=== PATIENT | female | born 1945 | race Caucasian/White ===

== ENCOUNTER 2022-03-27 12:44 | Outpatient (CLI) | payer MEDICARE, BC, SELFPAY ==
--- NOTE | ~2022-03-27 | DEXA_ITS ---
Bone Density Report Name: SHERRY RENO Age: 76 Sex: Female Ethnicity: White Date of : 1945 Indication: postmenopausal; screening for osteoporosis; height loss; history of glucocorticoids; prior fracture; cancer; end stage renal disease; Referring Provider: JANICE GROVES Study: Bone densitometry was performed. Exam Date: March 27, 2022 Accession number: [id number] Bone Density: Region BMD T-score Z-score Classification AP Spine(L2, L3) 0.775 -2.6 0.0 Osteoporosis Femoral Neck (Left) 0.546 -2.7 -0.5 Osteoporosis Total Hip (Left) 0.793 -1.2 0.7 Osteopenia Femoral Neck (Right) 0.534 -2.8 -0.6 Osteoporosis Total Hip (Right) 0.751 -1.6 0.4 Osteopenia Total Hip Mean 0.772 -1.4 0.6 Osteopenia World Health Organization criteria for BMD impression classify patients as: Normal (T-score at or above -1.0), Osteopenia (T-score between -1.0 and -2.5), or Osteoporosis (T-score at or below -2.5). 10-year Fracture Risk: FRAX not reported because: Some T-score for Spine Total or Hip Total or Femoral Neck at or below -2.5 Treated for osteoporosis Clinical Information Provided by Patient: Has had a low trauma fracture Has taken Glucocorticoids Is being treated for osteoporosis Has used the following medications: Actonel (i.e. risedronate) Has the following medical conditions: Cancer, End stage renal disease Patient maximum height was 61 Menopause Age: 49 No regular weight bearing exercise Does not regularly consume dairy products Drinks caffeinated beverages Onset of menses at age 10 Number of children 0 Impression: The patient has established osteoporosis, based on the Right Femoral Neck T-score and the existence of a prior fracture. The patient has risk factors, including: previous fracture, history of glucocorticoid therapy. Discussion: It is important to ask patients whether they are taking their medications and to encourage continued and appropriate compliance with their osteoporosis therapies to reduce fracture risk. It is also important to review their risk factors and encourage appropriate calcium and vitamin D intakes, exercise, fall prevention and other lifestyle measures. Follow-Up: Consider a repeat BMD and Vertebral Fracture Assessment (VFA) exam in 2 years or sooner if medically necessary, to reassess this patient's status. Reported by: JADA on 03/27/2022 1:07:00 PM. Reviewed, dictated and finalized at location AVonnie GUNN
== END 2022-03-27 12:45 | disposition home or self-care (01) ==
LOC: ANHIMG 12:46
PROVIDERS: PCP Family Medicine; Visit Provider Family Medicine
DX: M81.8 Other osteoporosis without current pathological fracture (principal); M85.89 Other specified disorders of bone density and structure, multiple sites
CPT/HCPCS: 77080

== ENCOUNTER 2023-05-21 08:14 | Inpatient (IN) | payer MEDICARE, BC, SELFPAY ==
[2023-05-21] VITALS (28 sets, daily range): BP systolic 101–125; BP diastolic 45–93; PULSE 80–105; RESP 18–28; TEMP 35.9–37.1; O2SAT 91–98; BMI 29.7
--- NOTE | ~2023-05-21 | CT_ITS ---
Non-contrast CT scan of the Abdomen and Pelvis Clinical indication: Abdominal pain Technique: 2.5 mm axial scans were obtained through the abdomen and pelvis without intravenous or or al contrast. Dose reduction technique was used on this scan by utilizing automated exposure control a nd iterative reconstruction technique. The dose-length product (DLP) was 731.65 mGy-cm. Findings: Images through the lung bases reveal moderate to large hiatal hernia. 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 There is a 3 cm gallstone within the gallbladder lumen. There is an additional 3 cm gallstone in the mid to distal small bowel resulting in small bowel obstruction. Findings are consistent with gallstone ileus. Small fat-containing umbili mir hernia present. Large bowel is decompressed. The spleen, pancreas, kidneys, and adrenals appear normal. There are atherosclerotic calcifications o f the aorta. . Images through the pelvis were performed. There is no evidence of ascites or lymphadenopathy. Urinary bladder unremarkable. No adnexal mass seen. Impression: Gallstone ileus, with obstructing 3 cm gallstone at the mid to distal small bowel. Associated underly ing cholecystoduodenal fistula present. Additional 3 cm gallstone within the gallbladder lumen with associated pneumobilia. Moderate to large hiatal hernia. Case discussed with Dr. Hardy in the emergency room at the time of this reading. Reviewed, dictated and finalized at [facility]. Impression: Gallstone ileus, with obstructing 3 cm gallstone at the mid to distal small bow el. Associated underlying cholecystoduodenal fistula present. Additional 3 cm gallstone within the gallbladder lumen with associated pneumobi gomez. Moderate to large hiatal hernia. Case discussed with Dr. Hardy in the emergency room at the time of this read ing.
--- NOTE | 2023-05-21 08:31 | ED.GENADULT ---
HPI - General Adult General Chief complaint: Nausea/Vomiting/Diarrhea Stated complaint: N/V Time Seen by Provider: 05/21/23 08:21 History of Present Illness HPI narrative: 77-year-old female presented the emergency for evaluation of abdominal pain that started on Friday. Patient reports he does have associated nausea and vomiting. Patient denies any diarrhea. Patient states that he has had decreased flatus. Patient does have a prior history of a kidney transplant in 1994 Related Data Home Medications Medication Instructions Recorded Confirmed ergocalciferol (vitamin D2) 1,250 1,250 mcg PO MONTHLY 10/03/20 05/21/23 mcg (50,000 unit) capsule fluticasone propionate 50 1 spray intranasal DAILY PRN 10/03/20 05/21/23 mcg/actuation nasal Congestion spray,suspension furosemide 20 mg tablet 20 mg PO QAM 10/03/20 05/21/23 lisinopril 5 mg tablet 10 mg PO DAILY 10/03/20 05/21/23 mecobalamin (vitamin B12) 1,000 1,000 mcg PO DAILY 10/03/20 05/21/23 mcg chewable tablet vwxlzacz-paa-nzgyy acid 0.4 1 tablet PO DAILY 10/03/20 05/21/23 mg-lycopene 300 mcg-lutein 250 mcg tablet (Centrum Silver) mycophenolate mofetil 500 mg tablet 500 mg PO Q12H 10/03/20 05/21/23 omega-3 fatty acids-fish oil 360 1 cap PO DAILY 10/03/20 05/21/23 mg-1,200 mg capsule (Fish Oil) potassium chloride 10 mEq 10 meq PO DAILY 10/03/20 05/21/23 tablet,extended release prednisone 5 mg tablet 5 mg PO DAILY 10/03/20 05/21/23 simvastatin 20 mg tablet 20 mg PO DAILY 10/03/20 05/21/23 valacyclovir 500 mg tablet 500 mg PO DAILY 10/03/20 05/21/23 esomeprazole magnesium 20 mg 20 mg PO DAILY 03/20/21 05/21/23 capsule,delayed release (Nexium) folic acid 1 mg tablet 1 mg PO DAILY 02/25/23 05/21/23 loratadine 10 mg disintegrating 10 mg PO DAILY PRN Allergy Symptoms 02/25/23 05/21/23 tablet (Alavert) cyclosporine modified 25 mg 25 mg PO TID 05/21/23 05/21/23 capsule (Neoral) Allergies Allergy/AdvReac Type Severity Reaction Status Date / Time No Known Allergies Allergy Verified 05/21/23 12:23 Review of Systems Review of Systems: All systems reviewed & are unremarkable except as noted in HPI and below PMFSH Past Medical History Medical History (Updated 05/21/23 @ 11:51 by Sami Hall MD) GERD (gastroesophageal reflux disease) Hyperlipidemia Hypertension Osteoporosis Surgical History Surgical History (Updated 05/21/23 @ 11:51 by Sami Hall MD) H/O kidney transplant H/O parathyroidectomy Social History Social History Social History: Caffeine-diet soda Smoking status: Never smoker Alcohol intake: never Substance use: never Lack of Transportation: No Lack of Food: Never True Current Housing: I Have Housing Concerned About Future Housing: No Difficulty Paying Gas/Electric Bills: No Difficulty Paying for Meds: No Currently Unemployed: No Education: Don't Know Difficulty w/ Childcare or Family Care: No Occupation/Education: retired Gender identity (if verbalized by the patient): Female Spiritual care concerns: No Exam Narrative: APPEARANCE: Well appearing, no pain, no distress, well-nourished. HEAD: normocephalic, atraumatic. EYES: PERRLA/EOMI, conjunctivae clear. NOSE: Normal no drainage NECK: Supple. No adenopathy, no masses. RESPIRATORY: Airway patent, respirations nonlabored. Clear to auscultation bilaterally, no rales, rhonchi, wheezing. CARDIOVASCULAR: Regular rate and rhythm without murmurs rubs or gallops. ABDOMINAL: Decreased bowel sounds with diffuse right-sided abdominal tenderness to palpation MUSCULOSKELETAL: Moves all extremities. Strength/ROM intact, No edema, No calf tenderness. NEURO: Alert. Cranial nerves II through XII intact. Grossly intact SKIN: Warm, dry. Normal Color Course Course Emergency Course: 77-year-old female presented ED for evaluation of right-sided abdominal pain. CT scan was concerning fo
[2023-05-21] MEDS: SODIUM CHLORIDE 0.9% IV 1,000 ML 999 ML IV CONT ×2 (08:36→10:18)
[2023-05-21] MEDS: ONDANSETRON INJ 4 MG/2 ML VIAL IV PUSH (08:36)
[2023-05-21 08:42] LABS: Basophils Percent Auto 0.2 % (0.2-1.2); Eosinophils Percent Auto 0.2 % (0-4.4); Hematocrit 44.7 % (37.0-47.0); Hemoglobin 15.5 g/dL (12.0-15.0); Immature Granulocyte Absolute 0.05 K/mm3 (0.00-0.031); Immature Granulocyte Percent A 0.4 % (0-0.5); Lymphocytes Percent Auto 9.9 % (18.3-44.2); Mean Corpuscular HGB Conc 34.7 g/dl (32-36); Mean Corpuscular Hemoglobin 34.4 pg (26-34); Mean Corpuscular Volume 99.1 fl (80-100); Mean Platelet Volume 9.7 fl (7.4-10.4); Monocytes Absolute Auto 0.8 K/mm3 (0.1-0.6); Monocytes Percent Auto 6.3 % (2.6-8.5); Neutrophils Absolute Auto 10.9 K/mm3 (1.3-6.7); Platelet Count Result 253 k/mm3 (150-375); Red Blood Count 4.51 M/mm3 (4.2-5.4); Red Cell Distribution Width 13.5 % (11.5-14.5); White Blood Count 13.1 K/mm3 (4.5-10.0)
[2023-05-21 08:51] LABS: Lactic Acid Reflex 1.6 mmol/L (0.7-2.0)
[2023-05-21 08:52] LABS: Alanine Aminotransferase 20 U/L (6-35); Albumin Level 4.6 g/dL (3.5-5.1); Alkaline Phosphatase 65 U/L (38-126); Anion Gap 15 mmol/L (8-16); Aspartate Amino Transferase 27 U/L (14-36); Bilirubin,Total 2.3 mg/dL (0.2-1.3); Blood Urea Nitrogen 39 mg/dL (7-17); Calcium 9.1 mg/dL (8.4-10.2); Carbon Dioxide 23 mmol/L (22-30); Chloride 98 mmol/L (98-107); Estimated CRCL calculation 21 ml/min; Estimated Glomerular Filt Rate 29; Glucose 149 mg/dL (65-110); Lipase 64 U/L (23-300); Potassium 3.9 mmol/L (3.4-5.0); Sodium 136 mmol/L (137-145)
[2023-05-21 10:08] LABS: Appearance Urine Turbid (Clear); Bacteria Urine None Seen /hpf; Bilirubin Urine 1+ (Negative); Blood Urine Negative (Negative); Color Urine Dark Yellow (Yellow); Glucose Urine UA Negative (Negative); Ketones Urine Trace mg/dL (Negative); Leukocyte Esterase Ur 2+ LEU/UL (Negative); Need Manual Microscopic Reviewed; Nitrate Urine Negative (Negative); Non Pathogenic Casts >20; Protein Urine 2+ mg/dL (Negative); Specific Grav Ur 1.019 (1.001-1.035); Squamous Epithelial Cell Urine Many /hpf (Few); WBC Urine 21-50 /hpf
[2023-05-21 10:10] LABS: Add Urine Microscopic? YES
--- NOTE | 2023-05-21 10:55 | PC.NURSE ---
3 unsuccessful NG tube attempts. notified.
[2023-05-21] MEDS: LACTATED RINGERS 1,000 ML 30 ML IV CONT ×2 (11:35→14:23)
--- NOTE | 2023-05-21 11:40 | PM.IMHP ---
H&P: HPI History of Present Illness Date/Time: 05/21/23 11:40 Chief Complaint: Abdominal pain and vomiting Narrative: Patient is a 77-year-old woman who night before last began having pain in the mid chest as well as vomiting. This pain went down to the epigastric area and she continued to have multiple episodes of vomiting with increasing pain. This continued all day yesterday and patient came to the emergency room this morning. She also noted abdominal distension. She was seen in the emergency room and found to have a distended abdomen with absent bowel sounds and tenderness in the right side of the abdomen. Her white blood cell count was elevated to 13,100. She had a CT scan of the abdomen pelvis which showed gallstone ileus. 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 She was seen in the emergency room and is admitted with plans to proceed to surgery from the emergency room for laparotomy and removal of the obstructing gallstone. Patient's history is also complicated by renal failure and history of a renal transplant in 1995. This was a donor transplant. She is maintained on immune suppression with cyclosporin, prednisone, mycophenolate. She sees a transplant office copy selector at [facility] yearly. She also reports that prior to her transplant she had a peritoneal dialysis catheter with the incision in the right lower quadrant. She reports her kidney is on the left lower quadrant. Her CT scan and exam showed a small umbilical hernia. Nasogastric tube was attempted to be placed in the emergency room but was not able to be placed. She is taken to surgery now as described above. Review of Systems Review of Systems: All systems reviewed & are unremarkable except as noted in HPI and below (HPI and those items noted below) Constitutional: Constitutional: Denies chills and Denies fever(s) Cardiovascular: Cardiovascular: Denies chest pain, Denies diaphoresis, Denies dyspnea and Denies paroxysmal nocturnal dyspnea Respiratory: Respiratory: Denies chest congestion, Denies cough and Denies dyspnea Integumentary/Breasts: Skin/Breast: Denies lesions and Denies rash [facility] Past Medical History Medical History (Updated 05/21/23 @ 11:51 by Sami Hall MD) GERD (gastroesophageal reflux disease) Hyperlipidemia Hypertension Osteoporosis Surgical History Surgical History (Updated 05/21/23 @ 11:51 by Sami Hall MD) H/O kidney transplant H/O parathyroidectomy Social History Social History Social History: Caffeine-diet soda Smoking status: Never smoker Alcohol intake: never Substance use: never Occupation/Education: retired Gender identity (if verbalized by the patient): Female Meds Home Medications and Allergies Home Medications Medication Instructions Recorded Confirmed Type cyclosporine modified 25 mg 25 mg PO TID 10/03/20 02/25/23 History capsule (Neoral) ergocalciferol (vitamin D2) 1,250 1,250 mcg PO MONTHLY 10/03/20 02/25/23 History mcg (50,000 unit) capsule fluticasone propionate 50 1 spray intranasal DAILY 10/03/20 02/25/23 History mcg/actuation nasal spray,suspension furosemide 20 mg tablet 20 mg PO QAM 10/03/20 02/25/23 History lisinopril 5 mg tablet 5 mg PO BID 10/03/20 02/25/23 History mecobalamin (vitamin B12) 1,000 1,000 mcg PO DAILY 10/03/20 02/25/23 History mcg chewable tablet zqedncje-pky-qhxxw acid 0.4 1 tablet PO DAILY 10/03/20 02/25/23 History mg-lycopene 300 mcg-lutein 250 mcg tablet (Centrum Silver) mycophenolate mofetil 500 mg tablet 1,000 mg PO Q12H 10/03/20 02/25/23 History omega-3 fatty acids-fish oil 360 1 cap PO DAILY 10/03/20 02/25/23 History mg-1,200 mg capsule (Fish Oil) potassium chloride 10 mEq 10 meq PO DAILY 10/03/20 02/25/23 History tablet,extended release prednisone 5 mg tablet 5
--- NOTE | 2023-05-21 12:26 | WPDANESEPPF ---
Anes - Initial Pre Proc Eval Procedure: Operation Date: 05/21/23 13:00 Proposed Procedures p Laparotomy For Removal Intestinal Foreign Body - Sami Hall MD Date/Time: 05/21/23 12:26 Surgeon: Sami Hall MD Pre Op Diagnosis: N/V Patient Data Age: 77 Gender: F Height: 1.52 m Weight: 63.8 kg Last Vital Signs Temp 36.7 C 05/21/23 11:47 Pulse 86 05/21/23 11:47 Resp 20 05/21/23 11:47 BP 109/49 L 05/21/23 11:47 Pulse Ox 94 05/21/23 11:47 O2 Del Method Room Air 05/21/23 11:47 Allergies Allergy/AdvReac Type Severity Reaction Status Date / Time No Known Allergies Allergy Verified 05/21/23 12:23 Home Medications Medication Instructions Recorded Confirmed Type cyclosporine modified 25 mg 25 mg PO TID 10/03/20 02/25/23 History capsule (Neoral) ergocalciferol (vitamin D2) 1,250 1,250 mcg PO MONTHLY 10/03/20 02/25/23 History mcg (50,000 unit) capsule fluticasone propionate 50 1 spray intranasal DAILY 10/03/20 02/25/23 History mcg/actuation nasal spray,suspension furosemide 20 mg tablet 20 mg PO QAM 10/03/20 02/25/23 History lisinopril 5 mg tablet 5 mg PO BID 10/03/20 02/25/23 History mecobalamin (vitamin B12) 1,000 1,000 mcg PO DAILY 10/03/20 02/25/23 History mcg chewable tablet aaujoinj-fys-ltxxe acid 0.4 1 tablet PO DAILY 10/03/20 02/25/23 History mg-lycopene 300 mcg-lutein 250 mcg tablet (Centrum Silver) mycophenolate mofetil 500 mg tablet 1,000 mg PO Q12H 10/03/20 02/25/23 History omega-3 fatty acids-fish oil 360 1 cap PO DAILY 10/03/20 02/25/23 History mg-1,200 mg capsule (Fish Oil) potassium chloride 10 mEq 10 meq PO DAILY 10/03/20 02/25/23 History tablet,extended release prednisone 5 mg tablet 5 mg PO DAILY 10/03/20 02/25/23 History simvastatin 20 mg tablet 20 mg PO DAILY 10/03/20 02/25/23 History valacyclovir 500 mg tablet 500 mg PO DAILY 10/03/20 02/25/23 History esomeprazole magnesium 20 mg 20 mg PO DAILY 03/20/21 02/25/23 History capsule,delayed release (Nexium) nystatin 100,000 unit/gram topical 1 applic topical BID #30 grams 07/29/22 02/25/23 Rx powder risedronate 150 mg tablet 150 mg PO MONTHLY #12 tabs 12/27/22 02/25/23 Rx ferrous sulfate 325 mg (65 mg 325 mg PO DAILY 02/25/23 02/25/23 History iron) tablet (Feosol) folic acid 1 mg tablet 1 mg PO DAILY 02/25/23 02/25/23 History loratadine 10 mg disintegrating 10 mg PO DAILY 02/25/23 02/25/23 History tablet (Alavert) metronidazole 1 % topical cream 1 applic topical DAILY 02/25/23 02/25/23 History psyllium husk 0.52 gram capsule 0.52 g PO DAILY 02/25/23 02/25/23 History (Fiber (psyllium husk)) Laboratory Tests 05/21/23 05/21/23 08:37 09:45 WBC 13.1 H K/mm3 (4.5-10.0) RBC 4.51 M/mm3 (4.2-5.4) Hgb 15.5 H g/dL (12.0-15.0) Hct 44.7 % (37.0-47.0) MCV 99.1 fl (80-100) MCH 34.4 H pg (26-34) MCHC 34.7 g/dl (32-36) RDW 13.5 % (11.5-14.5) Plt Count 253 k/mm3 (150-375) MPV 9.7 fl (7.4-10.4) Immature Gran % (Auto) 0.4 % (0-0.5) Neut % (Auto) 83.0 H % (45.5-73.1) Lymph % (Auto) 9.9 L % (18.3-44.2) Hyde % (Auto) 6.3 % (2.6-8.5) Eos % (Auto) 0.2 % (0-4.4) Baso % (Auto) 0.2 % (0.2-1.2) Lymph # (Auto) 1.30 K/mm3 (0.9-3.2) Hyde # (Auto) 0.8 H K/mm3 (0.1-0.6) Eos # (Auto) 0.0 K/mm3 (0-0.3) Baso # (Auto) 0.0 K/mm3 (0.0-0.1) Abs Immat Gran (auto) 0.05 H K/mm3 (0.00-0.031) Absolute Neuts (auto) 10.9 H K/mm3 (1.3-6.7) Absolute Nucleated RBC 0.0 K/mm3 (0.0-0.012) Nucleated RBC % 0.0 % (0.0-0.2) Sodium 136 L mmol/L (137-145) Potassium 3.9 mmol/L (3.4-5.0) Chloride 98 mmol/L (98-107) Carbon Dioxide 23 mmol/L (22-30) Anion Gap 15 mmol/L (8-16) BUN 39 H mg/dL (7-17) Creatinine 1.70 H mg/dL (0.7-1.0) Estim Cr
--- NOTE | 2023-05-21 13:01 | WPDHPUPDATE1 ---
History and Physical Update Update Date/Time: 05/21/23 13:01 History and Physical has been reviewed, including an updated exam of the patient. There are NO changes in the patient's condition. Risks, benefits, and alternatives have been discussed and questions answered. Patient agrees to proceed with procedure.
--- NOTE | 2023-05-21 14:19 | W.PM.PROC2 ---
Procedure Note - Detailed Date of Procedure 05/21/23 Pre-op Diagnosis Gallstone ileus Post-op Diagnosis Same Procedure Performed Laparotomy for removal obstructing small intestinal foreign body Surgeon Sami Hall MD Safety Tech Ashly Bonilla [facility] Anesthesia General Indications Patient is a 77-year-old woman who presented with abdominal pain vomiting and abdominal distension. On CT scan she had of the elephant evidence of gallstone ileus. She is taken to surgery now for removal of the obstructing gallstone Findings Large pigmented stone obstructing the distal ileum. Proximal to the ileocecal valve Description of Procedure Patient was taken to surgery and induced into general anesthesia. During induction, it was noted that the patient went into an irregular rhythm thought to be atrial fibrillation at about 80 per minute. It was unable to be captured on a tracing and only lasted a few seconds. She was in sinus rhythm with APCs the remainder of the case. The abdomen was prepped and draped. A midline abdominal incision was made. Dissection was carried down through the midline fascia. A ventral hernia was noted in the vicinity of the umbilicus and at the umbilicus. We dissected through this and into the peritoneal cavity. There was about 60-70 cc of cloudy ascites in the abdomen. This was suctioned away. I pulled up some small intestine and was easily able to find the obstructing stone in the distal ileum. We were still well proximal to the ileocecal valve, at least 12 in. I quarantined off this segment of bowel. A noncrushing bowel clamp was placed on the proximal small bowel. A transversely oriented incision over the stone was made. I then coaxed the stone out of the abdomen and into a specimen container. It was sent to pathology for gross only. A 2 layer transversely oriented closure of the enterotomy was performed. The inner layer was an inverting bidirectional Trevin suture. The outer layer was Lembert sutures of 4-0 silk. The clamp was removed. Small bowel contents passed through the anastomosis without difficulty. The nasogastric tube was positioned appropriately in the stomach. I then removed the fatty contents of the umbilical hernia and removed any weak and or herniated areas of the associated fascia. The abdominal contents was placed back in its general anatomic location with the omentum positioned anteriorly. We closed the wound with bidirectional running 1. PDS suture. Some subcuticular 3-0 Vicryl sutures were placed. The skin was finally closed with wide efren. The wound was dressed with Xeroform gauze fluffs and Medipore tape. Patient was awakened and extubated. She was taken to recovery in good condition. Estimated Blood Loss -5 Drains Yes (Nasogastric tube) Packing No Pathology Yes (Large pigmented gallstone, gross only) Complications No immediate complications Condition Stable Disposition PACU [facility] Billing Surgery - Charge Forward: Surgery Billing (Laparotomy for removal obstructing small intestinal foreign body)
--- NOTE | 2023-05-21 14:27 | ECG_ITS ---
Measurements Intervals [place] Rate: 84 P: 33 UT: 162 QRS: -13 QRSD: 92 T: 116 QT: 388 QTc: 460 Interpretive Statements SINUS RHYTHM ATRIAL COUPLET AND FREQUENT ATRIAL PREMATURE COMPLEXES BORDERLINE ST-T WAVE ABNORMALITY- ANT/HIGH LAT LEADS ABNORMAL ECG NO PREVIOUS ECG AVAILABLE FOR COMPARISON Electronically Signed On 05-21-2023 15:30:25 CDT by Bhupendra Castano D.O.
[2023-05-21] MEDS: fentaNYL CITRATE INJ (*CRX) 100 MCG/2 ML VIAL 25 MCG IV PUSH ×2 (14:45→14:53)
--- NOTE | 2023-05-21 16:16 | ADMGEN ---
This patient, Negrita Oconnell, was admitted to IMU Room 205-02. Patient/family oriented to hospital policies and general routines including ID bracelet, bed and alarms, visiting hours, pain management, procedures, bathroom and other care routines, personal items, smoking policy, room service/diet, and visiting hours. Information on how to activate the Rapid Response Team has been discussed. Patient/Family are encouraged to report perceived risks to care and to ask questions if they do not understand what they are told or what they should do.
[2023-05-21] MEDS: KCL 20 MEQ/D5/0.9% SOD CHL 1,000 ML 100 ML IV CONT (18:15)
[2023-05-21] MEDS: ENOXAPARIN 30 MG/0.3 ML SYRINGE SUB-Q (18:15)
[2023-05-21] MEDS: BENZOCAINE/MENTHOL (*BKC) 18 EA LOZENGE 1 LOZENGE PO (19:50)
[2023-05-21] MEDS: PHENOL/SOD PHENO SPRAY CHERRY (*BKC) 1 SPRAY MUCOUS MEM (19:50)
[2023-05-21] MEDS: MORPHINE SULFATE (*CRX) 2 MG/ML INJ IV PUSH ×2 (19:55→21:28)
[2023-05-21] MEDS: MORPHINE SULFATE (*CRX) 4 MG/ML INJ IV PUSH (23:33)
[2023-05-22] VITALS (18 sets, daily range): BP systolic 96–135; BP diastolic 49–65; PULSE 63–117; RESP 16–30; TEMP 36.5–37.1; O2SAT 94–98
--- NOTE | 2023-05-22 | ECHO_ITS ---
Patient Info Name: Negrita Oconnell Age: 77 years : 1945 Gender: Female Ht: 60 in Wt: 140 lbs BSA: 1.66 m2 HR: 73 bpm BP: 110 / 51 mmHg Heart Rhythm: Sinus Rhythm Technical Quality: Fair Exam Date: 05/22/2023 1:53 PM Exam Location: [facility] Pulmonary Patient Status: Inpatient Admit Date: 05/21/2023 Staff Ordering Physician: Lisa Groves [employer] Claim Examiner: Radha Vazquez RDCS Attending Provider: Sami Hall MD Referring Physician: Yaneli MARTIN; Exam Type: CA echo doppler color flow Study Info Indications - murmur Complete two-dimensional, color flow and Doppler transthoracic echocardiogram is performed. Summary 1. Complete two-dimensional, color flow and Doppler transthoracic echocardiogram is performed. 2. Left ventricular chamber dimension is normal. 3. Left ventricular systolic function is normal, estimated at 65-70%. 4. There is severely increased left ventricular wall thickness. 5. The left ventricular diastolic function is grade I diastolic dysfunction. 6. Right ventricular systolic function is normal. 7. Left atrial chamber dimension is moderately enlarged. 8. The aortic valve is not well visualized. 9. There is moderate aortic valve calcification. 10. There is mild to moderate aortic valve stenosis with a peak velocity of 189 cm/s, mean gradient of 9 mmHg, and aortic valve area of 1.4 cm2. 11. There is mild aortic valve regurgitation. 12. The mitral valve annulus is moderately calcified. 13. The mitral valve has thickened leaflets. 14. There is mild mitral valve regurgitation. 15. There is moderate tricuspid valve regurgitation. Left Ventricle Left ventricular chamber dimension is normal. Left ventricular systolic function is normal, estimated at 65-70%. There is severely increased left ventricular wall thickness. The left ventricular diastolic function is grade I diastolic dysfunction. Right Ventricle Right ventricular chamber dimension is normal. Right ventricular systolic function is normal. Left Atria Left atrial chamber dimension is moderately enlarged. Right Atria Right atrial chamber dimension is normal. Aortic Valve The aortic valve is not well visualized. There is moderate aortic valve sclerosis. There is mild to moderate aortic valve stenosis with a peak velocity of 189 cm/s, mean gradient of 9 mmHg, and aortic valve area of 1.4 cm2. There is mild aortic valve regurgitation. There is moderate aortic valve calcification. Pulmonic Valve The pulmonic valve is not well visualized. There is trace pulmonic regurgitation. Mitral Valve The mitral valve has thickened leaflets. There is mild mitral valve regurgitation. The mitral valve annulus is moderately calcified. Tricuspid Valve There is moderate tricuspid valve regurgitation. Pericardium/Pleural There is no pericardial effusion. Inferior Vena Cava Inferior vena cava is not well visualized. Aorta The aortic root size at the sinus of Valsalva is normal. Left Ventricular Outflow Tract Name Value Normal LVOT 2D LVOT Diameter 1.6 cm LVOT Doppler LVOT Peak Gradient 6 mmHg LVOT Mean Gradient 3 mmHg LVOT VTI 29 cm
--- NOTE | 2023-05-22 00:01 | WPDCN ---
Assessment and Plan Assessment and plan (1) Gallstone ileus of small intestine: Code(s): K56.3 - Gallstone ileus Status: Acute Assessment and Plan: Postoperative day 0 status post laparotomy for removal of obstructing gallstone of the distal ileum. Wound care, pain control, and DVT prophylaxis deferred to Dr. Hall. (2) Acute kidney injury: Code(s): N17.9 - Acute kidney failure, unspecified Status: Acute Assessment and Plan: Etiology not entirely clear but most likely related to dehydration from poor oral intake and vomiting. Creatinine today is 1.70, up from 0.61 on labs from 02/17/2023. Continue judicious IV fluid rehydration with strict I/O. Hold lisinopril and furosemide for now. If no improvement with IV fluids alone a further workup will need to be pursued and it may be prudent to speak with her transplant team. (3) History of renal transplant: Onset Date: 1995 Code(s): Z94.0 - Kidney transplant status Status: Acute Assessment and Plan: Status post renal transplant in 1995. Continue antirejection medications. (4) Immunosuppression due to drug therapy: Code(s): D84.821 - Immunodeficiency due to drugs; Z79.899 - Other care home (current) drug therapy Status: Chronic Assessment and Plan: She is on cyclosporine, mycophenolate, and prednisone post renal transplant as above. (5) Hypertension: Qualifiers: Hypertension type: essential hypertension Qualified Code(s): I10 - Essential (primary) hypertension Code(s): I10 - Essential (primary) hypertension Status: Chronic Assessment and Plan: Blood pressures were reviewed and they have been stable. Monitor closely as lisinopril and furosemide are currently on hold. (6) Hyperlipidemia: Qualifiers: Hyperlipidemia type: pure hypercholesterolemia Qualified Code(s): E78.00 - Pure hypercholesterolemia, unspecified Code(s): E78.5 - Hyperlipidemia, unspecified Status: Chronic Assessment and Plan: Resume statin upon return of bowel function. (7) Gastroesophageal reflux disease: Code(s): K21.9 - Gastro-esophageal reflux disease without esophagitis Status: Acute Assessment and Plan: Currently on pantoprazole 40 mg IV daily. (8) Abnormal urinalysis: Code(s): R82.90 - Unspecified abnormal findings in urine Status: Acute Assessment and Plan: Continue ceftriaxone, pending urine culture. Plan Thank you for allowing us to participate in this patient's care. Please do not hesitate to contact us with any questions. HPI Data of Consult Date/Time: 05/21/23 21:00 Requesting Physician: Sami Hall MD Consult Narrative Reason for consult: Medical management. Narrative: This is a 77-year-old female with chronic kidney disease status post renal transplant in 1995, hypertension, hyperlipidemia and gastroesophageal reflux disease who presented to the emergency department earlier today for evaluation of abdominal pain and vomiting since Friday. Abdomen was distended with absent bowel sounds on arrival to the ED. CT of the abdomen/pelvis showed gallstone ileus with an obstructing 3 cm gallstone at the mid to distal small bowel with associated underlying cholecystoduodenal fistula. She was taken to the OR per Rafael and is status post laparotomy for removal of a large pigmented stone obstructing the distal ileum. Her surgery was performed under general anesthesia is no immediate complications documented an estimated blood loss of 5 mL. The hospitalist service has been consulted in this setting for help managing her medical conditions. At the time my evaluation she complains of diffuse abdominal discomfort and throat pain which she believes is due to multiple attempts at NG tube placement. She denies fever, chills, sweats, chest pain, and shortness of breath. Review of Systems Review of System
[2023-05-22] MEDS: KCL 20 MEQ/D5/0.9% SOD CHL 1,000 ML 100 ML IV CONT ×3 (02:13→23:45)
[2023-05-22 04:01] LABS: Hemoglobin 11.7 g/dL (12.0-15.0); Mean Corpuscular HGB Conc 32.5 g/dl (32-36); Mean Corpuscular Hemoglobin 33.6 pg (26-34); Mean Corpuscular Volume 103.4 fl (80-100); Mean Platelet Volume 9.7 fl (7.4-10.4); Platelet Count Result 179 k/mm3 (150-375); Red Blood Count 3.48 M/mm3 (4.2-5.4); Red Cell Distribution Width 13.4 % (11.5-14.5); White Blood Count 7.5 K/mm3 (4.5-10.0)
[2023-05-22 04:20] LABS: Alanine Aminotransferase 16 U/L (6-35); Albumin Level 3.1 g/dL (3.5-5.1); Alkaline Phosphatase 42 U/L (38-126); Anion Gap 7 mmol/L (8-16); Aspartate Amino Transferase 24 U/L (14-36); Bilirubin,Total 0.9 mg/dL (0.2-1.3); Blood Urea Nitrogen 27 mg/dL (7-17); Calcium 7.2 mg/dL (8.4-10.2); Carbon Dioxide 23 mmol/L (22-30); Chloride 110 mmol/L (98-107); Estimated CRCL calculation 39 ml/min; Estimated Glomerular Filt Rate > 60; Glucose 160 mg/dL (65-110); Potassium 4.2 mmol/L (3.4-5.0); Sodium 140 mmol/L (137-145)
--- NOTE | 2023-05-22 07:40 | WPDANESPN ---
Anes - Prog Note Post-Op Date/Time: 05/22/23 07:40 Cardiovascular status: normal Respiratory status: normal Airway patency: baseline Mental status: baseline Post-Op hydration status: normal Vital Signs: Last Vital Signs Temp 36.8 C 05/22/23 04:38 Pulse 72 05/22/23 06:00 Resp 30 H 05/22/23 04:38 BP 96/49 L 05/22/23 04:38 Pulse Ox 97 05/22/23 04:38 O2 Del Method Nasal Cannula 05/22/23 03:36 O2 Flow Rate 2 05/22/23 03:36 Pain Score (VAS): 3 I/O: Intake & Output 05/21/23 05/21/23 05/22/23 15:59 23:59 07:59 Intake Total 2350 60 1300 Output Total 50 200 Balance 2350 10 1100 Laboratory Tests 05/22/23 03:45 05/22/23 03:45 05/21/23 05/21/23 05/22/23 08:37 09:45 03:45 WBC 13.1 H 7.5 RBC 4.51 3.48 L Hgb 15.5 H 11.7 L D Hct 44.7 36.0 L MCV 99.1 103.4 H MCH 34.4 H 33.6 MCHC 34.7 32.5 RDW 13.5 13.4 Plt Count 253 179 MPV 9.7 9.7 Immature Gran % (Auto) 0.4 Neut % (Auto) 83.0 H Lymph % (Auto) 9.9 L [place] % (Auto) 6.3 Eos % (Auto) 0.2 Baso % (Auto) 0.2 Lymph # (Auto) 1.30 [place] # (Auto) 0.8 H Eos # (Auto) 0.0 Baso # (Auto) 0.0 Abs Immat Gran (auto) 0.05 H Absolute Neuts (auto) 10.9 H Absolute Nucleated RBC 0.0 Nucleated RBC % 0.0 Sodium 136 L 140 Potassium 3.9 4.2 Chloride 98 110 H Carbon Dioxide 23 23 Anion Gap 15 7 L BUN 39 H 27 H D Creatinine 1.70 H 0.90 Estim Creat Clear Calc 21 39 Estimated GFR 29 L > 60 Glucose 149 H 160 H Lactic Acid 1.6 Calcium 9.1 7.2 L Total Bilirubin 2.3 H 0.9 AST 27 24 ALT 20 16 Alkaline Phosphatase 65 42 Total Protein 8.0 6.0 L Albumin 4.6 3.1 L Lipase 64 Urine Color Dark yellow Urine Appearance Turbid H Urine pH 5.0 Ur Specific [place] 1.019 Urine Protein 2+ H Urine Glucose (UA) Negative Urine Ketones Trace H Ur Blood (Man) Negative Urine Nitrate Negative Urine Bilirubin 1+ H Urine Urobilinogen 1.0 Add Ur Microanalysis Reviewed Leukocyte Esterase Rfl 2+ H Urine RBC 11-20 H Urine WBC 21-50 H Ur Squamous Epith Cells Many H Urine Bacteria None seen Urine Casts >20 Post-procedural complaints: none Patient Feedback: Patient satisfied with anesthetic care.
--- NOTE | 2023-05-22 08:15 | PM.PNGS ---
Progress Note: A&P Assessment and Plan (1) Gallstone ileus of small intestine: Code(s): K56.3 - Gallstone ileus Status: Acute Assessment and Plan: Much improved today. Creatinine down to normal. Feels better. Labs look good. Await return bowel function. Immunosuppressive meds have been restarted with a sip of water and clamping the NG tube. Up today. Continue NG and NPO. Ambulate. Start dressing changes. Doing well so far. Hospitalist consultation appreciated. Pending cardiology evaluation. (2) History of renal transplant: Onset Date: 1995 Code(s): Z94.0 - Kidney transplant status Status: Acute (3) Immunosuppression due to drug therapy: Code(s): D84.821 - Immunodeficiency due to drugs; Z79.899 - Other shelter (current) drug therapy Status: Chronic Subjective Subjective Date/Time Seen: 05/22/23 08:15 Post Op day: 1 Patient reports: feels better, pain is less (Most of pain associated with NG tube), no flatus, no bowel movement and afebrile Review of Systems Review of Systems: All systems reviewed & are unremarkable except as noted in HPI and below (HPI) Exam Const: General: comfortable, no acute distress, alert and awake Nutritional Appearance: average body habitus Orientation/consciousness: patient oriented x3 GI: Inspection: distended, incision (Dressing dry and intact) and no visible herniation GI Palp: Yes Soft to palpation, Yes Tenderness to palpation present (GI), No Guarding due to palpation present (GI) and No Rebound tenderness present Auscultation: absent bowel sounds Neuro: General: patient oriented x3 and no focal motor deficits Extrem: General: no calf tenderness and no edema Psych: Affect: normal affect Insight: Good insight present (Psych) Judgement: Good judgement present (Psych) Objective Data Vital Signs Vital Signs: Vital Signs - 24 hr 05/21/23 08:19 05/21/23 08:22 05/21/23 08:31 Temperature 36.4 C L Pulse Rate 96 103 H 95 Respiratory Rate 20 25 H 20 Blood Pressure 113/66 113/66 101/66 Pulse Oximetry 96 97 93 Oxygen Delivery Room Air Oxygen Flow Rate 05/21/23 08:46 05/21/23 09:16 05/21/23 09:31 Temperature Pulse Rate 93 91 90 Respiratory Rate 18 19 26 H Blood Pressure 102/59 L 108/45 L 106/49 L Pulse Oximetry 92 95 95 Oxygen Delivery Oxygen Flow Rate 05/21/23 09:46 05/21/23 10:01 05/21/23 10:16 Temperature Pulse Rate 92 90 89 Respiratory Rate 22 H 25 H 24 H Blood Pressure 116/78 106/74 102/59 L Pulse Oximetry 98 95 94 Oxygen Delivery Oxygen Flow Rate 05/21/23 10:31 05/21/23 10:47 05/21/23 11:47 Temperature 36.7 C Pulse Rate 98 105 H 86 Respiratory Rate 25 H 27 H 20 Blood Pressure 110/68 122/93 H 109/49 L Pulse Oximetry 94 97 94 Oxygen Delivery Room Air Oxygen Flow Rate 05/21/23 14:23 05/21/23 14:35 05/21/23 14:50 Temperature 37.1 C Pulse Rate 85 80 85 Respiratory Rate 20 28 H 21 H Blood Pressure 125/50 L 124/70 122/74 Pulse Oximetry 96 96 98 Oxygen Delivery Simple Face Mask Simple Face Mask Simple Face Mask Oxygen Flow Rate 6 6 6 05/21/23 15:05 05/21/23 15:20 05/21/23 15:35 Temperature Pulse Rate 85 83 88 Respiratory Rate 23 H 24 H 24 H Blood Pressure 114/59 L 109/56 L Pulse Oximetry 98 95 96 Oxygen Delivery Simple Face Mask Nasal Cannula Nasal Cannula Oxygen Flow Rate 6 2 2 05/21/23 15:50 05/21/23 16:29 05/21/23 16:11 Temperature 35.9 C L Pulse Rate 86 82 94 Respiratory Rate 24 H 20 Blood Pressure 110/64 107/62 Pulse Oximetry 96 91 Oxygen Delivery Nasal Cannula Oxygen Flow Rate 2 05/21/23 17:06 05/21/23 16:11 05/21/23 17:55 Temperature 35.9 C L Pulse Rate 82 Respiratory Rate 20 Blood Pressure 107/62 Pulse Oximetry 91 91 96 Oxygen Delivery Nasal Cannula Nasal Cannula Oxygen Flow Rate 2 2 05/21/23 18:00 05/21/23 19:49 05/21/23 20:00 Temperature 36.7 C Pulse Rate 93 98 Respiratory Rate 20 Bloo
[2023-05-22] MEDS: mycophenolate mofetiL 250 MG CAPSULE 500 MG PO ×2 (08:38→20:42)
[2023-05-22] MEDS: PANTOPRAZOLE SODIUM IV 40 MG VIAL IV PUSH (08:38)
[2023-05-22] MEDS: valACYclovir HCL 500 MG TABLET PO (08:38)
[2023-05-22] MEDS: predniSONE 5 MG TABLET PO (08:38)
[2023-05-22] MEDS: cycloSPORINE (NEORAL) 25 MG CAPSULE PO (08:39)
[2023-05-22] MEDS: ENOXAPARIN 30 MG/0.3 ML SYRINGE SUB-Q (08:39)
--- NOTE | 2023-05-22 09:59 | PM.CNCAR ---
Assessment and Plan Assessment and plan (1) Irregular cardiac rhythm: Code(s): I49.9 - Cardiac arrhythmia, unspecified Status: Acute Assessment and Plan: She is in sinus rhythm with frequent PAC's. She does also have some intermittent bursts of SVT/atrial tachycardia which are self limiting and asymptomatic. No evidence of atrial fibrillation thus far on telemetry. Continue to monitor telemetry. (2) Cardiac murmur: Code(s): R01.1 - Cardiac murmur, unspecified Status: Acute Assessment and Plan: She has a systolic murmur consistent with aortic stenosis. Will check an echo. Further recommendations to follow. History of Present Illness History of Present Illness Consult date/time: 05/22/23 09:59 Requesting physician: Sami Hall MD Consult reason: atrial fibrillation Reason For Visit: N/V Narrative: Ms. Oconnell is a 77 year old female who is admitted to the hospital with gallstone ileus now status post laparotomy with removal of large stone obstructing the distal ileum. During the case she was noted to be in an irregular rhythm with concern for atrial fibrillation, but this rhythm was not captured on a telemetry strip. According to documentation she was in sinus rhythm with frequent PAC's for the majority of the case. Her telemetry shows sinus rhythm with frequent PAC's with occasional bursts of atrial tachycardia. She denies any palpitations, chest pain, shortness of breath, syncope, or pre-syncope. She is resting comfortably in bed at the time of my visit with her. Review of Systems Review of Systems: All systems reviewed & are unremarkable except as noted in HPI and below Gastrointestinal: Gastrointestinal: Reports abdominal pain, Reports nausea and Reports vomiting PMFSH Past Medical History Medical History Chronic kidney disease Gastroesophageal reflux disease Hyperlipidemia Hypertension Immunosuppression due to drug therapy Osteoporosis Surgical History Surgical History History of bilateral cataract extraction (2018) History of parathyroidectomy History of renal transplant (1995) Family History Family History Other Family history non-contributory Social History Social History Social History: Code status: Full code. Smoking status: Never smoker Alcohol intake: never Substance use: never Lack of Transportation: No Lack of Food: Never True Current Housing: I Have Housing Concerned About Future Housing: No Difficulty Paying Gas/Electric Bills: No Difficulty Paying for Meds: No Currently Unemployed: No Education: Don't Know Difficulty w/ Childcare or Family Care: No Living arrangements: alone Occupation/Education: retired Spiritual care concerns: No Meds Home Medications and Allergies Home Medications Medication Instructions Recorded Confirmed Type ergocalciferol (vitamin D2) 1,250 1,250 mcg PO MONTHLY 10/03/20 05/21/23 History mcg (50,000 unit) capsule fluticasone propionate 50 1 spray intranasal DAILY PRN 10/03/20 05/21/23 History mcg/actuation nasal Congestion spray,suspension furosemide 20 mg tablet 20 mg PO QAM 10/03/20 05/21/23 History lisinopril 5 mg tablet 10 mg PO DAILY 10/03/20 05/21/23 History mecobalamin (vitamin B12) 1,000 1,000 mcg PO DAILY 10/03/20 05/21/23 History mcg chewable tablet [id number]-[id number]-xggyi acid 0.4 1 tablet PO DAILY 10/03/20 05/21/23 History mg-lycopene 300 mcg-lutein 250 mcg tablet (Centrum Silver) mycophenolate mofetil 500 mg tablet 500 mg PO Q12H 10/03/20 05/21/23 History omega-3 fatty acids-fish oil 360 1 cap PO DAILY 10/03/20 05/21/23 History mg-1,200 mg capsule (Fish Oil) potassium chloride 10 mEq 10 meq PO DAILY 10/03/20 05/21/23 History
--- NOTE | 2023-05-22 10:19 | PM.IMPN ---
Progress Note: A&P Assessment and Plan (1) Gallstone ileus of small intestine: Code(s): K56.3 - Gallstone ileus Status: Acute Assessment and Plan: Postoperative day 0 status post laparotomy for removal of obstructing gallstone of the distal ileum. Wound care, pain control, and DVT prophylaxis deferred to Dr. Hall. (2) Acute kidney injury: Code(s): N17.9 - Acute kidney failure, unspecified Status: Acute Assessment and Plan: Etiology not entirely clear but most likely related to dehydration from poor oral intake and vomiting. Creatinine today is 1.70, up from 0.61 on labs from 02/17/2023. Continue judicious IV fluid rehydration with strict I/O. Hold lisinopril and furosemide for now. Labs today, shows kidney function is improving Continue IV fluid Follow-up BMP Avoid nephrotoxic medication (3) History of renal transplant: Onset Date: 1995 Code(s): Z94.0 - Kidney transplant status Status: Acute Assessment and Plan: Status post renal transplant in 1995. Continue antirejection medications. 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 (5) Hypertension: Qualifiers: Hypertension type: essential hypertension Qualified Code(s): I10 - Essential (primary) hypertension Code(s): I10 - Essential (primary) hypertension Status: Chronic Assessment and Plan: Blood pressures were reviewed and they have been stable. Monitor closely as lisinopril and furosemide are currently on hold. (6) Hyperlipidemia: Qualifiers: Hyperlipidemia type: pure hypercholesterolemia Qualified Code(s): E78.00 - Pure hypercholesterolemia, unspecified Code(s): E78.5 - Hyperlipidemia, unspecified Status: Chronic Assessment and Plan: Resume statin upon return of bowel function. (7) Gastroesophageal reflux disease: Code(s): K21.9 - Gastro-esophageal reflux disease without esophagitis Status: Acute Assessment and Plan: Currently on pantoprazole 40 mg IV daily. (8) Abnormal urinalysis: Code(s): R82.90 - Unspecified abnormal findings in urine Status: Acute Assessment and Plan: Continue ceftriaxone, pending urine culture. Plan Thank you for allowing us to participate in this patient's care. Please do not hesitate to contact us with any questions. Subjective Date/time seen: 05/22/23 10:19 Interval history: I saw on exam patient today. Patient denies nausea vomiting, abdomen pain is improving, patient has not passed gas yet, I also reviewed the labs, kidney function is improving Exam Narrative: GENERAL: Pleasant, in no acute distress. Well-nourished. - EYES: EOMI. Anicteric. - HENT: Moist mucous membranes. - LUNGS: Clear to auscultation bilaterally, no wheezing, rhonchi, or rales. - CARDIOVASCULAR: Regular rate and rhythm. No murmur. No JVD. - ABDOMEN: Soft, non-tender and non-distended. Surgical is well-dressed, dressing is dry and clean, no palpable masses. - EXTREMITIES: No edema. Peripheral pulses 2+. Non-tender. - NEUROLOGIC: No focal neurological deficits. CN II-XII grossly intact. - PSYCHIATRIC: Awake, Alert and oriented x 3. Appropriate mood and affect. - SKIN: No rashes or lesions. Warm. - LYMPH: No cervical lymphadenopathy. Objective Data Vital Signs Vital Signs: Vital Signs - 24 hr 05/21/23 10:31 05/21/23 10:47 05/21/23 11:47 Temperature 98.0 F Pulse Rate 98 105 H 86 Respiratory Rate 25 H 27 H 20 Blood Pressure 110/68 122/93 H 109/49 L Pulse Oximetry 94 97 94 Oxygen Delivery Room Air Oxygen Flow Rate 05/21/23 14:23 05/21/23 14:35 05/21/23 14:50 Temperature 98.7 F Pulse Rate 85 80 85 Resp
[2023-05-23] VITALS (12 sets, daily range): BP systolic 141–155; BP diastolic 51–88; PULSE 71–84; RESP 18–20; TEMP 35.8–36.4; O2SAT 96–98
[2023-05-23 04:41] LABS: Hematocrit 35.6 % (37.0-47.0); Hemoglobin 11.7 g/dL (12.0-15.0); Mean Corpuscular HGB Conc 32.9 g/dl (32-36); Mean Corpuscular Hemoglobin 34.5 pg (26-34); Mean Platelet Volume 9.5 fl (7.4-10.4); Platelet Count Result 172 k/mm3 (150-375); Red Blood Count 3.39 M/mm3 (4.2-5.4); Red Cell Distribution Width 13.2 % (11.5-14.5); White Blood Count 6.1 K/mm3 (4.5-10.0)
[2023-05-23 04:51] LABS: Anion Gap 4 mmol/L (8-16); Blood Urea Nitrogen 19 mg/dL (7-17); Calcium 7.7 mg/dL (8.4-10.2); Carbon Dioxide 24 mmol/L (22-30); Chloride 114 mmol/L (98-107); Estimated CRCL calculation 49 ml/min; Estimated Glomerular Filt Rate > 60; Glucose 108 mg/dL (65-110); Potassium 3.8 mmol/L (3.4-5.0); Sodium 142 mmol/L (137-145)
[2023-05-23] MEDS: mycophenolate mofetiL 250 MG CAPSULE 500 MG PO ×2 (10:35→20:04)
[2023-05-23] MEDS: predniSONE 5 MG TABLET PO (10:35)
[2023-05-23] MEDS: cycloSPORINE (NEORAL) 25 MG CAPSULE 75 MG PO (10:35)
[2023-05-23] MEDS: valACYclovir HCL 500 MG TABLET PO (10:35)
[2023-05-23] MEDS: PANTOPRAZOLE SODIUM IV 40 MG VIAL IV PUSH (10:36)
[2023-05-23] MEDS: ENOXAPARIN 30 MG/0.3 ML SYRINGE SUB-Q (10:36)
[2023-05-23] MEDS: KCL 20 MEQ/D5/0.9% SOD CHL 1,000 ML 100 ML IV CONT (10:38)
--- NOTE | 2023-05-23 12:07 | PM.PNGS ---
Progress Note: A&P Assessment and Plan (1) Gallstone ileus of small intestine: Code(s): K56.3 - Gallstone ileus Status: Acute Assessment and Plan: Await return of bowel function. Continue NG tube and NPO except sips with meds, ice chips. Up walking in the room. Doing well. Follow serial exam and labs. (2) Irregular cardiac rhythm: Code(s): I49.9 - Cardiac arrhythmia, unspecified Status: Chronic Assessment and Plan: Discussed with cardiology. Okay to transfer to [facility] bed. 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 Status: Chronic Assessment and Plan: Receiving normal immunosuppressants by mouth (5) History of renal transplant: Onset Date: 1995 Code(s): Z94.0 - Kidney transplant status Status: Chronic Subjective Subjective Date/Time Seen: 05/23/23 12:07 Post Op day: 2 Patient reports: no new complaints, pain is less, no flatus, no bowel movement and afebrile Exam Const: General: comfortable and no acute distress Orientation/consciousness: patient oriented x3 GI: Inspection: distended and incision (Healing well) GI Palp: Yes Soft to palpation, Yes Tenderness to palpation present (GI), No Guarding due to palpation present (GI) and No Rebound tenderness present Auscultation: Hypoactive bowel sounds present Neuro: General: patient oriented x3 and no focal motor deficits Extrem: General: no calf tenderness and no edema Psych: Affect: normal affect Insight: Good insight present (Psych) Judgement: Good judgement present (Psych) Objective Data Vital Signs Vital Signs: Vital Signs - 24 hr 05/22/23 14:00 05/22/23 16:00 05/22/23 16:00 Temperature 36.8 C Pulse Rate 84 117 H 77 Respiratory Rate 16 Blood Pressure 134/58 L Pulse Oximetry 98 Oxygen Delivery Oxygen Flow Rate 05/22/23 18:00 05/22/23 16:00 05/22/23 20:41 Temperature 36.6 C Pulse Rate 71 78 Respiratory Rate 20 Blood Pressure 133/65 Pulse Oximetry 98 97 Oxygen Delivery Nasal Cannula Oxygen Flow Rate 2 07/06/23 20:00 05/22/23 22:00 05/22/23 23:11 Temperature Pulse Rate 78 71 70 Respiratory Rate Blood Pressure Pulse Oximetry 95 Oxygen Delivery Room Air Room Air Oxygen Flow Rate 05/22/23 23:30 05/23/23 00:00 05/23/23 01:59 Temperature 36.5 C Pulse Rate 65 74 71 Respiratory Rate 20 Blood Pressure 135/60 Pulse Oximetry 98 Oxygen Delivery Oxygen Flow Rate 05/23/23 03:46 05/23/23 04:00 05/23/23 04:00 Temperature 36.4 C L Pulse Rate 72 80 71 Respiratory Rate 18 Blood Pressure 154/69 H Pulse Oximetry 97 Oxygen Delivery Room Air Oxygen Flow Rate 05/23/23 06:00 05/23/23 08:00 Temperature 36.3 C L Pulse Rate 74 79 Respiratory Rate 20 Blood Pressure 153/79 H Pulse Oximetry 97 Oxygen Delivery Oxygen Flow Rate Intake/Output Intake/Output: Intake & Output 05/20/23 05/21/23 05/22/23 05/23/23 23:59 23:59 23:59 23:59 Intake Total 2410 3550 1000 Output Total 50 1200 1300 Balance 2360 2350 -300 Meds/Results Medications: Active Medications Generic Name Dose Route Start Last Admin Trade Name Freq PRN Reason Stop Dose Admin Acetaminophen 650 mg 05/21/23 15:59 Acetaminophen 650 Mg Suppository RECTAL Q6H PRN Mild Pain (1-3) or Fever Benzocaine 1 lozenge 05/21/23 19:06 05/21/23 19:50 Benzocaine/Menthol (*Bkc) 18 Ea Lozenge PO 1 lozenge PRN PRN Administration Sore Throat Cyclosporine 75 mg 05/23/23 09:00 05/23/23 10:35 Cyclosporine (Neoral) 25 Mg Capsule PO 75 mg QAM ALISON Administration Enoxaparin Sodium 30 mg 05/22/23 09:00 05/23/23 10:36 Enoxaparin 30 Mg/0.3 Ml Syringe SUB-Q 30 mg DAILY ALISON Administratio
--- NOTE | 2023-05-23 14:01 | PM.IMPN ---
Progress Note: A&P Assessment and Plan (1) Gallstone ileus of small intestine: Code(s): K56.3 - Gallstone ileus Status: Acute Assessment and Plan: Postoperative day 0 status post laparotomy for removal of obstructing gallstone of the distal ileum. Wound care, pain control, and DVT prophylaxis deferred to Dr. Hall. (2) Acute kidney injury: Code(s): N17.9 - Acute kidney failure, unspecified Status: Acute Assessment and Plan: Etiology not entirely clear but most likely related to dehydration from poor oral intake and vomiting. Creatinine today is 1.70, up from 0.61 on labs from [facility] furosemide for now. Labs today, shows kidney function is improving Continue IV fluid Follow-up BMP Avoid nephrotoxic medication Acute renal failure resolves (3) History of renal transplant: Onset Date: 1995 Code(s): Z94.0 - Kidney transplant status Status: Chronic Assessment and Plan: Status post renal transplant in 1995. Continue antirejection medications. 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 (5) Hypertension: Qualifiers: Hypertension type: essential hypertension Qualified Code(s): I10 - Essential (primary) hypertension Code(s): I10 - Essential (primary) hypertension Status: Chronic Assessment and Plan: Blood pressure pump up Resume lisinopril (6) Hyperlipidemia: Qualifiers: Hyperlipidemia type: pure hypercholesterolemia Qualified Code(s): E78.00 - Pure hypercholesterolemia, unspecified Code(s): E78.5 - Hyperlipidemia, unspecified Status: Chronic Assessment and Plan: Resume statin upon return of bowel function. (7) Gastroesophageal reflux disease: Code(s): K21.9 - Gastro-esophageal reflux disease without esophagitis Status: Acute Assessment and Plan: Currently on pantoprazole 40 mg IV daily. (8) Abnormal urinalysis: Code(s): R82.90 - Unspecified abnormal findings in urine Status: Acute Assessment and Plan: Continue ceftriaxone, pending urine culture. Plan Thank you for allowing us to participate in this patient's care. Please do not hesitate to contact us with any questions. Subjective Date/time seen: 05/23/23 14:01 Interval history: I saw on exam patient today. Patient denies nausea vomiting, abdomen pain is improving, patient has not passed gas yet, I also reviewed the labs, kidney function is improving Objective Data Vital Signs Vital Signs: Vital Signs - 24 hr 05/22/23 16:00 05/22/23 16:00 05/22/23 18:00 Temperature 98.2 F Pulse Rate 117 H 77 71 Respiratory Rate 16 Blood Pressure 134/58 L Pulse Oximetry 98 Oxygen Delivery Oxygen Flow Rate 05/22/23 16:00 05/22/23 20:41 05/22/23 20:00 Temperature 97.8 F Pulse Rate 78 78 Respiratory Rate 20 Blood Pressure 133/65 Pulse Oximetry 98 97 95 Oxygen Delivery Nasal Cannula Room Air Oxygen Flow Rate 2 05/22/23 22:00 05/22/23 23:11 05/22/23 23:30 Temperature 97.7 F Pulse Rate 71 70 65 Respiratory Rate 20 Blood Pressure 135/60 Pulse Oximetry 98 Oxygen Delivery Room Air Oxygen Flow Rate 05/23/23 00:00 05/23/23 01:59 05/23/23 03:46 Temperature Pulse Rate 74 71 72 Respiratory Rate Blood Pressure Pulse Oximetry Oxygen Delivery Room Air Oxygen Flow Rate 05/23/23 04:00 05/23/23 04:00 05/23/23 06:00 Temperature 97.5 F L Pulse Rate 80 71 74 Respiratory Rate 18 Blood Pressure 154/69 H Pulse Oximetry 97 Oxygen Delivery Oxygen Flow Rate 05/23/23 08:00 05/23/23 12:10 Temperature 97.4 F L 96.8 F L Pulse Rate 79 83 Respiratory Rate 20 20 Bl
--- NOTE | 2023-05-23 14:35 | PC.NURSE ---
This patient, Negrita Oconnell, was transferred to [3rd Med/Surg] on 05/23/23 at 1435. Personal belongings sent with patient. Report given to [Anna]. Appropriate documentation sent with patient.
--- NOTE | 2023-05-23 14:40 | ADMGEN ---
This patient, Negrita Oconnell, was admitted to 3 [facility] Surg Room 321-02 @ 1440. Patient/family oriented to hospital policies and general routines including ID bracelet, bed and alarms, visiting hours, pain management, procedures, bathroom and other care routines, personal items, smoking policy, room service/diet, and visiting hours. Information on how to activate the Rapid Response Team has been discussed. Patient/Family are encouraged to report perceived risks to care and to ask questions if they do not understand what they are told or what they should do.
[2023-05-23 16:45] LABS: Glucose Point of Care 110 mg/dl (65-105)
[2023-05-23] MEDS: KCL 20 MEQ/D5/0.9% SOD CHL 1,000 ML 80 ML IV CONT (20:39)
[2023-05-24] VITALS: BP 154/79; PULSE 77; RESP 18; TEMP 36.3; O2SAT 97
[2023-05-24 01:28] LABS: Glucose Point of Care 110 mg/dl (65-105)
[2023-05-24 04:00] VITALS: BP 139/65; PULSE 75; RESP 18; TEMP 36.2; O2SAT 97
[2023-05-24 07:24] LABS: Hematocrit 34.9 % (37.0-47.0); Hemoglobin 11.5 g/dL (12.0-15.0); Mean Corpuscular Hemoglobin 34.5 pg (26-34); Mean Corpuscular Volume 104.8 fl (80-100); Mean Platelet Volume 9.5 fl (7.4-10.4); Platelet Count Result 179 k/mm3 (150-375); Red Blood Count 3.33 M/mm3 (4.2-5.4); White Blood Count 4.9 K/mm3 (4.5-10.0)
[2023-05-24 07:46] LABS: Anion Gap 2 mmol/L (8-16); Blood Urea Nitrogen 11 mg/dL (7-17); Calcium 7.8 mg/dL (8.4-10.2); Carbon Dioxide 21 mmol/L (22-30); Chloride 114 mmol/L (98-107); Estimated CRCL calculation 68 ml/min; Estimated Glomerular Filt Rate > 60; Glucose 108 mg/dL (65-110); Potassium 3.9 mmol/L (3.4-5.0); Sodium 137 mmol/L (137-145)
[2023-05-24 08:00] VITALS: BP 158/66; PULSE 76; RESP 18; TEMP 36.2; O2SAT 99
[2023-05-24] MEDS: KCL 20 MEQ/D5/0.9% SOD CHL 1,000 ML 80 ML IV CONT ×2 (08:41→20:08)
[2023-05-24] MEDS: ENOXAPARIN 30 MG/0.3 ML SYRINGE SUB-Q (08:42)
[2023-05-24] MEDS: predniSONE 5 MG TABLET PO (08:42)
[2023-05-24] MEDS: mycophenolate mofetiL 250 MG CAPSULE 500 MG PO ×2 (08:42→20:08)
[2023-05-24] MEDS: cycloSPORINE (NEORAL) 25 MG CAPSULE 75 MG PO (08:42)
[2023-05-24] MEDS: lisinopriL 10 MG TABLET PO (08:42)
[2023-05-24] MEDS: valACYclovir HCL 500 MG TABLET PO (08:42)
[2023-05-24] MEDS: PANTOPRAZOLE SODIUM IV 40 MG VIAL IV PUSH (08:42)
--- NOTE | 2023-05-24 10:26 | PM.PNGS ---
Progress Note: A&P Assessment and Plan (1) Gallstone ileus of small intestine: Code(s): K56.3 - Gallstone ileus Status: Acute Assessment and Plan: +bowel fxn overnight, exam benign, will clamp NG, if NG out later will start clears, OOB/IS Subjective Subjective Date/Time Seen: 05/24/23 10:26 Interval history: feels better, +BM x 2 overnight, no N/V Review of Systems Review of Systems: All systems reviewed & are unremarkable except as noted in HPI and below Exam Const: General: cooperative, comfortable and no acute distress Resp: Auscultation: clear to auscultation bilaterally Cardio: Rate: regular rate Rhythm: regular rhythm GI: Inspection: normal to inspection, distended and incision GI Palp: Yes abdominal tenderness, Yes Soft to palpation, Yes Tenderness to palpation present (GI), No Guarding due to palpation present (GI) and No Rigid due to palpation Objective Data Vital Signs Vital Signs: Vital Signs - 24 hr 05/23/23 12:10 05/23/23 12:00 05/23/23 14:30 Temperature 36.0 C L Pulse Rate 83 79 Respiratory Rate 20 Blood Pressure 149/88 H Pulse Oximetry 96 Oxygen Delivery Room Air 05/23/23 15:45 05/23/23 19:58 05/23/23 20:00 Temperature 35.8 C L 36.3 C L Pulse Rate 74 82 Respiratory Rate 20 20 Blood Pressure 155/68 H 141/51 H Pulse Oximetry 98 96 98 Oxygen Delivery Room Air 05/24/23 00:00 05/24/23 04:00 05/24/23 08:00 Temperature 36.3 C L 36.2 C L 36.2 C L Pulse Rate 77 75 76 Respiratory Rate 18 18 18 Blood Pressure 154/79 H 139/65 158/66 H Pulse Oximetry 97 97 99 Oxygen Delivery 05/24/23 08:45 Temperature Pulse Rate Respiratory Rate Blood Pressure Pulse Oximetry Oxygen Delivery Room Air Intake/Output Intake/Output: Intake & Output 05/21/23 05/22/23 05/23/23 05/24/23 23:59 23:59 23:59 23:59 Intake Total 2410 3550 2050 1360 Output Total 50 1200 2350 135 Balance 2360 2350 -300 1225 Meds/Results Medications: Active Medications Generic Name Dose Route Start Last Admin Trade Name Freq PRN Reason Stop Dose Admin Acetaminophen 650 mg 05/21/23 15:59 Acetaminophen 650 Mg Suppository RECTAL Q6H PRN Mild Pain (1-3) or Fever Benzocaine 1 lozenge 05/21/23 19:06 05/21/23 19:50 Benzocaine/Menthol (*Bkc) 18 Ea Lozenge PO 1 lozenge PRN PRN Administration Sore Throat Cyclosporine 75 mg 05/23/23 09:00 05/24/23 08:42 Cyclosporine (Neoral) 25 Mg Capsule PO 75 mg QAM ALISON Administration Enoxaparin Sodium 30 mg 05/22/23 09:00 05/24/23 08:42 Enoxaparin 30 Mg/0.3 Ml Syringe SUB-Q 30 mg DAILY ALISON Administration Fluticasone Propionate 1 spray 05/22/23 00:18 Fluticasone Propionate 0.05% Na Spr 16 Gm Btl (*Bkc) NASAL DAILY PRN Congestion Potassium Chloride/Dextrose/Sod Cl 1,000 mls @ 80 mls/hr 05/21/23 15:59 05/24/23 08:41 Kcl 20 Meq/D5/0.9% Sod Chl IV CONT 80 mls/hr .[id number] ALISON Administration Ceftriaxone Sodium 1 gm in 50 mls @ 100 mls/hr 05/22/23 09:00 05/24/23 08:38 Rocephin 1 Gm/Ns 50 Ml IVPB 100 mls/hr Q24H ALISON Administration Lisinopril 10 mg 05/24/23 09:00 05/24/23 08:42 Lisinopril 10 Mg Tablet PO 10 mg DAILY ALISON Administration Morphine Sulfate 2 mg 05/21/23 15:59 05/21/23 21:28 Morphine Sulfate (*Crx) 2 Mg/Ml Inj IV PUSH 2 mg Q2H PRN Administration Pain Rated 4-6 Morphine Sulfate 4 mg 05/21/23 15:59 05/21/23 23:33 Morphine Sulfate (*Crx) 4 Mg/Ml Inj IV PUSH 4 mg Q2H PRN Administration Pain Rated 7-10 Mycophenolate Mofetil 500 mg 05/22/23 09:00 05/24/23 08:42 Mycophenolate Mofetil 250 Mg Capsule PO 500 mg Q12HR ALISON Administration Naloxone HCl 0.1 mg 05/21/23 15:59 Naloxone Hcl 0.4 Mg/Ml Vial IV PUSH Q2M PRN Opiate Reversal Pantoprazole Sodium 40 mg 05/22/23 09:00 05/24/23 08:42 Pantoprazole Sodium Iv 40 Mg Vial IV PUSH 40 mg QAM ALISON Administration Perflutr
--- NOTE | 2023-05-24 14:19 | PM.IMPN ---
Progress Note: A&P Assessment and Plan (1) Gallstone ileus of small intestine: Code(s): K56.3 - Gallstone ileus Status: Acute Assessment and Plan: status post laparotomy for removal of obstructing gallstone of the distal ileum. Wound care, pain control, and DVT prophylaxis deferred to Dr. Hall. Patient tolerated diet well, had bowel movement today Patient does not need NG tube, management per General surgery (2) Acute kidney injury: Code(s): N17.9 - Acute kidney failure, unspecified Status: Acute Assessment and Plan: Etiology not entirely clear but most likely related to dehydration from poor oral intake and vomiting. Creatinine today is 1.70, up from 0.61 on labs from [facility] furosemide for now. Continue IV fluid Avoid nephrotoxic medication Acute renal failure resolves (3) History of renal transplant: Onset Date: 1995 Code(s): Z94.0 - Kidney transplant status Status: Chronic Assessment and Plan: Status post renal transplant in 1995. Continue antirejection medications. 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 (5) Hypertension: Qualifiers: Hypertension type: essential hypertension Qualified Code(s): I10 - Essential (primary) hypertension Code(s): I10 - Essential (primary) hypertension Status: Chronic Assessment and Plan: Blood pressure pump up Resume lisinopril (6) Hyperlipidemia: Qualifiers: Hyperlipidemia type: pure hypercholesterolemia Qualified Code(s): E78.00 - Pure hypercholesterolemia, unspecified Code(s): E78.5 - Hyperlipidemia, unspecified Status: Chronic Assessment and Plan: Resume statin upon return of bowel function. (7) Gastroesophageal reflux disease: Code(s): K21.9 - Gastro-esophageal reflux disease without esophagitis Status: Acute Assessment and Plan: Currently on pantoprazole 40 mg IV daily. (8) Abnormal urinalysis: Code(s): R82.90 - Unspecified abnormal findings in urine Status: Acute Assessment and Plan: Continue ceftriaxone, pending urine culture. Plan Thank you for allowing us to participate in this patient's care. Please do not hesitate to contact us with any questions. Subjective Date/time seen: 05/24/23 14:19 Interval history: I saw on exam patient today. Patient denies nausea vomiting, abdomen pain. patient tolerated diet well, had a bowel movement today Exam Narrative: GENERAL: Pleasant, in no acute distress. Well-nourished. - EYES: EOMI. Anicteric. - HENT: Moist mucous membranes. - LUNGS: Clear to auscultation bilaterally, no wheezing, rhonchi, or rales. - CARDIOVASCULAR: Regular rate and rhythm. No murmur. No JVD. - ABDOMEN: Soft, non-tender and non-distended. Surgical is well-dressed, dressing is dry and clean, no palpable masses. - EXTREMITIES: No edema. Peripheral pulses 2+. Non-tender. - NEUROLOGIC: No focal neurological deficits. CN II-XII grossly intact. - PSYCHIATRIC: Awake, Alert and oriented x 3. Appropriate mood and affect. - SKIN: No rashes or lesions. Warm. - LYMPH: No cervical lymphadenopathy. Objective Data Vital Signs Vital Signs: Vital Signs - 24 hr 05/23/23 14:30 05/23/23 15:45 05/23/23 19:58 Temperature 96.4 F L Pulse Rate 74 Respiratory Rate 20 Blood Pressure 155/68 H Pulse Oximetry 98 96 Oxygen Delivery Room Air Room Air 05/23/23 20:00 05/24/23 00:00 05/24/23 04:00 Temperature 97.3 F L 97.3 F L 97.2 F L Pulse Rate 82 77 75 Respiratory Rate 20 18 18 Blood Pressure 141/51 H 154/79 H 139/65 Pulse Oximetry 98 97 97 Oxygen Delivery 05/24/23 08:00 05/24/23 08:45 Temperature 97.2 F L
[2023-05-24 15:49] VITALS: BP 149/81; PULSE 74; RESP 18; TEMP 37.3; O2SAT 99
[2023-05-24 21:52] VITALS: BP 134/72; PULSE 71; RESP 18; TEMP 36.6; O2SAT 97
[2023-05-25 06:00] VITALS: BP 141/71; PULSE 73; RESP 16; TEMP 36.6; O2SAT 98
[2023-05-25 06:24] LABS: Hematocrit 33.1 % (37.0-47.0); Hemoglobin 11.2 g/dL (12.0-15.0); Mean Corpuscular HGB Conc 33.8 g/dl (32-36); Mean Corpuscular Hemoglobin 34.7 pg (26-34); Mean Corpuscular Volume 102.5 fl (80-100); Mean Platelet Volume 9.5 fl (7.4-10.4); Platelet Count Result 176 k/mm3 (150-375); Red Blood Count 3.23 M/mm3 (4.2-5.4); Red Cell Distribution Width 12.7 % (11.5-14.5); White Blood Count 4.9 K/mm3 (4.5-10.0)
[2023-05-25 06:54] LABS: Anion Gap 2 mmol/L (8-16); Blood Urea Nitrogen 6 mg/dL (7-17); Calcium 8.1 mg/dL (8.4-10.2); Carbon Dioxide 23 mmol/L (22-30); Chloride 110 mmol/L (98-107); Estimated CRCL calculation 68 ml/min; Estimated Glomerular Filt Rate > 60; Glucose 133 mg/dL (65-110); Potassium 3.9 mmol/L (3.4-5.0); Sodium 135 mmol/L (137-145)
[2023-05-25] MEDS: PANTOPRAZOLE SODIUM IV 40 MG VIAL IV PUSH (08:26)
[2023-05-25] MEDS: cycloSPORINE (NEORAL) 25 MG CAPSULE 75 MG PO (08:26)
[2023-05-25] MEDS: mycophenolate mofetiL 250 MG CAPSULE 500 MG PO ×2 (08:26→20:21)
[2023-05-25] MEDS: ENOXAPARIN 30 MG/0.3 ML SYRINGE SUB-Q (08:26)
[2023-05-25] MEDS: lisinopriL 10 MG TABLET PO (08:26)
[2023-05-25] MEDS: predniSONE 5 MG TABLET PO (08:26)
[2023-05-25] MEDS: valACYclovir HCL 500 MG TABLET PO (08:26)
--- NOTE | 2023-05-25 10:15 | PM.PNGS ---
Progress Note: A&P Assessment and Plan (1) Gallstone ileus of small intestine: Code(s): K56.3 - Gallstone ileus Status: Acute Assessment and Plan: doing well, ADAT, encourage OOB/IS, home soon if cont to do well Subjective Subjective Date/Time Seen: 05/25/23 10:15 Interval history: no issues, NG out yest, scarlet clears, +bowel fxn Review of Systems Review of Systems: All systems reviewed & are unremarkable except as noted in HPI and below Exam Const: General: cooperative, comfortable and no acute distress Resp: Auscultation: clear to auscultation bilaterally Cardio: Rate: regular rate Rhythm: regular rhythm GI: Inspection: normal to inspection, non-distended and incision GI Palp: Yes abdominal tenderness, Yes Soft to palpation, No Guarding due to palpation present (GI) and No Rigid due to palpation Objective Data Vital Signs Vital Signs: Vital Signs - 24 hr 05/24/23 15:49 05/24/23 21:52 05/25/23 06:00 Temperature 37.3 C 36.6 C 36.6 C Pulse Rate 74 71 73 Respiratory Rate 18 18 16 Blood Pressure 149/81 H 134/72 141/71 H Pulse Oximetry 99 97 98 Oxygen Delivery 05/25/23 08:10 Temperature Pulse Rate Respiratory Rate Blood Pressure Pulse Oximetry Oxygen Delivery Room Air Intake/Output Intake/Output: Intake & Output 05/22/23 05/23/23 05/24/23 05/25/23 23:59 23:59 23:59 23:59 Intake Total 3550 2050 3290 712 Output Total 1200 2350 935 Balance 2350 -300 2355 712 Meds/Results Medications: Active Medications Generic Name Dose Route Start Last Admin Trade Name Freq PRN Reason Stop Dose Admin Acetaminophen 650 mg 05/21/23 15:59 Acetaminophen 650 Mg Suppository RECTAL Q6H PRN Mild Pain (1-3) or Fever Benzocaine 1 lozenge 05/21/23 19:06 05/21/23 19:50 Benzocaine/Menthol (*Bkc) 18 Ea Lozenge PO 1 lozenge PRN PRN Administration Sore Throat Cyclosporine 75 mg 05/23/23 09:00 05/25/23 08:26 Cyclosporine (Neoral) 25 Mg Capsule PO 75 mg QAM ALISON Administration Enoxaparin Sodium 30 mg 05/22/23 09:00 05/25/23 08:26 Enoxaparin 30 Mg/0.3 Ml Syringe SUB-Q 30 mg DAILY ALISON Administration Fluticasone Propionate 1 spray 05/22/23 00:18 Fluticasone Propionate 0.05% Na Spr 16 Gm Btl (*Bkc) NASAL DAILY PRN Congestion Potassium Chloride/Dextrose/Sod Cl 1,000 mls @ 80 mls/hr 05/21/23 15:59 05/24/23 20:08 Kcl 20 Meq/D5/0.9% Sod Chl IV CONT 80 mls/hr .[id number] ALISON Administration Ceftriaxone Sodium 1 gm in 50 mls @ 100 mls/hr 05/22/23 09:00 05/25/23 08:25 Rocephin 1 Gm/Ns 50 Ml IVPB 100 mls/hr Q24H ALISON Administration Lisinopril 10 mg 05/24/23 09:00 05/25/23 08:26 Lisinopril 10 Mg Tablet PO 10 mg DAILY ALISON Administration Morphine Sulfate 2 mg 05/21/23 15:59 05/21/23 21:28 Morphine Sulfate (*Crx) 2 Mg/Ml Inj IV PUSH 2 mg Q2H PRN Administration Pain Rated 4-6 Morphine Sulfate 4 mg 05/21/23 15:59 05/21/23 23:33 Morphine Sulfate (*Crx) 4 Mg/Ml Inj IV PUSH 4 mg Q2H PRN Administration Pain Rated 7-10 Mycophenolate Mofetil 500 mg 05/22/23 09:00 05/25/23 08:26 Mycophenolate Mofetil 250 Mg Capsule PO 500 mg Q12HR ALISON Administration Naloxone HCl 0.1 mg 05/21/23 15:59 Naloxone Hcl 0.4 Mg/Ml Vial IV PUSH Q2M PRN Opiate Reversal Pantoprazole Sodium 40 mg 05/22/23 09:00 05/25/23 08:26 Pantoprazole Sodium Iv 40 Mg Vial IV PUSH 40 mg QAM ALISON Administration Phenol 1 spray 05/21/23 19:06 05/21/23 19:50 Phenol/Sod Pheno [place] (*Bkc) MUCOUS MEM 1 spray PRN PRN Administration Sore Throat Prednisone 5 mg 05/22/23 09:00 05/25/23 08:26 Prednisone 5 Mg Tablet PO 5 mg DAILY ALISON Administration Valacyclovir HCl 500 mg 05/22/23 09:00 05/25/23 08:26 Valacyclovir Hcl 500 Mg Tablet PO 500 mg DAILY ALISON Administration Radiology Results: ITS Impressions Abdomen/Pelvis CT 05/21/23 09:13
[2023-05-25 14:00] VITALS: BP 111/63; PULSE 86; RESP 16; TEMP 36.9; O2SAT 98
--- NOTE | 2023-05-25 15:24 | PM.IMPN ---
Progress Note: A&P Assessment and Plan (1) Gallstone ileus of small intestine: Code(s): K56.3 - Gallstone ileus Status: Acute Assessment and Plan: status post laparotomy for removal of obstructing gallstone of the distal ileum. Wound care, pain control, and DVT prophylaxis deferred to Dr. Hall. Patient tolerated diet well, had bowel movement today Patient does not need NG tube, management per General surgery (2) Acute kidney injury: Code(s): N17.9 - Acute kidney failure, unspecified Status: Acute Assessment and Plan: Etiology not entirely clear but most likely related to dehydration from poor oral intake and vomiting. Creatinine today is 1.70, up from 0.61 on labs from [facility] furosemide for now. Discontinue iV fluid Avoid nephrotoxic medication Acute renal failure resolves (3) History of renal transplant: Onset Date: 1995 Code(s): Z94.0 - Kidney transplant status Status: Chronic Assessment and Plan: Status post renal transplant in 1995. Continue antirejection medications. 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 (5) Hypertension: Qualifiers: Hypertension type: essential hypertension Qualified Code(s): I10 - Essential (primary) hypertension Code(s): I10 - Essential (primary) hypertension Status: Chronic Assessment and Plan: Blood pressure pump up Resume lisinopril (6) Hyperlipidemia: Qualifiers: Hyperlipidemia type: pure hypercholesterolemia Qualified Code(s): E78.00 - Pure hypercholesterolemia, unspecified Code(s): E78.5 - Hyperlipidemia, unspecified Status: Chronic Assessment and Plan: Resume statin upon return of bowel function. (7) Gastroesophageal reflux disease: Code(s): K21.9 - Gastro-esophageal reflux disease without esophagitis Status: Acute Assessment and Plan: Currently on pantoprazole 40 mg daily. (8) Abnormal urinalysis: Code(s): R82.90 - Unspecified abnormal findings in urine Status: Acute Assessment and Plan: Continue ceftriaxone, pending urine culture. Plan Thank you for allowing us to participate in this patient's care. Please do not hesitate to contact us with any questions. Subjective Date/time seen: 05/25/23 15:24 Interval history: I saw on exam patient today. Patient denies nausea vomiting, abdomen pain. NG tube is removed, patient tolerated diet well, had a bowel movement today Exam Narrative: GENERAL: Pleasant, in no acute distress. Well-nourished. - EYES: EOMI. Anicteric. - HENT: Moist mucous membranes. - LUNGS: Clear to auscultation bilaterally, no wheezing, rhonchi, or rales. - CARDIOVASCULAR: Regular rate and rhythm. No murmur. No JVD. - ABDOMEN: Soft, non-tender and non-distended. Surgical is well-dressed, dressing is dry and clean, no palpable masses. - EXTREMITIES: No edema. Peripheral pulses 2+. Non-tender. - NEUROLOGIC: No focal neurological deficits. CN II-XII grossly intact. - PSYCHIATRIC: Awake, Alert and oriented x 3. Appropriate mood and affect. - SKIN: No rashes or lesions. Warm. - LYMPH: No cervical lymphadenopathy. Objective Data Vital Signs Vital Signs: Vital Signs - 24 hr 05/24/23 15:49 05/24/23 21:52 05/25/23 06:00 Temperature 99.1 F 97.8 F 97.9 F Pulse Rate 74 71 73 Respiratory Rate 18 18 16 Blood Pressure 149/81 H 134/72 141/71 H Pulse Oximetry 99 97 98 Oxygen Delivery 05/25/23 08:10 05/25/23 14:00 Temperature 98.4 F Pulse Rate 86 Respiratory Rate 16 Blood Pressure 111/63 Pulse Oximetry 98 Oxygen Delivery Room Air Intake/Output Intake/Output: Intake & Output 05/22/23 05/23/2305/24
[2023-05-25 21:58] VITALS: BP 139/85; PULSE 78; RESP 18; TEMP 36.4; O2SAT 98
[2023-05-26 05:53] VITALS: BP 158/92; PULSE 75; RESP 18; TEMP 36.3; O2SAT 96
--- NOTE | 2023-05-26 07:50 | PM.DS ---
DS: Admitting Diagnosis Discharge Date 05/26/2023 Admitting Diagnosis Gallstone ileus History of renal transplant Immunosuppressive chronic therapy Hypertension Hyperlipidemia DS: Discharge Diagnosis Discharge Diagnosis (1) Gallstone ileus of small intestine: Code(s): K56.3 - Gallstone ileus Status: Acute Assessment and Plan: Underwent resection of obstructing gallstone per Dr. 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 Cardiac echo ordered and no significant irregular rhythm determined. (5) Cardiac murmur: Code(s): R01.1 - Cardiac murmur, unspecified Status: Chronic Assessment and Plan: Systolic murmur noted by Cardiology. Not significant on cardiac echo. (6) Hypertension: Qualifiers: Hypertension type: essential hypertension Qualified Code(s): I10 - Essential (primary) hypertension Code(s): I10 - Essential (primary) hypertension Status: Chronic (7) Hyperlipidemia: Qualifiers: Hyperlipidemia type: pure hypercholesterolemia Qualified Code(s): E78.00 - Pure hypercholesterolemia, unspecified Code(s): E78.5 - Hyperlipidemia, unspecified Status: Chronic DS: Summary Hospital Course Hospital Course: Patient is a 77-year-old woman with remote history of renal transplantation and maintained on immunosuppressive therapy of cyclosporin, prednisone, mycophenolate. She presented to the emergency room with vomiting and abdominal pain. CT scan showed gallstone ileus. Patient was taken to surgery on 05/21/[address] Hall. Laparotomy was performed and the obstructing gallstone in the distal ileum was removed. The enterotomy was closed transversely. Postoperatively the patient was continued with a nasogastric tube, NPO, and IV fluids. Her immunosuppressive oral agents were continued throughout her hospitalization by clamping the NG tube and giving each with a sip of water. Gradually bowel function returned and her NG tube was removed. She was slowly advanced from liquids to solid food. She was tolerating this well and having bowel movements. She was not requiring any analgesics for incisional pain. She was ambulating independently. She is able to be discharged now, on postop day 5, 05/26/2023 in good condition. Status at Discharge Functional status at discharge: independent ambulation Overall status at discharge: patient is progressing back to baseline Time Spent with Patient Time attestation: Total time spent providing and/or coordinating discharge services: Time spent: Less than 30 minutes DS: Data Data Completed and Pending Completed studies during hospitalization: Pending at discharge 05/21/23 13:41 Surgical [PTH] Routine Labs on day of discharge: Preliminary micro results at discharge 05/21/23 17:50 Blood Culture - Preliminary Blood 05/21/23 17:56 Blood Culture - Preliminary Blood Discharge Plan Discharge Attending physician on discharge: Sami Hall Consulting providers: Sami Hall; Maria T Renae; Joanie Cheng Discharging Clinician: Sami Hall Anticipated Discharge Date/Time: 05/26/23 08:00 Patient Disposition: Home, Self-Care Activity: may shower, no straining and as tolerated Diet: regular Wound Care Instructions: incision open to air Discharge Instructions: Ambulate 3-4 x per day and as tolerated. No lifting over 15-20lbs. May bathe or shower. Okay to wash over incision with soa
[2023-05-26] MEDS: ENOXAPARIN 30 MG/0.3 ML SYRINGE SUB-Q (08:29)
[2023-05-26] MEDS: cycloSPORINE (NEORAL) 25 MG CAPSULE 75 MG PO (08:29)
[2023-05-26] MEDS: lisinopriL 10 MG TABLET PO (08:30)
[2023-05-26] MEDS: PANTOPRAZOLE SODIUM IV 40 MG VIAL IV PUSH (08:30)
[2023-05-26] MEDS: mycophenolate mofetiL 250 MG CAPSULE 500 MG PO (08:30)
[2023-05-26] MEDS: valACYclovir HCL 500 MG TABLET PO (08:30)
[2023-05-26] MEDS: predniSONE 5 MG TABLET PO (08:30)
--- NOTE | 2023-05-26 17:01 | PM.IMPN ---
Progress Note: A&P Assessment and Plan (1) Gallstone ileus of small intestine: Code(s): K56.3 - Gallstone ileus Status: Acute Assessment and Plan: status post laparotomy for removal of obstructing gallstone of the distal ileum. Wound care, pain control, and DVT prophylaxis deferred to Dr. Hall. Patient tolerated diet well, had bowel movement today Patient does not need NG tube, management per General surgery (2) Acute kidney injury: Code(s): N17.9 - Acute kidney failure, unspecified Status: Acute Assessment and Plan: Etiology not entirely clear but most likely related to dehydration from poor oral intake and vomiting. Creatinine today is 1.70, up from 0.61 on labs from Hold furosemide for now. Discontinue iV fluid Avoid nephrotoxic medication Acute renal failure resolves (3) History of renal transplant: Onset Date: 1995 Code(s): Z94.0 - Kidney transplant status Status: Chronic Assessment and Plan: Status post renal transplant in 1995. Continue antirejection medications. (4) Immunosuppression due to drug therapy: Code(s): D84.821 - Immunodeficiency due to drugs; Z79.899 - Other retirement (current) drug therapy Status: Chronic Assessment and Plan: She is on cyclosporine, mycophenolate, and prednisone post renal transplant as above. (5) Hypertension: Qualifiers: Hypertension type: essential hypertension Qualified Code(s): I10 - Essential (primary) hypertension Code(s): I10 - Essential (primary) hypertension Status: Chronic Assessment and Plan: Blood pressure pump up Resume lisinopril (6) Hyperlipidemia: Qualifiers: Hyperlipidemia type: pure hypercholesterolemia Qualified Code(s): E78.00 - Pure hypercholesterolemia, unspecified Code(s): E78.5 - Hyperlipidemia, unspecified Status: Chronic Assessment and Plan: Resume statin upon return of bowel function. (7) Gastroesophageal reflux disease: Code(s): K21.9 - Gastro-esophageal reflux disease without esophagitis Status: Acute Assessment and Plan: Currently on pantoprazole 40 mg daily. 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 Plan Thank you for allowing us to participate in this patient's care. Please do not hesitate to contact us with any questions. pt is ready for discharge Subjective Date/time seen: 05/26/23 17:01 Interval history: I saw on exam patient today. Patient denies nausea vomiting, abdomen pain. NG tube was removed yesterday, patient tolerated diet well, had a bowel movement today Exam Narrative: GENERAL: Pleasant, in no acute distress. Well-nourished. - EYES: EOMI. Anicteric. - HENT: Moist mucous membranes. - LUNGS: Clear to auscultation bilaterally, no wheezing, rhonchi, or rales. - CARDIOVASCULAR: Regular rate and rhythm. No murmur. No JVD. - ABDOMEN: Soft, non-tender and non-distended. Surgical is well-dressed, dressing is dry and clean, no palpable masses. - EXTREMITIES: No edema. Peripheral pulses 2+. Non-tender. - NEUROLOGIC: No focal neurological deficits. CN II-XII grossly intact. - PSYCHIATRIC: Awake, Alert and oriented x 3. Appropriate mood and affect. - SKIN: No rashes or lesions. Warm. - LYMPH: No cervical lymphadenopathy. Objective Data Vital Signs Vital Signs: Vital Signs - 24 hr 05/25/23 21:58 05/26/23 05:53 Temperature 97.5 F L 97.4 F L Pulse Rate 78 75 Respiratory Rate 18 18 Blood Pressure 139/85 158/92 H Pulse Oximetry 98 96 Intake/Output Intake/Output: Intake & Output 05/23/23 05/24/23 05/25/23 05/26/23 23:59 23:59 23:59 23:59 Intake Total 2049 8340 1642 368 Output Total 2350 935 Balance -300 2355 1642 368 Meds/Results Radiology Res
== END 2023-05-26 11:00 | disposition home or self-care (01) | DRG 345 ==
LOC: ANHED 11:25 → ANH3MEDSUR 11:42 → ANHIMU 17:16 → ANH3MEDSUR 05-22 12:45 → ANHIMU 05-22 12:45 → ANH3MEDSUR 05-23 14:40
PROVIDERS: Admitting Provider Surgery; Emergency Provider Emergency Medicine; PCP Family Medicine; Visit Provider Surgery
PROC: 0DCB0ZZ Extirpation of Matter from Ileum, Open Approach (ICD-10-PCS; CPT 49000; principal; 2023-05-21 13:00)
DX: K56.3 Gallstone ileus (principal); Z94.0 Kidney transplant status; I10 Essential (primary) hypertension; E78.5 Hyperlipidemia, unspecified; E86.0 Dehydration; I49.9 Cardiac arrhythmia, unspecified; K21.9 Gastro-esophageal reflux disease without esophagitis; K43.9 Ventral hernia without obstruction or gangrene; M81.0 Age-related osteoporosis without current pathological fracture; R82.90 Unspecified abnormal findings in urine; R01.1 Cardiac murmur, unspecified; Z90.89 Acquired absence of other organs; Z79.621 Long term (current) use of calcineurin inhibitor; Z79.52 Long term (current) use of systemic steroids; Z98.41 Cataract extraction status, right eye; Z98.42 Cataract extraction status, left eye
CPT/HCPCS: 36415; 74176; 80048; 80053; 81001; 82948; 83605; 83690; 85025; 85027; 87040; 87086; 87088; 88300; 93005; 93306; 96361; 96374; 96375; 99285; A9270; C9113; J0330; J0696; J1100; J1650; J2270; J2405; J2704; J3010; J3480; J7030; J7120; J7512; J7515; J7517

== ENCOUNTER 2023-06-14 01:51 | Inpatient (IN) | payer MEDICARE, BC, SELFPAY ==
[2023-06-14] VITALS (41 sets, daily range): BP systolic 83–125; BP diastolic 52–82; PULSE 82–113; RESP 13–34; TEMP 36.1–36.8; O2SAT 93–100; BMI 24.8
--- NOTE | ~2023-06-14 | CT_ITS ---
EXAMINATION: CT abdomen pelvis wo con DATE: 06/18/2023 18:15 INDICATION: fluid draining from incision TECHNIQUE: Computed tomography (CT) of the abdomen and pelvis was performed without intravenous contr ast. Automated exposure control and iterative reconstruction technique were employed. The dose-length product was 769.65 mGy-cm. COMPARISON: 06/14/2023. FINDINGS: Lower thorax: Bibasilar atelectasis/consolidation. Trace left and small right pleural effusions. Aort ic, mitral, and coronary artery calcifications Liver: Normal. Biliary/Gallbladder: Gallbladder is absent. Marked intra and extrahepatic bile duct dilation with pne umobilia, unchanged. Pancreas: Moderate atrophy. Stable pancreatic duct dilation. Spleen: Normal. Adrenals:Severe atrophy of the [place] kidneys. Transplant kidney in the left lower quadrant with a guerrero bcentimeter proteinaceous or hemorrhagic cyst and 3.5 cm simple cyst. Kidneys: No mass, stone, or hydronephrosis. GI tract: Large hiatal hernia containing the gastric fundus and a portion of the gastric body. Large uncomplicated duodenal diverticulum. No small or large bowel dilation. The appendix is likely surgica lly absent. Diverticulosis without diverticulitis. Mesentery/Peritoneum: No ascites, mass, or free air. Retroperitoneum: No mass. Atherosclerotic abdominal aortic and/or arterial calcifications. Pelvis: Pelvic organs are within normal limits. Soft Tissues: Midline lower abdominal incision. No associated fluid collection. Minimal subcutaneous gas. Bones: No acute osseous finding. IMPRESSION: Normal-appearing lower midline abdominal incision, no seroma, abscess, or dehiscence. Bibasilar atelectasis/consolidation. Small right and trace left pleural effusions. Reviewed, dictated and finalized at [facility]. IMPRESSION: Normal-appearing lower midline abdominal incision, no seroma, abscess, or dehis cence. Bibasilar atelectasis/consolidation. Small right and trace left pleural effusio ns.
--- NOTE | ~2023-06-14 | CT_ITS ---
EXAMINATION: CT abdomen pelvis w con DATE: 06/14/2023 07:08 INDICATION: Abdominal pain. Recent abdominal surgery. TECHNIQUE: Computed tomography (CT) of the abdomen and pelvis was performed with 100 CC Omnipaque 350 intravenous contrast. Automated exposure control and iterative reconstruction technique were employe d. Exam dose: 500.38 mGy-cm total exam DLP. COMPARISON: 05/21/2023 CT abdomen pelvis FINDINGS: Pneumobilia is again noted due to previously reported: Cystoscopy duodenal fistula) reporte d. There is common bile duct dilatation with air-fluid level and pancreatic duct dilatation up to 6.6 mm diameter. 2.4 x 2.7 cm stone of the distal small bowel, with proximal small bowel dilatation, fluid distention and air-fluid levels. Prominent diverticulosis of left and right colon; no CT evidence of diverticulitis is noted. Normal a ppendix. Large sliding hiatal hernia. Severe atrophy both [place] kidneys. Negative left kidney renal cysts. Left pelvic transplant kidney w ith multiple cysts including one larger cyst measuring up to 3.6 cm. No hydronephrosis of the transpl ant kidney. The urinary bladder, uterus and adnexal areas are unremarkable. There is extensive atherosclerotic calcification of the abdominal aorta, iliac and femoral arteries a s well as prominent calcification at the origins of the celiac and superior mesenteric and [place] sotero al arteries. No abdominal aortic aneurysm. No intraperitoneal or retroperitoneal or pelvic mass lesio n or adenopathy or ascites. Prominent degenerative change of the lower thoracic and lumbar spine including severe degenerative ch alaina at the lumbar apophyseal joints, especially L5-S1, with grade 1 anterolisthesis at L5-S1. Severe degenerative disc disease at L5-S1 and at T11-12, T12-L1, L1-L2. 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 Reviewed, dictated and finalized at [facility]. 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
[2023-06-14 02:13] LABS: Basophils Absolute Auto 0.1 K/mm3 (0.0-0.1); Basophils Percent Auto 0.4 % (0.2-1.2); Eosinophils Percent Auto 0.1 % (0-4.4); Hemoglobin 13.8 g/dL (12.0-15.0); Immature Granulocyte Absolute 0.06 K/mm3 (0.00-0.031); Immature Granulocyte Percent A 0.4 % (0-0.5); Lymphocytes Absolute Auto 1.51 K/mm3 (0.9-3.2); Lymphocytes Percent Auto 9.8 % (18.3-44.2); Mean Corpuscular HGB Conc 33.7 g/dl (32-36); Mean Corpuscular Hemoglobin 33.3 pg (26-34); Mean Corpuscular Volume 98.8 fl (80-100); Mean Platelet Volume 9.2 fl (7.4-10.4); Monocytes Absolute Auto 1.2 K/mm3 (0.1-0.6); Monocytes Percent Auto 7.9 % (2.6-8.5); Neutrophils Absolute Auto 12.6 K/mm3 (1.3-6.7); Neutrophils Percent Auto 81.4 % (45.5-73.1); Platelet Count Result 295 k/mm3 (150-375); Red Blood Count 4.15 M/mm3 (4.2-5.4); Red Cell Distribution Width 13.2 % (11.5-14.5); White Blood Count 15.4 K/mm3 (4.5-10.0)
[2023-06-14 02:22] LABS: Alanine Aminotransferase 16 U/L (6-35); Albumin Level 3.7 g/dL (3.5-5.1); Alkaline Phosphatase 80 U/L (38-126); Anion Gap 12 mmol/L (8-16); Aspartate Amino Transferase 23 U/L (14-36); Blood Urea Nitrogen 25 mg/dL (7-17); Calcium 8.6 mg/dL (8.4-10.2); Carbon Dioxide 18 mmol/L (22-30); Chloride 102 mmol/L (98-107); Estimated CRCL calculation 32 ml/min; Estimated Glomerular Filt Rate > 60; Glucose 132 mg/dL (65-110); Lipase 297 U/L (23-300); Potassium 3.6 mmol/L (3.4-5.0); Sodium 132 mmol/L (137-145)
--- NOTE | 2023-06-14 05:55 | PC.NURSE ---
pt to ed with a surgical incision located in the medial section of the abdomen. Pt states she has seen her surgeon for her incision. Pt states she has been having some leakage . EDP notified and made aware. Pt incision site is yellow, well approximated with scabbing. Pt still has several steri stripes applied on the incision site.
[2023-06-14] MEDS: SODIUM CHLORIDE 0.9% IV 1,000 ML 999 ML IV CONT (06:06)
[2023-06-14] MEDS: MORPHINE SULFATE (*CRX) 4 MG/ML INJ 2 MG IV PUSH (06:07)
[2023-06-14] MEDS: ONDANSETRON INJ 4 MG/2 ML VIAL IV PUSH (06:07)
[2023-06-14 07:01] LABS: Appearance Urine Turbid (Clear); Bacteria Urine None Seen /hpf; Bilirubin Urine 2+ (Negative); Blood Urine Negative (Negative); Color Urine Dark Yellow (Yellow); Glucose Urine UA Negative (Negative); Hyaline Casts Urine Present /lpf; Ketones Urine Trace mg/dL (Negative); Leukocyte Esterase Ur 1+ LEU/UL (Negative); Nitrate Urine Negative (Negative); Non Pathogenic Casts >20; Protein Urine 1+ mg/dL (Negative); RBC Urine 51-100 /hpf (0-2); Specific Grav Ur 1.023 (1.001-1.035); Squamous Epithelial Cell Urine Moderate /hpf (Few)
[2023-06-14 07:08] LABS: Add Urine Microscopic? YES
--- NOTE | 2023-06-14 07:19 | ED.GENADULT ---
HPI - General Adult General Chief complaint: Abdominal Pain <Josemanuel Maldonado MD - Last Filed: 06/14/23 07:21> Stated complaint: abd pain, post-op 1 month <Josemanuel Maldonado MD - Last Filed: 06/14/23 07:21> Time Seen by Provider: 06/14/23 05:47 <Josemanuel Maldonado MD - Last Filed: 06/14/23 07:21> History of Present Illness HPI narrative: Patient 77-year-old female who presents to emergency department with chief complaint of abdominal pain. Patient recently had surgery for gallstone ileus the patient reports that she started having worsening abdominal pain and is noticed that she had a little bit of seepage from around the incision sites <Josemanuel Maldonado MD - Last Filed: 06/14/23 07:21> Related Data Home medications: Home Medications Medication Instructions Recorded Confirmed ergocalciferol (vitamin D2) 1,250 1,250 mcg PO MONTHLY 10/03/20 06/08/23 mcg (50,000 unit) capsule fluticasone propionate 50 1 spray intranasal DAILY PRN 10/03/20 06/08/23 mcg/actuation nasal Congestion spray,suspension furosemide 20 mg tablet 20 mg PO QAM 10/03/20 06/08/23 lisinopril 5 mg tablet 10 mg PO DAILY 10/03/20 06/08/23 mecobalamin (vitamin B12) 1,000 1,000 mcg PO DAILY 10/03/20 06/08/23 mcg chewable tablet zewyrglf-tim-awmhv acid 0.4 1 tablet PO DAILY 10/03/20 06/08/23 mg-lycopene 300 mcg-lutein 250 mcg tablet (Centrum Silver) mycophenolate mofetil 500 mg tablet 500 mg PO Q12H 10/03/20 06/08/23 omega-3 fatty acids-fish oil 360 1 cap PO DAILY 10/03/20 06/08/23 mg-1,200 mg capsule (Fish Oil) potassium chloride 10 mEq 10 meq PO DAILY 10/03/20 06/08/23 tablet,extended release prednisone 5 mg tablet 5 mg PO DAILY 10/03/20 06/08/23 simvastatin 20 mg tablet 20 mg PO DAILY 10/03/20 06/08/23 valacyclovir 500 mg tablet 500 mg PO DAILY 10/03/20 06/08/23 esomeprazole magnesium 20 mg 20 mg PO DAILY 03/20/21 06/08/23 capsule,delayed release (Nexium) folic acid 1 mg tablet 1 mg PO DAILY 02/25/23 06/08/23 loratadine 10 mg disintegrating 10 mg PO DAILY PRN Allergy Symptoms 02/25/23 06/08/23 tablet (Alavert) cyclosporine modified 25 mg 25 mg PO TID 05/21/23 06/08/23 capsule (Neoral) <Josemanuel Maldonado MD - Last Filed: 06/14/23 07:21> Allergies/adverse reactions: Allergies Allergy/AdvReac Type Severity Reaction Status Date / Time No Known Allergies Allergy Verified 06/14/23 01:52 <Josemanuel Maldonado MD - Last Filed: 06/14/23 07:21> Review of Systems Review of Systems: A 10 system review of systems was completed on the patient and is negative except for what is stated in the HPI. Nursing and ancillary documentation was reviewed. <Josemanuel Maldonado MD - Last Filed: 06/14/23 07:21> [facility] Past Medical History Medical History: Medical History Chronic kidney disease Gastroesophageal reflux disease Hyperlipidemia Hypertension Immunosuppression due to drug therapy Osteoporosis <Josemanuel Maldonado MD - Last Filed: 06/14/23 07:21> Surgical History Surgical History: Surgical History History of bilateral cataract extraction (2018) History of laparotomy 05/21/2023 - Laparotomy for removal obstructing small intestinal foreign body History of parathyroidectomy History of renal transplant (1995) <Josemanuel Maldonado MD - Last Filed: 06/14/23 07:21> Family History Family History: Family History Other Family history non-contributory <Josemanuel Maldonado MD - Last Filed: 06/14/23 07:21> Social History Social History: Social History Social History: Code status: Full code. Smoking status: Never smoker Alcohol intake: never Substance use: never Lack of Transportation: N
--- NOTE | 2023-06-14 09:18 | PC.NURSE ---
pt c/o increased pain to 5/10. all results back. waiting further orders.
[2023-06-14] MEDS: MORPHINE SULFATE (*CRX) 2 MG/ML INJ IV PUSH ×2 (09:58→14:34)
--- NOTE | 2023-06-14 10:45 | PM.IMHP ---
H&P: HPI History of Present Illness Date/Time: 06/14/23 10:45 Chief Complaint: Abdominal pain, nausea vomiting Narrative: The patient is a 77-year-old female well known to the surgical service from previous laparotomy for gallstone ileus. The patient reports that she initially had been doing well postoperatively, however over the last few days has been getting intermittent crampy abdominal pain, constipation, nausea. Workup, including imaging, this significant for recurrent gallstone ileus. Review of Systems Review of Systems: All systems reviewed & are unremarkable except as noted in HPI and below PMFSH Past Medical History Medical History Chronic kidney disease Gastroesophageal reflux disease Hyperlipidemia Hypertension Immunosuppression due to drug therapy Osteoporosis Surgical History Surgical History History of bilateral cataract extraction (2018) History of laparotomy 05/21/2023 - Laparotomy for removal obstructing small intestinal foreign body History of parathyroidectomy History of renal transplant (1995) Family History Family History Other Family history non-contributory Social History Social History Social History: Code status: Full code. Smoking status: Never smoker Alcohol intake: never Substance use: never Lack of Transportation: No Lack of Food: Never True Current Housing: I Have Housing Concerned About Future Housing: No Difficulty Paying Gas/Electric Bills: No Difficulty Paying for Meds: No Currently Unemployed: No Education: Don't Know Difficulty w/ Childcare or Family Care: No Living arrangements: alone Occupation/Education: retired Spiritual care concerns: No Meds Home Medications and Allergies Home Medications Medication Instructions Recorded Confirmed Type ergocalciferol (vitamin D2) 1,250 1,250 mcg PO MONTHLY 10/03/20 06/08/23 History mcg (50,000 unit) capsule fluticasone propionate 50 1 spray intranasal DAILY PRN 10/03/20 06/08/23 History mcg/actuation nasal Congestion spray,suspension furosemide 20 mg tablet 20 mg PO QAM 10/03/20 06/08/23 History lisinopril 5 mg tablet 10 mg PO DAILY 10/03/20 06/08/23 History mecobalamin (vitamin B12) 1,000 1,000 mcg PO DAILY 10/03/20 06/08/23 History mcg chewable tablet cavufovc-tum-urdon acid 0.4 1 tablet PO DAILY 10/03/20 06/08/23 History mg-lycopene 300 mcg-lutein 250 mcg tablet (Centrum Silver) mycophenolate mofetil 500 mg tablet 500 mg PO Q12H 10/03/20 06/08/23 History omega-3 fatty acids-fish oil 360 1 cap PO DAILY 10/03/20 06/08/23 History mg-1,200 mg capsule (Fish Oil) potassium chloride 10 mEq 10 meq PO DAILY 10/03/20 06/08/23 History tablet,extended release prednisone 5 mg tablet 5 mg PO DAILY 10/03/20 06/08/23 History simvastatin 20 mg tablet 20 mg PO DAILY 10/03/20 06/08/23 History valacyclovir 500 mg tablet 500 mg PO DAILY 10/03/20 06/08/23 History esomeprazole magnesium 20 mg 20 mg PO DAILY 03/20/21 06/08/23 History capsule,delayed release (Nexium) risedronate 150 mg tablet 150 mg PO MONTHLY #12 tabs 12/27/22 06/08/23 Rx folic acid 1 mg tablet 1 mg PO DAILY 02/25/23 06/08/23 History loratadine 10 mg disintegrating 10 mg PO DAILY PRN Allergy Symptoms 02/25/23 06/08/23 History tablet (Alavert) cyclosporine modified 25 mg 25 mg PO TID 05/21/23 06/08/23 History capsule (Neoral) oxycodone-acetaminophen 5 mg-325 1 tablet PO Q6H PRN pain #15 tabs 05/29/23 05/29/23 Rx mg tablet (Percocet) Allergies Allergy/AdvReac Type Severity Reaction Status Date / Time No Known Allergies Allergy Verified 06/14/23 01:52 Vital Signs Vital Signs - 24 hr 06/14/23 02:09 06/14/23 05:54 06/14/23 06:17 Temperature 36.1 C L Pulse Rate 98 98 94 Respi
--- NOTE | 2023-06-14 10:56 | WPDHPUPDATE1 ---
History and Physical Update Update Date/Time: 06/14/23 10:56 History and Physical has been reviewed, including an updated exam of the patient. There are NO changes in the patient's condition. Risks, benefits, and alternatives have been discussed and questions answered. Patient agrees to proceed with procedure.
[2023-06-14] MEDS: LACTATED RINGERS 1,000 ML 999 ML IV CONT (12:31)
[2023-06-14] MEDS: metroNIDAZOLE 500 MG/ISO 100ML 500 MG/100 ML BAG 100 MG IVPB (13:21)
[2023-06-14] MEDS: CIPROFLOXACIN 400 MG/D5W 200ML 200 ML 200 MG IVPB ×2 (14:35→23:21)
--- NOTE | 2023-06-14 15:43 | WPDCN ---
Assessment and Plan Assessment and plan (1) Gallstone ileus of small intestine: Code(s): K56.3 - Gallstone ileus Status: Acute Assessment and Plan: Management per primary service. Dr. Wolf plans for urgent laparotomy with stone removal. Evaluated by Cardiology who does not feel she needs any further cardiac workup for this nonelective surgery. She is not have any complaints of chest pain or shortness of breath and cardiac rhythm has been stable. (2) History of renal transplant: Onset Date: 1995 Code(s): Z94.0 - Kidney transplant status Status: Chronic Assessment and Plan: Resume anti-rejection medications as soon as possible. (3) Hypertension: Qualifiers: Hypertension type: essential hypertension Qualified Code(s): I10 - Essential (primary) hypertension Code(s): I10 - Essential (primary) hypertension Status: Chronic Assessment and Plan: Blood pressures have been soft. Antihypertensives on hold. Continue to monitor closely. (4) Hyperlipidemia: Qualifiers: Hyperlipidemia type: pure hypercholesterolemia Qualified Code(s): E78.00 - Pure hypercholesterolemia, unspecified Code(s): E78.5 - Hyperlipidemia, unspecified Status: Chronic Assessment and Plan: Hold statin while NPO. Plan Thank you for allowing us to participate in this patient's care. Please do not hesitate to contact us with any questions. Time spent on patient encounter: 60 minutes. HPI Data of Consult Date/Time: 06/14/23 18:00 Requesting Physician: Brionna Wolf MD Consult Narrative Reason for consult: Medical management. Narrative: This is a pleasant 77-year-old female with chronic kidney disease status post renal transplant 1995, hypertension, hyperlipidemia, and gastroesophageal reflux disease who presented to the emergency department for evaluation of abdominal pain. She is known to myself and the hospitalist service from a recent admission for gallstone ileus after presenting with abdominal pain. She underwent laparotomy with removal obstructing gallstone from the distal ileum on 05/21/[address] Hall and she was able to be discharged 5 years thereafter. She has been doing okay at home but reports that she has good and bad days. She occasionally has abdominal discomfort, mainly at nighttime, but she does not like taking her pain medications because it causes her to feel foggy. Her appetite has been poor but she has been eating small meals throughout the day. She has occasional nausea but no vomiting. The last few days however she has developed increasing nausea and cramping abdominal discomfort and she returned today for evaluation. CT of the abdomen pelvis showed an obstructing distal small bowel gallstone and she was admitted in this setting. Dr. Wolf has made the recommendation for urgent laparotomy and stone removal with hopes to do that today however the anesthesia team has requested Cardiology and medical clearance prior to surgery. She has been seen by Dr. Mcfarland who feels that there is no need for preoperative cardiac evaluation or further workup given the fact that this is not an elective surgery and she has not had any active cardiovascular complaints. At the time my evaluation her pain is pretty well controlled and she does not have any significant complaints. She denies fever, chills, sweats, chest pain, shortness a breath, and recent vomiting. She has only been passing small bowel movements at home but not long prior to my arrival in the room she had 1 episode of loose stools a which she had no warning. She denies blood in mucus in the stool. Review of Systems Review of Systems: Twelve systems were reviewed and are negative except for as per HPI. [facility] Past Medical History Medical History (Updated 06/14/23 @ 21:59 by Maria T Renae PA-C) Chronic kidney disease Gastroesophageal reflux disease Hyperlipidemia Hyper
--- NOTE | 2023-06-14 16:39 | PM.CNCAR ---
Assessment and Plan Assessment and plan (1) Aortic stenosis, mild: Code(s): I35.0 - Nonrheumatic aortic (valve) stenosis Status: Acute Plan This 77-year-old lady with recent surgery for gallstone resection from the ileum. She has mild asymptomatic aortic valve stenosis no other cardiac pathology and no active cardiovascular symptoms. According to the surgeon she needs operation urgently for exploratory laparotomy to investigate recurrent abdominal pain. There is no need for preop cardiac evaluation other than this consultation. Her surgery is not elective and she is not having any active cardiovascular complaints. Her recent echocardiogram demonstrates very good left ventricular systolic function and mild aortic stenosis with which she remains asymptomatic. Saji Mcfarland MD [facility] History of Present Illness History of Present Illness Consult date/time: 06/14/23 16:39 Reason For Visit: Gallstone ileus Narrative: This is a 77-year-old woman I am seeing today at the request of the hospitalist and Surgical team for preoperative cardiac risk assessment. The patient was admitted to the hospital earlier today with abdominal pain and is anticipating an exploratory laparotomy to be done by surgery I believe tomorrow morning. The patient was recently hospitalized here in the 1st week of this month with abdominal pain and had a gallstone ileus. There was apparently a very large gallstone in the terminal small bowel and this had to be removed surgically by Dr. Hall. Our team was consulted to see the patient at that time because there were some arrhythmias that were reported to recurred briefly with in the operating room while she was under anesthesia. One of the observers apparently thought there was an episode of atrial fibrillation. Unfortunately the arrhythmia was not recorded for our review on a rhythm strip. Her telemetry was observed the rest of the time she was in the hospital and showed sinus rhythm with premature atrial contractions. An echocardiogram demonstrated some LVH with vigorous systolic function and mild aortic valve stenosis with a calculated valve area of 1.4 cm2. She does remember being told about 6 months ago by her PCP that she had a cardiac murmur but other than this she has had no previous cardiac problems. Surgical consultation note in the chart this times indication that she needs urgent operation the nurses that she is scheduled for an exploratory laparotomy tomorrow morning. I do not perceive appear to be any other cardiac concerns. Review of Systems Constitutional: Constitutional: Reports no additional constitutional complaints Eyes: Eyes: Reports no additional eye complaints ENT: Reports system reviewed and no additional complaints, except as documented Cardiovascular: Cardiovascular: Reports no additional cardiovascular complaints Respiratory: Respiratory: Reports no additional respiratory complaints Gastrointestinal: Gastrointestinal: Reports as per HPI and Reports abdominal pain Musculoskeletal: Musculoskeletal: Reports no additional musculoskeletal complaints Integumentary/Breasts: Skin/Breast: Reports system reviewed and no additional complaints, except as docu Neurologic: Reports system reviewed and no additional complaints, except as documented Endocrine: Endocrine: Reports no additional endocrine complaints Hematologic/Lymphatic: Hematologic/Lymphatic: Reports no additional hematologic/lymphatic complaints Allergic/Immunologic: Allergic/Immunologic: Reports no additional allergic/immunologic complaints PMFSH Past Medical History Medical History Chronic kidney disease Gastroesophageal reflux disease Hyperlipidemia Hypertension Immunosuppression due to drug therapy Osteoporosis Surgical History Surgical History History of bilateral cataract extraction (2019) Histo
[2023-06-14 20:23] LABS: Anion Gap 7 mmol/L (8-16); Blood Urea Nitrogen 28 mg/dL (7-17); Calcium 7.2 mg/dL (8.4-10.2); Carbon Dioxide 22 mmol/L (22-30); Chloride 107 mmol/L (98-107); Estimated CRCL calculation 36 ml/min; Estimated Glomerular Filt Rate > 60; Glucose 100 mg/dL (65-110); Potassium 3.8 mmol/L (3.4-5.0); Sodium 136 mmol/L (137-145)
[2023-06-14] MEDS: LACTATED RINGERS 1,000 ML 100 ML IV CONT (20:28)
[2023-06-14] MEDS: LACTATED RINGERS 1,000 ML 75 ML IV CONT (23:18)
[2023-06-15] VITALS (16 sets, daily range): BP systolic 98–128; BP diastolic 56–77; PULSE 80–112; RESP 12–20; TEMP 36.4–36.9; O2SAT 92–100
[2023-06-15] MEDS: HYDROmorphone HCL INJ (*CRX) 1 MG/ML SYR 0.5 MG IV PUSH (00:44)
[2023-06-15] MEDS: metroNIDAZOLE 500 MG/ISO 100ML 500 MG/100 ML BAG 100 MG IVPB ×3 (01:14→16:37)
--- NOTE | 2023-06-15 01:46 | PC.NURSE ---
pt reported pain 5/10; pts BP was 98/62. Dr. Pacheco notified of pts BP and ordered dilaudid 0.5 IV Push ONCE.
[2023-06-15 06:40] LABS: Hematocrit 33.7 % (37.0-47.0); Hemoglobin 11.2 g/dL (12.0-15.0); Mean Corpuscular HGB Conc 33.2 g/dl (32-36); Mean Corpuscular Hemoglobin 33.7 pg (26-34); Mean Corpuscular Volume 101.5 fl (80-100); Mean Platelet Volume 9.2 fl (7.4-10.4); Platelet Count Result 200 k/mm3 (150-375); Red Blood Count 3.32 M/mm3 (4.2-5.4); Red Cell Distribution Width 13.3 % (11.5-14.5); White Blood Count 5.4 K/mm3 (4.5-10.0)
--- NOTE | 2023-06-15 07:17 | WPDANESEPPF ---
Anes - Initial Pre Proc Eval Procedure: Operation Date: 06/15/23 07:30 Proposed Procedures p Exploratory Laparotomy, Pos Bowel Resec - Brionna Wolf MD Date/Time: 06/15/23 07:17 Surgeon: Brionna Wolf MD Pre Op Diagnosis: Gallstone ileus Patient Data Age: 77 Gender: F Height: 1.52 m Weight: 60.5 kg Last Vital Signs Temp 36.7 C 06/15/23 06:00 Pulse 105 H 06/15/23 06:00 Resp 12 06/15/23 06:00 BP 116/75 06/15/23 06:00 Pulse Ox 98 06/15/23 06:00 O2 Del Method Room Air 06/14/23 16:00 Allergies Allergy/AdvReac Type Severity Reaction Status Date / Time No Known Allergies Allergy Verified 06/14/23 01:52 Home Medications Medication Instructions Recorded Confirmed Type ergocalciferol (vitamin D2) 1,250 1,250 mcg PO MONTHLY 10/03/20 06/14/23 History mcg (50,000 unit) capsule fluticasone propionate 50 1 spray intranasal DAILY PRN 10/03/20 06/14/23 History mcg/actuation nasal Congestion spray,suspension furosemide 20 mg tablet 20 mg PO QAM 10/03/20 06/14/23 History lisinopril 5 mg tablet 10 mg PO DAILY 10/03/20 06/14/23 History mecobalamin (vitamin B12) 1,000 1,000 mcg PO DAILY 10/03/20 06/14/23 History mcg chewable tablet ymxofkqr-omj-oethn acid 0.4 1 tablet PO DAILY 10/03/20 06/14/23 History mg-lycopene 300 mcg-lutein 250 mcg tablet (Centrum Silver) mycophenolate mofetil 500 mg tablet 500 mg PO Q12H 10/03/20 06/14/23 History omega-3 fatty acids-fish oil 360 1 cap PO DAILY 10/03/20 06/14/23 History mg-1,200 mg capsule (Fish Oil) potassium chloride 10 mEq 10 meq PO DAILY 10/03/20 06/14/23 History tablet,extended release prednisone 5 mg tablet 5 mg PO DAILY 10/03/20 06/14/23 History simvastatin 20 mg tablet 20 mg PO DAILY 10/03/20 06/14/23 History valacyclovir 500 mg tablet 500 mg PO DAILY 10/03/20 06/14/23 History esomeprazole magnesium 20 mg 20 mg PO DAILY 03/20/21 06/14/23 History capsule,delayed release (Nexium) risedronate 150 mg tablet 150 mg PO MONTHLY #12 tabs 12/27/22 06/14/23 Rx folic acid 1 mg tablet 1 mg PO DAILY 02/25/23 06/14/23 History loratadine 10 mg disintegrating 10 mg PO DAILY PRN Allergy Symptoms 02/25/23 06/14/23 History tablet (Alavert) cyclosporine modified 25 mg 75 mg PO DAILY 05/21/23 06/14/23 History capsule (Neoral) Laboratory Tests 06/14/23 06/15/23 20:07 06:25 WBC 5.4 K/mm3 (4.5-10.0) RBC 3.32 L M/mm3 (4.2-5.4) Hgb 11.2 L g/dL (12.0-15.0) Hct 33.7 L % (37.0-47.0) MCV 101.5 H fl (80-100) MCH 33.7 pg (26-34) MCHC 33.2 g/dl (32-36) RDW 13.3 % (11.5-14.5) Plt Count 200 k/mm3 (150-375) MPV 9.2 fl (7.4-10.4) Sodium 136 L mmol/L Pending (137-145) Potassium 3.8 mmol/L Pending (3.4-5.0) Chloride 107 mmol/L Pending (98-107) Carbon Dioxide 22 mmol/L Pending (22-30) Anion Gap 7 L mmol/L Pending (8-16) BUN 28 H mg/dL Pending (7-17) Creatinine 0.80 mg/dL Pending (0.7-1.0) Estim Creat Clear Calc 36 ml/min Pending Estimated GFR > 60 Pending (59 - ) Glucose 100 mg/dL Pending (65-110) Calcium 7.2 L mg/dL Pending (8.4-10.2) Magnesium Pending Total Bilirubin Pending AST Pending ALT Pending Alkaline Phosphatase Pending Total Protein Pending Albumin Pending Patient hx anesthesia problems: none Family hx anesthesia problems: none Results Review: All pre-operative results and documents have been reviewed as part of the pre-operative evaluation. FOR[facility]LY [facility], LATER [facility] Past Medical History Medical History Chronic kidney disease Gastroesophageal reflux disease Hyperlipidemia Hypertension Immunosuppression due to drug therapy Mild aortic stenosis Osteoporosis Surgical History Surgical History (Reviewed 06/15/23 @ 07:17 by Randy Bernstein
[2023-06-15 07:29] LABS: Alanine Aminotransferase 14 U/L (6-35); Albumin Level 2.7 g/dL (3.5-5.1); Alkaline Phosphatase 61 U/L (38-126); Anion Gap 3 mmol/L (8-16); Aspartate Amino Transferase 24 U/L (14-36); Bilirubin,Total 0.8 mg/dL (0.2-1.3); Blood Urea Nitrogen 20 mg/dL (7-17); Calcium 7.2 mg/dL (8.4-10.2); Carbon Dioxide 22 mmol/L (22-30); Chloride 107 mmol/L (98-107); Estimated CRCL calculation 46 ml/min; Estimated Glomerular Filt Rate > 60; Glucose 92 mg/dL (65-110); Magnesium 1.8 mg/dL (1.6-2.3); Potassium 3.6 mmol/L (3.4-5.0); Sodium 132 mmol/L (137-145)
[2023-06-15] MEDS: LACTATED RINGERS 1,000 ML 30 ML IV CONT ×2 (07:54→09:12)
[2023-06-15] MEDS: CIPROFLOXACIN 400 MG/D5W 200ML 200 ML 200 MG IVPB ×2 (08:04→21:30)
--- NOTE | 2023-06-15 09:19 | W.PM.PROC2 ---
Procedure Note - Detailed Date of Procedure 06/15/23 Pre-op Diagnosis Gallstone ileus, small-bowel obstruction Post-op Diagnosis Same Procedure Performed exploratory laparotomy, lysis of adhesions, ileocecectomy with primary oqpw-hj-[id number] functional end-to-end anastomosis Surgeon Brionna Wolf MD Anesthesia General Indications 77-year-old female presenting to the emergency department with abdominal pain, nausea and vomiting. 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 After adequate induction of general anesthesia, the patient was prepped and draped in the normal sterile fashion. A time-out was then done to verify patient's identity, as well as procedure being performed. I began by opening the previous midline incision in gaining access into the peritoneal cavity. Upon getting into the peritoneal cavity, there was a moderate amount of serous fluid. I was able to suction this fluid out and it was noted that the small bowel was dilated. There was some adhesions likely from the previous surgery and these were taken down. The small bowel was noted to be very dilated especially towards the distal small bowel. Upon running the small bowel in doing the dissection, there was noted to be a large obstructing gallstone in the terminal ileum. Just proximal to this area, in the mid ileum, there was a small perforation. Given these findings, the decision was made to proceed with ileocecectomy. Of note, I did examine the previous enterotomy site and was noted to be well healed and intact. This was more located in the proximal ileum. I used the resection margin to include the enterotomy site in the mid ileum as our proximal resection point. This was transected with a OC 75 stapler. Next I freed up the cecum and ascending colon by taking down the white line of [place] and all adhesions. I then chose the distal transection point as the distal cecum. This again was transected with a OC 75 stapler. I then took down the mesenteric attachments of the specimen with the LigaSure device. The specimen will now be sent to pathology for further review. I then copiously irrigated the abdomen. I then performed a bjwl-jq-vnna functional end-to-end anastomosis between the ileum and the ascending colon using the OC 75 stapler to create the common channel followed by the Tx 60 stapler. The anastomosis was noted to be widely patent and tension-free. I then imbricated the staple line using erupted 3-0 silk sutures. The mesenteric defect was closed with a running 3-0 silk suture. I then examined the rest of the abdomen which was largely unremarkable. There was noted to be marked inflammation in the right upper quadrant at the area of the gallbladder. We proceeded to try to place the NG, however we were unable to pass it given anatomic issues. The fascia of the incision was then closed with a looped 0 PDS suture. The skin was closed with skin efren. Sterile dressings were then placed on the wound. The patient tolerated the procedure well and was extubated postoperatively. She will be transferred to the recovery room in stable condition. Estimated Blood Loss 50 Packing No Pathology Yes Complications No immediate complications Condition Stable Disposition PACU [facility] Billing Surgery - Charge Forward: Surgery Billing
--- NOTE | 2023-06-15 09:20 | PM.IMPN ---
Progress Note: A&P Assessment and Plan (1) Gallstone ileus of small intestine: Code(s): K56.3 - Gallstone ileus Status: Acute Assessment and Plan: Management per primary service. Dr. Wolf plans for urgent laparotomy with stone removal. Evaluated by Cardiology who does not feel she needs any further cardiac workup for this nonelective surgery. She is not have any complaints of chest pain or shortness of breath and cardiac rhythm has been stable. (2) History of renal transplant: Onset Date: 1995 Code(s): Z94.0 - Kidney transplant status Status: Chronic Assessment and Plan: Resume anti-rejection medications as soon as possible. Restarting cyclosporin, prednisone, mycophenolate, and prednisone to prevent rejection (3) Hypertension: Qualifiers: Hypertension type: essential hypertension Qualified Code(s): I10 - Essential (primary) hypertension Code(s): I10 - Essential (primary) hypertension Status: Chronic Assessment and Plan: Blood pressures have been soft. Antihypertensives on hold. Continue to monitor closely. Continue to hold antihypertensives. Patient is 90s over 50s after surgery. (4) Hyperlipidemia: Qualifiers: Hyperlipidemia type: pure hypercholesterolemia Qualified Code(s): E78.00 - Pure hypercholesterolemia, unspecified Code(s): E78.5 - Hyperlipidemia, unspecified Status: Chronic Assessment and Plan: Hold statin while NPO. Resuming now that she is on a clear liquid diet Plan Clear liquid diet. Advance diet as tolerated with surgery permission Restarting anti-rejection medication Pain control ordered with IV morphine and Zofran for nausea her primary Continue H2 jd and start bowel regimen when okay with primary Thank you for allowing us to participate in this patient's care. Please do not hesitate to contact us with any questions. Subjective Date/time seen: 06/15/23 09:20 Interval history: Requesting Physician: Brionna Wolf MD Consult Narrative Reason for consult: Medical management. Narrative: This is a pleasant 77-year-old female with chronic kidney disease status post renal transplant 1995, hypertension, hyperlipidemia, and gastroesophageal reflux disease who presented to the emergency department for evaluation of abdominal pain. She is known to myself and the hospitalist service from a recent admission for gallstone ileus after presenting with abdominal pain. She underwent laparotomy with removal obstructing gallstone from the distal ileum on 05/21/[address] Hall and she was able to be discharged 5 years thereafter. She has been doing okay at home but reports that she has good and bad days. She occasionally has abdominal discomfort, mainly at nighttime, but she does not like taking her pain medications because it causes her to feel foggy. Her appetite has been poor but she has been eating small meals throughout the day. She has occasional nausea but no vomiting. The last few days however she has developed increasing nausea and cramping abdominal discomfort and she returned today for evaluation. CT of the abdomen pelvis showed an obstructing distal small bowel gallstone and she was admitted in this setting. Dr. Wolf has made the recommendation for urgent laparotomy and stone removal with hopes to do that today however the anesthesia team has requested Cardiology and medical clearance prior to surgery. She has been seen by Dr. Mcfarland who feels that there is no need for preoperative cardiac evaluation or further workup given the fact that this is not an elective surgery and she has not had any active cardiovascular complaints. At the time my evaluation her pain is pretty well controlled and she does not have any significant complaints. She denies fever, chills, sweats, chest pain, shortness a breath, and recent vomiting. She has only been passing small bowel movements at home but not long prio
[2023-06-15] MEDS: fentaNYL CITRATE INJ (*CRX) 100 MCG/2 ML VIAL 25 MCG IV PUSH ×12 (09:34→10:27)
--- NOTE | 2023-06-15 11:00 | PC.NURSE ---
This pt returned to 3MS from OR at 1100
[2023-06-15] MEDS: LACTATED RINGERS 1,000 ML 100 ML IV CONT ×2 (11:15→21:40)
[2023-06-15 17:06] LABS: Basophils Absolute Auto 0.1 K/mm3 (0.0-0.1); Basophils Percent Auto 0.8 % (0.2-1.2); Hemoglobin 12.3 g/dL (12.0-15.0); Immature Granulocyte Absolute 0.03 K/mm3 (0.00-0.031); Immature Granulocyte Percent A 0.3 % (0-0.5); Lymphocytes Absolute Auto 0.42 K/mm3 (0.9-3.2); Lymphocytes Percent Auto 4.6 % (18.3-44.2); Mean Corpuscular HGB Conc 33.2 g/dl (32-36); Mean Corpuscular Hemoglobin 33.3 pg (26-34); Mean Corpuscular Volume 100.3 fl (80-100); Mean Platelet Volume 9.5 fl (7.4-10.4); Monocytes Absolute Auto 0.5 K/mm3 (0.1-0.6); Monocytes Percent Auto 5.1 % (2.6-8.5); Neutrophils Absolute Auto 8.1 K/mm3 (1.3-6.7); Neutrophils Percent Auto 89.2 % (45.5-73.1); Platelet Count Result 218 k/mm3 (150-375); Red Blood Count 3.69 M/mm3 (4.2-5.4); Red Cell Distribution Width 13.5 % (11.5-14.5); White Blood Count 9.1 K/mm3 (4.5-10.0)
[2023-06-15 17:20] LABS: Alanine Aminotransferase 14 U/L (6-35); Albumin Level 2.4 g/dL (3.5-5.1); Alkaline Phosphatase 52 U/L (38-126); Anion Gap 5 mmol/L (8-16); Aspartate Amino Transferase 22 U/L (14-36); Bilirubin,Total 0.9 mg/dL (0.2-1.3); Blood Urea Nitrogen 18 mg/dL (7-17); Calcium 6.9 mg/dL (8.4-10.2); Carbon Dioxide 17 mmol/L (22-30); Chloride 109 mmol/L (98-107); Estimated CRCL calculation 53 ml/min; Estimated Glomerular Filt Rate > 60; Glucose 126 mg/dL (65-110); Potassium 3.4 mmol/L (3.4-5.0); Sodium 131 mmol/L (137-145)
[2023-06-15 17:33] LABS: Anisocytosis 1+ (NORMAL); Burr Cells 1+ (NORMAL); Ovalocytes 1+ (NORMAL); Platelet Estimate Adequate (Adequate); Schistocytes None Seen (NORMAL)
[2023-06-15] MEDS: BENZOCAINE/MENTHOL (*BKC) 18 EA LOZENGE 1 LOZENGE PO (18:34)
[2023-06-15] MEDS: FAMOTIDINE 20 MG/2 ML VIAL IV PUSH (21:27)
[2023-06-15] MEDS: mycophenolate mofetiL 250 MG CAPSULE 500 MG PO (21:27)
[2023-06-15] MEDS: MORPHINE SULFATE (*CRX) 2 MG/ML INJ IV PUSH (21:30)
--- NOTE | 2023-06-15 23:20 | PC.NURSE ---
Paper documentation exists on this patient due to [facility] System downtime on 06/15/23 from 1930 to 2225 medications manually entered for time given[] .
[2023-06-16] MEDS: metroNIDAZOLE 500 MG/ISO 100ML 500 MG/100 ML BAG 100 MG IVPB ×3 (01:30→17:53)
[2023-06-16 04:33] VITALS: BP 102/73; PULSE 96; RESP 16; TEMP 36.2; O2SAT 98
[2023-06-16 07:28] LABS: Basophils Percent Auto 0.3 % (0.2-1.2); Eosinophils Percent Auto 0.3 % (0-4.4); Hematocrit 32.3 % (37.0-47.0); Immature Granulocyte Absolute 0.04 K/mm3 (0.00-0.031); Immature Granulocyte Percent A 0.5 % (0-0.5); Lymphocytes Absolute Auto 0.62 K/mm3 (0.9-3.2); Lymphocytes Percent Auto 8.1 % (18.3-44.2); Mean Corpuscular HGB Conc 34.1 g/dl (32-36); Mean Corpuscular Hemoglobin 34.2 pg (26-34); Mean Corpuscular Volume 100.3 fl (80-100); Mean Platelet Volume 9.3 fl (7.4-10.4); Monocytes Absolute Auto 0.6 K/mm3 (0.1-0.6); Neutrophils Absolute Auto 6.3 K/mm3 (1.3-6.7); Neutrophils Percent Auto 82.8 % (45.5-73.1); Platelet Count Result 189 k/mm3 (150-375); Red Blood Count 3.22 M/mm3 (4.2-5.4); Red Cell Distribution Width 13.6 % (11.5-14.5); White Blood Count 7.7 K/mm3 (4.5-10.0)
[2023-06-16 07:37] LABS: Anion Gap 2 mmol/L (8-16); Blood Urea Nitrogen 13 mg/dL (7-17); Calcium 6.9 mg/dL (8.4-10.2); Carbon Dioxide 20 mmol/L (22-30); Chloride 109 mmol/L (98-107); Estimated CRCL calculation 55 ml/min; Estimated Glomerular Filt Rate > 60; Glucose 122 mg/dL (65-110); Potassium 3.5 mmol/L (3.4-5.0); Sodium 131 mmol/L (137-145)
[2023-06-16 08:33] VITALS: BP 112/65; PULSE 94; RESP 16; TEMP 36.7; O2SAT 97
--- NOTE | 2023-06-16 08:33 | PM.IMPN ---
Progress Note: A&P Assessment and Plan (1) Gallstone ileus of small intestine: Code(s): K56.3 - Gallstone ileus Status: Acute Assessment and Plan: POD 1 exploratory laparotomy, lysis of adhesions, ileocecectomy with primary vjjn-jv-etjo functional end-to-end anastomosis with Dr Wolf Clear liquid diet. Keeping IV fluids for now given nausea and little intake of clears. PT/OT ordered OOB to chair with meals D/C tsnag catheter. Pain medications as needed Encouraged use of IS DVT prophalyxis with lovenox (2) History of renal transplant: Onset Date: 1995 Code(s): Z94.0 - Kidney transplant status Status: Chronic Assessment and Plan: Resume anti-rejection medications as soon as possible. Restarting cyclosporin, prednisone, mycophenolate, and prednisone to prevent rejection (3) Hypertension: Qualifiers: Hypertension type: essential hypertension Qualified Code(s): I10 - Essential (primary) hypertension Code(s): I10 - Essential (primary) hypertension Status: Chronic Assessment and Plan: Blood pressures have been soft. Antihypertensives on hold. Continue to monitor closely. Continue to hold antihypertensives. Patient is 90s over 50s after surgery. (4) Hyperlipidemia: Qualifiers: Hyperlipidemia type: pure hypercholesterolemia Qualified Code(s): E78.00 - Pure hypercholesterolemia, unspecified Code(s): E78.5 - Hyperlipidemia, unspecified Status: Chronic Assessment and Plan: Resumed. Stable. Plan Clear liquid diet. Advance diet as tolerated with surgery permission Restarting anti-rejection medication Pain control ordered with IV morphine and Zofran for nausea her primary Continue H2 jd and start bowel regimen when okay with primary Thank you for allowing us to participate in this patient's care. Please do not hesitate to contact us with any questions. Subjective Date/time seen: 06/16/23 08:33 Interval history: Requesting Physician: Brionna Wolf MD Consult Narrative Reason for consult: Medical management. Narrative: This is a pleasant 77-year-old female with chronic kidney disease status post renal transplant 1995, hypertension, hyperlipidemia, and gastroesophageal reflux disease who presented to the emergency department for evaluation of abdominal pain. She is known to myself and the hospitalist service from a recent admission for gallstone ileus after presenting with abdominal pain. She underwent laparotomy with removal obstructing gallstone from the distal ileum on 05/21/[address] Hall and she was able to be discharged 5 years thereafter. She has been doing okay at home but reports that she has good and bad days. She occasionally has abdominal discomfort, mainly at nighttime, but she does not like taking her pain medications because it causes her to feel foggy. Her appetite has been poor but she has been eating small meals throughout the day. She has occasional nausea but no vomiting. The last few days however she has developed increasing nausea and cramping abdominal discomfort and she returned today for evaluation. CT of the abdomen pelvis showed an obstructing distal small bowel gallstone and she was admitted in this setting. Dr. Wolf has made the recommendation for urgent laparotomy and stone removal with hopes to do that today however the anesthesia team has requested Cardiology and medical clearance prior to surgery. She has been seen by Dr. Mcfarland who feels that there is no need for preoperative cardiac evaluation or further workup given the fact that this is not an elective surgery and she has not had any active cardiovascular complaints. At the time my evaluation her pain is pretty well controlled and she does not have any significant complaints. She denies fever, chills, sweats, chest pain, shortness a breath, and recent vomiting. She has only been passing small bowel movements at home but
[2023-06-16] MEDS: CIPROFLOXACIN 400 MG/D5W 200ML 200 ML 200 MG IVPB ×2 (08:56→20:20)
[2023-06-16] MEDS: MORPHINE SULFATE (*CRX) 2 MG/ML INJ IV PUSH (09:12)
[2023-06-16] MEDS: ONDANSETRON INJ 4 MG/2 ML VIAL IV PUSH (09:12)
[2023-06-16] MEDS: valACYclovir HCL 500 MG TABLET PO (10:29)
[2023-06-16] MEDS: FAMOTIDINE 20 MG/2 ML VIAL IV PUSH ×2 (10:29→20:20)
[2023-06-16] MEDS: SIMVASTATIN 20 MG TABLET PO (10:29)
[2023-06-16] MEDS: predniSONE 5 MG TABLET PO (10:30)
[2023-06-16] MEDS: mycophenolate mofetiL 250 MG CAPSULE 500 MG PO ×2 (10:30→20:20)
[2023-06-16] MEDS: ENOXAPARIN 40 MG/0.4 ML SYRINGE SUB-Q (10:31)
[2023-06-16] MEDS: cycloSPORINE (NEORAL) 25 MG CAPSULE 75 MG PO (10:31)
[2023-06-16] MEDS: LACTATED RINGERS 1,000 ML 100 ML IV CONT ×2 (11:27→17:53)
--- NOTE | 2023-06-16 12:17 | P.PNAN_ITS ---
Anes - Prog Note Post-Op Date/Time: 06/16/23 12:17 Vital Signs: Last Vital Signs Temp 98.0 F 06/16/23 08:33 Pulse 94 06/16/23 08:33 Resp 16 06/16/23 08:33 BP 112/65 06/16/23 08:33 Pulse Ox 97 06/16/23 08:33 O2 Del Method Room Air 06/16/23 09:50 O2 Flow Rate 2 06/15/23 11:05 Pain Score (VAS): 12/27 I/O: Intake & Output 06/15/23 06/16/23 06/16/23 23:59 07:59 15:59 Intake Total 1300 1100 420 Output Total 150 250 Balance 1150 850 420 Laboratory Tests 06/16/23 07:04 06/16/23 07:04 06/15/23 06/16/23 16:50 07:04 WBC 9.1 7.7 RBC 3.69 L 3.22 L Hgb 12.3 11.0 L Hct 37.0 32.3 L MCV 100.3 H 100.3 H MCH 33.3 34.2 H MCHC 33.2 34.1 RDW 13.5 13.6 Plt Count 218 189 MPV 9.5 9.3 Immature Gran % (Auto) 0.3 0.5 Neut % (Auto) 89.2 H 82.8 H Lymph % (Auto) 4.6 L 8.1 L [place] % (Auto) 5.1 8.0 Eos % (Auto) 0.0 0.3 Baso % (Auto) 0.8 0.3 Lymph # (Auto) 0.42 L 0.62 L [place] # (Auto) 0.5 0.6 Eos # (Auto) 0.0 0.0 Baso # (Auto) 0.1 0.0 Abs Immat Gran (auto) 0.03 0.04 H Absolute Neuts (auto) 8.1 H 6.3 Absolute Nucleated RBC 0.0 0.0 Nucleated RBC % 0.0 0.0 Platelet Estimate Adequate Anisocytosis 1+ Ovalocytes 1+ [place] Cells 1+ Schistocytes None seen Sodium 131 L 131 L Potassium 3.4 3.5 Chloride 109 H 109 H Carbon Dioxide 17 L 20 L Anion Gap 5 L 2 L BUN 18 H 13 D Creatinine 0.60 L 0.60 L Estim Creat Clear Calc 53 55 Estimated GFR > 60 > 60 Glucose 126 H 122 H Calcium 6.9 L 6.9 L Total Bilirubin 0.9 AST 22 ALT 14 Alkaline Phosphatase 52 Total Protein 5.0 L Albumin 2.4 L Microbiology 06/14/23 05:49 Unspecified Urine Urine Culture - Final Patient Feedback: Patient satisfied with anesthetic care.
--- NOTE | 2023-06-16 12:21 | PM.PNGS ---
Progress Note: A&P Assessment and Plan (1) Gallstone ileus: Code(s): K56.3 - Gallstone ileus Status: Acute Assessment and Plan: stable, cont routine postop care, clears for now, OOB/IS Subjective Subjective Date/Time Seen: 06/16/23 12:21 Interval history: doing ok, incisional soreness rianna c movt, some nausea Review of Systems Review of Systems: All systems reviewed & are unremarkable except as noted in HPI and below Exam Const: General: cooperative and no acute distress Resp: Auscultation: clear to auscultation bilaterally Cardio: Rate: regular rate Rhythm: regular rhythm GI: Inspection: normal to inspection, distended and incision GI Palp: Yes abdominal tenderness, Yes Soft to palpation and Yes Tenderness to palpation present (GI) Objective Data Vital Signs Vital Signs: Vital Signs - 24 hr 06/15/23 12:33 06/15/23 20:33 06/15/23 23:52 Temperature 36.6 C 36.6 C 36.9 C Pulse Rate 109 H 112 H 101 H Respiratory Rate 16 16 18 Blood Pressure 99/58 L 102/56 L 98/56 L Pulse Oximetry 99 99 92 Oxygen Delivery 06/16/23 04:33 06/16/23 08:33 06/16/23 09:50 Temperature 36.2 C L 36.7 C Pulse Rate 96 94 Respiratory Rate 16 16 Blood Pressure 102/73 112/65 Pulse Oximetry 98 97 Oxygen Delivery Room Air Intake/Output Intake/Output: Intake & Output 06/13/23 06/14/23 06/15/23 06/16/23 23:59 23:59 23:59 23:59 Intake Total 1100 3300 1520 Output Total 180 250 Balance 1100 3120 1270 Meds/Results Medications: Active Medications Generic Name Dose Route Start Last Admin Trade Name Freq PRN Reason Stop Dose Admin Benzocaine 1 lozenge 06/15/23 16:42 06/15/23 18:34 Benzocaine/Menthol (*Bkc) 18 Ea Lozenge PO 1 lozenge PRN PRN Administration Sore Throat Cyclosporine 75 mg 06/16/23 09:00 06/16/23 10:31 Cyclosporine (Neoral) 25 Mg Capsule PO 75 mg DAILY ALISON Administration Enoxaparin Sodium 40 mg 06/16/23 09:00 06/16/23 10:31 Enoxaparin 40 Mg/0.4 Ml Syringe SUB-Q 40 mg DAILY ALISON Administration Famotidine 20 mg 06/15/23 21:00 06/16/23 10:29 Famotidine 20 Mg/2 Ml Vial IV PUSH 20 mg Q12HR ALISON Administration Furosemide 20 mg 06/16/23 09:00 Furosemide 20 Mg Tablet PO QAM ALISON Ciprofloxacin/Dextrose 200 mls @ 200 mls/hr 06/14/23 21:00 06/16/23 09:56 Cipro 400 Mg/D5w 200 Ml IVPB Infused Q12H ALISON Infusion Metronidazole 500 mg in 100 mls @ 100 mls/hr 06/15/23 01:00 06/16/23 09:58 Flagyl 500 Mg/Iso Soln 100 Ml IVPB Infused Q8H ALISON Infusion Lactated Ringer's 1,000 mls @ 100 mls/hr 06/15/23 10:48 06/16/23 11:27 Lr - Lactated Ringers Iv IV CONT 100 mls/hr .Q10H ALISON Administration Morphine Sulfate 2 mg 06/15/23 10:48 06/16/23 09:12 Morphine Sulfate (*Crx) 2 Mg/Ml Inj IV PUSH 2 mg Q2H PRN Administration Pain Rated 4-6 Morphine Sulfate 4 mg 06/15/23 10:48 Morphine Sulfate (*Crx) 4 Mg/Ml Inj IV PUSH Q2H PRN Pain Rated 7-10 Mycophenolate Mofetil 500 mg 06/15/23 21:00 06/16/23 10:30 Mycophenolate Mofetil 250 Mg Capsule PO 500 mg Q12HR ALISON Administration Naloxone HCl 0.1 mg 06/15/23 10:48 Naloxone Hcl 0.4 Mg/Ml Vial IV PUSH Q2M PRN Opiate Reversal Ondansetron HCl 4 mg 06/15/23 10:48 06/16/23 09:12 Ondansetron Inj 4 Mg/2 Ml Vial IV PUSH 4 mg Q4H PRN Administration Nausea And Vomiting Prednisone 5 mg 06/16/23 09:00 06/16/23 10:30 Prednisone 5 Mg Tablet PO 5 mg DAILY ALISON Administration Simvastatin 20 mg 06/16/23 09:00 06/16/23 10:29 Simvastatin 20 Mg Tablet PO 20 mg DAILY ALISON Administration Valacyclovir HCl 500 mg 06/16/23 09:00 06/16/23 10:29 Valacyclovir Hcl 500 Mg Tablet PO 500 mg DAILY ALISON Administration Radiology Results: ITS Impressions Abdomen/Pelvis CT 06/14/23 08:57 IMPRESSION: Obstructing distal small bowel gallstone (gallstone ileus) Pneumobilia secondary to
[2023-06-16 13:29] VITALS: BMI 27.4
[2023-06-16 14:20] VITALS: BP 98/55; PULSE 88; RESP 14; TEMP 37.3; O2SAT 95
[2023-06-16 20:00] VITALS: BP 102/62; PULSE 95; RESP 14; TEMP 37.8; O2SAT 96
[2023-06-17] VITALS: BP 139/71; PULSE 89; RESP 14; TEMP 37.5; O2SAT 97
[2023-06-17] MEDS: metroNIDAZOLE 500 MG/ISO 100ML 500 MG/100 ML BAG 100 MG IVPB ×2 (01:23→09:55)
[2023-06-17 04:48] VITALS: BP 103/53; PULSE 91; RESP 16; TEMP 37.1; O2SAT 97
--- NOTE | 2023-06-17 08:15 | PM.IMPN ---
Progress Note: A&P Assessment and Plan (1) Gallstone ileus of small intestine: Code(s): K56.3 - Gallstone ileus Status: Acute Assessment and Plan: POD 2 exploratory laparotomy, lysis of adhesions, ileocecectomy with primary [id number] functional end-to-end anastomosis with Dr Wolf Clear liquid diet. OOB to chair with meals D/C tsang catheter, voiding spontaneously Pain medications as needed Encouraged use of IS DVT prophalyxis with lovenox (2) History of renal transplant: Onset Date: 1995 Code(s): Z94.0 - Kidney transplant status Status: Chronic Assessment and Plan: Resume anti-rejection medications as soon as possible. Restarting cyclosporin, prednisone, mycophenolate, and prednisone to prevent rejection (3) Hypertension: Qualifiers: Hypertension type: essential hypertension Qualified Code(s): I10 - Essential (primary) hypertension Code(s): I10 - Essential (primary) hypertension Status: Chronic Assessment and Plan: Blood pressures have been soft. Antihypertensives on hold. Continue to monitor closely. Continue to hold antihypertensives. Patient is 90s over 50s after surgery. (4) Hyperlipidemia: Qualifiers: Hyperlipidemia type: pure hypercholesterolemia Qualified Code(s): E78.00 - Pure hypercholesterolemia, unspecified Code(s): E78.5 - Hyperlipidemia, unspecified Status: Chronic Assessment and Plan: Resumed. Stable. Plan Clear liquid diet. Advance diet as tolerated with surgery permission Restarting anti-rejection medication Pain control ordered. Switch to oral agents with IV push morphine for breakthrough pain Continue H2 jd and start bowel regimen when okay with primary Thank you for allowing us to participate in this patient's care. Please do not hesitate to contact us with any questions. Subjective Date/time seen: 06/17/23 08:15 Interval history: Requesting Physician: Brionna Wolf MD Consult Narrative Reason for consult: Medical management. Narrative: This is a pleasant 77-year-old female with chronic kidney disease status post renal transplant 1995, hypertension, hyperlipidemia, and gastroesophageal reflux disease who presented to the emergency department for evaluation of abdominal pain. She is known to myself and the hospitalist service from a recent admission for gallstone ileus after presenting with abdominal pain. She underwent laparotomy with removal obstructing gallstone from the distal ileum on 05/21/[address] Hall and she was able to be discharged 5 years thereafter. She has been doing okay at home but reports that she has good and bad days. She occasionally has abdominal discomfort, mainly at nighttime, but she does not like taking her pain medications because it causes her to feel foggy. Her appetite has been poor but she has been eating small meals throughout the day. She has occasional nausea but no vomiting. The last few days however she has developed increasing nausea and cramping abdominal discomfort and she returned today for evaluation. CT of the abdomen pelvis showed an obstructing distal small bowel gallstone and she was admitted in this setting. Dr. Wolf has made the recommendation for urgent laparotomy and stone removal with hopes to do that today however the anesthesia team has requested Cardiology and medical clearance prior to surgery. She has been seen by Dr. Mcfarland who feels that there is no need for preoperative cardiac evaluation or further workup given the fact that this is not an elective surgery and she has not had any active cardiovascular complaints. At the time my evaluation her pain is pretty well controlled and she does not have any significant complaints. She denies fever, chills, sweats, chest pain, shortness a breath, and recent vomiting. She has only been passing small bowel movements at home but not long prior to my arrival in the room she
--- NOTE | 2023-06-17 08:59 | PM.PNGS ---
Progress Note: A&P Assessment and Plan (1) Gallstone ileus: Code(s): K56.3 - Gallstone ileus Status: Acute Assessment and Plan: doing well, cont to encourage OOB/IS, PT/OT, cont clears and await bowel fxn, may need rehab p dc Subjective Subjective Date/Time Seen: 06/17/23 08:59 Interval history: feels better today, incisional soreness improved, no bowel fxn yet, no N/V, scarlet some clears Review of Systems Review of Systems: All systems reviewed & are unremarkable except as noted in HPI and below Exam Const: General: cooperative, comfortable and no acute distress Resp: Auscultation: clear to auscultation bilaterally Cardio: Rate: regular rate Rhythm: regular rhythm GI: Inspection: normal to inspection, distended and incision GI Palp: Yes abdominal tenderness, Yes Soft to palpation, Yes Tenderness to palpation present (GI), No Guarding due to palpation present (GI) and No Rigid due to palpation Other: incision C/D/I Objective Data Vital Signs Vital Signs: Vital Signs - 24 hr 06/16/23 09:50 06/16/23 14:20 06/16/23 20:00 Temperature 37.3 C 37.8 C H Pulse Rate 88 95 Respiratory Rate 14 14 Blood Pressure 98/55 L 102/62 Pulse Oximetry 95 96 Oxygen Delivery Room Air 06/16/23 20:00 06/17/23 00:00 06/17/23 04:48 Temperature 37.5 C 37.1 C Pulse Rate 95 89 91 Respiratory Rate 14 14 16 Blood Pressure 139/71 103/53 L Pulse Oximetry 96 97 97 Oxygen Delivery Room Air Intake/Output Intake/Output: Intake & Output 06/14/23 06/15/23 06/16/23 06/17/23 23:59 23:59 23:59 23:59 Intake Total 1100 3300 3140 400 Output Total 180 250 Balance 1100 3120 2890 400 Meds/Results Medications: Active Medications Generic Name Dose Route Start Last Admin Trade Name Freq PRN Reason Stop Dose Admin Benzocaine 1 lozenge 06/15/23 16:42 06/15/23 18:34 Benzocaine/Menthol (*Bkc) 18 Ea Lozenge PO 1 lozenge PRN PRN Administration Sore Throat Cyclosporine 75 mg 06/16/23 09:00 06/16/23 10:31 Cyclosporine (Neoral) 25 Mg Capsule PO 75 mg DAILY ALISON Administration Enoxaparin Sodium 40 mg 06/16/23 09:00 06/16/23 10:31 Enoxaparin 40 Mg/0.4 Ml Syringe SUB-Q 40 mg DAILY ALISON Administration Famotidine 20 mg 06/15/23 21:00 06/16/23 20:20 Famotidine 20 Mg/2 Ml Vial IV PUSH 20 mg Q12HR ALISON Administration Furosemide 20 mg 06/16/23 09:00 Furosemide 20 Mg Tablet PO QAM ALISON Ciprofloxacin/Dextrose 200 mls @ 200 mls/hr 06/14/23 21:00 06/16/23 20:20 Cipro 400 Mg/D5w 200 Ml IVPB 200 mls/hr Q12H ALISON Administration Metronidazole 500 mg in 100 mls @ 100 mls/hr 06/15/23 01:00 06/17/23 01:23 Flagyl 500 Mg/Iso Soln 100 Ml IVPB 100 mls/hr Q8H ALISON Administration Lactated Ringer's 1,000 mls @ 100 mls/hr 06/15/23 10:48 06/16/23 17:53 Lr - Lactated Ringers Iv IV CONT 100 mls/hr .Q10H ALISON Administration Morphine Sulfate 2 mg 06/15/23 10:48 06/16/23 09:12 Morphine Sulfate (*Crx) 2 Mg/Ml Inj IV PUSH 2 mg Q2H PRN Administration Pain Rated 4-6 Morphine Sulfate 4 mg 06/15/23 10:48 Morphine Sulfate (*Crx) 4 Mg/Ml Inj IV PUSH Q2H PRN Pain Rated 7-10 Mycophenolate Mofetil 500 mg 06/15/23 21:00 06/16/23 20:20 Mycophenolate Mofetil 250 Mg Capsule PO 500 mg Q12HR ALISON Administration Naloxone HCl 0.1 mg 06/15/23 10:48 Naloxone Hcl 0.4 Mg/Ml Vial IV PUSH Q2M PRN Opiate Reversal Ondansetron HCl 4 mg 06/15/23 10:48 06/16/23 09:12 Ondansetron Inj 4 Mg/2 Ml Vial IV PUSH 4 mg Q4H PRN Administration Nausea And Vomiting Prednisone 5 mg 06/16/23 09:00 06/16/23 10:30 Prednisone 5 Mg Tablet PO 5 mg DAILY ALISON Administration Simvastatin 20 mg 06/16/23 09:00 06/16/23 10:29 Simvastatin 20 Mg Tablet PO 20 mg DAILY ALISON Administration Valacyclovir HCl 500 mg 06/16/23 09:00 06/16/23 10:29 Valacyclovir Hcl 500 Mg Tablet PO 500 mg DAILY
[2023-06-17 09:50] VITALS: PULSE 95; O2SAT 98
[2023-06-17] MEDS: CIPROFLOXACIN 400 MG/D5W 200ML 200 ML 200 MG IVPB (09:55)
[2023-06-17] MEDS: LACTATED RINGERS 1,000 ML 100 ML IV CONT (09:56)
[2023-06-17] MEDS: mycophenolate mofetiL 250 MG CAPSULE 500 MG PO ×2 (09:56→20:25)
[2023-06-17] MEDS: cycloSPORINE (NEORAL) 25 MG CAPSULE 75 MG PO (09:56)
[2023-06-17] MEDS: FAMOTIDINE 20 MG/2 ML VIAL IV PUSH (09:57)
[2023-06-17] MEDS: predniSONE 5 MG TABLET PO (09:57)
[2023-06-17] MEDS: ENOXAPARIN 40 MG/0.4 ML SYRINGE SUB-Q (09:57)
[2023-06-17] MEDS: SIMVASTATIN 20 MG TABLET PO (09:57)
[2023-06-17] MEDS: valACYclovir HCL 500 MG TABLET PO (09:57)
[2023-06-17 20:00] VITALS: PULSE 94; RESP 14; O2SAT 96
[2023-06-17] MEDS: FAMOTIDINE 20 MG TABLET PO (20:51)
[2023-06-17] MEDS: BENZOCAINE/MENTHOL (*BKC) 18 EA LOZENGE 1 LOZENGE PO (21:27)
[2023-06-17 21:28] VITALS: BP 105/63; PULSE 94; RESP 14; TEMP 36.3; O2SAT 96
[2023-06-18 05:49] VITALS: BP 100/64; PULSE 94; RESP 12; TEMP 36.8; O2SAT 96
[2023-06-18 06:39] LABS: Basophils Percent Auto 0.2 % (0.2-1.2); Eosinophils Absolute Auto 0.1 K/mm3 (0-0.3); Eosinophils Percent Auto 0.8 % (0-4.4); Hematocrit 31.1 % (37.0-47.0); Hemoglobin 10.6 g/dL (12.0-15.0); Immature Granulocyte Absolute 0.07 K/mm3 (0.00-0.031); Immature Granulocyte Percent A 0.7 % (0-0.5); Lymphocytes Absolute Auto 0.74 K/mm3 (0.9-3.2); Lymphocytes Percent Auto 6.9 % (18.3-44.2); Mean Corpuscular HGB Conc 34.1 g/dl (32-36); Mean Corpuscular Hemoglobin 33.8 pg (26-34); Mean Platelet Volume 9.7 fl (7.4-10.4); Monocytes Absolute Auto 0.7 K/mm3 (0.1-0.6); Monocytes Percent Auto 6.1 % (2.6-8.5); Neutrophils Absolute Auto 9.1 K/mm3 (1.3-6.7); Neutrophils Percent Auto 85.3 % (45.5-73.1); Platelet Count Result 205 k/mm3 (150-375); Red Blood Count 3.14 M/mm3 (4.2-5.4); Red Cell Distribution Width 13.3 % (11.5-14.5); White Blood Count 10.7 K/mm3 (4.5-10.0)
[2023-06-18 06:50] LABS: INR 1.2; Prothrombin Time 16.2 Seconds (11.1-14.7)
[2023-06-18 06:51] LABS: Alanine Aminotransferase 15 U/L (6-35); Albumin Level 2.4 g/dL (3.5-5.1); Alkaline Phosphatase 79 U/L (38-126); Anion Gap 4 mmol/L (8-16); Aspartate Amino Transferase 24 U/L (14-36); Blood Urea Nitrogen 11 mg/dL (7-17); Calcium 7.2 mg/dL (8.4-10.2); Carbon Dioxide 24 mmol/L (22-30); Chloride 103 mmol/L (98-107); Estimated CRCL calculation 55 ml/min; Estimated Glomerular Filt Rate > 60; Glucose 104 mg/dL (65-110); Magnesium 1.5 mg/dL (1.6-2.3); Partial Thromboplastin Time 41.3 SECONDS (22.3-36.8); Potassium 3.4 mmol/L (3.4-5.0); Sodium 131 mmol/L (137-145)
[2023-06-18] MEDS: ENOXAPARIN 40 MG/0.4 ML SYRINGE SUB-Q (09:53)
[2023-06-18] MEDS: FAMOTIDINE 20 MG TABLET PO ×2 (09:53→21:12)
[2023-06-18] MEDS: mycophenolate mofetiL 250 MG CAPSULE 500 MG PO ×2 (09:53→21:11)
[2023-06-18] MEDS: valACYclovir HCL 500 MG TABLET PO (09:54)
[2023-06-18] MEDS: cycloSPORINE (NEORAL) 25 MG CAPSULE 75 MG PO (09:54)
[2023-06-18] MEDS: predniSONE 5 MG TABLET PO (09:54)
[2023-06-18] MEDS: SIMVASTATIN 20 MG TABLET PO (09:55)
--- NOTE | 2023-06-18 11:25 | PM.IMPN ---
Progress Note: A&P Assessment and Plan (1) Gallstone ileus of small intestine: Code(s): K56.3 - Gallstone ileus Status: Acute Assessment and Plan: POD 2 exploratory laparotomy, lysis of adhesions, ileocecectomy with primary [id number] functional end-to-end anastomosis with Dr Wolf Clear liquid diet. OOB to chair with meals D/C tsang catheter, voiding spontaneously Pain medications as needed Encouraged use of IS DVT prophalyxis with lovenox (2) History of renal transplant: Onset Date: 1995 Code(s): Z94.0 - Kidney transplant status Status: Chronic Assessment and Plan: Resume anti-rejection medications as soon as possible. Restarting cyclosporin, prednisone, mycophenolate, and prednisone to prevent rejection (3) Hypertension: Qualifiers: Hypertension type: essential hypertension Qualified Code(s): I10 - Essential (primary) hypertension Code(s): I10 - Essential (primary) hypertension Status: Chronic Assessment and Plan: Blood pressures have been soft. Antihypertensives on hold. Continue to monitor closely. Continue to hold antihypertensives. Patient is 90s over 50s after surgery. (4) Hyperlipidemia: Qualifiers: Hyperlipidemia type: pure hypercholesterolemia Qualified Code(s): E78.00 - Pure hypercholesterolemia, unspecified Code(s): E78.5 - Hyperlipidemia, unspecified Status: Chronic Assessment and Plan: Stable on simvastatin Plan Advance to full liquids now that patient is passing gas and not vomiting. Tolerating clears well. Continue antirejection medications, continue to hold antihypertensives. Patient tolerating oral pain medication well. She is transferring better today. Open to SNF for rehab before returning to independent living. Thank you for allowing us to participate in this patient's care. Please do not hesitate to contact us with any questions. Time Spent With Patient Time with patient: 25 - 35 minutes Subjective Date/time seen: 06/18/23 11:25 Interval history: Requesting Physician: Brionna Wolf MD Consult Narrative Reason for consult: Medical management. Narrative: This is a pleasant 77-year-old female with chronic kidney disease status post renal transplant 1995, hypertension, hyperlipidemia, and gastroesophageal reflux disease who presented to the emergency department for evaluation of abdominal pain. She is known to myself and the hospitalist service from a recent admission for gallstone ileus after presenting with abdominal pain. She underwent laparotomy with removal obstructing gallstone from the distal ileum on 05/21/[address] Hall and she was able to be discharged 5 years thereafter. She has been doing okay at home but reports that she has good and bad days. She occasionally has abdominal discomfort, mainly at nighttime, but she does not like taking her pain medications because it causes her to feel foggy. Her appetite has been poor but she has been eating small meals throughout the day. She has occasional nausea but no vomiting. The last few days however she has developed increasing nausea and cramping abdominal discomfort and she returned today for evaluation. CT of the abdomen pelvis showed an obstructing distal small bowel gallstone and she was admitted in this setting. Dr. Wolf has made the recommendation for urgent laparotomy and stone removal with hopes to do that today however the anesthesia team has requested Cardiology and medical clearance prior to surgery. She has been seen by Dr. Mcfarland who feels that there is no need for preoperative cardiac evaluation or further workup given the fact that this is not an elective surgery and she has not had any active cardiovascular complaints. At the time my evaluation her pain is pretty well controlled and she does not have any significant complaints. She denies fever, chills, sweats, chest pain, shortness a breath, and recent
--- NOTE | 2023-06-18 11:59 | PM.PNGS ---
Progress Note: A&P Assessment and Plan (1) Gallstone ileus: Code(s): K56.3 - Gallstone ileus Status: Acute Assessment and Plan: Advance to full liquids Await return of bowel function Possibly discharge to Rehab in next 1-2 days Subjective Subjective Date/Time Seen: 06/18/23 11:59 Interval history: Tolerating clear liquids, passing flatus, no BM yet. Having some serosanguinous drainage at incision. Pain controlled. Exam GI: Inspection: non-distended and incision (intact, minimal drainage) GI Palp: Yes Soft to palpation and Yes Tenderness to palpation present (GI) (mild RLQ) Auscultation: normal bowel sounds Objective Data Vital Signs Vital Signs: Vital Signs - 24 hr 06/17/23 21:28 06/17/23 20:00 06/18/23 05:49 Temperature 36.3 C L 36.8 C Pulse Rate 94 94 94 Respiratory Rate 14 14 12 Blood Pressure 105/63 100/64 Pulse Oximetry 96 96 96 Oxygen Delivery Room Air Intake/Output Intake/Output: Intake & Output 06/15/23 06/16/23 06/17/23 06/18/23 23:59 23:59 23:59 23:59 Intake Total 3300 3340 2120 260 Output Total 180 250 Balance 3120 3090 2120 260 Meds/Results Medications: Active Medications Generic Name Dose Route Start Last Admin Trade Name Freq PRN Reason Stop Dose Admin Benzocaine 1 lozenge 06/15/23 16:42 06/17/23 21:27 Benzocaine/Menthol (*Bkc) 18 Ea Lozenge PO 1 lozenge PRN PRN Administration Sore Throat Cyclosporine 75 mg 06/16/23 09:00 06/18/23 09:54 Cyclosporine (Neoral) 25 Mg Capsule PO 75 mg DAILY ALISON Administration Enoxaparin Sodium 40 mg 06/16/23 09:00 06/18/23 09:53 Enoxaparin 40 Mg/0.4 Ml Syringe SUB-Q 40 mg DAILY ALISON Administration Famotidine 20 mg 06/17/23 21:00 06/18/23 09:53 Famotidine 20 Mg Tablet PO 20 mg Q12HR ALISON Administration Furosemide 20 mg 06/16/23 09:00 Furosemide 20 Mg Tablet PO QAM ALISON Morphine Sulfate 2 mg 06/17/23 15:15 Morphine Sulfate (*Crx) 2 Mg/Ml Inj IV PUSH Q4H PRN Pain Rated 7-10 Mycophenolate Mofetil 500 mg 06/15/23 21:00 06/18/23 09:53 Mycophenolate Mofetil 250 Mg Capsule PO 500 mg Q12HR ALISON Administration Naloxone HCl 0.1 mg 06/15/23 10:48 Naloxone Hcl 0.4 Mg/Ml Vial IV PUSH Q2M PRN Opiate Reversal Ondansetron HCl 4 mg 06/15/23 10:48 06/16/23 09:12 Ondansetron Inj 4 Mg/2 Ml Vial IV PUSH 4 mg Q4H PRN Administration Nausea And Vomiting Oxycodone HCl 5 mg 06/17/23 15:15 Oxycodone Hcl (*Crx) 5 Mg Tab Ir PO Q4H PRN Pain Rated 4-6 Oxycodone HCl 10 mg 06/17/23 15:15 Oxycodone Hcl (*Crx) 5 Mg Tab Ir PO Q4H PRN Pain Rated 7-10 Prednisone 5 mg 06/16/23 09:00 06/18/23 09:54 Prednisone 5 Mg Tablet PO 5 mg DAILY ALISON Administration Simvastatin 20 mg 06/16/23 09:00 06/18/23 09:55 Simvastatin 20 Mg Tablet PO 20 mg DAILY ALISON Administration Valacyclovir HCl 500 mg 06/16/23 09:00 06/18/23 09:54 Valacyclovir Hcl 500 Mg Tablet PO 500 mg DAILY ALISON Administration Radiology Results: ITS Impressions Abdomen/Pelvis CT 06/14/23 08:57 IMPRESSION: Obstructing distal small bowel gallstone (gallstone ileus) Pneumobilia secondary to cholecystectomy duodenal fistula, with dilatation of common bile duct, pancreatic duct Diverticulosis of left and right colon; no evidence of diverticulitis Normal appendix Large sliding hiatal hernia Left pelvic transplant kidney; severe atrophy of [place] kidneys Labs Labs: Laboratory Results - last 24 hr 06/18/23 06:12 WBC 10.7 H RBC 3.14 L Hgb 10.6 L Hct 31.1 L MCV 99.0 MCH 33.8 MCHC 34.1 RDW 13.3 Plt Count 205 MPV 9.7 Immature Gran % (Auto) 0.7 H Neut % (Auto) 85.3 H Lymph % (Auto) 6.9 L [place] % (Auto) 6.1 Eos % (Auto) 0.8 Baso % (Auto) 0.2 Lymph # (Auto) 0.74 L [place] # (Auto) 0.7 H Eos # (Auto) 0.1 Baso # (Auto) 0.0 Abs Immat Gran (auto) 0.07 H Absolute Neuts
[2023-06-18 13:50] VITALS: BP 120/72; PULSE 100; RESP 18; TEMP 37.7; O2SAT 96
[2023-06-18 20:10] VITALS: PULSE 86; RESP 18; O2SAT 98
[2023-06-18 21:51] VITALS: BP 123/68; PULSE 86; RESP 18; TEMP 36.1; O2SAT 98
[2023-06-18 22:20] VITALS: O2SAT 98
[2023-06-19 06:00] VITALS: BP 134/94; PULSE 96; RESP 18; TEMP 36.2; O2SAT 99
[2023-06-19 06:57] LABS: Hematocrit 31.7 % (37.0-47.0); Hemoglobin 10.5 g/dL (12.0-15.0); Mean Corpuscular HGB Conc 33.1 g/dl (32-36); Mean Corpuscular Hemoglobin 33.2 pg (26-34); Mean Corpuscular Volume 100.3 fl (80-100); Mean Platelet Volume 9.6 fl (7.4-10.4); Platelet Count Result 204 k/mm3 (150-375); Red Blood Count 3.16 M/mm3 (4.2-5.4); Red Cell Distribution Width 13.3 % (11.5-14.5)
[2023-06-19 07:11] LABS: Anion Gap 6 mmol/L (8-16); Blood Urea Nitrogen 12 mg/dL (7-17); Calcium 7.3 mg/dL (8.4-10.2); Carbon Dioxide 24 mmol/L (22-30); Chloride 103 mmol/L (98-107); Estimated CRCL calculation 55 ml/min; Estimated Glomerular Filt Rate > 60; Glucose 92 mg/dL (65-110); Potassium 3.4 mmol/L (3.4-5.0); Sodium 133 mmol/L (137-145)
[2023-06-19 07:14] LABS: Appearance Urine Clear (Clear); Bilirubin Urine Negative (Negative); Blood Urine Negative (Negative); Color Urine Yellow (Yellow); Glucose Urine UA Negative (Negative); Ketones Urine Negative (Negative); Leukocyte Esterase Ur Negative LEU/UL (Negative); Nitrate Urine Negative (Negative); Protein Urine Negative (Negative); Specific Grav Ur 1.008 (1.001-1.035); Urobilinogen Urine 0.2 mg/dL (<2.0); pH Urine 5.5 (5.0-9.0)
[2023-06-19 07:17] LABS: Add Urine Microscopic? NO
--- NOTE | 2023-06-19 09:03 | PM.IMPN ---
Progress Note: A&P Assessment and Plan (1) Gallstone ileus of small intestine: Code(s): K56.3 - Gallstone ileus Status: Acute Assessment and Plan: POD 2 exploratory laparotomy, lysis of adhesions, ileocecectomy with primary [id number] functional end-to-end anastomosis with Dr Wolf Clear liquid diet. OOB to chair with meals D/C tsang catheter, voiding spontaneously Pain medications as needed Encouraged use of IS DVT prophalyxis with lovenox (2) History of renal transplant: Onset Date: 1995 Code(s): Z94.0 - Kidney transplant status Status: Chronic Assessment and Plan: Resume anti-rejection medications as soon as possible. Restarting cyclosporin, prednisone, mycophenolate, and prednisone to prevent rejection 06/19 patient only voided twice yesterday. Adequate renal labs with no significant changes overnight. Patient instructed to increase oral intake in order to increase voiding or we would need to administer IV fluids (3) Hypertension: Qualifiers: Hypertension type: essential hypertension Qualified Code(s): I10 - Essential (primary) hypertension Code(s): I10 - Essential (primary) hypertension Status: Chronic Assessment and Plan: Blood pressures are stable without sustained hypertension. Once levels remain mildly hypertensive we will reinitiate home medications (4) Hyperlipidemia: Qualifiers: Hyperlipidemia type: pure hypercholesterolemia Qualified Code(s): E78.00 - Pure hypercholesterolemia, unspecified Code(s): E78.5 - Hyperlipidemia, unspecified Status: Chronic Assessment and Plan: Stable on simvastatin Plan Advance to regular diet now that patient is passing gas and not vomiting. Tolerating full liquids well. No BM because patient has had limited oral intake. Continue antirejection medications, continue to hold antihypertensives. Patient tolerating oral pain medication well. She is transferring better today. Open to SNF for rehab before returning to independent living. Thank you for allowing us to participate in this patient's care. Please do not hesitate to contact us with any questions. Time Spent With Patient Time with patient: 15 - 25 minutes Subjective Date/time seen: 06/19/23 09:03 Interval history: Requesting Physician: Brionna Wolf MD Consult Narrative Reason for consult: Medical management. Narrative: This is a pleasant 77-year-old female with chronic kidney disease status post renal transplant 1995, hypertension, hyperlipidemia, and gastroesophageal reflux disease who presented to the emergency department for evaluation of abdominal pain. She is known to myself and the hospitalist service from a recent admission for gallstone ileus after presenting with abdominal pain. She underwent laparotomy with removal obstructing gallstone from the distal ileum on 05/21/[address] Hall and she was able to be discharged 5 years thereafter. She has been doing okay at home but reports that she has good and bad days. She occasionally has abdominal discomfort, mainly at nighttime, but she does not like taking her pain medications because it causes her to feel foggy. Her appetite has been poor but she has been eating small meals throughout the day. She has occasional nausea but no vomiting. The last few days however she has developed increasing nausea and cramping abdominal discomfort and she returned today for evaluation. CT of the abdomen pelvis showed an obstructing distal small bowel gallstone and she was admitted in this setting. Dr. Wolf has made the recommendation for urgent laparotomy and stone removal with hopes to do that today however the anesthesia team has requested Cardiology and medical clearance prior to surgery. She has been seen by Dr. Mcfarland who feels that there is no need for preoperative cardiac evaluation or further workup given the fact that this is not an elective surgery and
[2023-06-19] MEDS: predniSONE 5 MG TABLET PO (10:21)
[2023-06-19] MEDS: mycophenolate mofetiL 250 MG CAPSULE 500 MG PO ×2 (10:21→20:25)
[2023-06-19] MEDS: ENOXAPARIN 40 MG/0.4 ML SYRINGE SUB-Q (10:21)
[2023-06-19] MEDS: SIMVASTATIN 20 MG TABLET PO (10:22)
[2023-06-19] MEDS: FAMOTIDINE 20 MG TABLET PO ×2 (10:22→20:25)
[2023-06-19] MEDS: valACYclovir HCL 500 MG TABLET PO (10:22)
--- NOTE | 2023-06-19 11:35 | PCNFU ---
Nutrition Follow-Up Complete: Inadequate energy intake related to clear liquids diet order and altered GI function as evidenced by current orders and pt report. Goal:Diet advanced, po intake greater than 50% of meals. Pt meeting goal. Continue with same goal. Pt current nutrition is Regular, Ensure surgery daily. Nutrition recommendation: continue with current plan of care. Last recorded weight is 63.5 kg - stable at this time. Bowel Motility:+BM 06/14 Labs Reviewed: Hgb:10.5, HCT:31.7, NA:133, Cr:0.6 Meds Noted: lovenox, lasix, zofran, prednisone Skin: no skin issues noted Additional Notes: Pt started on a regular diet this morning, tolerated well, ate about 50% per pt report. Drinking Ensure surgery per MD order. Monitor intake, wt, labs. Follow up in 5 days.
[2023-06-19] MEDS: cycloSPORINE (NEORAL) 25 MG CAPSULE 75 MG PO (11:52)
[2023-06-19 14:40] VITALS: BP 116/82; PULSE 65; RESP 17; TEMP 36.4; O2SAT 98
--- NOTE | 2023-06-19 15:14 | PM.PNGS ---
Progress Note: A&P Assessment and Plan (1) Gallstone ileus: Code(s): K56.3 - Gallstone ileus Status: Acute Assessment and Plan: Stimulate bowels Await return of bowel function Serous drainage from incision but no signs of wound/fascial dehiscence, continue monitoring with daily wound care Possibly discharge to Rehab in next 1-2 days Subjective Subjective Date/Time Seen: 06/19/23 15:14 Interval history: Tolerating liquids. Some flatus, but no BM yet. Pain controlled. No nausea or vomiting. Still having a lot of serous drainage from incision. Exam GI: Inspection: distended and incision (Intact with efren) GI Palp: Yes Soft to palpation, Yes Tenderness to palpation present (GI) (Incisional) and No Guarding due to palpation present (GI) Auscultation: Hypoactive bowel sounds present Other: Serous drainage from lower part of incision. No fluctuance or erythema. Objective Data Vital Signs Vital Signs: Vital Signs - 24 hr 06/18/23 21:51 06/18/23 20:10 06/18/23 22:20 Temperature 36.1 C L Pulse Rate 86 86 Respiratory Rate 18 18 Blood Pressure 123/68 Pulse Oximetry 98 98 98 Oxygen Delivery Room Air Room Air 06/19/23 06:00 06/19/23 14:40 Temperature 36.2 C L 36.4 C Pulse Rate 96 65 Respiratory Rate 18 17 Blood Pressure 134/94 H 116/82 Pulse Oximetry 99 98 Oxygen Delivery Intake/Output Intake/Output: Intake & Output 06/16/23 06/17/23 06/18/23 06/19/23 23:59 23:59 23:59 23:59 Intake Total 3340 2120 810 1250 Output Total 250 25 Balance 3090 2120 810 1225 Meds/Results Medications: Active Medications Generic Name Dose Route Start Last Admin Trade Name Freq PRN Reason Stop Dose Admin Benzocaine 1 lozenge 06/15/23 16:42 06/17/23 21:27 Benzocaine/Menthol (*Bkc) 18 Ea Lozenge PO 1 lozenge PRN PRN Administration Sore Throat Cyclosporine 75 mg 06/16/23 09:00 06/19/23 11:52 Cyclosporine (Neoral) 25 Mg Capsule PO 75 mg DAILY ALISON Administration Enoxaparin Sodium 40 mg 06/16/23 09:00 06/19/23 10:21 Enoxaparin 40 Mg/0.4 Ml Syringe SUB-Q 40 mg DAILY ALISON Administration Famotidine 20 mg 06/17/23 21:00 06/19/23 10:22 Famotidine 20 Mg Tablet PO 20 mg Q12HR ALISON Administration Furosemide 20 mg 06/16/23 09:00 Furosemide 20 Mg Tablet PO QAM ALISON Morphine Sulfate 2 mg 06/17/23 15:15 Morphine Sulfate (*Crx) 2 Mg/Ml Inj IV PUSH Q4H PRN Pain Rated 7-10 Mycophenolate Mofetil 500 mg 06/15/23 21:00 06/19/23 10:21 Mycophenolate Mofetil 250 Mg Capsule PO 500 mg Q12HR ALISON Administration Naloxone HCl 0.1 mg 06/15/23 10:48 Naloxone Hcl 0.4 Mg/Ml Vial IV PUSH Q2M PRN Opiate Reversal Ondansetron HCl 4 mg 06/15/23 10:48 06/16/23 09:12 Ondansetron Inj 4 Mg/2 Ml Vial IV PUSH 4 mg Q4H PRN Administration Nausea And Vomiting Oxycodone HCl 5 mg 06/17/23 15:15 Oxycodone Hcl (*Crx) 5 Mg Tab Ir PO Q4H PRN Pain Rated 4-6 Oxycodone HCl 10 mg 06/17/23 15:15 Oxycodone Hcl (*Crx) 5 Mg Tab Ir PO Q4H PRN Pain Rated 7-10 Prednisone 5 mg 06/16/23 09:00 06/19/23 10:21 Prednisone 5 Mg Tablet PO 5 mg DAILY ALISON Administration Simvastatin 20 mg 06/16/23 09:00 06/19/23 10:22 Simvastatin 20 Mg Tablet PO 20 mg DAILY ALISON Administration Valacyclovir HCl 500 mg 06/16/23 09:00 06/19/23 10:22 Valacyclovir Hcl 500 Mg Tablet PO 500 mg DAILY ALISON Administration Radiology Results: ITS Impressions Abdomen/Pelvis CT 06/18/23 18:19 IMPRESSION: Normal-appearing lower midline abdominal incision, no seroma, abscess, or dehiscence. Bibasilar atelectasis/consolidation. Small right and trace left pleural effusions. Labs Labs: Laboratory Results - last 24 hr 06/19/23 06/19/23 06:36 06:54 WBC 8.0 RBC 3.16 L Hgb 10.5 L Hct 31.7 L MCV 100.3 H MCH 33.2 MCHC 33.1 RDW 13.3 Plt Count
[2023-06-19] MEDS: BISACODYL 10 MG SUPPOSITORY RECTAL (17:43)
[2023-06-19 20:20] VITALS: PULSE 75; RESP 18; O2SAT 99
[2023-06-19 22:00] VITALS: BP 113/62; PULSE 75; RESP 18; TEMP 36; O2SAT 99
[2023-06-20 06:00] VITALS: BP 120/73; PULSE 97; RESP 14; TEMP 36.6; O2SAT 99
[2023-06-20 08:00] VITALS: RESP 14
[2023-06-20] MEDS: mycophenolate mofetiL 250 MG CAPSULE 500 MG PO (08:28)
[2023-06-20] MEDS: SIMVASTATIN 20 MG TABLET PO (08:28)
[2023-06-20] MEDS: predniSONE 5 MG TABLET PO (08:28)
[2023-06-20] MEDS: cycloSPORINE (NEORAL) 25 MG CAPSULE 75 MG PO (08:28)
[2023-06-20] MEDS: FAMOTIDINE 20 MG TABLET PO (08:28)
[2023-06-20] MEDS: ENOXAPARIN 40 MG/0.4 ML SYRINGE SUB-Q (08:28)
[2023-06-20] MEDS: polyethylene glycoL 3350 17 GM POWD.PACK PO (08:29)
[2023-06-20] MEDS: valACYclovir HCL 500 MG TABLET PO (08:29)
[2023-06-20] MEDS: BENZOCAINE/MENTHOL (*BKC) 18 EA LOZENGE 1 LOZENGE PO (08:29)
--- NOTE | 2023-06-20 11:34 | PCOTNOTE ---
The patient treatment was not able to be completed on 06/20 due to just finishing PT and requesting to come back after lunch. Will plan to continue treatment per plan of care.
--- NOTE | 2023-06-20 11:47 | PM.IMPN ---
Progress Note: A&P Assessment and Plan (1) Gallstone ileus of small intestine: Code(s): K56.3 - Gallstone ileus Status: Acute Assessment and Plan: Postoperative exploratory laparotomy, lysis of adhesions, ileocecectomy with primary [id number] functional end-to-end anastomosis with Dr Wolf Patient tolerating full diet OOB to chair with meals Pain medications as needed Encouraged use of IS DVT prophalyxis with lovenox (2) History of renal transplant: Onset Date: 1995 Code(s): Z94.0 - Kidney transplant status Status: Chronic Assessment and Plan: Resume anti-rejection medications as soon as possible. Restarting cyclosporin, prednisone, mycophenolate, and prednisone to prevent rejection 06/19 patient only voided twice yesterday. Adequate renal labs with no significant changes overnight. Patient instructed to increase oral intake in order to increase voiding or we would need to administer IV fluids 06/20 patient voiding normally with good oral intake. Stable vital signs. Stable labs. (3) Hypertension: Qualifiers: Hypertension type: essential hypertension Qualified Code(s): I10 - Essential (primary) hypertension Code(s): I10 - Essential (primary) hypertension Status: Chronic Assessment and Plan: Will restart home medications upon discharge Blood pressure reviewed on 06/20 (4) Hyperlipidemia: Qualifiers: Hyperlipidemia type: pure hypercholesterolemia Qualified Code(s): E78.00 - Pure hypercholesterolemia, unspecified Code(s): E78.5 - Hyperlipidemia, unspecified Status: Chronic Assessment and Plan: Stable on simvastatin Plan Patient passing stools and tolerating diet with adequate PO intake. Patient ok for discharge to [facility] from Hospitalist point of view, Surgery to decide when to discharge. Thank you for allowing Hospitalist Service to assist in care of this very pleasant patient. Time Spent With Patient Time with patient: 15 - 25 minutes Subjective Date/time seen: 06/20/23 11:47 Interval history: Requesting Physician: Brionna Wolf MD Consult Narrative Reason for consult: Medical management. Narrative: This is a pleasant 77-year-old female with chronic kidney disease status post renal transplant 1995, hypertension, hyperlipidemia, and gastroesophageal reflux disease who presented to the emergency department for evaluation of abdominal pain. She is known to myself and the hospitalist service from a recent admission for gallstone ileus after presenting with abdominal pain. She underwent laparotomy with removal obstructing gallstone from the distal ileum on 05/21/[address] Hall and she was able to be discharged 5 years thereafter. She has been doing okay at home but reports that she has good and bad days. She occasionally has abdominal discomfort, mainly at nighttime, but she does not like taking her pain medications because it causes her to feel foggy. Her appetite has been poor but she has been eating small meals throughout the day. She has occasional nausea but no vomiting. The last few days however she has developed increasing nausea and cramping abdominal discomfort and she returned today for evaluation. CT of the abdomen pelvis showed an obstructing distal small bowel gallstone and she was admitted in this setting. Dr. Wolf has made the recommendation for urgent laparotomy and stone removal with hopes to do that today however the anesthesia team has requested Cardiology and medical clearance prior to surgery. She has been seen by Dr. Mcfarland who feels that there is no need for preoperative cardiac evaluation or further workup given the fact that this is not an elective surgery and she has not had any active cardiovascular complaints. At the time my evaluation her pain is pretty well controlled and she does not have any significant complaints. She denies fever, chills, sweats, ch
--- NOTE | 2023-06-20 12:40 | PM.DS ---
DS: Admitting Diagnosis Discharge Date 06/20/2023 Admitting Diagnosis Gallstone ileus, history of renal transplant DS: Discharge Diagnosis Discharge Diagnosis (1) Gallstone ileus: Code(s): K56.3 - Gallstone ileus Status: Acute (2) History of renal transplant: Onset Date: 1995 Code(s): Z94.0 - Kidney transplant status Status: Chronic (3) Immunosuppression due to drug therapy: Code(s): D84.821 - Immunodeficiency due to drugs; Z79.899 - Other jail (current) drug therapy Status: Chronic (4) Hypertension: Qualifiers: Hypertension type: essential hypertension Qualified Code(s): I10 - Essential (primary) hypertension Code(s): I10 - Essential (primary) hypertension Status: Chronic (5) GERD (gastroesophageal reflux disease): Qualifiers: Esophagitis presence: without esophagitis Qualified Code(s): K21.9 - Gastro-esophageal reflux disease without esophagitis Code(s): K21.9 - Gastro-esophageal reflux disease without esophagitis Status: Acute (6) Hyperlipidemia: Qualifiers: Hyperlipidemia type: pure hypercholesterolemia Qualified Code(s): E78.00 - Pure hypercholesterolemia, unspecified Code(s): E78.5 - Hyperlipidemia, unspecified Status: Chronic DS: Summary Hospital Course Reason for hospitalization: Gallstone ileus Hospital Course: This is a 77-year-old woman who presented to the emergency department on 06/14/2023 with recurrent abdominal pain, bloating, and nausea. CT showed recurrent gallstone ileus with small bowel obstruction secondary to large gallstone at the ileocecal valve. She had recently had surgery on 05/21/2023 for the same problem. She had a large gallstone remaining in her gallbladder but no other signs of gallstones throughout the small bowel at that time. This large gallstone appeared to of now moved into the small bowel and caused a repeat obstruction. She was taken to the operating room emergently on 06/15/2023. Cardiology was consulted preoperatively to make sure she was going to tolerate surgery. Hospitalist was also consulted for medical management. She underwent ileocecectomy and was returned to the surgical floor postoperatively. She was started on clear liquids and was slowly advanced as tolerated. She was having some serous drainage from her lower part of her midline incision, but there was no other significant findings. She did undergo a repeat CT on 06/18/2023 and this showed no evidence of fascial dehiscence. The serous drainage did appear to slow down after a couple days as she was starting to diurese on her own. Her bowels were moving on 06/19/2023 and she was able to be advanced to a soft regular diet. On 06/20/2023 she was remaining hemodynamically stable and pain was controlled. Her bowels were moving and she was tolerating her diet. She was discharged on 06/20/2023. Status at Discharge Functional status at discharge: uses cane/walker Overall status at discharge: patient is progressing back to baseline Time Spent with Patient Time attestation: Total time spent providing and/or coordinating discharge services: Time spent: Less than 30 minutes Exam Const: General: comfortable and no acute distress Orientation/consciousness: patient oriented x3 Resp: Effort & Inspection: normal respiratory effort Auscultation: clear to auscultation bilaterally Cardio: Rate: regular rate Rhythm: regular rhythm Heart sounds: S1 normal heart sound present and S2 normal heart sound present GI: Inspection: non-distended and incision (Intact with efren, minimal serous drainage) GI Palp: Yes Soft to palpation, No Tenderness to palpation present (GI) and No Guarding due to palpation present (GI) Auscultation: normal bowel sounds DS: Data Data Completed and Pending Completed studies during hospitalization: Pending at discharge 06/15/23 08:28 Surgical [PTH] Routine Imaging R
[2023-06-20 14:00] VITALS: BP 126/74; PULSE 93; RESP 14; TEMP 36.7; O2SAT 98
[2023-06-20 15:32] LABS: SARS-CoV-2 RNA PCR Negative (Negative)
== END 2023-06-20 17:50 | DRG 329 ==
LOC: ANHED 12:53 → ANH3MEDSUR 13:49
PROVIDERS: Emergency Medicine; Internal Medicine; Nurse Practitioner Acute Care; Physician Assistant; Admitting Provider Surgery; Emergency Provider Emergency Medicine; PCP Family Medicine; Visit Provider Surgery
PROC: 0DTH0ZZ Resection of Cecum, Open Approach (ICD-10-PCS; CPT 49000; principal; 2023-06-15 07:30)
DX: K56.3 Gallstone ileus (principal); K63.1 Perforation of intestine (nontraumatic); Z94.0 Kidney transplant status; D84.821 Immunodeficiency due to drugs; Z20.822 Contact with and (suspected) exposure to COVID-19; K21.9 Gastro-esophageal reflux disease without esophagitis; E78.5 Hyperlipidemia, unspecified; I12.9 Hypertensive chronic kidney disease with stage 1 through stage 4 chronic kidney disease, or unspecified chronic kidney disease; N18.9 Chronic kidney disease, unspecified; M81.0 Age-related osteoporosis without current pathological fracture; I35.0 Nonrheumatic aortic (valve) stenosis; Z79.899 Other long term (current) drug therapy; Z98.42 Cataract extraction status, left eye; Z98.41 Cataract extraction status, right eye
CPT/HCPCS: 36415; 74176; 74177; 80048; 80053; 81001; 81003; 83690; 83735; 85025; 85027; 85610; 85730; 87086; 87088; 87635; 88307; 96361; 96374; 96376; 97116; 97161; 97165; 97530; 97535; 99285; A9270; J0330; J0744; J1170; J1650; J1836; J2270; J2405; J2704; J3010; J7030; J7120; J7512; J7515; J7517; Q9967

== ENCOUNTER 2023-10-01 07:27 | Outpatient (RCR) | payer MEDICARE, BC, SELFPAY ==
--- NOTE | 2023-07-16 09:41 | P.PNWOUND_ITS ---
Wound Care Note Date/Time: 07/16/23 09:41 History: Negrita reports she is doing better overall. Pt reports she has been doing well c rehab and is being dc'd to home today. Pt has HH setup for cont wound care. Pt reports wound seems to be healing well, no further drainage. Wound width: upper abd - 1.5x1.5x1.4 cm, cirumferential undermining with 11 oclock tunnel about 3cm, good granulation tissue, no s/s infection lower abd - .9x.3x3 cm no undermining, no s/s infection Drainage: none Surrounding tissue appearance: healthy Percentage granulation tissue: 100 Assessment and Plan Assessment and plan (1) Wound dehiscence: Code(s): T81.30XA - Disruption of wound, unspecified, initial encounter Status: Acute Assessment and Plan: healing well, cont local wound care with silver rope dressing changes qday, f/u 1 mo Review of Systems 2 Review of Systems: All systems reviewed & are unremarkable except as noted in HPI and below Exam Const: General: cooperative, comfortable and no acute distress Resp: Auscultation: clear to auscultation bilaterally Cardio: Rate: regular rate Rhythm: regular rhythm GI: Inspection: normal to inspection, non-distended and incision GI Palp: No abdominal tenderness and Yes Soft to palpation
[2023-07-16 09:58] VITALS: BMI 24.3
--- NOTE | 2023-08-13 10:30 | P.PNWOUND_ITS ---
Wound Care Note Date/Time: 08/13/23 10:30 History: Pt here for recheck of small openings along midline incision from previous ex lap for gallstone ileus. Pt reports 2 original openings are slowly healing but recently developed a opening that has a stitch coming out of it. Pt reports m inimal drainage from all these areas, denies any s/s active infection. Wound width: prox 0.6 mid 1 distal 0.5 Wound length: p 1 m 1.7 d 0.4 Wound depth: p 1.5 m 2 d 2.1 Drainage: minimal serous Surrounding tissue appearance: 100 granulation Tunneling: nonew Percentage granulation tissue: 100 Treatment/Procedures: silver rope packing Assessment and Plan Assessment and plan (1) Superficial wound: Status: Acute Assessment and Plan: stitch removed, cont silver rope and local wound care, f/u 2 wks Review of Systems Review of Systems: All systems reviewed & are unremarkable except as noted in HPI and below Exam Const: General: cooperative, comfortable and no acute distress Resp: Auscultation: clear to auscultation bilaterally Cardio: Rate: regular rate Rhythm: regular rhythm GI: Inspection: normal to inspection and non-distended GI Palp: No abdomina l tenderness and Yes Soft to palpation
--- NOTE | 2023-08-27 09:19 | P.PNWOUND_ITS ---
Wound Care Note Date/Time: 08/27/23 09:19 History: Negrita returns to [facility] for followup of midline wound dehiscence. Pt reports areas seems to be getting smaller and are largely assymptomatic at this point. Pt reports mild s/s drainage. Pt reports appetite slowly improving. Pt having normal bowel fxn. Wound width: prox 0.5 x 0.7 x 1.2 mid 0.9 x 1.5 x 0.9 3 oclock tunnel 3.6 distal closed Assessment and Plan Assessment and plan (1) Wound dehiscence: Code(s): T81.30XA - Disruption of wound, unspecified, initial encounter Status: Acute Assessment and Plan: improving with distal wound completely closed, cont local wound care c silver rope, f/u 6 wks Review of Systems Review of Systems: All systems reviewed & are unremarkable except as noted in HPI and below Exam Const: General: cooperative, comfortable and no acute distress Resp: Auscultation: clear to auscultation bilaterally Cardio: Rate: regular rate Rhythm: regular rhythm GI: Inspection: normal to inspection, non-distended and incision GI Palp: No abdominal tenderness
--- NOTE | 2023-10-01 09:18 | WPDWOUNDNOTE ---
Wound Care Note Date/Time: 10/01/23 09:18 History: small opening to the left of midline, draining s/s fluid, pt also reports some plastic material came out, this area communicates c punctate opening around umbilicus, otherwise she is feeling well Wound history: midline wound largely healed 0.3x0.4x0.7 cm area periumbilical opening tracking to L sided opening measuring0.2x0.2x.0.5 cm, mild s/s drainage, no s/s active infection Assessment and Plan Assessment and plan (1) Superficial wound: Status: Acute Assessment and Plan: new small opening c tract, ?stitch granuloma, will do silver rope packing, f/u 1 mo Review of Systems Review of Systems: All systems reviewed & are unremarkable except as noted in HPI and below Exam Const: General: cooperative, comfortable and no acute distress Resp: Auscultation: clear to auscultation bilaterally Cardio: Rate: regular rate Rhythm: regular rhythm GI: Inspection: normal to inspection and incision GI Palp: No abdominal tenderness and Yes Soft to palpation
== END 2023-10-14 23:59 | disposition home or self-care (01) ==
LOC: ANHWOC 07:27
PROVIDERS: PCP Family Medicine; Visit Provider Surgery
DX: T81.30XD Disruption of wound, unspecified, subsequent encounter (principal)
CPT/HCPCS: 99213; A9270; G0463

== ENCOUNTER 2023-10-29 08:30 | Outpatient (RCR) | payer MEDICARE, BC, SELFPAY ==
[2023-10-15 00:05] VITALS: BMI 24.3
--- NOTE | 2023-10-29 09:43 | P.PNWOUND_ITS ---
Wound Care Note Date/Time: 10/29/23 09:43 History: Negrita reports she is overall doing well although a little frustrated that the wound has not completely healed. She reports overall better energy levels, scarlet diet, and having normal bowel fxn. Wound history: 3 punctate openings c lateral 2 openings communicating between 2 cm bridge, minimal drainage, no s/s active infection, fungal infection is largely resolved Wound width: .4x.7x.5 midline .3x.3x.5 left .4x.9x.5 most lateral Assessment and Plan Assessment and plan (1) Superficial wound: Status: Acute Assessment and Plan: healing well, no s/s active infection, stop packing at this point, cont local wound care, f/u 6 wks Review of Systems Review of Systems: All systems reviewed & are unremarkable except as noted in HPI and below Exam Const: General: cooperative, comfortable and no acute distress Resp: Auscultation: clear to auscultation bilaterally Cardio: Rate: regular rate Rhythm: regular rhythm GI: Inspection: normal to inspection and non-distended GI Palp: No abdomina l tenderness, Yes Soft to palpation, No Tenderness to palpation present (GI), No Guarding due to palpation present (GI) and No Rigid due to palpation
--- NOTE | 2023-11-26 11:58 | PCWOUND ---
patient called to state her wounds are closed. States her [employer] was sending paperwork to surgeons office. Contacted Charlotte TURNER for surgeon to make aware of appointment cancellation on 12/10/2023.
== END 2024-01-12 08:57 | disposition home or self-care (01) ==
LOC: ANHWOC 08:30
PROVIDERS: PCP Family Medicine; Visit Provider Surgery
DX: T81.30XD Disruption of wound, unspecified, subsequent encounter (principal)
CPT/HCPCS: 99213; A9270; G0463

== ENCOUNTER 2025-08-12 10:19 | Outpatient (CLI) | payer MEDICARE, BC, SELFPAY ==
--- NOTE | ~2025-08-12 | DEXA_ITS ---
Bone Density Report Name: SHERRY RENO Age: 80 Sex: Female Ethnicity: White Date of : 1945 Indication: postmenopausal osteoporosis; monitoring treatment; hyperparathyroidism; height loss; history of glucocorticoids; cancer; Referring Provider: Johana Long Study: Bone densitometry was performed. Exam Date: August 12, 2025 Accession number: [id number] Bone Density: Region BMD T-score Z-score Classification AP Spine(L2, L3) 0.771 -2.6 0.1 Osteoporosis Femoral Neck (Left) 0.501 -3.1 -0.8 Osteoporosis Total Hip (Left) 0.752 -1.6 0.6 Osteopenia Femoral Neck (Right) 0.537 -2.8 -0.5 Osteoporosis Total Hip (Right) 0.656 -2.3 -0.2 Osteopenia Total Hip Mean 0.704 -2.0 0.2 Osteopenia World Health Organization criteria for BMD impression classify patients as: Normal (T-score at or above -1.0), Osteopenia (T-score between -1.0 and -2.5), or Osteoporosis (T-score at or below -2.5). 10-year Fracture Risk: FRAX not reported because: Some T-score for Spine Total or Hip Total or Femoral Neck at or below -2.5 Treated for osteoporosis Previous Exams: -- Region Exam Age BMD T-score BMD Change BMD Change Date g/cm2 vs Baseline vs Previous -- AP Spine (L2-L3) 08/12/2025 80 0.771 -2.6 -0.5% -0.5% 03/27/2022 76 0.775 -2.6 Total Hip(Left) 08/12/2025 80 0.752 -1.6 -5.2%* -5.2%* 03/27/2022 76 0.793 -1.2 Total Hip(Right) 08/12/2025 80 0.656 -2.3 -12.6%* -12.6%* 03/27/2022 76 0.751 -1.6 -- *Denotes significance at 95% confidence level, LSC for AP Spine = 0.022 g/cm2, LSC for Total Hip = 0.027 g/cm2 Clinical Information Provided by Patient: Has taken Glucocorticoids Is being treated for osteoporosis Has used the following medications: Actonel (i.e. risedronate), Fosamax (i.e. alendronate), HRT (i.e. estrogen/hormone therapy), Vitamin D, Calcium Has the following medical conditions: Cancer, Hyperparathyroidism, kidney transplant, squamous cell cancer Patient maximum height was 61 Menopause Age: 49 No regular weight bearing exercise Drinks caffeinated beverages Onset of menses at age 10 Number of children 0 Impression: The patient has osteoporosis, based on the Left Femoral Neck T-score. The patient has risk factors, including: history of glucocorticoid therapy. The BMD for the Total Hip(Left) decreased, changing by -5.2% since the last DXA exam. The BMD for the Total Hip(Right) decreased, changing by -12.6% since the last DXA exam. Discussion: SIGNIFICANT BONE LOSS OBSERVED. Adherence to therapy (including calcium and vitamin D intake) should be assessed. If compliance is not a factor, review management and exclusion of secondary causes of bone loss. It is important to ask patients whether they are taking their medications and to encourage continued and appropriate compliance with their osteoporosis therapies to reduce fracture risk. It is also important to review their risk factors and encourage appropriate calcium and vitamin D intakes, exercise, fall prevention and other lifestyle measures. Follow-Up: Consider a repeat BMD and Vertebral Fracture Assessment (VFA) exam in 2 years or sooner if medically necessary, to reassess this patient's status. Reported by: JOIE on 08/12/2025 10:44:00 AM. Reviewed, dictated and finalized at location A.
== END 2025-08-12 10:20 | disposition home or self-care (01) ==
LOC: MICIMG 10:21
PROVIDERS: PCP Family Medicine; Visit Provider Nurse Practitioner Family
DX: M81.0 Age-related osteoporosis without current pathological fracture (principal); M85.89 Other specified disorders of bone density and structure, multiple sites
CPT/HCPCS: 77080

== ENCOUNTER 2025-09-13 18:42 | Inpatient (IN) | payer MEDICARE, BC, SELFPAY ==
--- OUTSIDE RECORDS SUMMARY | 2018-11-03 05:02 | XMS_ITS | Continuity of Care Document ---
Author Organization [facility] Address [address] [place] [address] Phone Care Team Providers Care Milk Route Supervisor Name Role Phone Lilibeth Salcedo OD Unavailable Unavailable Allergies, Adverse Reactions, Alerts Substance Reaction Status Criticality No Known Allergies Active No Inform ation Medications Medication Instructions Dosage Effective Dates (start - stop) Status Comments prednisone 5 mg tablet 1 tablet by mouth daily - Active Neoral 25 mg capsule take (2.5MG/KG) by oral route daily in 2 divided doses 2.5 MG/KG - Active mycophenolate mofetil 500 mg tablet take 3 tablet by oral route 2 times every day 1500 MG - Active sulfamethoxazole 800 mg-trimethoprim 160 mg tablet take 1 tablet by oral route every 12 hours 1.00 tablet - Active furosemide 20 mg tablet take 1 tablet by oral route every day 20 MG - Active valacyclovir 500 mg tablet take 1 tablet by oral route every day 500 MG - Active lisinopril 5 mg tablet take 1 tablet by oral route every day 5 MG - Active simvastatin 20 mg tablet take 1 tablet by oral route every day in the evening 20 MG - Active potassium chloride ER 10 mEq capsule,extended release take 1 capsule by oral route every day with food 10 MEQ - Active Dexilant 60 mg capsule, delayed release take 1 capsule by oral route every day for 8 weeks 60 MG - Active Vitamin D2 50,000 unit capsule take 1 capsule by oral route every month - Active risedronate 150 mg tablet take 1 tablet by oral route every month on the same date; Take with a full glass of water and remain in an upright position 150 MG - Active Centrum Silver 0.4 mg-300 mcg-250 mcg tablet take 1 by oral route every day 1 - Active omega 8-iyl-prz-fish oil 1,200 mg (144 mg-216 mg) capsule 1 capsule by mouth daily - Active [facility] Oral CAPSULE - - Active Flonase Allergy Relief 50 mcg/actuation nasal spray,suspension spray 1 - 2 spray by intranasal route every day in each nostril as needed 50-100 MCG - Active Tylenol 325 mg tablet take 2 tablet by oral route every 6 hours as needed 650 MG - Active prednisone 10 mg tablet - No Longer Active omega 6-bpk-bel-fish oil 1,200 mg (144 mg-216 mg) capsule - No Longer Active Advance Directives Directive Yes / No Effective Date File Name No Information Encounters Encounter Description Practice Location Reason(s) For Visit Diagnoses Date Provider Providers Copied on [facility]counter [facility], [address] [place] [address], [place], [id number], tel:[phone] [facility] [place] Pati Dao No Information 8 Denisse Mcelroy. [address] [place], [address], [place]. tel:[phone] Referring Provider: Steve Lewis OD, [address] [place] [address], [address]. tel:[phone] 8[address] [facility], [address] [place], [place] [address], [place], [place], [id number], tel:[phone] [facility] [place] Pati Dao No Information 8 Victor Hugo Tellez. [address] [place] [address] [facility], [address], [place], [id number], [place]. tel:[phone] Family History Family Member Type Diagnosis Age At Onset No Information Payers Payer name Insurance type Covered republican ID Authoriza tion(s) No Information Social History Type Description Quantity Date Captured Comments Alcohol Use Details No Caffeine Use Details soda Tobacco Use Status Current non-smoker Smoking Status Never smoker Non-Smoking Tobacco Use Details : No Details Available : No Details Available Sex Female Chief Complaint And Reason For Visit No Information Reason For Referral Reason For Referral No Information History Of Present Illness Encounter Date Complaint History Of Prese nt Illness No Information Functional Status Date Functional Assessmen t No Information Instructions Date Instruction Additional Infor mation No Information Assessments Type Assessment Date No Information Patient Care Teams Name Effective Dates (start - stop) Status Members No Information
[2025-09-13] VITALS (23 sets, daily range): BP systolic 119–151; BP diastolic 64–91; PULSE 69–104; RESP 15–29; TEMP 36.7–37.2; O2SAT 90–97; BMI 27.1
--- NOTE | ~2025-09-13 | XR_ITS ---
PROCEDURE(S): 2 views of the right foot INDICATION(S): Injury and pain COMPARISON(S): Ankle series from the day before TECHNIQUE: 2 radiographic images were submitted for interpretation. FINDINGS: Bones: There is marked demineralization. There are no fractures seen. There are no destructive lesions or other lesions identified. Joints: There are no dislocations identified. There is severe osteoarthritic type change at the first MTP. There is marked vascular calcification. There are findings consistent with pes planus. IMPRESSION: No acute abnormalities are seen. Reviewed, dictated and finalized at location A.
--- NOTE | ~2025-09-13 | XR_ITS ---
Examination: XR chest 2V Clinical History: syncopal episodes Comparison: None Technique: PA and Lateral Findings: Cardiomediastinal silhouette normal size and configuration. Lungs clear. No acute bony abnormality. Osteopenia. Large hiatal hernia. Coarse calcifications left breast. IMPRESSION: 1. No acute cardiopulmonary findings. Reviewed, dictated and finalized at location R.
--- NOTE | ~2025-09-13 | XR_ITS ---
EXAM/PROCEDURE: XR chest 2V HISTORY: 24 hours post pacemaker insertion COMPARISON: September 14 TECHNIQUE: Two view(s) of the chest. FINDINGS: LUNGS: Clear of acute processes. PLEURAL SPACES: Clear. No evidence of fluid or pneumothorax. HEART/ MEDIASTINUM: There is cardiomegaly. SOFT TISSUES: There is large hiatal hernia. BONES: Degenerative change Pacing device enters from the left has leads in the right atrium and right ventricle. There are surgical clips in the soft tissues projected over the medial right apex. IMPRESSION: No acute findings. Reviewed, dictated and finalized at location A. IMPRESSION: No acute findings.
--- NOTE | ~2025-09-13 | XR_ITS ---
EXAMINATION: XR chest 1V portable DATE: 09/14/2025 10:41 INDICATION: Pacemaker insertion TECHNIQUE: frontal view of the chest was obtained. COMPARISON: Chest radiograph dated 09/13/2025 FINDINGS: Mild streaky bibasilar atelectasis. Persistent subtle airspace opacity at the medial right lower lung zone along side a more dense right retrocardiac opacity which corresponds to a moderate-sized sliding-type hiatal hernia and adjacent chronic atelectasis/scarring. Calcified nodule at the left lower lung zone consistent with old granulomatous disease. No pulmonary edema, pleural effusion or pneumothorax. Heart size within normal limits for AP technique. Dense mitral annular calcification. Dual lead pacemaker seen with leads projecting over the expected locations of the right atrium and right ventricle. Prosthetic 3 similar diameter coarse calcification at the left breast. Right rotator cuff arthrop athy. Mild thoracolumbar levocurvature was severe spondylosis. Surgical clips project over the right apex and central base of the neck. IMPRESSION: 1. New dual-lead cardiac pacemaker in expected position with no acute cardiopulmonary disease. 2. Chronic right basilar atelectasis/scarring along side a moderate-sized retrocardiac hiatal hernia. 3. Large coarse calcification at the left breast. Correlate with mammography. Reviewed, dictated and finalized at location A. IMPRESSION: 1. New dual-lead cardiac pacemaker in expected position with no acute cardiopul monary disease. 2. Chronic right basilar atelectasis/scarring along side a moderate-sized retro cardiac hiatal hernia. 3. Large coarse calcification at the left breast. Correlate with mammography.
--- NOTE | ~2025-09-13 | XR_ITS ---
XR ankle RT min 3V 09/14/2025 08:13 Indication: Right ankle pain after twisting injury Procedure: 4 views right ankle Comparison: No prior studies for comparison. Findings: No fracture, subluxation or dislocation. No soft tissue abnormality. No foreign bodies. Osteopenia. Small degenerative calcaneal enthesophytes. Extensive atherosclerosis. There is pes planus. Impression: 1: No acute bone or joint abnormality. Reviewed, dictated and finalized at location C. Impression: 1: No acute bone or joint abnormality.
--- NOTE | 2025-09-13 18:43 | ECG_ITS ---
Test Date: 2025-09-13 18:42:03 Measurements Intervals [place] Rate: 78 P: 0 [place]: 162 QRS: -17 QRSD: 93 T: 71 QT: 372 QTc: 426 Interpretive Statements SINUS RHYTHM WITH OCCASIONAL SUPRAVENTRICULAR PREMATURE COMPLEXES CONSIDER HIGH LATERAL INFARCT, AGE INDETERMINATE ABNORMAL ECG No previous ECG available for comparison Electronically Signed On 09-14-2025 06:01:54 CDT by Bhupendra Castano D.O.
[2025-09-13 18:55] LABS: Hematocrit 34.9 % (37.0-47.0); Hemoglobin 12.3 g/dL (12.0-15.0); Immature Granulocyte Percent A 0.3 % (0-0.5); Lymphocytes Absolute Auto 0.69 K/mm3 (0.9-3.2); Mean Corpuscular HGB Conc 35.2 g/dl (32-36); Mean Corpuscular Hemoglobin 34.9 pg (26-34); Mean Corpuscular Volume 99.1 fl (80-100); Nucleated Red Blood Cells Absolute Auto 0.000 K/mm3 (0.0-0.012); Nucleated Red Blood Cells Perc 0.0 % (0.0-0.2); Platelet Count Result 182 k/mm3 (150-375); Red Blood Count 3.52 M/mm3 (4.2-5.4); White Blood Count 7.4 K/mm3 (4.5-10.0)
[2025-09-13 19:08] LABS: INR 1.1; Prothrombin Time 14.6 Seconds (11.1-14.7)
[2025-09-13 19:09] LABS: Partial Thromboplastin Time 30.2 Seconds (22.3-36.8)
[2025-09-13 19:10] LABS: Alanine Aminotransferase 94 U/L (6-35); Albumin Level 4.0 g/dL (3.5-5.1); Alkaline Phosphatase 83 U/L (38-126); Anion Gap 9 mmol/L (4-12); Aspartate Amino Transferase 74 U/L (14-36); Bilirubin,Total 1.7 mg/dL (0.2-1.3); Blood Urea Nitrogen 24 mg/dL (7-17); Calcium 9.2 mg/dL (8.4-10.2); Carbon Dioxide 21 mmol/L (22-30); Chloride 105 mmol/L (98-107); Estimated Glomerular Filt Rate > 60; Glucose 114 mg/dL (65-110); Lipase 94 U/L (23-300); Potassium 4.3 mmol/L (3.4-5.0); Sodium 135 mmol/L (137-145); Total Protein 6.8 g/dL (6.3-8.2)
--- OUTSIDE RECORDS SUMMARY | 2025-09-13 19:14 | XMS_ITS | Clinical Summary ---
Author Organization [facility] [address] [place] [id number] Care Team Providers Care Script Worker Name Role Phone Sheila Lincoln RN Unavailable [phone] Jennifer Yepez RN Unavailable Epi Crowley MD Primary Care Provider [phone] Allergies No known active allergies Medications esomeprazole DR (NexIUM) 20 mg capsule Take 1 capsule (20 mg total) by mouth daily before breakfast Active predniSONE (DELTASONE) 5 mg tablet TAKE 1 TABLET DAILY 90 tablet 3 5 Active lisinopriL (PRINIVIL,ZESTR IL) 5 mg tablet TAKE 2 TABLETS DAILY 180 tablet 3 5 Active mycophenolate mofetil (CELLCEPT) 500 mg tablet TAKE 1 TABLET TWICE A DAY 180 tablet 5 Active valACYclovir (VALTREX) 500 mg tablet TAKE 1 TABLET DAILY 90 tablet 3 5 Active simvastatin (ZOCOR) 20 mg tablet TAKE 1 TABLET DAILY 90 tablet 3 5 Active ergocalciferol (VITAMIN D) 50,000 unit capsule TAKE 1 CAPSULE EVERY 30 DAYS 3 capsule 3 5 Active furosemide (LASIX) 20 mg tablet TAKE 1 TABLET DAILY 90 tablet 3 5 Active cycloSPORINE modified (GENGRAF,NEORAL ) 25 mg capsule TAKE 3 CAPSULES DAILY 270 capsule 3 5 Active potassium chloride ER 10 mEq CR tablet Take 2 tablet/capsule (20 mEq total) by mouth daily 180 tablet/capsul e 3 5 Active Active Problems Patient Care Coordination No te Formatting of this note migh t be different from the original. [facility]: (Exp. 10/30/25) Q-MONTHLY, CSA2; Q-3 ROUTINE Problem Noted Date Diagnosed Date Renal osteodystrophy 09/30/2022 H/O cold sores 09/30/2022 Encounter for long-term (cur rent) use of high-risk medication 09/11/2020 Encounter for aftercare following kidney transpl ant 09/11/2020 Dyslipidemia 09/11/2020 Immunosuppression 09/13/2019 Chronic fatigue 09/13/2019 Edema 09/14/2018 Vitamin D deficiency disease 08/18/2017 Aftercare following organ transplant 09/11/2016 Obesity with body mass index 30 or greater 05/22 Gastroesophageal reflux disease 12/16/2011 Scoliosis 11/04/2011 Hypertensive nephropathy 03/16/2011 Overview (02/27/2018): Description: Hypertensive Kidney Disease History of kidney transplant 03/16/2011 Overview (02/27/2018): Description: Renal Transplant Recipient Osteoporosis 03/16/2011 Overview (02/27/2018): Description: Osteoporosis 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 Primary hypertension 11/19/2010 Resolved Problems Problem Noted Date Diagnosed Date Resolved Date Hyperlipidemia 12/16/2011 11/20/2018 Encounters Date Type Department Care Team Description 09/05/2025 10:15 AM CDT Office Visit [facility] Medicine Nephrology [address] [place] [address] Medicine 5th [place] [address] [place] [address] Tonya Azul MD Encounter for aftercare following kidney transplant (Primary Dx); Hypertension, unspecified type; High risk medication use; At high risk for infection; Encounter for immunization 08/22/2025 Orders Only [facility] Medicine Nephrology [address] [facility] 5th [place] [address] [place] [address] Tonya Azul MD from Last 3 Months Immunizations Immunization Administration Dates Next Due Influenza, Quadrivalent, Deidre l Culture-based MDCK, Preservative Free, Antibiotic Free, Intramuscular 09/13/2019,09/14/2018 Influenza, Trivalent, Adjuva nted, Intramuscular 09/05/2025 Influenza, Trivalent, High D ose, Split, Preservative Free, Intramuscular 09/11/2016 Influenza, Trivalent, Preser vative Free, Intramuscular 09/10/2017,09/08/2015,09/07/2014,09/06,09/14/2012,09/09/2011,09/03/2010 ,08/22/2008 Pneumococcal Conjugate PCV 13 09/07/2014 Pneumococcal Polysaccharide PPV23 09/08/2015 Surgical History Surgery Date Site/Laterality Comments PARATHYROID GLAND SURGERY Parathyroid Surgery - (Added by TW Conv) MT RENAL ALTRNSPLJ IMPLTJ GR F W/O HAT LINER NEPHRECTOMY Renal Transplant - (Added by TW Conv) VULVECTOMY Vulvectomy - (Added by TW Conv) Medical History Medical History Date Comments History of malignant neoplas m of other female genital organs Malignant Vulvar Neoplasm - (Added by TW Conv) Encounter for aftercare foll owing other organ transplant Aftercare following organ tr ansplant - Aftercare Following Organ Transplant (Added by TW Conv) Family History Medical History Relation Name Comments No Known Problems Father No Known Problems Mother Relation Name Status Comments Father Mother Social History Tobacco Use Types Packs/Day Years Used Date Smoking Tobacco: Never Smokeless Tobacco: Never Tobacco Cessation:Counseling Given: Not Answered Alcohol Use Standard Drinks/Week Comments No 0 (1 standard drink = 0.6 oz pur e alcohol) Comments Unknown Sex and Gender Information Value Date Recorded Sex Assigned at Not on file Legal Sex Female 9:11 PM GLOBAL LEAD Gender Identity Female 03/08/2020 7:59 AM CDT Sexual Orientation Not on file Obstetrics History Last Filed Vital Signs Vital Sign Reading Time Taken Comments Blood Pressure 145/80 09/05/2025 10:37 AM CDT Pulse 103 09/05/2025 10:37 AM CDT Temperature 36.4 C (97.6 F) 09/05/2025 10:37 AM CDT Respiratory Rate - - Oxygen Saturation 97% 02/04/2019 8:15 AM CDT Inhaled Oxygen Concentration - - Weight 61.5 kg (135 lb 8 oz) 09/05/2025 10:37 AM CDT Height 147.8 cm (4' 10.2) 09/05/2025 10:37 AM C DT Body Mass Index 28.13 09/05/2025 10:37 AM CDT Plan of Treatment Health Maintenance Due Date Last Done Comments Depression Screening 1945 Fall Risk Assessment 1945 Hepatitis B Screening 1962 Well Visit 65+ 2009 Zoster Vaccine (1 of 2) 04/01/2019 02/04/2019 Osteoporosis Screening-Bone Density Scan 10/25/2021 10/25/2019, 10/05/2018, 08/18/2017, Additional history exists Covid-19 Vaccine (4 - 2024-2 6 season) 2025 06/30/2021, 01/04/2021, 12/14/2020 DTaP/Tdap/Td Vaccine (2 - Td or Tdap) 02/04/2029 02/04/2019, 09/09/2010 Pneumococcal vaccine 65+ Completed 015, 09/08/2015, 09/07/2014 Influenza Vaccine Completed 09/05/2025, , 09/14/2018, Additional history exists Procedures Procedure Name Priority Date/Time Associated Diagnosis Comments POCT URINALYSIS DIPSTICK Routine 09/05/2025 10:58 AM CDT Encounter for aftercare following kidney transplant CYCLOSPORINE A LEVEL, PEAK (2 HOUR) Routine 08/22/2025 10:18 AM CDT RENAL FUNCTION PANEL Routine 08/22/2025 10:18 AM CDT HEPATIC FUNCTION PANEL, SERUM Routine 08/22/2025 10:18 AM CDT LIPID PANEL Routine 08/22/2025 10:18 AM CDT CBC WITH AUTO DIFFERENTIAL Routine 08/22/2025 10:18 AM CDT COPY(IES) SENT TO: Routine 08/22/2025 10 :18 AM CDT DEXA AXIAL SKELETON BONE DENSITY 1 OR MORE SITES Schedule Routine, Read Routine (OP Routine) 10/25/2019 8:14 AM GLOBAL LEAD Age-related osteoporosis without current pathological fracture from Last 3 Months or Most Recently Relevant to Health Maintenance Results * (ABNORMAL) POCT urinalysis dipstick (09/05/2025 10:58 AM CDT) Glucose, ur, POC Negative Negative TXP NO LAB FOUND Bilirubin, ur, POC Negative Negative TXP NO LAB FOUND Ketones, ur, POC Negative Negative TXP NO LAB FOUND Specific [place], POC TXP NO LAB FOUND Comment:<=1.005 Blood, ur, POC Non-hemolyze d, trace(A) Negative TXP NO LAB FOUND pH, ur, POC 5.0 5.0 - 8.0 TXP NO L AB FOUND Protein, ur, POC Negative Negative TXP NO LAB FOUND Urobilinogen, urine, POC 0.2 0.2 - 1.0 mg/dL TXP NO LAB FOUND Nitrite, ur, POC Negative Negative TXP NO LAB FOUND Leukocytes, ur, POC Negative Negative TXP NO LAB FOUND Lot Number [id number] TXP NO LA B FOUND Urine 09/05/2025 10:5 8 AM CDT Tonya Azul MD POINT OF CARE TEST ORDERABLES F inal Result Performing Organization Address City/[facility]/ZIP Co de Phone Number TXP NO LAB FOUND * COPY(IES) SENT TO: (08/22/2025 10:18 AM CDT) Pathologist [facility] COPY(IES) SENT TO: [facility] Comment: [facility] - COPY TO [address] [address] 08/22/2025 10:1 8 AM CDT 08/22/2025 10:19 AM CDT Narrative [facility] - 08/23/2025 5:16 PM CDT RAW FASTING:YES FASTING: YES Tonya Azul MD LAB BLOOD ORDERABLES Final Resu lt [facility] * (ABNORMAL) Hepatic Function Panel, Serum (08/22/2025 10:18 AM CDT) Pathologist [facility] Protein, sr 6.5 6.1 - 8.1 g/dL [facility] Albumin 4.2 3.6 - 5.1 g/dL [facility] GLOBULIN 2.3 1.9 - 3.7 g/dL (calc) [facility] Alb/glob ratio 1.8 1.0 - 2.5 (calc) [facility] Bilirubin, total 1.0 0.2 - 1.2 mg/dL [facility] Bilirubin, direct 0.3(H) < OR = 0.2 mg/dL [facility] Bilirubin, indirect 0.7 0.2 - 1.2 mg/dL (calc) [facility] Alk phos 65 37 - 153 U/L [facility] AST 22 10 - 35 U/L [facility] ALT (SGPT) 19 6 - 29 U/L [facility] 08/22/2025 10:1 8 AM CDT 08/22/2025 10:19 AM CDT Narrative [facility] - 08/23/2025 5:16 PM CDT RAW FASTING:YES FASTING: YES us Tonya Azul MD LAB BLOOD ORDERABLES Final Resu lt [facility] [address] [place] [address] * Cyclosporine A Peak (2 Hour) (08/22/2025 10:18 AM CDT) Pathologist [facility] CYCLOSPORINE A PEAK (2 HR), BLOOD 515 mcg/L [facility] Comment: Verified by repeat analysis. COMMENT [facility] Comment: No definitive therapeutic or toxic ranges have been established. Optimal blood drug levels are influenced by type of transplant, patient response, time post-transplant, co-administration of other drugs, and drug formulation. The following peak ranges are suggested guidelines: De kailash: 4964-5197 mcg/L <6 Months: 800-1000 mcg/L 6-12 Months: 600-800 mcg/L >1 Year: 300-600 mcg/L This test was performed as an immunoassay on a No Paper Just Vapor platform. Values obtained from different assay methods cannot be used interchangeably. 08/22/2025 10:1 8 AM CDT 08/22/2025 10:19 AM CDT Narrative [facility] - 08/23/2025 5:16 PM CDT RAW FASTING:YES FASTING: YES us Tonya Azul MD LAB BLOOD ORDERABLES Final Resu lt AR[place] [address] [address] [facility] RAJESH [place] [address] * (ABNORMAL) CBC with auto differential (08/22/2025 10:18 AM CDT) Pathologist [facility] WBC 5.4 3.8 - 10.8 Thousand/u L [facility] RBC, POC 3.76(L) 3.80 - 5.10 Million/uL [facility] Hgb 12.9 11.7 - 15.5 g/dL [facility] Hct 39.7 35.0 - 45.0 % [facility] MCV 105.6(H) 80.0 - 100.0 fL [facility] MCH 34.3(H) 27.0 - 33.0 pg [facility] MCHC 32.5 32.0 - 36.0 g/dL [facility] Comment: For adults, a slight decrease in the calculated MCHC value (in the range of 30 to 32 g/dL) is most likely not clinically significant; however, it should be interpreted with caution in correlation with other red cell parameters and the patient's clinical condition. Rdw 12.9 11.0 - 15.0 % [facility] Platelets 194 140 - 400 Thousand/u L [facility] MPV 10.2 7.5 - 12.5 fL [facility] Neutrophils, abs 3,472 1,500 - 7,800 cells/uL [facility] Lymphocytes, abs 1,285 850 - 3,900 cells/uL [facility] Monocyte abs 540 200 - 950 cells/uL [facility] Eosinophils, abs 70 15 - 500 cells/uL [facility] Basophils, abs 32 0 - 200 cells/uL [facility] Neutrophils 64.3 % [facility] Lymphocyte pct 23.8 % [facility] Monocytes 10.0 % [facility] Eosinophils 1.3 % [facility] Basophils 0.6 % [facility] 08/22/2025 10:1 8 AM CDT 08/22/2025 10:19 AM CDT Narrative [facility] - 08/23/2025 5:16 PM CDT RAW FASTING:YES FASTING: YES us Tonya Azul MD LAB BLOOD ORDERABLES Final Resu lt ARRON [facility]ron [place] [address] [place] [address] * Renal function panel (08/22/2025 10:18 AM CDT) Glucose 92 65 - 99 mg/dL [facility] Comment: Fasting reference interval BUN 22 7 - 25 mg/dL [facility] Creatinine 0.75 0.60 - 0.95 mg/dL [facility] eGFR 80 > OR = 60 mL/min/1.7 3m2 [facility] BUN/creat ratio SEE NOTE: 6 - 22 (calc) [facility] Comment: Not Reported: BUN and Creatinine are within reference range. Sodium 139 135 - 146 mmol/L [facility] Potassium, pl 4.0 3.5 - 5.3 mmol/L [facility] Chloride 103 98 - 110 mmol/L [facility] CO2 27 20 - 32 mmol/L [facility] Calcium 9.3 8.6 - 10.4 mg/dL [facility] Phosphorus, sr 3.9 2.1 - 4.3 mg/dL [facility] Albumin 4.2 3.6 - 5.1 g/dL [facility] 08/22/2025 10:1 8 AM CDT 08/22/2025 10:19 AM CDT Narrative [facility] - 08/23/2025 5:16 PM CDT RAW FASTING:YES FASTING: YES Tonya Azul MD LAB BLOOD ORDERABLES Final Resu lt Performing Organization Address City/[facility]/ZIP Co de Phone Number ARRON Story [facility] [place] [address] [place] [address] * Lipid panel (08/22/2025 10:18 AM CDT) Cholesterol 114 <200 mg/dL [facility] HDL 53 > OR = 50 mg/dL [facility] Triglycerides 96 <150 mg/dL [facility] LDL 43 mg/dL (calc) [facility] Comment: Reference range: <100 Desirable range <100 mg/dL for primary prevention; <70 mg/dL for patients with CHD or diabetic patients with > or = 2 CHD risk factors. LDL-C is now calculated using the Luis Daniel calculation, which is a validated novel method providing better accuracy than the Friedewald equation in the estimation of LDL-C. Jorge Luis SS et al. ERIC. 2013;310(19): 1481-2662 (http://education.ABSMaterials/faq/UHI537) Chol/HDL ratio 2.2 <5.0 (calc) [facility] Non-HDL, (LDL+VLDL) 61 <130 mg/dL (calc) [facility] Comment: For patients with diabetes plus 1 major ASCVD risk factor, treating to a non-HDL-C goal of <100 mg/dL (LDL-C of <70 mg/dL) is considered a therapeutic option. 08/22/2025 10:1 8 AM CDT 08/22/2025 10:19 AM CDT Narrative [facility] - 08/23/2025 5:16 PM CDT RAW FASTING:YES FASTING: YES Tonya Azul MD LAB BLOOD ORDERABLES Final Resu lt Performing Organization Address [facility]/ZIP Co de Phone Number [facility] [place] [address] [place] [phone] * Dexa Axial Skeleton Bone Density 1 or 2 Site (10/25/2019 8:14 AM GLOBAL LEAD) Anatomical Region Laterality Modality Body N/A Radiographic Mary ging Narrative 10/25/2019 9:14 AM GLOBAL LEAD Patient Name: Sherry Reno Date of : 1945 Date of scan: 10/25/2019 Bone mineral density was performed on a HoloVoltea Discovery Densitometer. Machine Cross-calibration and Precision studies have been performed with a least significant change of 0.024 g/cm at the spine, 0.020 g/cm at the total proximal femur, and 0.014g/cm at the forearm. HISTORY: This is a 74 y.o. postmenopausal female with a history of hyperparathyroidism (post surgery), osteoporosis and renal transplant. Currently on treatment with Actonel, Vitamin D and glucocorticoids. Previously treated with Fosamax and hormone replacement therapy. History of tobacco use: Social History Tobacco Use Smoking Status Never Smoker INDICATIONS: Menopause status, treatment monitoring and currently on 5 mg of glucocorticoids for the past 23 year(s). FINDINGS: BONE MINERAL DENSITY OF THE LUMBAR SPINE Bone Mineral Density (BMD) of the lumbar spine was measured from L1-L4 and the average density was calculated to be 0.787 gm/cm. This corresponds to a T-score standard deviations from the mean of young adults of -2.4. When compared to the previous study of 10/05/2018 there has been no significant change noted. BONE MINERAL DENSITY OF THE PROXIMAL FEMUR Bone Mineral Density (BMD) of the left hip total was found to be 0.821 gm/cm2. This corresponds to a T-score standard deviations from the mean of young adults of -1.0. Femoral neck is 0.562 gm/cm2 with a T-score of -2.6. When compared to the previous study of 10/05/2018 there has been a measured 0.025 gm/cm 3.2 % increase which is considered significant. SUMMARY: Bone mineral density shows evidence of osteoporosis and marked increase risk of fracture.There has been a signicant increase in bone density since previous measurement. there is substantial degenerative sclerosis throughout the lumbar spine, leading to artifactually higher bone density at that site. There is also leftward scoliosis centered at L2. ADDITIONAL COMMENTS: If the patient has a history of a fragility fracture, a fracture that occurred with trauma equivalent to a fall from a standing position or less, then the diagnosis is osteoporosis. The risk of osteoporotic fracture increases approximately 2-fold for each 1.0 SD decrease in T-score. However, low bone density is not the only risk factor for fracture. Other factors include patient s age, previous osteoporotic fracture or prior fracture as an adult, loss of height of greater than 2 inches, corticosteroid use, risk of falling, risk of injury, and family history of osteoporosis. Not everyone with low bone mineral density has osteoporosis. Osteomalacia and other metabolic bone disorders should also be considered where indicated. Patients who have osteoporosis should be evaluated for specific diseases and conditions (secondary causes) that may cause or contribute to bone loss. Consider repeating this study in 1-2 years to assess the patient s response to treatment, if applicable. It is recommended that any follow up exam be performed on the same machine if possible for better accuracy. DEFINITIONS: Osteoporosis: BMD at or below -2.5 T-score Osteopenia (low bone mass): BMD between -1.0 and-2.5 T-score. The Bone Health Program adopts the following WHO definitions: Osteoporosis: BMD below -2.5 S.D. as compared to the BMD of young normal adults. Osteopenia or Low Bone Mass: BMD between -1.0 and -2.5 S.D. below the BMD of young normal adults. Normal Bone Density: BMD equal to or greater than -1.0 S.D. as compared to the BMD of young normal adults. References: 1) Alli, Annals of Internal Medicine 114(11): 919-923 (1990) 2) Dumont, Lancet 341 : 72-75 (1992) 3) Black, Journal Bone and Mineral Research 7(6): 633-8 (1991) 4) Smith, Journal Bone and Mineral Research 8(10):1227-33 (1992) The history and data sections of the bone mineral density scan were prepared by Mandy Mathur) PRANAV who is accredited by the International Society of Clinical Densitometry. The overall patient assessment and scan interpretation were performed by Chu Alanis M.D. who is certified by the International Society of Clinical Densitometry. [id number] Chu Alanis MD [facility] [place] DXA PROCEDURES Edited R esult - Final from Last 3 Months or Most Recently Relevant to Health Maintenance Insurance MEDICARE [facility] Care Teams Script Worker Relationship Specialty Start Date End Date Epi Crowley MD [address] [place] [address] PCP - General Family Medicine 08/12/25 Sheila Lincoln RN [address] [address] Precipitator Precipitator 11/29/20 Jennifer Yepez, RN [address] [address] Secondary Post Kidney Coordinator Transplant 12/01/20
--- OUTSIDE RECORDS SUMMARY | 2025-09-13 19:14 | XMS_ITS ---
Author Organization [facility] [address] [place] [address] Care Team Providers Care Dust Collector Treater Name Role Phone Sheila Lincoln RN Unavailable [phone] Jennifer Yepez RN Unavailable [phone] Epi Crowley MD Primary Care Provider [phone] Transplant Episode Kidney Recipient [facility] ([place], [place]) - [facility] Transplanted on 07/23/1996 Marked as Active Follow-up on 07/23/1996 Kidney CoordinatorSheila Lincoln RN Fax: N/A Email: N/A Transplanted Elsewhere: [facility] ([place], [place]) - [facility] Coordinator: Phone: Fax: Care Team Name Role Phone Fax Email Sheila Lincoln RN Kidney Coordinator [phone] N/ A N/A Ruthie Raman Primary Certified Medical Technician Assistant N/A N/A N/A Sheial Lincoln RN Seam Finisher [phone] N/A N/A Marianna Del Rio Secondary Certified Medical Technician Assistant N/A N/A N/A Jennifer Yepez RN Secondary Coordinator Secondary Kidney Coordinator [phone] N/A N/A Events Post-Transplant Pre-Transplant Transplanted: 07/23/1996 Appointments (08/14/2025 - 10/14/2025) When With Visit Type Description 09/05/2025 Transplant - Latha T Return En[place] unter for aftercare following kidney transplant (Primary Dx); Hypertension, unspecified type; High risk medication use; At high risk for infection; Encounter for immunization
--- OUTSIDE RECORDS SUMMARY | 2025-09-13 19:14 | XMS_ITS | Encounter Summary ---
Author Organization [facility] Facility Care Team Providers Care Bpm Analyst Name Role Phone Desiree Esocbar MD Primary Care Provider Jennifer Yepez RN Unavailable [phone] Donnie Blount MD Primary Care Provider [phone] Tonya Azul MD Primary Care Provider [phone] Donnie Blount MD Primary Care Provider [phone] Christine Baird MD Primary Care Provider [phone] Donnie Blount MD Primary Care Provider [phone] Armen Bartlett MD Primary Care Provider [phone] Sheila Lincoln RN Unavailable [phone] Jennifer Yepez RN Unavailable [phone] Booker Covarrubias DO Primary Care Provider [phone] Epi Crowley MD Primary Care Provider [phone] Encounter Details Date Type Department Care Team (Latest Contact Info) Description 02/11/2017 Orders Only [facility]INCON[facility] Provider, MD Tona [address] [place] [id number] Social History Tobacco Use Types Packs/Day Years Used Date Smoking Tobacco: Never Assessed Comments Unknown Sex and Gender Information Value Date Recorded Sex Assigned at Not on file Legal Sex Female 9:11 PM [employer] Gender Identity Female 03/08/2020 7:59 AM CDT Sexual Orientation Not on file documented as of this encounter Plan of Treatment Not on file documented as of this encounter Procedures Procedure Name Priority Date/Time Associated Diagnosis Comments COLONOSCOPY - SCAN 02/11/2017 12 :00 AM CDT documented in this encounter Results * COLONOSCOPY - SCAN (02/11/2017 12:00 AM CDT) Narrative 02/11/2017 12:00 AM CDT Ordered by an unspecified provider. us Historical Provider Final Res ult documented in this encounter Visit Diagnoses Not on filedocumented in this encounter Care Teams Bpm Analyst Relationship Specialty Start Date End Date Desiree Escobar MD PCP - General 08/18/17 01/24/19 Donnie Blount MD [address] [address] PCP - General 01/25/19 07/29/19 Tonya Azul MD [address] [facility] [address] [place] [address] PCP - General 07/30/19 09/12/19 Donnie Blount MD [address] [facility] [address] [place] [address] PCP - General Family Medicine 09/13/19 11/28/19 Christine Baird MD [address] [facility] [address] [address] PCP - General 11/29/19 01/24/20 Donnie Blount MD [address] [facility] [address] [place] [address] PCP - General 01/25/20 10/04/20 Armen Bartlett MD [address] [place] [address] PCP - General Internal Medicine 10/05/20 02/23/23 Booker Covarrubias DO [address] [address] [address] PCP - General Family Medicine 02/24/23 08/11/25 Epi Crowley MD [address] [place] [address] PCP - General Family Medicine 08/12/25 Jennifer Yepez RN [address] [id number] Registered Nurse 09/14/18 11/29/20 Sheila Lincoln RN [address] [facility] [address] [id number] Program Management Specialist Program Management Specialist 11/29/20 Jennifer Yepez, RN [address] [id number] Secondary Post Kidney Coordinator Transplant 12/01/20 documented as of this encounter
[2025-09-13 19:19] LABS: Troponin I 0.021 ng/mL (0.000-0.034)
--- NOTE | 2025-09-13 19:30 | ED.SYNCOPE ---
HPI - Syncope General Chief Complaint: Syncope Stated Complaint: Lightheaded, falls, cardiac abnormality Time Seen by Provider: 09/13/25 19:02 Source: patient and EMS Mode of arrival: EMS Limitations: no limitations History of Present Illness HPI narrative: this is an 80-year-old female with history of renal transplant, hyperlipidemia hypertension, GERD who presents to the ED for syncope. Patient states that over the past week, she has been having episodes of light headedness and seeing lights with subsequent syncope. This happened twice today prompting EMS to be notified. Denies any cardiac history. Denies chest pain, nausea, vomiting. Related Data Home Medications ?Medication ?Instructions ?Recorded ?Confirmed ?Last Taken ?Type ergocalciferol (vitamin D2) 1,250 1,250 mcg PO MONTHLY 10/03/20 09/13/25 08/17/25 History mcg (50,000 unit) capsule fluticasone propionate 50 1 spray intranasal DAILY PRN 10/03/20 09/13/25 Unknown History mcg/actuation nasal Congestion spray,suspension furosemide 20 mg tablet 20 mg PO QAM 10/03/20 09/13/25 09/11/25 History lisinopril 5 mg tablet 10 mg PO DAILY 10/03/20 09/13/25 09/11/25 History mecobalamin (vitamin B12) 1,000 2,500 mcg PO .COMPLEX 10/03/20 09/13/25 09/13/25 History mcg chewable tablet agzpyeci-keg-aeuaf acid 0.4 1 tablet PO DAILY 10/03/20 09/13/25 09/13/25 History mg-lycopene 300 mcg-lutein 250 mcg tablet (Centrum Silver) mycophenolate mofetil 500 mg tablet 500 mg PO Q12H 10/03/20 09/13/25 09/13/25 History omega-3 fatty acids-fish oil 360 1 cap PO DAILY 10/03/20 09/13/25 09/13/25 History mg-1,200 mg capsule (Fish Oil) prednisone 5 mg tablet 5 mg PO DAILY 10/03/20 09/13/25 09/13/25 History simvastatin 20 mg tablet 20 mg PO DAILY 10/03/20 09/13/25 09/13/25 History valacyclovir 500 mg tablet 500 mg PO DAILY 10/03/20 09/13/25 09/13/25 History esomeprazole magnesium 20 mg 20 mg PO DAILY 03/20/21 09/13/25 09/13/25 History capsule,delayed release (Nexium) folic acid 1 mg tablet 1 mg PO DAILY 02/25/23 09/13/25 09/13/25 History loratadine 10 mg disintegrating 10 mg PO DAILY PRN Allergy Symptoms 02/25/23 09/13/25 Unknown History tablet (Alavert) cyclosporine modified 25 mg 75 mg PO DAILY 05/21/23 09/13/25 09/13/25 History capsule (Neoral) Eye Promise Restore 1 cap PO DAILY 12/31/23 09/13/25 09/13/25 History potassium chloride 10 mEq 20 meq PO DAILY 09/13/25 09/13/25 09/13/25 History tablet,extended release Allergies Allergy/AdvReac Type Severity Reaction Status Date / Time No Known Allergies Allergy Verified 09/13/25 22:09 [facility] Past Medical History Medical History (Updated 09/14/25 @ 00:25 by Antony Lynne MD) Moderate mitral valve regurgitation Aortic stenosis Echo 05/2023: EF 65-70% severely increased left ventricular wall thickness, diastolic dysfunction grade 1, moderate left atrial enlargement, moderate aortic valve calcification, zwzb-ti-oyomvszu aortic valve stenosis with peak velocity 189 mean gradient of 9 and valve area of 1.4, mild aortic valve regurgitation, mild mitral valve regurgitation, moderate tricuspid valve regurgitation Diastolic dysfunction Hyperlipidemia Osteoporosis B12 deficiency Vitamin D deficiency History of renal dialysis Patient had end-stage renal disease but now has preserved renal function after kidney transplant Rosacea RLS (restless legs syndrome) Immunosuppression due to drug therapy Hypertension Surgical History Surgical History (Updated 09/14/25 @ 00:25 by Antony Lynne MD) H/O exploratory laparotomy 06/15/23 exploratory laparotomy, lysis of adhesions, ileocecectomy with primary wjyf-ri-ydlb functional end-to-end anastomosis due to obstruction from large gallstone History of laparotomy (05/21/23) Laparotomy and removal of obstructing gallstone of the distal ileum. History of bilateral cataract extraction (2018) History of parathyroidectomy History of renal transplant (1995) Family History Family History (Updated 09/13/25 @ 22:36 by Erum Gimenez DO) Father Kidney failure, acute Social History Social History (Updated 09/13/25 @ 22:36 by Erum Gimenez DO) Social History: Code status: DNR/DNI but okay with medications to keep her heart going in a prearrest situation Surrogate decision maker: Smoking status: Never smoker Alcohol intake: never Drinks per week: 1 Substance use: never Substance use type: does not use Lack of Transportation: No Lack of Food: Never True Current Housing: I Have Housing Concerned About Future Housing: No Difficulty Paying Gas/Electric Bills: No Difficulty Paying for Meds: No Currently Unemployed: No Education: Don't Know Difficulty w/ Childcare or Family Care: No Living arrangements: alone Occupation/Education: retired Spiritual care concerns: No Course Vital Signs Vital signs: Vital Signs Temperature 98.0 F 09/13/25 18:35 Pulse Rate 84 09/13/25 18:35 Respiratory Rate 18 09/13/25 18:35 Blood Pressure 149/67 H 09/13/25 18:35 Pulse Oximetry 94 09/13/25 18:35 Oxygen Delivery Room Air 09/13/25 18:35 Temperature 98.0 F 09/13/25 18:35 Pulse Rate 87 09/13/25 21:16 Respiratory Rate 21 H 09/13/25 21:16 Blood Pressure 129/64 09/13/25 21:16 Pulse Oximetry 90 09/13/25 21:16 Oxygen Delivery Room Air 09/13/25 18:35 MDM - Syncope MDM Narrative Medical decision making narrative: 80-year-old female Presenting for multiple episodes of syncope. On initial evaluation patient was in no acute distress afebrile, hemodynamic stable. Differentials include but are not limited to: Arrhythmia, electrolyte abnormality, CVA, ACS, mass, orthostatic hypotension, vasovagal syncope Notable exam findings: Heart and lungs clear. Abdomen soft nontender. Nonfocal neuro exam. Notable lab findings: CBC without significant abnormalities. CMP with mild transaminitis. Troponin 0.021. Notable imaging findings: Chest x-ray showed no acute process. While interviewing the patient, she had an episode similar to her prior episodes of syncope and she was noted to have an approximately 2nd ventricular pause with noted P-waves. This did begin to happen rather frequently. Initial labs were without significant abnormalities. I did consult Dr. Mcfarland, cardiology, who will be here tomorrow for potential pacemaker placement if needed. I spoke with Dr. Ray, hospitalist nocturnist physician, recommended consulting Interventional Cardiology for possible transvenous pacer placement. I spoke with Dr. Rosen, interventional Cardiology, recommended starting dopamine 5 micrograms/minute and is available for transvenous pacer make placement if the dopamine treatment fails. On re-evaluation, patient remained without sinus pauses for greater than 30 minutes. I did reach out to Dr. Ray, hospitalist nocturnist physician, again who will manage the patient's ICU care. I discussed the case with hospitalist, Dr. Gimenez, will admit the patient. I discussed goals of care with the patient, she requests that she is to not receive CPR or intubation but is amenable to transcutaneous pacing, transvenous pacing and a pacemaker placement. CRITICAL CARE Indication: Sick Sinus Syndrome Time type: intermittent I provided a total of 60 minutes of critical care excluding separately billable procedures. This includes time w/ EMS, initial bedside evaluation, reviewing old records, review of testing done while under my care, discussion w/ the family, nurses, school plant consultant and guiding the patient's care while in the emergency department. Approximate time distribution: 15 minutes ? Initial evaluation, d/w involved parties, attempting to gather old records. 10 minutes ? Documenting medical record 10 minutes ? Review of results (EKGs, labs, imaging) 10 minutes ? Serial repeat bedside evaluation 15 minutes ? Discussing case with multiple providers Medical Records Attestation: I reviewed the patient's medical records. Lab Data Attestation: I reviewed the patient's lab results. 09/13/25 18:49 09/13/25 18:49 Labs: Lab Results 09/13/25 Range/Units 18:49 WBC 7.4 (4.5-10.0) K/mm3 RBC 3.52 L (4.2-5.4) M/mm3 Hgb 12.3 (12.0-15.0) g/dL Hct 34.9 L (37.0-47.0) % MCV 99.1 (80-100) fl MCH 34.9 H (26-34) pg MCHC 35.2 (32-36) g/dl RDW 13.2 (11.5-14.5) % Plt Count 182 (150-375) k/mm3 MPV 9.5 (7.4-10.4) fl Immature Gran % (Auto) 0.3 (0-0.5) % Neut % (Auto) 81.3 H (45.5-73.1) % Lymph % (Auto) 9.3 L (18.3-44.2) % Craig % (Auto) 8.1 (2.6-8.5) % Eos % (Auto) 0.7 (0-4.4) % Baso % (Auto) 0.3 (0.2-1.2) % Lymph # (Auto) 0.69 L (0.9-3.2) K/mm3 Craig # (Auto) 0.6 (0.1-0.6) K/mm3 Eos # (Auto) 0.1 (0-0.3) K/mm3 Baso # (Auto) 0.0 (0.0-0.1) K/mm3 Abs Immat Gran (auto) 0.02 (0.00-0.031) K/mm3 Absolute Neuts (auto) 6.0 (1.3-6.7) K/mm3 Absolute Nucleated RBC 0.000 (0.0-0.012) K/mm3 Nucleated RBC % 0.0 (0.0-0.2) % PT 14.6 (11.1-14.7) Seconds INR 1.1 APTT 30.2 (22.3-36.8) Seconds Sodium 135 L (137-145) mmol/L Potassium 4.3 (3.4-5.0) mmol/L Chloride 105 (98-107) mmol/L Carbon Dioxide 21 L (22-30) mmol/L Anion Gap 9 (4-12) mmol/L BUN 24 H (7-17) mg/dL Creatinine 0.64 L (0.7-1.0) mg/dL Estim Creat Clear Calc Not Reportable Estimated GFR > 60 (59 - ) Glucose 114 H (65-110) mg/dL Calcium 9.2 (8.4-10.2) mg/dL Phosphorus 3.1 (2.5-4.5) mg/dL Magnesium 1.6 (1.6-2.3) mg/dL Total Bilirubin 1.7 H (0.2-1.3) mg/dL AST 74 H (14-36) U/L ALT 94 H (6-35) U/L Alkaline Phosphatase 83 (38-126) U/L Troponin I 0.021 (0.000-0.034) ng/mL Total Protein 6.8 (6.3-8.2) g/dL Albumin 4.0 (3.5-5.1) g/dL Lipase 94 (23-300) U/L Imaging Data Attestation: I personally reviewed and interpreted this imaging study as follows: My impression: Chest x-ray: Normal cardiac silhouette, no consolidations, no pleural effusions, no pulmonary vascular congestion Radiologist's impression: Impressions Chest X-Ray 09/13/25 19:24 IMPRESSION: 1. No acute cardiopulmonary findings. ECG Data EKG #1: Attestation: I personally reviewed and interpreted this ECG as follows: ECG completion date: 09/13/25 ECG completion time: 18:42 Interpretation: Sinus rhythm with occasional PAC, normal axis, normal intervals, nonspecific t wave change, no ST changes Discharge Plan Discharge Clinical Impression: Sick sinus syndrome, History of kidney transplant Patient Disposition: Still a Patient Condition: Serious
[2025-09-13] MEDS: DOPamine 400 MG/D5W 250 ML 400 MG/250 ML BAG 11.59 MG IV CONT (20:03)
[2025-09-13 20:48] LABS: Magnesium 1.6 mg/dL (1.6-2.3)
[2025-09-13] MEDS: ACETAMINOPHEN 500 MG TABLET 1000 MG PO (20:51)
--- NOTE | 2025-09-13 21:25 | PC.NURSE ---
Report received from Jordyn ADKINS.
--- NOTE | 2025-09-13 21:40 | PC.NURSE ---
This patient, Negrita Oconnell, was admitted to Intensive Care Unit-7. Patient/family oriented to hospital policies and general routines including ID bracelet, bed and alarms, visiting hours, pain management, procedures, bathroom and other care routines, personal items, smoking policy, room service/diet, and visiting hours. Information on how to activate the Rapid Response Team has been discussed. Patient/Family are encouraged to report perceived risks to care and to ask questions if they do not understand what they are told or what they should do.
--- NOTE | 2025-09-13 22:15 | PM.IMHP ---
H&P: HPI History of Present Illness Date/Time: 09/13/25 22:15 Chief Complaint: Lightheaded, history of to recent episodes of passing this week Narrative: 80-year-old female with a past medical history of kidney transplant over 20 years ago with good preserved renal function, GERD, mild to moderate aortic valve stenosis, moderate tricuspid regurgitation and diastolic heart failure on low-dose Lasix who presented to the ER via EMS from home due syncopal episodes. The patient reported that about 10 days ago she had 2 syncopal episodes. She was standing and making dinner when she lost consciousness and woke up on the floor with a small lack to the back of her head. She did not come in for evaluation. Later that same day she was sitting at the kitchen table and had another syncopal episode and found herself on the floor. Before each episode she felt of rushing sensation and ?Saw the light?. She thought that these symptoms were due to receiving her COVID and flu shot that same day. Then on Friday (7 days later) she had similar episode of syncope at which time she fell to the floor and twisted her ankle resulting in a large bruise to her ankle. The patient reports having episodes of feeling ?waves? and a ?rushing sensation? with fullness in her head. She has been lightheaded and then see slight prior to having her syncopal episodes. She had 2 such episodes today which resulted in her calling EMS. She denies any chest pain or shortness breath. EMS noted that the patient had a sinus pause on their monitor. When the patient arrived to the ER her blood pressures were stable and her heart rate was normal but she proceeded to have multiple episodes of the non conduction of ventricular beats with pauses lasting up to 4 seconds that were symptomatic. Her blood pressures did stay stable despite these pauses. The patient was admitted to the ICU on a dopamine drip at 5. Initially the patient's heart rate for was controlled for the most part. But then around 02:50 the patient had a episode of 12-16 second pause in ventricular conducted beats. She reported that she was straining to urinate with the pure wick catheter at the time. The patient still had atrial beats at about the 12nd mac she had a PVC and at the 12nd mac she went back into a bradycardic rhythm. At that time her rhythm appeared to be third-degree heart block. She then flipped between third-degree heart block and second-degree are block type 2. Patient's dopamine was increased up to 7.5 mg. Patient continued to have variable heart rate with drop in her heart rate down into in the 40s and 50s. She was not symptomatic initially for the 1st 15 or 20 minutes of this and we are hopeful that the increased dopamine would help. But unfortunately the patient began having recurrent episodes that were symptomatic. Subsequently we had to start externally pacing the patient. We had to titrate her amp edge up to 70 in order to achieve capture. Dr. Rosen was contacted and recommended increasing the patient's dopamine up to 10 and when that did not work the patient received 1 amp of atropine with no improvement. She was still having episodes of external pacing up to 3-4 times a minute. Her rhythm at that time was AFib. Review of Systems Review of Systems: 12 systems were reviewed with pertinent positives and negatives per HPI. Except as documented in the HPI, all other systems were reviewed and are negative. [facility] Past Medical History Medical History (Updated 09/14/25 @ 00:25 by Antony Lynne MD) Moderate mitral valve regurgitation Aortic stenosis Echo 05/2023: EF 65-70% severely increased left ventricular wall thickness, diastolic dysfunction grade 1, moderate left atrial enlargement, moderate aortic valve calcification, [id number] aortic valve stenosis with peak velocity 189 mean gradient of 9 and valve area of 1.4, mild aortic valve regurgitation, mild mitral valve regurgitation, moderate tricuspid valve regurgitation Diastolic dysfunction Hyperlipidemia Osteoporosis B12 deficiency Vitamin D deficiency History of renal dialysis Patient had end-stage renal disease but now has preserved renal function after kidney transplant Rosacea RLS (restless legs syndrome) Immunosuppression due to drug therapy Hypertension Surgical History Surgical History (Updated 09/14/25 @ 00:25 by Antony Lynne MD) H/O exploratory laparotomy 06/15/23 exploratory laparotomy, lysis of adhesions, ileocecectomy with primary [id number] functional end-to-end anastomosis due to obstruction from large gallstone History of laparotomy (05/21/23) Laparotomy and removal of obstructing gallstone of the distal ileum. History of bilateral cataract extraction (2018) History of parathyroidectomy History of renal transplant (1995) Family History Family History (Updated 09/13/25 @ 22:36 by Erum J. Hopen, DO) Father Kidney failure, acute Social History Social History (Updated 09/13/25 @ 22:36 by Erum Gimenez DO) Social History: Code status: DNR/DNI but okay with medications to keep her heart going in a prearrest situation Surrogate decision maker: Smoking status: Never smoker Alcohol intake: never Drinks per week: 1 Substance use: never Substance use type: does not use Lack of Transportation: No Lack of Food: Never True Current Housing: I Have Housing Concerned About Future Housing: No Difficulty Paying Gas/Electric Bills: No Difficulty Paying for Meds: No Currently Unemployed: No Education: Don't Know Difficulty w/ Childcare or Family Care: No Living arrangements: alone Occupation/Education: retired Spiritual care concerns: No Meds Home Medications and Allergies Home Medications ?Medication ?Instructions ?Recorded ?Confirmed ?Type ergocalciferol (vitamin D2) 1,250 1,250 mcg PO MONTHLY 10/03/20 09/13/25 History mcg (50,000 unit) capsule fluticasone propionate 50 1 spray intranasal DAILY PRN 10/03/20 09/13/25 History mcg/actuation nasal Congestion spray,suspension furosemide 20 mg tablet 20 mg PO QAM 10/03/20 09/13/25 History lisinopril 5 mg tablet 10 mg PO DAILY 10/03/20 09/13/25 History mecobalamin (vitamin B12) 1,000 2,500 mcg PO .COMPLEX 10/03/20 09/13/25 History mcg chewable tablet tsnpneto-wll-dnihp acid 0.4 1 tablet PO DAILY 10/03/20 09/13/25 History mg-lycopene 300 mcg-lutein 250 mcg tablet (Centrum Silver) mycophenolate mofetil 500 mg tablet 500 mg PO Q12H 10/03/20 09/13/25 History omega-3 fatty acids-fish oil 360 1 cap PO DAILY 10/03/20 09/13/25 History mg-1,200 mg capsule (Fish Oil) prednisone 5 mg tablet 5 mg PO DAILY 10/03/20 09/13/25 History simvastatin 20 mg tablet 20 mg PO DAILY 10/03/20 09/13/25 History valacyclovir 500 mg tablet 500 mg PO DAILY 10/03/20 09/13/25 History esomeprazole magnesium 20 mg 20 mg PO DAILY 03/20/21 09/13/25 History capsule,delayed release (Nexium) folic acid 1 mg tablet 1 mg PO DAILY 02/25/23 09/13/25 History loratadine 10 mg disintegrating 10 mg PO DAILY PRN Allergy Symptoms 02/25/23 09/13/25 History tablet (Alavert) cyclosporine modified 25 mg 75 mg PO DAILY 05/21/23 09/13/25 History capsule (Neoral) Eye Promise Restore 1 cap PO DAILY 12/31/23 09/13/25 History metronidazole 1 % topical cream 1 applic topical DAILY PRN rash 10/04/24 09/13/25 Rx #60 grams nystatin 100,000 unit/gram topical 1 applic topical BID #60 grams 10/07/24 09/13/25 Rx powder (Nystop) risedronate 150 mg tablet 150 mg PO MONTHLY #3 tabs 03/28/25 09/13/25 Rx potassium chloride 10 mEq 20 meq PO DAILY 09/13/25 09/13/25 History tablet,extended release Allergies Allergy/AdvReac Type Severity Reaction Status Date / Time No Known Allergies Allergy Verified 09/13/25 22:09 Vital Signs Vital Signs - 24 hr 09/13/25 18:35 09/13/25 18:48 09/13/25 18:50 Temperature 98.0 F Pulse Rate 84 92 86 Respiratory Rate 18 22 H Blood Pressure 149/67 H Pulse Oximetry 94 97 Oxygen Delivery Room Air 09/13/25 19:00 09/13/25 19:22 09/13/25 19:23 Temperature Pulse Rate 80 84 Respiratory Rate 16 15 Blood Pressure 151/91 H Pulse Oximetry 96 95 97 Oxygen Delivery 09/13/25 19:30 09/13/25 19:31 09/13/25 19:45 Temperature Pulse Rate 80 84 72 Respiratory Rate 22 H 29 H 21 H Blood Pressure 140/76 Pulse Oximetry 96 95 96 Oxygen Delivery 09/13/25 20:01 09/13/25 20:03 09/13/25 20:04 Temperature Pulse Rate 82 80 83 Respiratory Rate 24 H 16 Blood Pressure 147/84 H 147/84 H Pulse Oximetry 96 96 Oxygen Delivery 09/13/25 20:05 09/13/25 20:17 09/13/25 20:34 Temperature Pulse Rate 84 83 85 Respiratory Rate 18 16 17 Blood Pressure Pulse Oximetry 95 96 93 Oxygen Delivery 09/13/25 20:45 09/13/25 20:46 09/13/25 21:00 Temperature Pulse Rate 69 104 H 77 Respiratory Rate 18 18 20 Blood Pressure 119/69 Pulse Oximetry 95 95 94 Oxygen Delivery 09/13/25 21:01 09/13/25 21:15 09/13/25 21:16 Temperature Pulse Rate 98 91 87 Respiratory Rate 17 22 H 21 H Blood Pressure 135/81 129/64 Pulse Oximetry 93 93 90 Oxygen Delivery Exam Narrative: Weight 58.8 kg BMI 27.1 H&P: Results Labs Labs: Laboratory Tests 09/13/25 18:49 09/13/25 18:49 09/13/25 09/13/25 18:49 21:05 WBC 7.4 RBC 3.52 L Hgb 12.3 Hct 34.9 L MCV 99.1 MCH 34.9 H MCHC 35.2 RDW 13.2 Plt Count 182 MPV 9.5 Immature Gran % (Auto) 0.3 Neut % (Auto) 81.3 H Lymph % (Auto) 9.3 L Parmer % (Auto) 8.1 Eos % (Auto) 0.7 Baso % (Auto) 0.3 Lymph # (Auto) 0.69 L Parmer # (Auto) 0.6 Eos # (Auto) 0.1 Baso # (Auto) 0.0 Abs Immat Gran (auto) 0.02 Absolute Neuts (auto) 6.0 Absolute Nucleated RBC 0.000 Nucleated RBC % 0.0 PT 14.6 INR 1.1 APTT 30.2 Sodium 135 L Potassium 4.3 Chloride 105 Carbon Dioxide 21 L Anion Gap 9 BUN 24 H Creatinine 0.64 L Estim Creat Clear Calc Not Reportable Estimated GFR > 60 Glucose 114 H Calcium 9.2 Phosphorus 3.1 Magnesium 1.6 Total Bilirubin 1.7 H AST 74 H ALT 94 H Alkaline Phosphatase 83 Troponin I 0.021 Total Protein 6.8 Albumin 4.0 Lipase 94 Nasal MRSA (PCR) Not detected Impressions Chest X-Ray 09/13/25 19:24 IMPRESSION: 1. No acute cardiopulmonary findings. EKG: Sinus rhythm with occasional supraventricular premature complexes, nonspecific T-wave abnormality, normal intervals. Cardiology interpretation pending Assessment and Plan Assessment and plan (1) Sick sinus syndrome: Code(s): I49.5 - Sick sinus syndrome Status: Acute (2) Aortic stenosis: Qualifiers: Cardiac valve disease etiology: nonrheumatic Qualified Code(s): I35.0 - Nonrheumatic aortic (valve) stenosis Code(s): I35.0 - Nonrheumatic aortic (valve) stenosis Status: Acute (3) Diastolic dysfunction: Code(s): I51.89 - Other ill-defined heart diseases Status: Acute (4) Hypomagnesemia: Code(s): E83.42 - Hypomagnesemia Status: Acute (5) Transaminitis: Code(s): R74.01 - Elevation of levels of liver transaminase levels Status: Acute (6) History of renal transplant: Onset Date: 1995 Code(s): Z94.0 - Kidney transplant status Status: Chronic (7) Immunosuppression due to drug therapy: Code(s): D84.821 - Immunodeficiency due to drugs; 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 Frequency of pauses increased in the ER patient required initiation of rhythm agents with dopamine. Cardiology has been consulted. Will place pacer pads on the patient in case external pacing needed. Patient is not on any rhythm medications that would induce cardiac arrhythmia. Electrolytes are stable but magnesium is slightly low at 1.6. Will give 2 g magnesium sulfate rider. The patient does have mild transaminitis with elevated AST ALT and bilirubin likely due to relative hypoperfusion with episodes of sinus pause creating low-flow state. Will repeat CMP in a.m.. Toxicity from immunosuppressive therapy much less likely. Patient does have history of renal transplant in the but renal function is great. Will continue anti-rejection medications. Will monitor strict I&O's. Patient does have diastolic dysfunction and aortic stenosis as well as moderate tricuspid regurg but is not in overt heart failure. Patient appears euvolemic. Will continue home Lasix. As mentioned above the patient's condition changed at around 03:00 the. She began having multiple prolonged and/or symptomatic pauses. Her rhythm was flipping between sinus rhythm with frequent premature contractions to third-degree heart block and secondary use of block type 2. Just before initiation of external pacing the patient flipped into AFib but still was only having heart rates as between 30 and 50 with symptomatology. Patient was requiring appy age of 71 maintain capture. The patient was given fentanyl and Versed as needed for pain/sedation. Medication adjustments were made as discussed above. Due to persistence of symptoms lining caser is coming in to place a temporary pacemaker. Patient reiterates that she is okay with medications to keep her heart rate going. She otherwise wants to be a DNR/DNI. But she understands that she would have to rescind her DNR/DNI for placement of a cardiac pacemaker. She understands that she would need to do this in order to have a chance to return home with a functional status.. She is still active and independent activities of daily living despite her age. She states that if she were to have a stroke or being able to feed herself she would not want feeding tube and if she was unable to otherwise communicate her wants her desires she would want to be made comfort measures. She states that she is alone in the world she is has no children and has no remaining family. Initially only 40 minutes was spent in critical care activities but with change in patient's condition an additional 50 minutes was spent at patient bedside providing critical care. Due to a high probability of clinically significant, life threatening deterioration, the patient required my highest level of preparedness to intervene emergently and I personally spent this critical care time directly and personally managing the patient. This critical care time included obtaining a history; examining the patient; pulse oximetry; ordering and review of studies; arranging urgent treatment with development of a management plan; evaluation of patient's response to treatment; frequent reassessment; and discussions with other providers. It was exclusive of separately billable procedures and treating other patients and teaching time. Please see Assessment and Plan section and the rest of the note for further information on patient assessment and treatment. Quality VTE Prophylaxis VTE prophylaxis: pharmacologic ordered (Lovenox 40 mg) Hospitalist [facility] Advance Care Plan I have confirmed that the patient's Advanced Care Plan is present, code status is documented, or surrogate decision maker is listed in patient medical record.: Yes Medication Reconciliation I have utilized all available resources to obtain, update and review the patients current medications (includes all prescriptions, OTC, herbals, cannabis, and nutritional supplements).: Yes
[2025-09-13 22:20] LABS: MRSA (PCR) NOT DETECTED (NOT DETECTE)
[2025-09-13 23:02] LABS: Troponin I 0.021 ng/mL (0.000-0.034)
[2025-09-13] MEDS: MAGNESIUM SULF 2 GM/WATER 50ML 2 GM/50 ML BAG IVPB (23:59)
[2025-09-14] VITALS (25 sets, daily range): BP systolic 90–161; BP diastolic 45–128; PULSE 42–877; RESP 14–24; TEMP 36.7–37.3; O2SAT 95–99
--- NOTE | 2025-09-14 | ECHO_ITS ---
Patient Info Name: Negrita Oconnell Age: 80 years : 1945 Gender: Female Ht: 48 in Wt: 136 lbs BSA: 1.50 m2 HR: 89 bpm BP: 134 / 71 mmHg Technical Quality: Poor Exam Date: 09/14/2025 1:50 PM Patient Status: I Admit Date: 09/13/2025 Exam Type: CA echo dop color flow w con Complete two-dimensional, color flow and Doppler transthoracic echocardiogram is performed with contrast to opacify the left ventricle and to improve the deliniation of the left ventricle endocardial borders. Staff Referring Physician: Saji Mcfarland MD Management Planner: Altagracia Resendiz Attending Provider: Erum Gimenez DO Contrast/Agitated Saline Contrast/Ag. Saline: Definity Amount: 2.00 ml Reason for Poor Study: poor echocardiographic windows Summary 1. The left ventricle is normal in size and systolic function. The left ventricular ejection fraction is visually estimated be 60-65%. There are no regional wall motion abnormalities. There is grade 2 diastolic dysfunction. 2. The right ventricle is normal in size and systolic function. 3. The left atrium is mildly dilated. 4. The aortic valve is probably trileaflet and calcified. The aortic valve gradients suggest mild aortic stenosis. There is mild aortic regurgitation. 5. There is severe mitral annular calcification extending into the subvalvular apparatus. The mitral valve leaflets are calcified. There is mild mitral stenosis with a mean gradient of 6mmHg at a heart rate of 85bpm. There is trace mitral regurgitation. Left Ventricle The left ventricle is normal in size and systolic function. The left ventricular ejection fraction is visually estimated be 60-65%. There are no regional wall motion abnormalities. There is grade 2 diastolic dysfunction. Right Ventricle The right ventricle is normal in size and systolic function. Left Atria The left atrium is mildly dilated. Right Atria The right atrium is normal size. Atrial Septum The atrial septum is not well visualized. Aortic Valve The aortic valve is probably trileaflet and calcified. The aortic valve gradients suggest mild aortic stenosis. There is mild aortic regurgitation. Pulmonic Valve The pulmonic valve is not well visualized. There is no color Doppler evidence of pulmonic valve regurgitation. Mitral Valve There is severe mitral annular calcification extending into the subvalvular apparatus. The mitral valve leaflets are calcified. There is mild mitral stenosis with a mean gradient of 6mmHg at a heart rate of 85bpm. There is trace mitral regurgitation. Tricuspid Valve The tricuspid valve leaflets are sclerotic. There is trace tricuspid regurgitation. Pericardium/Pleural There is trace amount of pericardial effusion. Inferior Vena Cava Inferior vena cava is not well visualized. Aorta The aortic root at the level of the sinus of Valsalva measures 3.8 cm in diameter. Left Ventricular Outflow Tract Name Value Normal LVOT 2D LVOT Diameter 1.9 cm LVOT Doppler LVOT Peak Velocity 147 cm/s LVOT Peak Gradient 7 mmHg LVOT Mean Gradient 4 mmHg LVOT VTI 32 cm LVOT VTI/AV VTI Ratio 0.7 LVOT Stroke Volume 94 ml LVOT CO 7.5 l/min LVOT CI 5.0 l/min/m2 Pulmonic Valve Name Value Normal RVOT Doppler RVOT Peak Velocity 96 cm/s RVOT Peak Gradient 4 mmHg PV Doppler PV Peak Velocity 115 cm/s PV Peak Gradient 5 mmHg Mitral Valve Name Value Normal MV Doppler MV Peak Gradient 16 mmHg MV Mean Gradient 6 mmHg MV Area (Cont Eq VTI) 2.0 cm2 MV Diastolic Function MV E Peak Velocity 110 cm/s MV A Peak Velocity 177 cm/s MV E/A 0.6 MV Decel Time (PW) 299 ms MV Annular TDI MV E/e' (Septal) 43.9 MV E/e' (Lateral) 21.0 MV E/e' (Average) 32.5 Tricuspid Valve Name Value Normal TV Regurgitation Doppler TR Peak Velocity 324 cm/s TR Peak Gradient 42 mmHg Aortic Valve Name Value Normal AV Doppler AV Peak Velocity 227 cm/s AV Peak Gradient 18 mmHg AV Mean Gradient 12 mmHg AV VTI 43 cm AV Area (Cont Eq VTI) 2.2 cm2 >=3.0 AV Area (Cont Eq Clinton) 1.9 cm2 AV DI (Clinton) 0.65 AV Regurgitation 2D LVOT Area 3.0 cm2 Ventricles Name Value Normal LV Dimensions 2D/MM IVS Diastolic Thickness (2D) 0.9 cm 0.6-1.0 LVID Diastole (2D) 3.7 cm 3.8-5.2 LVIW Diastolic Thickness (2D) 0.5 cm 0.6-0.9 LVID Systole (2D) 2.4 cm 2.2-3.5 LVOT Diameter 1.9 cm LV Mass (2D Cubed) 71.99 g 67.00-162.00 LV Mass Index (2D Cubed) 48 g/m2 43-95 Relative Wall Thickness (2D) 0.29 <=0.42 LV Fractional Shortening/Ejection Fraction 2D/MM LV Fractional Shortening (2D) 35 % 27-45 LV EF (2D Teichholz) 66 % LV Diastolic Volume (4C MOD) 70 ml LV EF (4C MOD) 68 % LV Diastolic Volume (2C MOD) 45 ml LV EF (2C MOD) 81 % LV Diastolic Volume (BP MOD) 56 ml 46-106 LV Diastolic Volume Index (BP MOD) 38 ml/m2 29-61 LV Systolic Volume (BP MOD) 23 ml 14-42 LV Systolic Volume Index (BP MOD) 15 ml/m2 8-24 LV EF (BP MOD) 59 % 54-74 LV Diastolic Length (4C) 6.3 cm LV Systolic Length (4C) 5.2 cm LV Stroke Volume (4C MOD) 47 ml Atria Name Value Normal LA Dimensions LA Volume (4C A-L) 74 ml LA Volume (BP A-L) 55 ml Report Signatures
[2025-09-14] MEDS: ACETAMINOPHEN 325 MG TABLET 650 MG PO ×2 (01:52→16:32)
[2025-09-14 02:22] LABS: Troponin I 0.021 ng/mL (0.000-0.034)
--- NOTE | 2025-09-14 02:54 | PC.NURSE ---
Pt had approximately 12 second pause followed by one perfusion beat and then an additional 4 second pause, staff went into room with Dr. Gimenez at bedside, pt alert and oriented stated that she was bearing down to urinate, tsang catheter placed. Per Dr. Rosen dopamine drip increased to 7.5 mcg. VSS. Pt complaining of seeing white lights and dizziness. Pt continues to have pauses on monitor. Dr. Gimenez with orders to initiate transcutaneous pacing and call Dr. Rosen. Pacer set at a rate of 60 with 70 MA. 50mcg of fentanyl and 2mg of versed administered per Dr. Gimenez. Stat call placed to Dr. Rosen at [phone]. 2nd Stat call placed to Dr. Rosen at [phone]. Dr. Rosen returned call at 0345 with orders to continues transcutaneous pacing at a rate of 60 and 70 MA, increase dopamine to 10mcg, if pt continues to have pauses administer 1mg atropine, continue NPO status, and plan for pt to possibly have a pacemaker placed today. Dr. Rosen also stated if patient continues to have pauses to contact him for further instruction.
--- NOTE | 2025-09-14 03:04 | ECG_ITS ---
Test Date: 2025-09-14 03:12:02 Measurements Intervals [place] Rate: 94 P: 0 MI: 0 QRS: -18 QRSD: 88 T: 55 QT: 341 QTc: 428 Interpretive Statements SINUS RHYTHM WITH ATRIAL COUPLET AND ATRIAL PREMATURE COMPLEXES DELAYED PRECORDIAL R/S TRANSITION MINIMAL Q WAVES- HIGH LATERAL LEADS BASELINE ARTIFACT- AVR, AVF, V6 ABNORMAL ECG Compared to ECG 09/13/2025 18:42:03 NO SIGNIFICANT CHANGE Electronically Signed On 09-14-2025 06:00:49 CDT by Bhupendra Castano D.O.
[2025-09-14] MEDS: fentaNYL CITRATE INJ (*CRX) 100 MCG/2 ML VIAL 25 MCG IV PUSH ×2 (03:29→03:31)
[2025-09-14] MEDS: MIDAZOLAM HCL (*CRX) 2 MG/2 ML VIAL IV PUSH (03:31)
[2025-09-14] MEDS: ATROPINE SULFATE 1 MG/10 ML SYRINGE IV PUSH (03:57)
[2025-09-14] MEDS: ATROPINE SULFATE 1 MG/10 ML SYRINGE (03:57)
--- NOTE | 2025-09-14 04:12 | PC.NURSE ---
Call placed to Dr. Rosen with a update. stated that he would contact with Cath team for temporary pacemaker placement. Charge Nurse and all in house staff made aware.
--- NOTE | 2025-09-14 05:26 | PM.CNCAR ---
Assessment and Plan Assessment and plan (1) Sinus arrest: Code(s): I45.5 - Other specified heart block Status: Acute Assessment and Plan: -this patient has mom pauses and recurrent syncope despite administering the dopamine and atropine. She has getting transcutaneous pacing. We will proceed emergently for temporary transvenous pacemaker. Risks and benefits discussed and agrees to proceed (2) Aortic stenosis: Qualifiers: Cardiac valve disease etiology: nonrheumatic Qualified Code(s): I35.0 - Nonrheumatic aortic (valve) stenosis Code(s): I35.0 - Nonrheumatic aortic (valve) stenosis Status: Acute Assessment and Plan: Obtain echo (3) Diastolic dysfunction: Code(s): I51.89 - Other ill-defined heart diseases Status: Acute Assessment and Plan: Appears to be compensated. Continue Lasix History of Present Illness History of Present Illness Consult date/time: 09/14/25 05:26 Requesting physician: Erum Gimenez DO Consult reason: Other (syncope) Reason For Visit: Sick Sinus Syndrome Narrative: 80-year-old female with a past medical history of kidney transplant over 20 years ago with good preserved renal function, GERD, mild to moderate aortic valve stenosis, moderate tricuspid regurgitation and diastolic heart failure on low-dose Lasix who presented to the ER via EMS from home due syncopal episodes. Was noticed in the ER to have pauses. Was started on dopamine drip at 7 mics. However at around 330 a.m. had a bowel movement had 16 seconds d pause then required transcutaneous pacing. Dopamine was increased from 7.5 to 10 and given atropine but she continued to need transcutaneous pacing. Review of Systems Review of Systems: All systems reviewed & are unremarkable except as noted in HPI and below Constitutional: Constitutional: Reports lethargy Eyes: Eyes: Denies blurry vision ENT: Denies nasal discharge Cardiovascular: Cardiovascular: Denies chest pain and Reports lightheadedness Respiratory: Respiratory: Denies cough Gastrointestinal: Gastrointestinal: Denies abdominal pain and Denies diarrhea Genitourinary: Genitourinary: Denies dysuria Musculoskeletal: Musculoskeletal: Denies back pain Integumentary/Breasts: Skin/Breast: Denies rash Neurologic: Denies headache(s) Psychiatric: Psychiatric: Denies anxiety Endocrine: Endocrine: Reports fatigue Hematologic/Lymphatic: Hematologic/Lymphatic: Denies easy bleeding Allergic/Immunologic: Allergic/Immunologic: Denies lip swelling PMFSH Past Medical History Medical History Moderate mitral valve regurgitation Aortic stenosis Echo 05/2023: EF 65-70% severely increased left ventricular wall thickness, diastolic dysfunction grade 1, moderate left atrial enlargement, moderate aortic valve calcification, [id number] aortic valve stenosis with peak velocity 189 mean gradient of 9 and valve area of 1.4, mild aortic valve regurgitation, mild mitral valve regurgitation, moderate tricuspid valve regurgitation Diastolic dysfunction Hyperlipidemia Osteoporosis B12 deficiency Vitamin D deficiency History of renal dialysis Patient had end-stage renal disease but now has preserved renal function after kidney transplant Rosacea RLS (restless legs syndrome) Immunosuppression due to drug therapy Hypertension Surgical History Surgical History H/O exploratory laparotomy 06/15/23 exploratory laparotomy, lysis of adhesions, ileocecectomy with primary clzo-md-aued functional end-to-end anastomosis due to obstruction from large gallstone History of laparotomy (05/21/23) Laparotomy and removal of obstructing gallstone of the distal ileum. History of bilateral cataract extraction (2018) History of parathyroidectomy History of renal transplant (1995) Family History Family History Father Kidney failure, acute Social History Social History Social History: Code status: DNR/DNI but okay with medications to keep her heart going in a prearrest situation Surrogate decision maker: Smoking status: Never smoker Alcohol intake: never Drinks per week: 1 Substance use: never Substance use type: does not use Lack of Transportation: No Lack of Food: Never True Current Housing: I Have Housing Concerned About Future Housing: No Difficulty Paying Gas/Electric Bills: No Difficulty Paying for Meds: No Currently Unemployed: No Education: Don't Know Difficulty w/ Childcare or Family Care: No Living arrangements: alone Occupation/Education: retired Spiritual care concerns: No Meds Home Medications and Allergies Home Medications ?Medication ?Instructions ?Recorded ?Confirmed ?Type ergocalciferol (vitamin D2) 1,250 1,250 mcg PO MONTHLY 10/03/20 09/13/25 History mcg (50,000 unit) capsule fluticasone propionate 50 1 spray intranasal DAILY PRN 10/03/20 09/13/25 History mcg/actuation nasal Congestion spray,suspension furosemide 20 mg tablet 20 mg PO QAM 10/03/20 09/13/25 History lisinopril 5 mg tablet 10 mg PO DAILY 10/03/20 09/13/25 History mecobalamin (vitamin B12) 1,000 2,500 mcg PO .COMPLEX 10/03/20 09/13/25 History mcg chewable tablet [id number] acid 0.4 1 tablet PO DAILY 10/03/20 09/13/25 History mg-lycopene 300 mcg-lutein 250 mcg tablet (Centrum Silver) mycophenolate mofetil 500 mg tablet 500 mg PO Q12H 10/03/20 09/13/25 History omega-3 fatty acids-fish oil 360 1 cap PO DAILY 10/03/20 09/13/25 History mg-1,200 mg capsule (Fish Oil) prednisone 5 mg tablet 5 mg PO DAILY 10/03/20 09/13/25 History simvastatin 20 mg tablet 20 mg PO DAILY 10/03/20 09/13/25 History valacyclovir 500 mg tablet 500 mg PO DAILY 10/03/20 09/13/25 History esomeprazole magnesium 20 mg 20 mg PO DAILY 03/20/21 09/13/25 History capsule,delayed release (Nexium) folic acid 1 mg tablet 1 mg PO DAILY 02/25/23 09/13/25 History loratadine 10 mg disintegrating 10 mg PO DAILY PRN Allergy Symptoms 02/25/23 09/13/25 History tablet (Alavert) cyclosporine modified 25 mg 75 mg PO DAILY 05/21/23 09/13/25 History capsule (Neoral) Eye Promise Restore 1 cap PO DAILY 12/31/23 09/13/25 History metronidazole 1 % topical cream 1 applic topical DAILY PRN rash 10/04/24 09/13/25 Rx #60 grams nystatin 100,000 unit/gram topical 1 applic topical BID #60 grams 10/07/24 09/13/25 Rx powder (Nystop) risedronate 150 mg tablet 150 mg PO MONTHLY #3 tabs 03/28/25 09/13/25 Rx potassium chloride 10 mEq 20 meq PO DAILY 09/13/25 09/13/25 History tablet,extended release Allergies Allergy/AdvReac Type Severity Reaction Status Date / Time No Known Allergies Allergy Verified 09/13/25 22:09 Vital Signs Vital Signs - 24 hr 09/13/25 18:35 09/13/25 18:48 09/13/25 18:50 Temperature 36.7 C Pulse Rate 84 92 86 Respiratory Rate 18 22 H Blood Pressure 149/67 H Pulse Oximetry 94 97 Oxygen Delivery Room Air Oxygen Flow Rate 09/13/25 19:00 09/13/25 19:22 09/13/25 19:23 Temperature Pulse Rate 80 84 Respiratory Rate 16 15 Blood Pressure 151/91 H Pulse Oximetry 96 95 97 Oxygen Delivery Oxygen Flow Rate 09/13/25 19:30 09/13/25 19:31 09/13/25 19:45 Temperature Pulse Rate 80 84 72 Respiratory Rate 22 H 29 H 21 H Blood Pressure 140/76 Pulse Oximetry 96 95 96 Oxygen Delivery Oxygen Flow Rate 09/13/25 20:01 09/13/25 20:03 09/13/25 20:04 Temperature Pulse Rate 82 80 83 Respiratory Rate 24 H 16 Blood Pressure 147/84 H 147/84 H Pulse Oximetry 96 96 Oxygen Delivery Oxygen Flow Rate 09/13/25 20:05 09/13/25 20:17 09/13/25 20:34 Temperature Pulse Rate 84 83 85 Respiratory Rate 18 16 17 Blood Pressure Pulse Oximetry 95 96 93 Oxygen Delivery Oxygen Flow Rate 09/13/25 20:45 09/13/25 20:46 09/13/25 21:00 Temperature Pulse Rate 69 104 H 77 Respiratory Rate 18 18 20 Blood Pressure 119/69 Pulse Oximetry 95 95 94 Oxygen Delivery Oxygen Flow Rate 09/13/25 21:01 09/13/25 21:15 09/13/25 21:16 Temperature Pulse Rate 98 91 87 Respiratory Rate 17 22 H 21 H Blood Pressure 135/81 129/64 Pulse Oximetry 93 93 90 Oxygen Delivery Oxygen Flow Rate 09/13/25 22:00 09/13/25 22:00 09/13/25 22:00 Temperature 37.2 C Pulse Rate 88 88 88 Respiratory Rate 21 H Blood Pressure 120/64 120/64 Pulse Oximetry 95 Oxygen Delivery Oxygen Flow Rate 09/13/25 23:00 09/14/25 00:00 09/14/25 00:00 Temperature 36.9 C Pulse Rate 94 92 92 Respiratory Rate 20 14 Blood Pressure 119/73 90/78 L 90/78 L Pulse Oximetry 97 96 Oxygen Delivery Oxygen Flow Rate 09/14/25 00:00 09/14/25 01:00 09/14/25 02:00 Temperature 36.7 C Pulse Rate 91 93 87 Respiratory Rate 19 19 Blood Pressure 137/120 H 113/67 Pulse Oximetry 96 96 Oxygen Delivery Oxygen Flow Rate 09/14/25 02:00 09/14/25 02:00 09/14/25 03:00 Temperature Pulse Rate 877 H 87 43 L Respiratory Rate Blood Pressure 113/67 113/51 L Pulse Oximetry Oxygen Delivery Oxygen Flow Rate 09/14/25 03:00 09/14/25 03:30 09/14/25 03:48 Temperature Pulse Rate 42 L 87 Respiratory Rate 19 Blood Pressure 113/51 L 115/73 Pulse Oximetry 95 Oxygen Delivery Room Air Oxygen Flow Rate 09/14/25 04:00 09/14/25 04:00 09/14/25 04:00 Temperature 36.8 C Pulse Rate 89 89 Respiratory Rate 21 H Blood Pressure 123/89 123/89 Pulse Oximetry 97 97 Oxygen Delivery Nasal Cannula Oxygen Flow Rate 2 09/14/25 04:00 09/14/25 05:00 Temperature Pulse Rate 88 83 Respiratory Rate 24 H Blood Pressure 134/71 Pulse Oximetry 99 Oxygen Delivery Oxygen Flow Rate Exam Const: General: uncomfortable HENMT: Face/Nose/Sinus: no epistaxis Eyes: Sclera: sclerae normal Neck: Thyroid: thyroid normal Resp: Effort & Inspection: normal respiratory effort Cardio: Heart sounds: Murmur heart sound present GI: GI Palp: No Tenderness to palpation present (GI) : Bimanual exam- vagina & uterus: No Cervical tenderness present Skin: General skin exam: no rashes or lesions noted and no erythema Neuro: Speech: normal speech Extrem: General: no edema Psych: Mental Status: mental status grossly normal Results Labs and Meds 09/13/25 18:49 09/13/25 18:49 Lab results: Cardiac Enzymes 09/13/25 09/13/25 09/14/25 Range/Units 18:49 22:35 01:53 AST 74 H (14-36) U/L Troponin I 0.021 0.021 0.021 (0.000-0.034) ng/mL Coagulation 09/13/25 Range/Units 18:49 PT 14.6 (11.1-14.7) Seconds APTT 30.2 (22.3-36.8) Seconds CBC 09/13/25 Range/Units 18:49 WBC 7.4 (4.5-10.0) K/mm3 RBC 3.52 L (4.2-5.4) M/mm3 Hgb 12.3 (12.0-15.0) g/dL Hct 34.9 L (37.0-47.0) % Plt Count 182 (150-375) k/mm3 Lymph # (Auto) 0.69 L (0.9-3.2) K/mm3 [place] # (Auto) 0.6 (0.1-0.6) K/mm3 Eos # (Auto) 0.1 (0-0.3) K/mm3 Baso # (Auto) 0.0 (0.0-0.1) K/mm3 Comprehensive Metabolic Panel 09/13/25 Range/Units 18:49 Sodium 135 L (137-145) mmol/L Potassium 4.3 (3.4-5.0) mmol/L Chloride 105 (98-107) mmol/L Carbon Dioxide 21 L (22-30) mmol/L BUN 24 H (7-17) mg/dL Creatinine 0.64 L (0.7-1.0) mg/dL Glucose 114 H (65-110) mg/dL Calcium 9.2 (8.4-10.2) mg/dL AST 74 H (14-36) U/L ALT 94 H (6-35) U/L Alkaline Phosphatase 83 (38-126) U/L Total Protein 6.8 (6.3-8.2) g/dL Albumin 4.0 (3.5-5.1) g/dL Intake and Output 09/13/25 09/13/25 09/14/25 15:59 23:59 07:59 Intake Total 22.6 126.5 Output Total 800 Balance 22.6 -673.5 Intake: IV 22.6 126.5 DOPamine 400 MG/D5W 250 ML 400 22.6 76.5 mg In 250 ml @ 10 MCG/KG/MIN 23 .175 mls/hr IV CONT .[id number] [facility] Rx#:[id number] Magnesium Sulf 2 gm/Water 50Ml 50 2 gm In 50 ml @ 25 mls/hr IVPB ONCE ONE Rx#:[id number] Output: Catheter Urine 800 Urethral Catheter 800 Patient Weight 09/14/25 23:59 Weight 58.6 kg
--- NOTE | 2025-09-14 05:30 | PC.NURSE ---
Pt being transported to [facility] at this time.
--- NOTE | 2025-09-14 05:36 | WPDMODSED ---
Moderate Sedation Note-Pt Data Patient Data Diagnosis: Sinus arrest, sick sinus Present Complaint: Syncope Procedure to be performed/Plan: Temporary pacer Allergies Allergy/AdvReac Type Severity Reaction Status Date / Time No Known Allergies Allergy Verified 09/13/25 22:09 Home Medications ?Medication ?Instructions ?Recorded ?Confirmed ?Type ergocalciferol (vitamin D2) 1,250 1,250 mcg PO MONTHLY 10/03/20 09/13/25 History mcg (50,000 unit) capsule fluticasone propionate 50 1 spray intranasal DAILY PRN 10/03/20 09/13/25 History mcg/actuation nasal Congestion spray,suspension furosemide 20 mg tablet 20 mg PO QAM 10/03/20 09/13/25 History lisinopril 5 mg tablet 10 mg PO DAILY 10/03/20 09/13/25 History mecobalamin (vitamin B12) 1,000 2,500 mcg PO .COMPLEX 10/03/20 09/13/25 History mcg chewable tablet ysysllht-amg-ysrqi acid 0.4 1 tablet PO DAILY 10/03/20 09/13/25 History mg-lycopene 300 mcg-lutein 250 mcg tablet (Centrum Silver) mycophenolate mofetil 500 mg tablet 500 mg PO Q12H 10/03/20 09/13/25 History omega-3 fatty acids-fish oil 360 1 cap PO DAILY 10/03/20 09/13/25 History mg-1,200 mg capsule (Fish Oil) prednisone 5 mg tablet 5 mg PO DAILY 10/03/20 09/13/25 History simvastatin 20 mg tablet 20 mg PO DAILY 10/03/20 09/13/25 History valacyclovir 500 mg tablet 500 mg PO DAILY 10/03/20 09/13/25 History esomeprazole magnesium 20 mg 20 mg PO DAILY 03/20/21 09/13/25 History capsule,delayed release (Nexium) folic acid 1 mg tablet 1 mg PO DAILY 02/25/23 09/13/25 History loratadine 10 mg disintegrating 10 mg PO DAILY PRN Allergy Symptoms 02/25/23 09/13/25 History tablet (Alavert) cyclosporine modified 25 mg 75 mg PO DAILY 05/21/23 09/13/25 History capsule (Neoral) Eye Promise Restore 1 cap PO DAILY 12/31/23 09/13/25 History metronidazole 1 % topical cream 1 applic topical DAILY PRN rash 10/04/24 09/13/25 Rx #60 grams nystatin 100,000 unit/gram topical 1 applic topical BID #60 grams 10/07/24 09/13/25 Rx powder (Nystop) risedronate 150 mg tablet 150 mg PO MONTHLY #3 tabs 03/28/25 09/13/25 Rx potassium chloride 10 mEq 20 meq PO DAILY 09/13/25 09/13/25 History tablet,extended release Current Medications: Active Medications Acetaminophen (Acetaminophen 325 Mg Tablet) 650 mg PO Q4H PRN PRN Reason: Mild Pain (1-3) or Fever Last Admin: 09/14/25 01:52 Dose: 650 mg Cyanocobalamin (Cyanocobalamin 500 Mcg Tablet) 500 mcg PO TuFr@0900 [facility] Cyanocobalamin (Cyanocobalamin 1,000 Mcg Tablet) 2,000 mcg PO TuFr@0900 [facility] Cyclosporine (Cyclosporine (Neoral) 25 Mg Capsule) 75 mg PO DAILY [facility] Enoxaparin Sodium (Enoxaparin 40 Mg/0.4 Ml Syringe) 40 mg SUB-Q DAILY [facility] Ergocalciferol (Ergocalciferol (Vitamin D2) 1,250 Mcg (50,000 Units) Capsule) 1,250 mcg PO MONTHLY [facility] Fish Oil (Willet 3 Polyunsat Fatty Acids 1 Gm Cap) 1 gm PO DAILY [facility] Fluticasone Propionate (Fluticasone Propionate 0.05% Na Spr 16 Gm Btl (*Bkc)) 1 spray NASAL DAILY PRN PRN Reason: Congestion Folic Acid (Folic Acid 1 Mg Tablet) 1 mg PO DAILY [facility] Furosemide (Furosemide 20 Mg Tablet) 20 mg PO QAM [facility] Dopamine HCl/Dextrose (Dopamine 400 Mg/D5w 250 Ml) 400 mg in 250 mls @ 23.175 mls/hr IV CONT .[id number] [facility] Last Infusion: 09/14/25 04:00 Dose: 10 mcg/kg/min, 23.18 mls/hr Lisinopril (Lisinopril 10 Mg Tablet) 10 mg PO DAILY [facility] Miscellaneous Information (Nystatin Powder Is Autosub To Tolnaftate) 1 each XX PRN PRN PRN Reason: Informational Stop: 09/14/25 22:55 Mycophenolate Mofetil (Mycophenolate Mofetil 250 Mg Capsule) 500 mg PO Q12HR [facility] Last Admin: 09/13/25 23:59 Dose: 500 mg Pantoprazole Sodium (Pantoprazole 40 Mg Tablet) 40 mg PO QAM [facility] Perflutren Lipid Microsphere (Perflutren Lipid Microspheres 1.5 Ml Vial Diluted To 10 Ml Total Volume) 0 ml IV PUSH ONCE PRN; Protocol PRN Reason: adequate visualization Stop: 09/16/25 22:19 Potassium Chloride (Potassium Chloride 20 Meq Er Tablet) 20 meq PO DAILY@0800 [facility] Prednisone (Prednisone 5 Mg Tablet) 5 mg PO DAILY@0800 [facility] Valacyclovir HCl (Valacyclovir Hcl 500 Mg Tablet) 500 mg PO DAILY [facility] Sedation/Anesthesia: No previous sedation/anesthesia problems (including family history). [facility] Past Medical History Medical History Moderate mitral valve regurgitation Aortic stenosis Echo 05/2023: EF 65-70% severely increased left ventricular wall thickness, diastolic dysfunction grade 1, moderate left atrial enlargement, moderate aortic valve calcification, [id number] aortic valve stenosis with peak velocity 189 mean gradient of 9 and valve area of 1.4, mild aortic valve regurgitation, mild mitral valve regurgitation, moderate tricuspid valve regurgitation Diastolic dysfunction Hyperlipidemia Osteoporosis B12 deficiency Vitamin D deficiency History of renal dialysis Patient had end-stage renal disease but now has preserved renal function after kidney transplant Rosacea RLS (restless legs syndrome) Immunosuppression due to drug therapy Hypertension Surgical History Surgical History H/O exploratory laparotomy 06/15/23 exploratory laparotomy, lysis of adhesions, ileocecectomy with primary [id number] functional end-to-end anastomosis due to obstruction from large gallstone History of laparotomy (05/21/23) Laparotomy and removal of obstructing gallstone of the distal ileum. History of bilateral cataract extraction (2018) History of parathyroidectomy History of renal transplant (1995) Family History Family History Father Kidney failure, acute Social History Social History Social History: Code status: DNR/DNI but okay with medications to keep her heart going in a prearrest situation Surrogate decision maker: Smoking status: Never smoker Alcohol intake: never Drinks per week: 1 Substance use: never Substance use type: does not use Lack of Transportation: No Lack of Food: Never True Current Housing: I Have Housing Concerned About Future Housing: No Difficulty Paying Gas/Electric Bills: No Difficulty Paying for Meds: No Currently Unemployed: No Education: Don't Know Difficulty w/ Childcare or Family Care: No Living arrangements: alone Occupation/Education: retired Spiritual care concerns: No Mod Sed Physical Exam Physical Exam Pre Procedural Exam: Normal: Appearance, Eyes, Ears, Nose, Neck, Throat, Airway, Lungs, Heart Size, Heart Rate, Heart Rhythm, Neuro Exam, Abdomen, Liver, Kidneys, Spleen, Breasts, Genitalia, Extremities and Skin Hours since solid foods: 8 Hours since liquid intake: 8 Mallampati Classification: class 1 Internal Medicine - PN: Obj Da Vital Signs Vital Signs: Vital Signs - 24 hr 09/13/25 18:35 09/13/25 18:48 09/13/25 18:50 Temperature 36.7 C Pulse Rate 84 92 86 Respiratory Rate 18 22 H Blood Pressure 149/67 H Pulse Oximetry 94 97 Oxygen Delivery Room Air Oxygen Flow Rate 09/13/25 19:00 09/13/25 19:22 09/13/25 19:23 Temperature Pulse Rate 80 84 Respiratory Rate 16 15 Blood Pressure 151/91 H Pulse Oximetry 96 95 97 Oxygen Delivery Oxygen Flow Rate 09/13/25 19:30 09/13/25 19:31 09/13/25 19:45 Temperature Pulse Rate 80 84 72 Respiratory Rate 22 H 29 H 21 H Blood Pressure 140/76 Pulse Oximetry 96 95 96 Oxygen Delivery Oxygen Flow Rate 09/13/25 20:01 09/13/25 20:03 09/13/25 20:04 Temperature Pulse Rate 82 80 83 Respiratory Rate 24 H 16 Blood Pressure 147/84 H 147/84 H Pulse Oximetry 96 96 Oxygen Delivery Oxygen Flow Rate 09/13/25 20:05 09/13/25 20:17 09/13/25 20:34 Temperature Pulse Rate 84 83 85 Respiratory Rate 18 16 17 Blood Pressure Pulse Oximetry 95 96 93 Oxygen Delivery Oxygen Flow Rate 09/13/25 20:45 09/13/25 20:46 09/13/25 21:00 Temperature Pulse Rate 69 104 H 77 Respiratory Rate 18 18 20 Blood Pressure 119/69 Pulse Oximetry 95 95 94 Oxygen Delivery Oxygen Flow Rate 09/13/25 21:01 09/13/25 21:15 09/13/25 21:16 Temperature Pulse Rate 98 91 87 Respiratory Rate 17 22 H 21 H Blood Pressure 135/81 129/64 Pulse Oximetry 93 93 90 Oxygen Delivery Oxygen Flow Rate 09/13/25 22:00 09/13/25 22:00 09/13/25 22:00 Temperature 37.2 C Pulse Rate 88 88 88 Respiratory Rate 21 H Blood Pressure 120/64 120/64 Pulse Oximetry 95 Oxygen Delivery Oxygen Flow Rate 09/13/25 23:00 09/14/25 00:00 09/14/25 00:00 Temperature 36.9 C Pulse Rate 94 92 92 Respiratory Rate 20 14 Blood Pressure 119/73 90/78 L 90/78 L Pulse Oximetry 97 96 Oxygen Delivery Oxygen Flow Rate 09/14/25 00:00 09/14/25 01:00 09/14/25 02:00 Temperature 36.7 C Pulse Rate 91 93 87 Respiratory Rate 19 19 Blood Pressure 137/120 H 113/67 Pulse Oximetry 96 96 Oxygen Delivery Oxygen Flow Rate 09/14/25 02:00 09/14/25 02:00 09/14/25 03:00 Temperature Pulse Rate 877 H 87 43 L Respiratory Rate Blood Pressure 113/67 113/51 L Pulse Oximetry Oxygen Delivery Oxygen Flow Rate 09/14/25 03:00 09/14/25 03:30 09/14/25 03:48 Temperature Pulse Rate 42 L 87 Respiratory Rate 19 Blood Pressure 113/51 L 115/73 Pulse Oximetry 95 Oxygen Delivery Room Air Oxygen Flow Rate 09/14/25 04:00 09/14/25 04:00 09/14/25 04:00 Temperature 36.8 C Pulse Rate 89 89 Respiratory Rate 21 H Blood Pressure 123/89 123/89 Pulse Oximetry 97 97 Oxygen Delivery Nasal Cannula Oxygen Flow Rate 2 09/14/25 04:00 09/14/25 05:00 Temperature Pulse Rate 88 83 Respiratory Rate 24 H Blood Pressure 134/71 Pulse Oximetry 99 Oxygen Delivery Oxygen Flow Rate Intake/Output Intake/Output: Intake & Output 09/11/25 09/12/25 09/13/25 09/14/25 23:59 23:59 23:59 23:59 Intake Total 22.6 126.5 Output Total 800 Balance 22.6 -673.5 Meds/Results Medications: Active Medications Generic Name Dose Route Start Last Admin Trade Name Freq PRN Reason Stop Dose Admin Acetaminophen 650 mg 09/14/25 00:40 09/14/25 01:52 Acetaminophen 325 Mg Tablet PO 650 mg Q4H PRN Administration Mild Pain (1-3) or Fever Cyanocobalamin 500 mcg 09/16/25 09:00 Cyanocobalamin 500 Mcg Tablet PO TuFr@0900 [facility] Cyanocobalamin 2,000 mcg 09/16/25 09:00 Cyanocobalamin 1,000 Mcg Tablet PO TuFr@0900 [facility] Cyclosporine 75 mg 09/14/25 09:00 Cyclosporine (Neoral) 25 Mg Capsule PO DAILY [facility] Enoxaparin Sodium 40 mg 09/14/25 09:00 Enoxaparin 40 Mg/0.4 Ml Syringe SUB-Q DAILY [facility] Ergocalciferol 1,250 mcg 09/17/25 09:00 Ergocalciferol (Vitamin D2) 1,250 Mcg (50,000 Units) Capsule PO MONTHLY [facility] Fish Oil 1 gm 09/14/25 09:00 Willet 3 Polyunsat Fatty Acids 1 Gm Cap PO DAILY [facility] Fluticasone Propionate 1 spray 09/13/25 22:39 Fluticasone Propionate 0.05% Na Spr 16 Gm Btl (*Bkc) NASAL DAILY PRN Congestion Folic Acid 1 mg 09/14/25 09:00 Folic Acid 1 Mg Tablet PO DAILY [facility] Furosemide 20 mg 09/14/25 09:00 Furosemide 20 Mg Tablet PO QAM [facility] Dopamine HCl/Dextrose 400 mg in 250 mls @ 23.175 mls/hr 09/13/25 20:00 09/14/25 04:00 Dopamine 400 Mg/D5w 250 Ml IV CONT 10 mcg/kg/min .[id number] [facility] 23.18 mls/hr 10 MCG/KG/MIN Infusion Lisinopril 10 mg 09/14/25 09:00 Lisinopril 10 Mg Tablet PO DAILY [facility] Miscellaneous Information 1 each 09/13/25 22:56 Nystatin Powder Is Autosub To Tolnaftate XX 09/14/25 22:55 PRN PRN Informational Mycophenolate Mofetil 500 mg 09/13/25 22:55 09/13/25 23:59 Mycophenolate Mofetil 250 Mg Capsule PO 500 mg Q12HR [facility] Administration Pantoprazole Sodium 40 mg 09/14/25 09:00 Pantoprazole 40 Mg Tablet PO QAM [facility] Perflutren Lipid Microsphere 0 ml 09/13/25 22:19 Perflutren Lipid Microspheres 1.5 Ml Vial Diluted To 10 Ml Total Volume IV PUSH 09/16/25 22:19 ONCE PRN adequate visualization Protocol Potassium Chloride 20 meq 09/14/25 08:00 Potassium Chloride 20 Meq Er Tablet PO DAILY@0800 [facility] Prednisone 5 mg 09/14/25 08:00 Prednisone 5 Mg Tablet PO DAILY@0800 [facility] Valacyclovir HCl 500 mg 09/14/25 09:00 Valacyclovir Hcl 500 Mg Tablet PO DAILY [facility] Radiology Results: ITS Impressions Chest X-Ray 09/13/25 19:24 IMPRESSION: 1. No acute cardiopulmonary findings. Labs 09/13/25 18:49 09/13/25 18:49 Labs: Laboratory Results - last 24 hr 09/13/25 09/13/25 09/13/25 18:49 21:05 22:35 WBC 7.4 RBC 3.52 L Hgb 12.3 Hct 34.9 L MCV 99.1 MCH 34.9 H MCHC 35.2 RDW 13.2 Plt Count 182 MPV 9.5 Immature Gran % (Auto) 0.3 Neut % (Auto) 81.3 H Lymph % (Auto) 9.3 L Whiteside % (Auto) 8.1 Eos % (Auto) 0.7 Baso % (Auto) 0.3 Lymph # (Auto) 0.69 L [place] # (Auto) 0.6 Eos # (Auto) 0.1 Baso # (Auto) 0.0 Abs Immat Gran (auto) 0.02 Absolute Neuts (auto) 6.0 Absolute Nucleated RBC 0.000 Nucleated RBC % 0.0 PT 14.6 INR 1.1 APTT 30.2 Sodium 135 L Potassium 4.3 Chloride 105 Carbon Dioxide 21 L Anion Gap 9 BUN 24 H Creatinine 0.64 L Estim Creat Clear Calc Not Reportable Estimated GFR > 60 Glucose 114 H Calcium 9.2 Phosphorus 3.1 Magnesium 1.6 Total Bilirubin 1.7 H AST 74 H ALT 94 H Alkaline Phosphatase 83 Troponin I 0.021 0.021 Total Protein 6.8 Albumin 4.0 Lipase 94 Nasal MRSA (PCR) Not detected 09/14/25 01:53 WBC RBC Hgb Hct MCV MCH MCHC RDW Plt Count MPV Immature Gran % (Auto) Neut % (Auto) Lymph % (Auto) Whiteside % (Auto) Eos % (Auto) Baso % (Auto) Lymph # (Auto) Whiteside # (Auto) Eos # (Auto) Baso # (Auto) Abs Immat Gran (auto) Absolute Neuts (auto) Absolute Nucleated RBC Nucleated RBC % PT INR APTT Sodium Potassium Chloride Carbon Dioxide Anion Gap BUN Creatinine Estim Creat Clear Calc Estimated GFR Glucose Calcium Phosphorus Magnesium Total Bilirubin AST ALT Alkaline Phosphatase Troponin I 0.021 Total Protein Albumin Lipase Nasal MRSA (PCR) ASA Classification/Sedation ASA Classification/Sedation ASA Class: I Emergent: No Risks: Risks, benefits and alternatives explained and patient/family accepted plan for sedation. Patient re-evaluated immediately prior to sedation.
--- NOTE | 2025-09-14 05:37 | WPDHPUPDATE1 ---
History and Physical Update Update Date/Time: 09/14/25 05:37 History and Physical has been reviewed, including an updated exam of the patient. There are NO changes in the patient's condition. Risks, benefits, and alternatives have been discussed and questions answered. Patient agrees to proceed with procedure.
--- NOTE | 2025-09-14 05:37 | WPDCARDPROC ---
Cardiac Cath Procedure Note Date of procedure:: 09/14/25 Performing physician:: Ayan Rosen MD Date of service 09/14/2025 Indication:: Sinus arrest and recurrent syncope Brief clinical history:: 80-year-old female with a past medical history of kidney transplant over 20 years ago with good preserved renal function, GERD, mild to moderate aortic valve stenosis, moderate tricuspid regurgitation and diastolic heart failure on low-dose Lasix who presented to the ER via EMS from home due syncopal episodes. Was noticed in the ER to have pauses. Was started on dopamine drip at 7 mics. However at around 330 a.m. had a bowel movement had 16 seconds d pause then required transcutaneous pacing. Dopamine was increased from 7.5 to 10 and given atropine but she continued to need transcutaneous pacing. Procedure Procedure performed:: -Moderate sedation that started at 5:34 a.m. and ended at 6:10 a.m. total duration 26 minutes using 2 mg of Versed and 50 mcg of fentanyl. The nurse was jackie hermosillo -insertion of temporary transvenous pacemaker Sedation/Medication given:: Moderate sedation that started at 5:34 a.m. and ended at 6:10 a.m. total duration 26 minutes using 2 mg of Versed and 50 mcg of fentanyl. The nurse was jackie hermosillo Access site:: Right common femoral vein Estimated blood loss:: 5 cc to Procedure note:: -after informed consent patient was brought to the catheterization lab. Moderate sedation was given and the right groin was infiltrated with 1% lidocaine. Seven [place] sheath was obtained in the right femoral vein using modified Seldinger technique and then trans venous pacemaker was advanced to the right ventricle and secured in place. Findings:: Sinus arrest Conclusion:: Successful insertion of transvenous pacemaker Assessment and Plan Assessment and plan (1) Sinus arrest: Code(s): I45.5 - Other specified heart block Status: Acute Plan -arrange for permanent pacemaker. -echo
--- NOTE | 2025-09-14 06:40 | PC.NURSE ---
Pt arrived back to ICU at this time.
--- NOTE | 2025-09-14 07:33 | P.SEDATION_ITS ---
Moderate Sedation Note-Pt Data Patient Data Diagnosis: Syncope with intermittent complete heart block Present Complaint: Syncope Procedure to be performed/Plan: Pacemaker implantation Allergies Allergy/AdvReac Type Severity Reaction Status Date / Time No Known Allergies Allergy Verified 09/13/25 22:09 Home Medications ?Medication ?Instructions ?Recorded ?Confirmed ?Type ergocalciferol (vitamin D2) 1,250 1,250 mcg PO MONTHLY 10/03/20 09/13/25 History mcg (50,000 unit) capsule fluticasone propionate 50 1 spray intranasal DAILY PRN 10/03/20 09/13/25 History mcg/actuation nasal Congestion spray,suspension furosemide 20 mg tablet 20 mg PO QAM 10/03/20 History lisinopril 5 mg tablet 10 mg PO DAILY 10/03/2008/18 History mecobalamin (vitamin B12) 1,000 2,500 mcg PO .COMPLEX 10/03/20 09/13/25 History mcg chewable tablet [id number] acid 0.4 1 tablet PO DAILY 10/03/20 09/13/25 History mg-lycopene 300 mcg-lutein 250 mcg tablet (Centrum Silver) mycophenolate mofetil 500 mg tablet 500 mg PO Q12H 09/13/25 History omega-3 fatty acids-fish oil 360 1 cap PO DAILY 09/13/25 History mg-1,200 mg capsule (Fish Oil) prednisone 5 mg tablet 5 mg PO DAILY 10/03/2009/13 History simvastatin 20 mg tablet 20 mg PO DAILY 10/03/2008/18 History valacyclovir 500 mg tablet 500 mg PO DAILY 10/03/20 History esomeprazole magnesium 20 mg 20 mg PO DAILY 03/20/21 1 History capsule,delayed release (Nexium) folic acid 1 mg tablet 1 mg PO DAILY 02/25/2309/13 History loratadine 10 mg disintegrating 10 mg PO DAILY PRN All ergy Symptoms 02/25/23 09/13/25 History tablet (Alavert) cyclosporine modified 25 mg 75 mg PO DAILY 05/21/23 History capsule (Neoral) Eye Promise Restore 1 cap PO DAILY 12/31/2308/18 History metronidazole 1 % topical cream 1 applic topical DAILY PRN rash 10/04/24 09/13/25 Rx #60 grams nystatin 100,000 unit/gram topical 1 applic topical BI D #60 grams 10/07/24 09/13/25 Rx powder (Nystop) risedronate 150 mg tablet 150 mg PO MONTHLY #3 tabs 09/13/25 Rx potassium chloride 10 mEq 20 meq PO DAILY 09/13/25 History tablet,extended release Current Medications: Active Medications Acetaminophen (Acetaminophen 325 Mg Tablet) 650 mg PO Q4H PRN PRN Reason: Mild Pain (1-3) or Fever Last Admin: 09/14/25 01:52 Dose: 650 mg Cyanocobalamin (Cyanocobalamin 500 Mcg Tablet) 500 mcg PO TuFr@0900 [facility] Cyanocobalamin (Cyanocobalamin 1,000 Mcg Tablet) 2,000 mcg PO TuFr@0900 [facility] Cyclosporine (Cyclosporine (Neoral) 25 Mg Capsule) 75 mg PO DAILY [facility] Enoxaparin Sodium (Enoxaparin 40 Mg/0.4 Ml Syringe) 40 mg SUB-Q DAILY [facility] Ergocalciferol (Ergocalciferol (Vitamin D2) 1,250 Mcg (50,000 Units) Capsule) 1,250 mcg PO MONTHLY [facility] Fish Oil (Velma 3 Polyunsat Fatty Acids 1 Gm Cap) 1 gm PO DAILY [facility] Fluticasone Propionate (Fluticasone Propionate 0.05% Na Spr 16 Gm Btl (*Bkc)) 1 spray NASAL DAILY PRN PRN Reason: Congestion Folic Acid (Folic Acid 1 Mg Tablet) 1 mg PO DAILY [facility] Furosemide (Furosemide 20 Mg Tablet) 20 mg PO QAM [facility] Dopamine HCl/Dextrose (Dopamine 400 Mg/D5w 250 Ml) 400 mg in 250 mls @ 0 mls/hr IV CONT .Q0M [facility] Last Infusion: 09/14/25 06:52 Dose: 0 mcg/kg/min, 0 mls/hr Lisinopril (Lisinopril 10 Mg Tablet) 10 mg PO DAILY [facility] Miscellaneous Information (Nystatin Powder Is Autosub To Tolnaftate) 1 each XX PRN PRN PRN Reason: Informational Stop: 09/14/25 22:55 Mycophenolate Mofetil (Mycophenolate Mofetil 250 Mg Capsule) 500 mg PO Q12HR [facility] Last Admin: 09/13/25 23:59 Dose: 500 mg Pantoprazole Sodium (Pantoprazole 40 Mg Tablet) 40 mg PO QAM [facility] Perflutren Lipid Microsphere (Perflutren Lipid Microspheres 1.5 Ml Vial Diluted To 10 Ml Total Volume) 0 ml IV PUSH ONCE PRN; Protocol PRN Reason: adequate visualization Stop: 09/16/25 22:19 Potassium Chloride (Potassium Chloride 20 Meq Er Tablet) 20 meq PO DAILY@0800 [facility] Prednisone (Prednisone 5 Mg Tablet) 5 mg PO DAILY@0800 [facility] Valacyclovir HCl (Valacyclovir Hcl 500 Mg Tablet) 500 mg PO DAILY [facility] Sedation/Anesthesia: No previous sedation/anesthesia problems (including family history). [facility] Past Medical History Medical History Moderate mitral valve regurgitation Aortic stenosis Echo 05/2023: EF 65-70% severely increased left ventricular wall thickness, diastolic dysfunction grade 1, moderate left atrial enlargement, moderate aortic valve calcification, [id number] aortic valve stenosis with peak velocity 189 mean gradient of 9 and valve area of 1.4, mild aortic valve regurgitation, mild mitral valve regurgitation, moderate tricuspid valve regurgitation Diastolic dysfunction Hyperlipidemia Osteoporosis B12 deficiency Vitamin D deficiency History of renal dialysis Patient had end-stage renal disease but now has preserved renal function after kidney transplant Rosacea RLS (restless legs syndrome) Immunosuppression due to drug therapy Hypertension Surgical History Surgical History H/O exploratory laparotomy 06/15/23 exploratory laparotomy, lysis of adhesions, ileocecectomy with primary [id number]-hqcw functional end-to-end anastomosis due to obstruction from large gallstone History of laparotomy (05/21/23) Laparotomy and removal of obstructing gallstone of the distal ileum. History of bilateral cataract extraction (2018) History of parathyroidectomy History of renal transplant (1995) Family History Family History Father Kidney failure, acute Social History Social History Social History: Code status: DNR/DNI but okay with medications to keep her heart going in a prearrest situation Surrogate decision maker: Smoking status: Never smoker Alcohol intake: never Drinks per week: 1 Substance use: never Substance use type: does not use Lack of Transportation: No Lack of Food: Never True Current Housing: I Have Housing Concerned About Future Housing: No Difficulty Paying Gas/Electric Bills: No Difficulty Paying for Meds: No Currently Unemployed: No Education: Don't Know Difficulty w/ Childcare or Family Care: No Living arrangements: alone Occupation/Education: retired Spiritual care concerns: No Mod Sed Physical Exam Physical Exam Pre Procedural Exam: Normal: Appearance (Pleasant elderly lady no distress), Throat, Airway, Lungs, Heart Size, Heart Rate, Heart Rhythm, Neuro Exam and Extremities Hours since solid foods: 12 Hours since liquid intake: 12 Mallampati Classification: class II Internal Medicine - PN: Obj Da Vital Signs Vital Signs: Vital Signs - 24 hr 09/13/25 18:35 09/13/25 18:48 09/13/25 18:50 Temperature 36.7 C Pulse Rate 84 92 86 Respiratory Rate 18 22 H Blood Pressure 149/67 H Pulse Oximetry 94 97 Oxygen Delivery Room Air Oxygen Flow Rate 09/13/25 19:00 09/13/25 19:22 09/13/25 19:23 Temperature Pulse Rate 80 84 Respiratory Rate 16 15 Blood Pressure 151/91 H Pulse Oximetry 96 95 97 Oxygen Delivery Oxygen Flow Rate 09/13/25 19:30 09/13/25 19:31 09/13/25 19:45 Temperature Pulse Rate 80 84 72 Respiratory Rate 22 H 29 H 21 H Blood Pressure 140/76 Pulse Oximetry 96 95 96 Oxygen Delivery Oxygen Flow Rate 09/13/25 20:01 09/13/25 20:03 09/13/25 20:04 Temperature Pulse Rate 82 80 83 Respiratory Rate 24 H 16 Blood Pressure 147/84 H 147/84 H Pulse Oximetry 96 96 Oxygen Delivery Oxygen Flow Rate 09/13/25 20:05 09/13/25 20:17 09/13/25 20:34 Temperature Pulse Rate 84 83 85 Respiratory Rate 18 16 17 Blood Pressure Pulse Oximetry 95 96 93 Oxygen Delivery Oxygen Flow Rate 09/13/25 20:45 09/13/25 20:46 09/13/25 21:00 Temperature Pulse Rate 69 104 H 77 Respiratory Rate 18 18 20 Blood Pressure 119/69 Pulse Oximetry 95 95 94 Oxygen Delivery Oxygen Flow Rate 09/13/25 21:01 09/13/25 21:15 09/13/25 21:16 Temperature Pulse Rate 98 91 87 Respiratory Rate 17 22 H 21 H Blood Pressure 135/81 129/64 Pulse Oximetry 93 93 90 Oxygen Delivery Oxygen Flow Rate 09/13/25 22:00 09/13/25 22:00 09/13/25 22:00 Temperature 37.2 C Pulse Rate 88 88 88 Respiratory Rate 21 H Blood Pressure 120/64 120/64 Pulse Oximetry 95 Oxygen Delivery Oxygen Flow Rate 09/13/25 23:00 09/14/25 00:00 09/14/25 00:00 Temperature 36.9 C Pulse Rate 94 92 92 Respiratory Rate 20 14 Blood Pressure 119/73 90/78 L 90/78 L Pulse Oximetry 97 96 Oxygen Delivery Oxygen Flow Rate 09/14/25 00:00 09/14/25 01:00 09/14/25 02:00 Temperature 36.7 C Pulse Rate 91 93 87 Respiratory Rate 19 19 Blood Pressure 137/120 H 113/67 Pulse Oximetry 96 96 Oxygen Delivery Oxygen Flow Rate 09/14/25 02:00 09/14/25 02:00 09/14/25 03:00 Temperature Pulse Rate 877 H 87 43 L Respiratory Rate Blood Pressure 113/67 113/51 L Pulse Oximetry Oxygen Delivery Oxygen Flow Rate 09/14/25 03:00 09/14/25 03:30 09/14/25 03:48 Temperature Pulse Rate 42 L 87 Respiratory Rate 19 Blood Pressure 113/51 L 115/73 Pulse Oximetry 95 Oxygen Delivery Room Air Oxygen Flow Rate 09/14/25 04:00 09/14/25 04:00 09/14/25 04:00 Temperature 36.8 C Pulse Rate 89 89 Respiratory Rate 21 H Blood Pressure 123/89 123/89 Pulse Oximetry 97 97 Oxygen Delivery Nasal Cannula Oxygen Flow Rate 2 09/14/25 04:00 09/14/25 05:00 09/14/25 06:40 Temperature Pulse Rate 88 83 84 Respiratory Rate 24 H Blood Pressure 134/71 Pulse Oximetry 99 Oxygen Delivery Oxygen Flow Rate 09/14/25 06:40 09/14/25 06:42 09/14/25 06:52 Temperature Pulse Rate 84 85 90 Respiratory Rate 24 H Blood Pressure 111/64 111/64 113/68 Pulse Oximetry 95 Oxygen Delivery Oxygen Flow Rate 09/14/25 07:00 Temperature Pulse Rate 83 Respiratory Rate 24 H Blood Pressure 134/71 Pulse Oximetry 99 Oxygen Delivery Oxygen Flow Rate Intake/Output Intake/Output: Intake & Output 09/11/25 09/12/25 09/13/25 09/14/25 23:59 23:59 23:59 23:59 Intake Total 22.6 190.1 Output Total 800 Balance 22.6 -609.9 Meds/Results Medications: Active Medications Generic Name Dose Route Start Last Admin Trade Name Freq PRN Reason Stop Dose Admin Acetaminophen 650 mg 09/14/25 00:40 09/14/25 01:52 Acetaminophen 325 Mg Tablet PO 650 mg Q4H PRN Administration Mild Pain (1-3) or Fever Cyanocobalamin 500 mcg 09/16/25 09:00 Cyanocobalamin 500 Mcg Tablet PO TuFr@0900 [facility] Cyanocobalamin 2,000 mcg 09/16/25 09:00 Cyanocobalamin 1,000 Mcg Tablet PO TuFr@0900 [facility] Cyclosporine 75 mg 09/14/25 09:00 Cyclosporine (Neoral) 25 Mg Capsule PO DAILY [facility] Enoxaparin Sodium 40 mg 09/14/25 09:00 Enoxaparin 40 Mg/0.4 Ml Syringe SUB-Q DAILY [facility] Ergocalciferol 1,250 mcg 09/17/25 09:00 Ergocalciferol (Vitamin D2) 1,250 Mcg (50,000 Units) Capsule PO MONTHLY [facility] Fish Oil 1 gm 09/14/25 09:00 Velma 3 Polyunsat Fatty Acids 1 Gm Cap PO DAILY [facility] Fluticasone Propionate 1 spray 09/13/25 22:39 Fluticasone Propionate 0.05% Na Spr 16 Gm Btl (*Bkc) NASAL DAILY PRN Congestion Folic Acid 1 mg 09/14/25 09:00 Folic Acid 1 Mg Tablet PO DAILY [facility] Furosemide 20 mg 09/14/25 09:00 Furosemide 20 Mg Tablet PO QAM [facility] Dopamine HCl/Dextrose 400 mg in 250 mls @ 0 mls/hr 09/13/25 20:00 09/14/25 06:52 Dopamine 400 Mg/D5w 250 Ml IV CONT 0 mcg/kg/min .Q0M [facility] 0 mls/hr 0 MCG/KG/MIN Infusion Lisinopril 10 mg 09/14/25 09:00 Lisinopril 10 Mg Tablet PO DAILY [facility] Miscellaneous Information 1 each 09/13/25 22:56 Nystatin Powder Is Autosub To Tolnaftate XX 09/14/25 22:55 PRN PRN Informational Mycophenolate Mofetil 500 mg 09/13/25 22:55 09/13/25 23:59 Mycophenolate Mofetil 250 Mg Capsule PO 500 mg Q12HR [facility] Administration Pantoprazole Sodium 40 mg 09/14/25 09:00 Pantoprazole 40 Mg Tablet PO QAM [facility] Perflutren Lipid Microsphere 0 ml 09/13/25 22:19 Perflutren Lipid Microspheres 1.5 Ml Vial Diluted To 10 Ml Total Volume IV PUSH 09/16/25 22:19 ONCE PRN adequate visualization Protocol Potassium Chloride 20 meq 09/14/25 08:00 Potassium Chloride 20 Meq Er Tablet PO DAILY@0800 [facility] Prednisone 5 mg 09/14/25 08:00 Prednisone 5 Mg Tablet PO DAILY@0800 [facility] Valacyclovir HCl 500 mg 09/14/25 09:00 Valacyclovir Hcl 500 Mg Tablet PO DAILY [facility] Radiology Results: ITS Impressions Chest X-Ray 09/13/25 19:24 IMPRESSION: 1. No acute cardiopulmonary findings. Labs 09/13/25 18:49 09/13/25 18:49 Labs: Laboratory Results - last 24 hr 09/13/25 09/13/25 09/13/25 18:49 21:05 22:35 WBC 7.4 RBC 3.52 L Hgb 12.3 Hct 34.9 L MCV 99.1 MCH 34.9 H MCHC 35.2 RDW 13.2 Plt Count 182 MPV 9.5 Immature Gran % (Auto) 0.3 Neut % (Auto) 81.3 H Lymph % (Auto) 9.3 L [place] % (Auto) 8.1 Eos % (Auto) 0.7 Baso % (Auto) 0.3 Lymph # (Auto) 0.69 L [place] # (Auto) 0.6 Eos # (Auto) 0.1 Baso # (Auto) 0.0 Abs Immat Gran (auto) 0.02 Absolute Neuts (auto) 6.0 Absolute Nucleated RBC 0.000 Nucleated RBC % 0.0 PT 14.6 INR 1.1 APTT 30.2 Sodium 135 L Potassium 4.3 Chloride 105 Carbon Dioxide 21 L Anion Gap 9 BUN 24 H Creatinine 0.64 L Estim Creat Clear Calc Not Reportable Estimated GFR > 60 Glucose 114 H Calcium 9.2 Phosphorus 3.1 Magnesium 1.6 Total Bilirubin 1.7 H AST 74 H ALT 94 H Alkaline Phosphatase 83 Troponin I 0.021 0.021 Total Protein 6.8 Albumin 4.0 Lipase 94 Nasal MRSA (PCR) Not detected 09/14/25 01:53 WBC RBC Hgb Hct MCV MCH MCHC RDW Plt Count MPV Immature Gran % (Auto) Neut % (Auto) Lymph % (Auto) [place] % (Auto) Eos % (Auto) Baso % (Auto) Lymph # (Auto) [place] # (Auto) Eos # (Auto) Baso # (Auto) Abs Immat Gran (auto) Absolute Neuts (auto) Absolute Nucleated RBC Nucleated RBC % PT INR APTT Sodium Potassium Chloride Carbon Dioxide Anion Gap BUN Creatinine Estim Creat Clear Calc Estimated GFR Glucose Calcium Phosphorus Magnesium Total Bilirubin AST ALT Alkaline Phosphatase Troponin I 0.021 Total Protein Albumin Lipase Nasal MRSA (PCR) ASA Classification/Sedation ASA Classification/Sedation ASA Class: IV Emergent: No Risks: Risks, benefits and alternatives explained and patient/family accepted plan for sedation. Patient re-evaluated immediately prior to sedation.
--- NOTE | 2025-09-14 08:18 | PC.NURSE ---
Patient alert and oriented x4. She has NO family or emergency contact and did not want to list anybody. Patient did express wishes that she wants the permanent pacemaker placed. Dr. Ray and Dr. Mcfarland have already discussed wishes with patient.
[2025-09-14 08:43] LABS: Hematocrit 37.1 % (37.0-47.0); Hemoglobin 12.7 g/dL (12.0-15.0); Mean Corpuscular HGB Conc 34.2 g/dl (32-36); Mean Corpuscular Hemoglobin 34.2 pg (26-34); Mean Corpuscular Volume 100.0 fl (80-100); Platelet Count Result 193 k/mm3 (150-375); Red Blood Count 3.71 M/mm3 (4.2-5.4); White Blood Count 8.9 K/mm3 (4.5-10.0)
[2025-09-14 08:49] LABS: Anion Gap 9 mmol/L (4-12); Blood Urea Nitrogen 21 mg/dL (7-17); Calcium 8.8 mg/dL (8.4-10.2); Carbon Dioxide 23 mmol/L (22-30); Chloride 104 mmol/L (98-107); Estimated Glomerular Filt Rate > 60; Glucose 110 mg/dL (65-110); Magnesium 2.2 mg/dL (1.6-2.3); Potassium 4.3 mmol/L (3.4-5.0); Sodium 136 mmol/L (137-145)
--- NOTE | 2025-09-14 09:31 | WPDCNINT ---
Assessment and Plan Assessment and plan (1) Sinus arrest: Code(s): I45.5 - Other specified heart block Status: Acute Assessment and Plan: Status post transvenous pacemaker placement. Patient now hemodynamically stable and asymptomatic Patient is now going for permanent pacemaker placement. Check electrolytes (2) Aortic stenosis: Qualifiers: Cardiac valve disease etiology: nonrheumatic Qualified Code(s): I35.0 - Nonrheumatic aortic (valve) stenosis Code(s): I35.0 - Nonrheumatic aortic (valve) stenosis Status: Acute Assessment and Plan: No intervention at this time. (3) Diastolic dysfunction: Code(s): I51.89 - Other ill-defined heart diseases Status: Acute Assessment and Plan: Continue Lasix (4) Moderate mitral valve regurgitation: Code(s): I34.0 - Nonrheumatic mitral (valve) insufficiency Status: Acute Assessment and Plan: Continue diuretics (5) GERD (gastroesophageal reflux disease): Qualifiers: Esophagitis presence: without esophagitis Qualified Code(s): K21.9 - Gastro-esophageal reflux disease without esophagitis Code(s): K21.9 - Gastro-esophageal reflux disease without esophagitis Status: Acute Assessment and Plan: Continue PPI (6) History of renal transplant: Onset Date: 1995 Code(s): Z94.0 - Kidney transplant status Status: Chronic Assessment and Plan: Continue prednisone cyclosporin and CellCept at home does Creatinine normal Plan DVT prophylaxis -Lovenox Stress ulcer prophylaxis -PPI Nutrition - NPO for procedure Code Status -patient wishes to be DNR DNI which was confirmed at the time of admission Total Critical Care Time - 30 minutes Due to a high probability of clinically significant, life threatening deterioration, the patient required my highest level of preparedness to intervene emergently and I personally spent this critical care time directly and personally managing the patient. This critical care time included obtaining a history; examining the patient; pulse oximetry; ordering and review of studies; arranging urgent treatment with development of a management plan; evaluation of patient's response to treatment; frequent reassessment; and discussions with other providers. It was exclusive of separately billable procedures and treating other patients and teaching time. Please see Assessment and Plan section and the rest of the note for further information on patient assessment and treatment [employer] Systems [employer] Consult Note Consult date: 09/14/25 Reason for consult: Heart block and bradycardia HPI: Negrita Oconnell is a 80 year old female with a past medical history of kidney transplant over 20 years ago with good preserved renal function, GERD, mild to moderate aortic valve stenosis, moderate tricuspid regurgitation and diastolic heart failure on low-dose Lasix presented to the ER via EMS from home due syncopal episodes. She has had multiple episodes. In ER patient was found to be having AV blocks which is symptomatic. Patient was started on dopamine infusion admitted to ICU. Cardiology was consulted. In ICU patient had an episode of a long pause off AV block with no conduction of atrial beat and no escape rhythm patient then went into third-degree AV block. Dopamine was increased but with not helpful. Cardiology was consulted. Patient was started on external pacing. Patient was then taken to label drier and a transvenous pacemaker was inserted. Patient was then admitted to ICU for closure monitoring When I evaluate the patient patient had transvenous pacemaker in and she was feeling better. She states she was having cramping the right leg for the pacemaker inserted because she was unable to move it apart from that she denies any complaints. Patient denies fever, chest pain, shortness of breath, cough, nausea vomiting, abdominal pain,, diarrhea, headache or constipation. No palpitation dizziness or lightheadedness. Patient complains of pain in the right ankle which she states she twisted when she fell during syncope episode She was in sinus tachycardia with adequate blood pressure. Closing Agent was at bedside and was planning to take patient to lab for permanent pacemaker placement. Review of Systems Review of Systems: All systems reviewed & are unremarkable except as noted in HPI and below (HPI) [facility] Past Medical History Medical History Moderate mitral valve regurgitation Aortic stenosis Echo 05/2023: EF 65-70% severely increased left ventricular wall thickness, diastolic dysfunction grade 1, moderate left atrial enlargement, moderate aortic valve calcification, [id number] aortic valve stenosis with peak velocity 189 mean gradient of 9 and valve area of 1.4, mild aortic valve regurgitation, mild mitral valve regurgitation, moderate tricuspid valve regurgitation Diastolic dysfunction Hyperlipidemia Osteoporosis B12 deficiency Vitamin D deficiency History of renal dialysis Patient had end-stage renal disease but now has preserved renal function after kidney transplant Rosacea RLS (restless legs syndrome) Immunosuppression due to drug therapy Hypertension Surgical History Surgical History H/O exploratory laparotomy 06/15/23 exploratory laparotomy, lysis of adhesions, ileocecectomy with primary [id number] functional end-to-end anastomosis due to obstruction from large gallstone History of laparotomy (05/21/23) Laparotomy and removal of obstructing gallstone of the distal ileum. History of bilateral cataract extraction (2018) History of parathyroidectomy History of renal transplant (1995) Family History Family History Father Kidney failure, acute Social History Social History Social History: Code status: DNR/DNI but okay with medications to keep her heart going in a prearrest situation Surrogate decision maker: Smoking status: Never smoker Alcohol intake: never Drinks per week: 1 Substance use: never Substance use type: does not use Lack of Transportation: No Lack of Food: Never True Current Housing: I Have Housing Concerned About Future Housing: No Difficulty Paying Gas/Electric Bills: No Difficulty Paying for Meds: No Currently Unemployed: No Education: Don't Know Difficulty w/ Childcare or Family Care: No Living arrangements: alone Occupation/Education: retired Spiritual care concerns: No Meds Home Medications and Allergies Home Medications ?Medication ?Instructions ?Recorded ?Confirmed ?Type ergocalciferol (vitamin D2) 1,250 1,250 mcg PO MONTHLY 10/03/20 09/13/25 History mcg (50,000 unit) capsule fluticasone propionate 50 1 spray intranasal DAILY PRN 10/03/20 09/13/25 History mcg/actuation nasal Congestion spray,suspension furosemide 20 mg tablet 20 mg PO QAM 10/03/20 09/13/25 History lisinopril 5 mg tablet 10 mg PO DAILY 10/03/20 09/13/25 History mecobalamin (vitamin B12) 1,000 2,500 mcg PO .COMPLEX 10/03/20 09/13/25 History mcg chewable tablet lwjzxata-rbm-kdvnv acid 0.4 1 tablet PO DAILY 10/03/20 09/13/25 History mg-lycopene 300 mcg-lutein 250 mcg tablet (Centrum Silver) mycophenolate mofetil 500 mg tablet 500 mg PO Q12H 10/03/20 09/13/25 History omega-3 fatty acids-fish oil 360 1 cap PO DAILY 10/03/20 09/13/25 History mg-1,200 mg capsule (Fish Oil) prednisone 5 mg tablet 5 mg PO DAILY 10/03/20 09/13/25 History simvastatin 20 mg tablet 20 mg PO DAILY 10/03/20 09/13/25 History valacyclovir 500 mg tablet 500 mg PO DAILY 10/03/20 09/13/25 History esomeprazole magnesium 20 mg 20 mg PO DAILY 03/20/21 09/13/25 History capsule,delayed release (Nexium) folic acid 1 mg tablet 1 mg PO DAILY 02/25/23 09/13/25 History loratadine 10 mg disintegrating 10 mg PO DAILY PRN Allergy Symptoms 02/25/23 09/13/25 History tablet (Alavert) cyclosporine modified 25 mg 75 mg PO DAILY 05/21/23 09/13/25 History capsule (Neoral) Eye Promise Restore 1 cap PO DAILY 12/31/23 09/13/25 History metronidazole 1 % topical cream 1 applic topical DAILY PRN rash 10/04/24 09/13/25 Rx #60 grams nystatin 100,000 unit/gram topical 1 applic topical BID #60 grams 10/07/24 09/13/25 Rx powder (Nystop) risedronate 150 mg tablet 150 mg PO MONTHLY #3 tabs 03/28/25 09/13/25 Rx potassium chloride 10 mEq 20 meq PO DAILY 09/13/25 09/13/25 History tablet,extended release Allergies Allergy/AdvReac Type Severity Reaction Status Date / Time No Known Allergies Allergy Verified 09/13/25 22:09 Vital Signs Vital Signs - 24 hr 09/13/25 18:35 09/13/25 18:48 09/13/25 18:50 Temperature 36.7 C Pulse Rate 84 92 86 Respiratory Rate 18 22 H Blood Pressure 149/67 H Pulse Oximetry 94 97 Oxygen Delivery Room Air Oxygen Flow Rate 09/13/25 19:00 09/13/25 19:22 09/13/25 19:23 Temperature Pulse Rate 80 84 Respiratory Rate 16 15 Blood Pressure 151/91 H Pulse Oximetry 96 95 97 Oxygen Delivery Oxygen Flow Rate 09/13/25 19:30 09/13/25 19:31 09/13/25 19:45 Temperature Pulse Rate 80 84 72 Respiratory Rate 22 H 29 H 21 H Blood Pressure 140/76 Pulse Oximetry 96 95 96 Oxygen Delivery Oxygen Flow Rate 09/13/25 20:01 09/13/25 20:03 09/13/25 20:04 Temperature Pulse Rate 82 80 83 Respiratory Rate 24 H 16 Blood Pressure 147/84 H 147/84 H Pulse Oximetry 96 96 Oxygen Delivery Oxygen Flow Rate 09/13/25 20:05 09/13/25 20:17 09/13/25 20:34 Temperature Pulse Rate 84 83 85 Respiratory Rate 18 16 17 Blood Pressure Pulse Oximetry 95 96 93 Oxygen Delivery Oxygen Flow Rate 09/13/25 20:45 09/13/25 20:46 09/13/25 21:00 Temperature Pulse Rate 69 104 H 77 Respiratory Rate 18 18 20 Blood Pressure 119/69 Pulse Oximetry 95 95 94 Oxygen Delivery Oxygen Flow Rate 09/13/25 21:01 09/13/25 21:15 09/13/25 21:16 Temperature Pulse Rate 98 91 87 Respiratory Rate 17 22 H 21 H Blood Pressure 135/81 129/64 Pulse Oximetry 93 93 90 Oxygen Delivery Oxygen Flow Rate 09/13/25 22:00 09/13/25 22:00 09/13/25 22:00 Temperature 37.2 C Pulse Rate 88 88 88 Respiratory Rate 21 H Blood Pressure 120/64 120/64 Pulse Oximetry 95 Oxygen Delivery Oxygen Flow Rate 09/13/25 23:00 09/14/25 00:00 09/14/25 00:00 Temperature 36.9 C Pulse Rate 94 92 92 Respiratory Rate 20 14 Blood Pressure 119/73 90/78 L 90/78 L Pulse Oximetry 97 96 Oxygen Delivery Oxygen Flow Rate 09/14/25 00:00 09/14/25 01:00 09/14/25 02:00 Temperature 36.7 C Pulse Rate 91 93 87 Respiratory Rate 19 19 Blood Pressure 137/120 H 113/67 Pulse Oximetry 96 96 Oxygen Delivery Oxygen Flow Rate 09/14/25 02:00 09/14/25 02:00 09/14/25 03:00 Temperature Pulse Rate 877 H 87 43 L Respiratory Rate Blood Pressure 113/67 113/51 L Pulse Oximetry Oxygen Delivery Oxygen Flow Rate 09/14/25 03:00 09/14/25 03:30 09/14/25 03:48 Temperature Pulse Rate 42 L 87 Respiratory Rate 19 Blood Pressure 113/51 L 115/73 Pulse Oximetry 95 Oxygen Delivery Room Air Oxygen Flow Rate 09/14/25 04:00 09/14/25 04:00 09/14/25 04:00 Temperature 36.8 C Pulse Rate 89 89 Respiratory Rate 21 H Blood Pressure 123/89 123/89 Pulse Oximetry 97 97 Oxygen Delivery Nasal Cannula Oxygen Flow Rate 2 09/14/25 04:00 09/14/25 05:00 09/14/25 06:40 Temperature Pulse Rate 88 83 84 Respiratory Rate 24 H Blood Pressure 134/71 Pulse Oximetry 99 Oxygen Delivery Oxygen Flow Rate 09/14/25 06:40 09/14/25 06:42 09/14/25 06:52 Temperature Pulse Rate 84 85 90 Respiratory Rate 24 H Blood Pressure 111/64 111/64 113/68 Pulse Oximetry 95 Oxygen Delivery Oxygen Flow Rate 09/14/25 07:00 09/14/25 08:00 09/14/25 08:00 Temperature 37.1 C Pulse Rate 83 79 Respiratory Rate 24 H 16 Blood Pressure 134/71 125/67 Pulse Oximetry 99 98 Oxygen Delivery Room Air Oxygen Flow Rate 09/14/25 08:00 Temperature Pulse Rate 80 Respiratory Rate Blood Pressure Pulse Oximetry Oxygen Delivery Oxygen Flow Rate Exam Narrative: General: Pt is alert awake and in NAD Lungs/Chest: Trachea central Clear BS B/L, No crackles or wheezing. Cardiac: RRR. Normal S1 S2. No murmurs Circulation: Pedal pulses are intact and symmetrical. Abdomen: Normal bowel sounds.. Soft. NT. ND. Extremities: No clubbing, cyanosis or edema. Warm right groin has a transvenous pacemaker : Betancourt in place Neurologic: Follows commands. Moves all 4 extremities PERRL AO x3 Skin: No Rash MSK: Right ankle is slightly swollen but patient is able to move the foot and toes. Dorsalis pedis is palpable. Reviewed wearing cannot be checked as patient is in bed with transvenous pacemaker. Results Labs 09/14/25 08:20 09/14/25 08:20 Labs: Impressions Chest X-Ray 09/13/25 19:24 IMPRESSION: 1. No acute cardiopulmonary findings. Ankle X-Ray 09/14/25 08:15 Impression: 1: No acute bone or joint abnormality. Short CBC 09/13/25 09/14/25 Range/Units 18:49 08:20 WBC 7.4 8.9 (4.5-10.0) K/mm3 Hgb 12.3 12.7 (12.0-15.0) g/dL Hct 34.9 L 37.1 (37.0-47.0) % Plt Count 182 193 (150-375) k/mm3 BMP 09/13/25 09/14/25 18:49 08:20 Sodium 135 L 136 L Potassium 4.3 4.3 Chloride 105 104 Carbon Dioxide 21 L 23 BUN 24 H 21 H Creatinine 0.64 L 0.72 Glucose 114 H 110 Calcium 9.2 8.8 Cardiac Enzymes 09/13/25 09/13/25 09/14/25 Range/Units 18:49 22:35 01:53 Troponin I 0.021 0.021 0.021 (0.000-0.034) ng/mL Liver Function 09/13/25 Range/Units 18:49 Total Bilirubin 1.7 H (0.2-1.3) mg/dL AST 74 H (14-36) U/L ALT 94 H (6-35) U/L Alkaline Phosphatase 83 (38-126) U/L Albumin 4.0 (3.5-5.1) g/dL
--- NOTE | 2025-09-14 10:03 | ECG_ITS ---
Test Date: 2025-09-14 11:33:51 Measurements Intervals [place] Rate: 72 P: 15 GA: 141 QRS: -12 QRSD: 93 T: 56 QT: 391 QTc: 428 Interpretive Statements SINUS RHYTHM WITH OCCASIONAL SUPRAVENTRICULAR PREMATURE COMPLEXES DELAYED PRECORDIAL R/S TRANSITION MINIMAL Q WAVES- HIGH LATERAL LEADS BORDERLINE ECG Compared to ECG 09/14/2025 03:12:02 NO SIGNIFICANT CHANGE Electronically Signed On 09-14-2025 11:59:55 CDT by Bhupendra Castano D.O.
--- NOTE | 2025-09-14 10:04 | WPDCARDPROC ---
Cardiac Cath Procedure Note Date of procedure:: 09/14/25 Performing physician:: Saji Mcfarland MD Indication:: Syncope with intermittent complete heart block Brief clinical history:: This is an 80-year-old woman with a previous history of renal transplant who has mild aortic stenosis. She started experiencing intermittent syncopal episodes last week. Following admission to the hospital with this she has been noted to have long asystolic pauses with complete heart block occurring intermittently. For this reason a temporary transvenous pacemaker was placed in the middle of the night and she is brought to the cardiac cath lab radiology technologist this morning for permanent implant Procedure Procedure performed:: Implantation of permanent dual-chamber pacemaker Removal of temporary transvenous pacemaker Sedation/Medication given:: Fentanyl 50 mg Versed 2 mg Access site:: Left subclavian vein Estimated blood loss:: 20 cc Procedure note:: Patient was brought to the cardiac catheterization lab in the postabsorptive state the left anterior chest wall was prepped and draped in the usual fashion. Anesthesia was infiltrated 1 in below the clavicle using 20 cc of 1% lidocaine. An incision was then made from the midclavicular line to the deltopectoral groove. Sharp and blunt dissection was used to separate the subcutaneous tissue electrocautery was used to provide cutaneous hemostasis. Following this a blunt dissection was used to create a pacemaker pocket inferior to the incision along the pre pectoral fascial plane. The pocket was packed with antibiotic soaked 4 x 4. Attention was then turned to venous access. Several attempts were made to puncture the subclavian vein without success. I then performed a venogram from the left upper extremity to mom visualizing the vein. It was obvious with slow filling the patient was dehydrated. I then also elected to put the legs in a wedge pillow and following this the left subclavian vein was punctured easily. Two J wires were placed into the venous circulation and advanced under fluoroscopic visualization into the right atrium. The 2 6 Nepalese sheaths safe sheaths were used then to place the pacemaker leads described below into the venous circulation and they were placed into the right atrium. The sheaths were then peeled away. Following this attention was turned to positioning the ventricular lead. The stylet was removed from the lead and a 3 cc syringe was used to fashion a J-tip stylet which was used to steer lead through the tricuspid valve annulus the RV in out to the pulmonary artery position. A straight stylet was placed into the lead was withdrawn and placed into the right ventricular apex. The fixation screw was deployed appropriate pacing and sensing performance was demonstrated. Following this attention was turned to the atrial lead this stylet was removed and a preformed atrial J J-tip stylet was used to place the lead in the right atrial appendage position. The fixation screw was deployed upon withdrawal of the stylet the stylet the lead was fixed into position. Appropriate pacing and sensing performance was demonstrated with this lead as well. The 10 volt stimulation both leads did not show any evidence of extracardiac stimulation. The leads were then secured to the base of pocket using the suture sleeves and 2-0 silk ties. The retained sponge was removed from pocket which was irrigated with antibiotic infused saline. The pacemaker generator described below was then connected to the leads using the torque wrench and the entire assembly was placed into the newly created pocket. After this the pocket was closed in layers using 3-0 Vicryl in an interrupted fashion for the subcutaneous tissue and 4-0 Vicryl in a running subcuticular fashion for the skin. The wound was dressed with Aquacel dressing. Postop antibiotics EKG chest x-ray were ordered. Left arm was placed in an immobilizer. Findings:: Patient received a Biotronik dual-chamber pacemaker model Amvia Edge [id number]. Serial number [id number]. Device is programmed in the DDD mode with lower rate limit 60 upper rate limit 130. The atrial lead is a Biotronik active fixation bipolar lead model Solia [id number]. Serial number [id number]. P-waves are sensed at 2.1 mV threshold 0.6 volts at 0.4 milliseconds impedance 723 Ohms. The ventricular lead is a Biotronik active fixation bipolar lead model Solia [id number]. Serial number [id number]. R-waves are sensed at 9.7 mV threshold 0.6 volts at 0.4 milliseconds impedance 859 Ohms. Conclusion:: 1. Successful uncomplicated implantation of permanent Biotronik dual-chamber pacing system for treatment of syncope with intermittent complete heart block in this 80-year-old lady 2. Successful uncomplicated removal of transvenous pacemaker under fluoroscopic visualization to ensure not disturbing the newly implanted permanent leads at the conclusion of the procedure Saji Mcfarland MD [facility]
[2025-09-14] MEDS: PANTOPRAZOLE 40 MG TABLET PO (12:14)
[2025-09-14] MEDS: cycloSPORINE (NEORAL) 25 MG CAPSULE 75 MG PO (12:14)
[2025-09-14] MEDS: POTASSIUM CHLORIDE 20 MEQ ER TABLET PO (12:15)
[2025-09-14] MEDS: SODIUM CHLORIDE 0.9% IV 1,000 ML 50 ML IV CONT (12:28)
[2025-09-14] MEDS: CALCIUM CARBONATE (TUMS) 500 MG (200 MG ELEMENTAL) PO (13:46)
[2025-09-14] MEDS: PERFLUTREN LIPID MICROSPHERES 1.5 ML VIAL DILUTED TO 10 ML TOTAL VOLUME IV PUSH (14:40)
--- NOTE | 2025-09-14 14:40 | IVDEFINITY ---
Prior to administration of IV Definity the patient was educated on the risks and benefits of the imaging enhancing agent including potential adverse side effects. The patient verbalized understanding. Allergies were verified. No exclusion criteria were identified and at least one of the following inclusion criteria were met: 1) physician request, 2) patient technically difficult to image (per the [place] [employer] Echocardi[employer] guidelines of two or more segments not discernable within the apical view), or 3) questionable left ventricular function. ?
--- NOTE | 2025-09-14 15:28 | P.PNIM_ITS ---
Progress Note: A&P Assessment and Plan (1) Sick sinus syndrome: Code(s): I49.5 - Sick sinus syndrome Status: Acute (2) Aortic stenosis: Qualifiers: Cardiac valve disease etiology: nonrheumatic Qualified Code(s): I35.0 - Nonrheumatic aortic (valve) stenosis Code(s): I35.0 - Nonrheumatic aortic (valve) stenosis Status: Acute (3) Diastolic dysfunction: Code(s): I51.89 - Other ill-defined heart diseases Status: Acute (4) Hypomagnesemia: Code(s): E83.42 - Hypomagnesemia Status: Acute (5) Transaminitis: Code(s): R74.01 - Elevation of levels of liver transaminase levels Status: Acute (6) History of renal transplant: Onset Date: 1995 Code(s): Z94.0 - Kidney transplant status Status: Chronic (7) Immunosuppression due to drug therapy: Code(s): D84.821 - Immunodeficiency due to drugs; Z79.899 - Other penitentiary (current) drug therapy Status: Chronic Plan Patient presents with sick sinus syndrome with symptomatic pauses. Frequency of pauses increased in the ER patient required initiation of rhythm agents with dopamine. Cardiology has been consulted. Will place pacer pads on the patient in case external pacing needed. Patient is not on any rhythm medications that would induce cardiac arrhythmia. Electrolytes are stable but magnesium is slightly low at 1.6. Will give 2 g magnesium sulfate rider. The patient does have mild transaminitis with elevated AST ALT and bilirubin likely due to relative hypoperfusion with episodes of sinus pause creating low-flow state. Will repeat CMP in a.m.. Toxicity from immunosuppressive therapy much less likely. Patient does have history of renal transplant in the but renal function is great. Will continue anti-rejection medications. Will monitor strict I&O's. Patient does have diastolic dysfunction and aortic stenosis as well as moderate tricuspid regurg but is not in overt heart failure. Patient appears euvolemic. Will continue home Lasix. As mentioned above the patient's condition changed at around 03:00 the. She began having multiple prolonged and/or symptomatic pauses. Her rhythm was flipping between sinus rhythm with frequent premature contractions to third- degree heart block and secondary use of block type 2. Just before initiation of external pacing the patient flipped into AFib but still was only having heart rates as between 30 and 50 with symptomatology. Patient was requiring appy age of 71 maintain capture. The patient was given fentanyl and Versed as needed for pain/sedation. Medication adjustments were made as discussed above. Due to persistence of symptoms furniture finisher apprentice is coming in to place a temporary pacemaker. Patient reiterates that she is okay with medications to keep her heart rate going. She otherwise wants to be a DNR/DNI. But she understands that she would have to rescind her DNR/DNI for placement of a cardiac pacemaker. She understands that she would need to do this in order to have a chance to return home with a functional status.. She is still active and independent activities of daily living despite her age. She states that if she were to have a stroke or being able to feed herself she would not want feeding tube and if she was unable to otherwise communicate her wants her desires she would want to be made comfort measures. She states that she is alone in the world she is has no children and has no remaining family. 81 y/o female presented to ER with syncopal episodes and was found to having long asystolic pauses with complete heart block occurring intermittently. patient was seen by the fitting room maintenance mechanic and had temporary pacemaker placed and later permanent pace maker placed, patient stats feels better has no complaints of dizziness or palpitation, patient will be seen by her fitting room maintenance mechanic and further recommendation to follow. Subjective Date/time seen: 09/14/25 15:28 Interval history: Lightheaded, history of to recent episodes of passing this week H&P-Narrative: 80-year-old female with a past medical history of kidney transplant over 20 years ago with good preserved renal function, GERD, mild to moderate aortic valve stenosis, moderate tricuspid regurgitation and diastolic heart failure on low-dose Lasix who presented to the ER via EMS from home due syncopal episodes. The patient reported that about 10 days ago she had 2 syncopal episodes. She was standing and making dinner when she lost consciousness and woke up on the f soto with a small lack to the back of her head. She did not come in for evaluation. Later that same day she was sitting at the kitchen table and had another syncopal episode and found herself on the floor. Before each episode she felt of rushing sensation and ?Saw the light?. She thought that these symptoms were due to receiving her COVID and flu shot that same day. Then on Friday (7 days later) she had similar episode of syncope at which time she fell to the floor and twisted her ankle resulting in a large bruise to her ankle. The patient reports having episodes of feeling ?waves? and a ?rushing sensation? with fullness in her head. She has been lightheaded and then see slight prior to having her syncopal episodes. She had 2 such episodes today which resulted in her calling EMS. She denies any chest pain or shortness breath. EMS noted that the patient had a sinus pause on their monitor. When the patient arrived to the ER her blood pressures were stable and her heart rate was normal but she proceeded to have multiple episodes of the non conduction of ventricular beats with pauses lasting up to 4 seconds that were symptomatic. Her blood pressures did stay stable despite these pauses. The patient was admitted to the ICU on a dopamine drip at 5. Initially the patient's heart rate for was controlled for the most part. But then around 02:50 the patient had a episode of 12-16 second pause in ventricular conducted beats. She reported that she was straining to urinate with the pure wick catheter at the time. The patient still had atrial beats at about the 12nd mac she had a PVC and at the 12nd mac she went back into a bradycardic rhythm. At that time her rhythm appeared to be third-degree heart block. She then flipped between third-degree heart block and second- degree are block type 2. Patient's dopamine was increased up to 7.5 mg. Patient continued to have variable heart rate with drop in her heart rate down into in the 40s and 50s. She was not symptomatic initially for the 1st 15 or 20 minutes of this and we are hopeful that the increased dopamine would help. But unfortunately the patient began having recurrent episodes that were symptomatic. Subsequently we had to start externally pacing the patient. We had to titrate her amp edge up to 70 in order to achieve capture. Dr. Rosen was contacted and recommended increasing the patient's dopamine up to 10 and when that did not work the patient received 1 amp of atropine with no improvement. She was still having episodes of external pacing up to 3-4 times a minute. Her rhythm at that time was AFib. 81 y/o female presented to ER with syncopal episodes and was found to having long asystolic pauses with complete heart block occurring intermittently. patient was seen by the fitting room maintenance mechanic and had temporary pacemaker placed and later permanent pace maker placed, patient stats feels better has no complaints of dizziness or palpitation, patient will be seen by her fitting room maintenance mechanic and [facility] er recommendation to follow. Review of Systems Review of Systems: 12 systems were reviewed with pertinent positives and negatives per HPI. Except as documented in the HPI, all other systems were reviewed and are negative. Exam Narrative: Patient is comfortable, NAD HEENT: eyes are clear and none icteric LUNGS:CTA HEART: RR S1S2 ABD: BS+, Soft and nontender Lower extremities: no edema SKIN: nonjaundiced Neuro: grossly intact. Objective Data Vital Signs Vital Signs: Vital Signs - 24 hr 09/13/25 18:35 09/13/25 18:48 09/13/25 18:50 Temperature 36.7 C Pulse Rate 84 92 86 Respiratory Rate 18 22 H Blood Pressure 149/67 H Pulse Oximetry 94 97 Oxygen Delivery Room Air Oxygen Flow Rate 09/13/25 19:00 09/13/25 19:22 09/13/25 19:23 Temperature Pulse Rate 80 84 Respiratory Rate 16 15 Blood Pressure 151/91 H Pulse Oximetry 96 95 97 Oxygen Delivery Oxygen Flow Rate 09/13/25 19:30 09/13/25 19:31 09/13/25 19:45 Temperature Pulse Rate 80 84 72 Respiratory Rate 22 H 29 H 21 H Blood Pressure 140/76 Pulse Oximetry 96 95 96 Oxygen Delivery Oxygen Flow Rate 09/13/25 20:01 09/13/25 20:03 09/13/25 20:04 Temperature Pulse Rate 82 80 83 Respiratory Rate 24 H 16 Blood Pressure 147/84 H 147/84 H Pulse Oximetry 96 96 Oxygen Delivery Oxygen Flow Rate 09/13/25 20:05 09/13/25 20:17 09/13/25 20:34 Temperature Pulse Rate 84 83 85 Respiratory Rate 18 16 17 Blood Pressure Pulse Oximetry 95 96 93 Oxygen Delivery Oxygen Flow Rate 09/13/25 20:45 09/13/25 20:46 09/13/25 21:00 Temperature Pulse Rate 69 104 H 77 Respiratory Rate 18 18 20 Blood Pressure 119/69 Pulse Oximetry 95 95 94 Oxygen Delivery Oxygen Flow Rate 09/13/25 21:01 09/13/25 21:15 09/13/25 21:16 Temperature Pulse Rate 98 91 87 Respiratory Rate 17 22 H 21 H Blood Pressure 135/81 129/64 Pulse Oximetry 93 93 90 Oxygen Delivery Oxygen Flow Rate 09/13/25 22:00 09/13/25 22:00 09/13/25 22:00 Temperature 37.2 C Pulse Rate 88 88 88 Respiratory Rate 21 H Blood Pressure 120/64 120/64 Pulse Oximetry 95 Oxygen Delivery Oxygen Flow Rate 09/13/25 23:00 09/14/25 00:00 09/14/25 00:00 Temperature 36.9 C Pulse Rate 94 92 92 Respiratory Rate 20 14 Blood Pressure 119/73 90/78 L 90/78 L Pulse Oximetry 97 96 Oxygen Delivery Oxygen Flow Rate 09/14/25 00:00 09/14/25 01:00 09/14/25 02:00 Temperature 36.7 C Pulse Rate 91 93 87 Respiratory Rate 19 19 Blood Pressure 137/120 H 113/67 Pulse Oximetry 96 96 Oxygen Delivery Oxygen Flow Rate 09/14/25 02:00 09/14/25 02:00 09/14/25 03:00 Temperature Pulse Rate 877 H 87 43 L Respiratory Rate Blood Pressure 113/67 113/51 L Pulse Oximetry Oxygen Delivery Oxygen Flow Rate 09/14/25 03:00 09/14/25 03:30 09/14/25 03:48 Temperature Pulse Rate 42 L 87 Respiratory Rate 19 Blood Pressure 113/51 L 115/73 Pulse Oximetry 95 Oxygen Delivery Room Air Oxygen Flow Rate 09/14/25 04:00 09/14/25 04:00 09/14/25 04:00 Temperature 36.8 C Pulse Rate 89 89 Respiratory Rate 21 H Blood Pressure 123/89 123/89 Pulse Oximetry 97 97 Oxygen Delivery Nasal Cannula Oxygen Flow Rate 2 09/14/25 04:00 09/14/25 05:00 09/14/25 06:40 Temperature Pulse Rate 88 83 84 Respiratory Rate 24 H Blood Pressure 134/71 Pulse Oximetry 99 Oxygen Delivery Oxygen Flow Rate 09/14/25 06:40 09/14/25 06:42 09/14/25 06:52 Temperature Pulse Rate 84 85 90 Respiratory Rate 24 H Blood Pressure 111/64 111/64 113/68 Pulse Oximetry 95 Oxygen Delivery Oxygen Flow Rate 09/14/25 07:00 09/14/25 08:00 09/14/25 08:00 Temperature 37.1 C Pulse Rate 83 79 Respiratory Rate 24 H 16 Blood Pressure 134/71 125/67 Pulse Oximetry 99 98 Oxygen Delivery Room Air Oxygen Flow Rate 09/14/25 08:00 09/14/25 10:15 09/14/25 10:30 Temperature Pulse Rate 80 90 74 Respiratory Rate 16 16 Blood Pressure 145/72 H 152/72 H Pulse Oximetry 97 97 Oxygen Delivery Room Air Room Air Oxygen Flow Rate 09/14/25 10:45 09/14/25 11:00 09/14/25 11:19 Temperature 37.3 C Pulse Rate 81 72 77 Respiratory Rate 18 16 18 Blood Pressure 161/128 H 130/75 139/79 Pulse Oximetry 97 98 97 Oxygen Delivery Room Air Room Air Oxygen Flow Rate 09/14/25 12:00 09/14/25 12:00 09/14/25 14:00 Temperature Pulse Rate 83 79 Respiratory Rate Blood Pressure Pulse Oximetry Oxygen Delivery Room Air Oxygen Flow Rate Intake/Output Intake/Output: Intake & Output 09/11/25 09/12/25 09/13/25 09/14/25 23:59 23:59 23:59 23:59 Intake Total 22.6 390.1 Output Total 800 Balance 22.6 -409.9 Meds/Results Medications: Active Medications Generic Name Dose Route Start Last Admin Trade Name Freq PRN Reason Stop Dose Admin Acetaminophen 650 mg 09/14/25 00:40 09/14/25 01:52 Acetaminophen 325 Mg Tablet PO 650 mg Q4H PRN Administration Mild Pain (1-3) or Fever Calcium Carbonate 200 mg 09/14/25 13:34 09/14/25 13:46 Calcium Carbonate (Tums) 500 Mg (200 Mg Elemental) PO 200 mg Q6H PRN Administration Indigestion Cyanocobalamin 500 mcg 09/16/25 09:00 Cyanocobalamin 500 Mcg Tablet PO TuFr@0900 ALISON Cyanocobalamin 2,000 mcg 09/16/25 09:00 Cyanocobalamin 1,000 Mcg Tablet PO TuFr@0900 ALISON Cyclosporine 75 mg 09/14/25 09:00 09/14/25 12:14 Cyclosporine (Neoral) 25 Mg Capsule PO 75 mg DAILY ALISON Administration Enoxaparin Sodium 40 mg 09/14/25 09:00 09/14/25 12:05 Enoxaparin 40 Mg/0.4 Ml Syringe SUB-Q Not Given DAILY ALISON Ergocalciferol 1,250 mcg 09/17/25 09:00 Ergocalciferol (Vitamin D2) 1,250 Mcg (50,000 Units) Capsule PO MONTHLY ALISON Fish Oil 1 gm 09/14/25 09:00 09/14/25 12:26 [place] 3 Polyunsat Fatty Acids 1 Gm Cap PO Not Given DAILY ALISON Fluticasone Propionate 1 spray 09/13/25 22:39 Fluticasone Propionate 0.05% Na Spr 16 Gm Btl (*Bkc) NASAL DAILY PRN Congestion Folic Acid 1 mg 09/14/25 09:00 09/14/25 12:26 Folic Acid 1 Mg Tablet PO Not Given DAILY ALISON Furosemide 20 mg 09/14/25 09:00 09/14/25 12:26 Furosemide 20 Mg Tablet PO Not Given QAM ALISON Cefazolin Sodium 1 gm/ Sodium 50 mls @ 100 mls/hr 09/14/25 16:00 Chloride IVPB 09/15/25 00:29 Q8H ALISON Sodium Chloride 1,000 mls @ 50 mls/hr 09/14/25 10:05 09/14/25 12:28 Normal Saline Iv IV CONT 09/14/25 18:04 50 mls/hr .Q20H ALISON Administration Lisinopril 10 mg 09/14/25 09:00 09/14/25 12:14 Lisinopril 10 Mg Tablet PO 10 mg DAILY ALISON Administration Miscellaneous Information 1 each 09/13/25 22:56 Nystatin Powder Is Autosub To Tolnaftate XX 09/14/25 22:55 PRN PRN Informational Mycophenolate Mofetil 500 mg 09/13/25 22:55 09/14/25 12:14 Mycophenolate Mofetil 250 Mg Capsule PO 500 mg Q12HR ALISON Administration Pantoprazole Sodium 40 mg 09/14/25 09:00 09/14/25 12:14 Pantoprazole 40 Mg Tablet PO 40 mg QAM ALISON Administration Potassium Chloride 20 meq 09/14/25 08:00 09/14/25 12:15 Potassium Chloride 20 Meq Er Tablet PO 20 meq DAILY@0800 ALISON Administration Prednisone 5 mg 09/14/25 08:00 09/14/25 12:15 Prednisone 5 Mg Tablet PO 5 mg DAILY@0800 ALISON Administration Valacyclovir HCl 500 mg 09/14/25 09:00 09/14/25 12:25 Valacyclovir Hcl 500 Mg Tablet PO 500 mg DAILY ALISON Administration Radiology Results: ITS Impressions Ankle X-Ray 09/14/25 08:15 Impression: 1: No acute bone or joint abnormality. Chest X-Ray 09/14/25 10:42 IMPRESSION: 1. New dual-lead cardiac pacemaker in expected position with no acute cardiopulmonary disease. 2. Chronic right basilar atelectasis/scarring along side a moderate-sized retrocardiac hiatal hernia. 3. Large coarse calcification at the left breast. Correlate with mammography. Labs Labs: Laboratory Results - last 24 hr 09/13/25 09/13/25 09/13/25 18:49 21:05 22:35 WBC 7.4 RBC 3.52 L Hgb 12.3 Hct 34.9 L MCV 99.1 MCH 34.9 H MCHC 35.2 RDW 13.2 Plt Count 182 MPV 9.5 Immature Gran % (Auto) 0.3 Neut % (Auto) 81.3 H Lymph % (Auto) 9.3 L [place] % (Auto) 8.1 Eos % (Auto) 0.7 Baso % (Auto) 0.3 Lymph # (Auto) 0.69 L [place] # (Auto) 0.6 Eos # (Auto) 0.1 Baso # (Auto) 0.0 Abs Immat Gran (auto) 0.02 Absolute Neuts (auto) 6.0 Absolute Nucleated RBC 0.000 Nucleated RBC % 0.0 PT 14.6 INR 1.1 APTT 30.2 Sodium 135 L Potassium 4.3 Chloride 105 Carbon Dioxide 21 L Anion Gap 9 BUN 24 H Creatinine 0.64 L Estim Creat Clear Calc Not Reportable Estimated GFR > 60 Glucose 114 H Calcium 9.2 Phosphorus 3.1 Magnesium 1.6 Total Bilirubin 1.7 H AST 74 H ALT 94 H Alkaline Phosphatase 83 Troponin I 0.021 0.021 Total Protein 6.8 Albumin 4.0 Lipase 94 Nasal MRSA (PCR) Not detected 09/14/25 09/14/25 01:53 08:20 WBC 8.9 RBC 3.71 L Hgb 12.7 Hct 37.1 MCV 100.0 MCH 34.2 H MCHC 34.2 RDW 13.2 Plt Count 193 MPV 9.6 Immature Gran % (Auto) Neut % (Auto) Lymph % (Auto) [place] % (Auto) Eos % (Auto) Baso % (Auto) Lymph # (Auto) [place] # (Auto) Eos # (Auto) Baso # (Auto) Abs Immat Gran (auto) Absolute Neuts (auto) Absolute Nucleated RBC Nucleated RBC % PT INR APTT Sodium 136 L Potassium 4.3 Chloride 104 Carbon Dioxide 23 Anion Gap 9 BUN 21 H Creatinine 0.72 Estim Creat Clear Calc Not Reportable Estimated GFR > 60 Glucose 110 Calcium 8.8 Phosphorus Magnesium 2.2 Total Bilirubin AST ALT Alkaline Phosphatase Troponin I 0.021 Total Protein Albumin Lipase Nasal MRSA (PCR) Quality VTE Prophylaxis VTE prophylaxis: pharmacologic ordered (Lovenox 40 mg)
[2025-09-14] MEDS: ceFAZolin 1 GM in SODIUM CHLORIDE 0.9% IV 50 ML 100 ML IVPB ×2 (16:26→23:24)
[2025-09-15] VITALS (18 sets, daily range): BP systolic 105–135; BP diastolic 49–73; PULSE 68–90; RESP 16–20; TEMP 36.4–37.1; O2SAT 95–99
[2025-09-15 04:00] LABS: Hematocrit 35.8 % (37.0-47.0); Hemoglobin 12.1 g/dL (12.0-15.0); Mean Corpuscular HGB Conc 33.8 g/dl (32-36); Mean Corpuscular Hemoglobin 34.2 pg (26-34); Mean Corpuscular Volume 101.1 fl (80-100); Platelet Count Result 179 k/mm3 (150-375); Red Blood Count 3.54 M/mm3 (4.2-5.4); White Blood Count 7.6 K/mm3 (4.5-10.0)
[2025-09-15 04:22] LABS: Alanine Aminotransferase 52 U/L (6-35); Albumin Level 3.5 g/dL (3.5-5.1); Alkaline Phosphatase 73 U/L (38-126); Anion Gap 8 mmol/L (4-12); Aspartate Amino Transferase 41 U/L (14-36); Bilirubin,Total 1.3 mg/dL (0.2-1.3); Blood Urea Nitrogen 19 mg/dL (7-17); Calcium 8.5 mg/dL (8.4-10.2); Carbon Dioxide 21 mmol/L (22-30); Chloride 105 mmol/L (98-107); Estimated Glomerular Filt Rate > 60; Glucose 105 mg/dL (65-110); Magnesium 2.0 mg/dL (1.6-2.3); Potassium 4.4 mmol/L (3.4-5.0); Sodium 134 mmol/L (137-145); Total Protein 6.4 g/dL (6.3-8.2)
--- NOTE | 2025-09-15 08:01 | SUR.PHASEII ---
Pt received to [facility]ser[facility] Unit for recovery at 10:14. Computer wont allow charting before 10:23
[2025-09-15] MEDS: cycloSPORINE (NEORAL) 25 MG CAPSULE 75 MG PO (08:45)
[2025-09-15] MEDS: FOLIC ACID 1 MG TABLET PO (08:47)
[2025-09-15] MEDS: POTASSIUM CHLORIDE 20 MEQ ER TABLET PO (08:48)
[2025-09-15] MEDS: PANTOPRAZOLE 40 MG TABLET PO (08:50)
--- NOTE | 2025-09-15 09:42 | P.PNCA_ITS ---
Progress Note: A&P Assessment and Plan (1) Sinus arrest: Code(s): I45.5 - Other specified heart block Status: Acute Assessment and Plan: * she is s/p PPM * device with normal function * will update CXR this am * one week follow up in office. (2) Hypertension: Qualifiers: Hypertension type: essential hypertension Qualified Code(s): I10 - Essential (primary) hypertension Code(s): I10 - Essential (primary) hypertension Status: Chronic Assessment and Plan: * she reports feeling light headed this am * will check orthostatic VS * BP meds held this am * would decrease lisinopril dose to 5 mg daily Subjective Date/time seen: 09/15/25 09:42 Interval history: Date of Service 09/15/25: Patient is sitting up in bed. States feels a little light headed today. No chest pain or shortness of breath. Review of Systems Review of Systems: All systems reviewed & are unremarkable except as noted in HPI and below Constitutional: Constitutional: Denies headache(s) Eyes: Eyes: Denies blurry vision ENT: Denies headache(s), Denies lip swelling and Denies nasal discharge Cardiovascular: Cardiovascular: Denies chest pain and Reports lightheadedness Respiratory: Respiratory: Denies cough Gastrointestinal: Gastrointestinal: Denies abdominal pain and Denies diarrhea Genitourinary: Genitourinary: Denies dysuria Musculoskeletal: Musculoskeletal: Denies back pain Integumentary/Breasts: Skin/Breast: Denies rash Neurologic: Denies headache(s) Psychiatric: Psychiatric: Denies anxiety Endocrine: Endocrine: Reports fatigue Hematologic/Lymphatic: Hematologic/Lymphatic: Denies easy bleeding Allergic/Immunologic: Allergic/Immunologic: Denies lip swelling Exam Const: General: no acute distress HENMT: Face/Nose/Sinus: no epistaxis Eyes: Sclera: sclerae normal Neck: Thyroid: thyroid normal Resp: Effort & Inspection: normal respiratory effort Cardio: Heart sounds: Murmur heart sound present : Speculum Exam - Cervix: nontender Bimanual exam- vagina & uterus: No Cervical tenderness present Skin: General skin exam: no rashes or lesions noted and no erythema Other: left chest wall incision dressing present and D/I. No hematoma noted. Neuro: Speech: normal speech Extrem: General: no edema Psych: Mental Status: mental status grossly normal Objective Data Vital Signs Vital Signs: Vital Signs - 24 hr 09/14/25 10:15 09/14/25 10:15 09/14/25 10:30 Temperature Pulse Rate 90 90 74 Respiratory Rate 16 16 16 Blood Pressure 145/72 H 145/72 H 152/72 H Pulse Oximetry 97 97 97 Oxygen Delivery Room Air Room Air Room Air 09/14/25 10:30 09/14/25 10:45 09/14/25 10:45 Temperature Pulse Rate 74 81 81 Respiratory Rate 16 18 18 Blood Pressure 152/72 H 161/128 H 161/128 H Pulse Oximetry 97 97 97 Oxygen Delivery Room Air 09/14/25 11:00 09/14/25 11:00 09/14/25 11:19 Temperature 37.3 C Pulse Rate 72 72 77 Respiratory Rate 16 16 18 Blood Pressure 130/75 130/75 139/79 Pulse Oximetry 98 98 97 Oxygen Delivery Room Air 09/14/25 12:00 09/14/25 12:00 09/14/25 14:00 Temperature Pulse Rate 83 79 Respiratory Rate Blood Pressure Pulse Oximetry Oxygen Delivery Room Air 09/14/25 16:00 09/14/25 16:00 09/14/25 16:00 Temperature 36.9 C Pulse Rate 92 87 Respiratory Rate 18 Blood Pressure 130/66 Pulse Oximetry 97 Oxygen Delivery Room Air 09/14/25 18:00 09/14/25 19:42 09/14/25 20:00 Temperature Pulse Rate 99 83 Respiratory Rate Blood Pressure Pulse Oximetry Oxygen Delivery Room Air 09/14/25 20:17 09/14/25 22:04 09/14/25 23:55 Temperature 36.9 C 37.0 C Pulse Rate 86 76 73 Respiratory Rate 14 16 Blood Pressure 109/45 L 106/47 L Pulse Oximetry 95 95 Oxygen Delivery 09/15/25 00:00 09/15/25 00:00 09/15/25 02:00 Temperature Pulse Rate 72 74 Respiratory Rate Blood Pressure Pulse Oximetry Oxygen Delivery Room Air 09/15/25 04:00 09/15/25 04:00 09/15/25 04:21 Temperature 37.1 C Pulse Rate 69 76 Respiratory Rate 16 Blood Pressure 120/49 L Pulse Oximetry 95 Oxygen Delivery Room Air 09/15/25 05:46 09/15/25 07:52 Temperature 36.7 C Pulse Rate 68 87 Respiratory Rate 16 Blood Pressure 105/57 L Pulse Oximetry 98 Oxygen Delivery Intake/Output Intake/Output: Intake & Output 09/12/25 09/13/25 09/14/25 09/15/25 23:59 23:59 23:59 23:59 Intake Total 22.6 1040.1 690 Output Total 1175 1250 Balance 22.6 -134.9 -560 Meds/Results Medications: Active Medications Generic Name Dose Route Start Last Admin Trade Name Freq PRN Reason Stop Dose Admin Acetaminophen 650 mg 09/14/25 00:40 09/14/25 16:32 Acetaminophen 325 Mg Tablet PO 650 mg Q4H PRN Administration Mild Pain (1-3) or Fever Calcium Carbonate 200 mg 09/14/25 13:34 09/14/25 13:46 Calcium Carbonate (Tums) 500 Mg (200 Mg Elemental) PO 200 mg Q6H PRN Administration Indigestion Cyanocobalamin 500 mcg 09/16/25 09:00 Cyanocobalamin 500 Mcg Tablet PO TuFr@0900 [facility] Cyanocobalamin 2,000 mcg 09/16/25 09:00 Cyanocobalamin 1,000 Mcg Tablet PO TuFr@0900 [facility] Cyclosporine 75 mg 09/14/25 09:00 09/15/25 08:45 Cyclosporine (Neoral) 25 Mg Capsule PO 75 mg DAILY [facility] Administration Enoxaparin Sodium 40 mg 09/14/25 09:00 09/14/25 12:05 Enoxaparin 40 Mg/0.4 Ml Syringe SUB-Q Not Given DAILY [facility] Ergocalciferol 1,250 mcg 09/17/25 09:00 Ergocalciferol (Vitamin D2) 1,250 Mcg (50,000 Units) Capsule PO MONTHLY [facility] Fish Oil 1 gm 09/14/25 09:00 09/14/25 12:26 [place] 3 Polyunsat Fatty Acids 1 Gm Cap PO Not Given DAILY [facility] Fluticasone Propionate 1 spray 09/13/25 22:39 Fluticasone Propionate 0.05% Na Spr 16 Gm Btl (*Bkc) NASAL DAILY PRN Congestion Folic Acid 1 mg 09/14/25 09:00 09/15/25 08:47 Folic Acid 1 Mg Tablet PO 1 mg DAILY ALISON Administration Furosemide 20 mg 09/14/25 09:00 09/14/25 12:26 Furosemide 20 Mg Tablet [facility] Lisinopril 10 mg 09/14/25 09:00 09/14/25 12:14 Lisinopril 10 Mg Tablet PO 10 mg DAILY ALISON Administration Mycophenolate Mofetil 500 mg 09/13/25 22:55 09/15/25 08:45 Mycophenolate Mofetil 250 Mg Capsule PO 500 mg Q12HR ALISON Administration Pantoprazole Sodium 40 mg 09/14/25 09:00 09/15/25 08:50 Pantoprazole 40 Mg Tablet PO 40 mg QAM ALISON Administration Potassium Chloride 20 meq 09/14/25 08:00 09/15/25 08:48 Potassium Chloride 20 Meq Er Tablet PO 20 meq DAILY@0800 ALISON Administration Prednisone 5 mg 09/14/25 08:00 09/15/25 08:46 Prednisone 5 Mg Tablet PO 5 mg DAILY@0800 ALISON Administration Valacyclovir HCl 500 mg 09/14/25 09:00 09/15/25 08:46 Valacyclovir Hcl 500 Mg Tablet PO 500 mg DAILY ALISON Administration Radiology Results: ITS Impressions Ankle X-Ray 09/14/25 08:15 Impression: 1: No acute bone or joint abnormality. Chest X-Ray 09/14/25 10:42 IMPRESSION: 1. New dual-lead cardiac pacemaker in expected position with no acute cardiopulmonary disease. 2. Chronic right basilar atelectasis/scarring along side a moderate-sized retrocardiac hiatal hernia. 3. Large coarse calcification at the left breast. Correlate with mammography. Labs Labs: Laboratory Results - last 24 hr 09/15/25 03:35 WBC 7.6 RBC 3.54 L Hgb 12.1 Hct 35.8 L MCV 101.1 H MCH 34.2 H MCHC 33.8 RDW 13.2 Plt Count 179 MPV 9.6 Sodium 134 L Potassium 4.4 Chloride 105 Carbon Dioxide 21 L Anion Gap 8 BUN 19 H Creatinine 0.71 Estim Creat Clear Calc Not Reportable Estimated GFR > 60 Glucose 105 Calcium 8.5 Magnesium 2.0 Total Bilirubin 1.3 AST 41 H ALT 52 H Alkaline Phosphatase 73 Total Protein 6.4 Albumin 3.5
--- NOTE | 2025-09-15 15:18 | P.PNIM_ITS ---
Progress Note: A&P Assessment and Plan (1) Sick sinus syndrome: Code(s): I49.5 - Sick sinus syndrome Status: Acute (2) Aortic stenosis: Qualifiers: Cardiac valve disease etiology: nonrheumatic Qualified Code(s): I35.0 - Nonrheumatic aortic (valve) stenosis Code(s): I35.0 - Nonrheumatic aortic (valve) stenosis Status: Acute (3) Diastolic dysfunction: Code(s): I51.89 - Other ill-defined heart diseases Status: Acute (4) Hypomagnesemia: Code(s): E83.42 - Hypomagnesemia Status: Acute (5) Transaminitis: Code(s): R74.01 - Elevation of levels of liver transaminase levels Status: Acute (6) History of renal transplant: Onset Date: 1995 Code(s): Z94.0 - Kidney transplant status Status: Chronic (7) Immunosuppression due to drug therapy: Code(s): D84.821 - Immunodeficiency due to drugs; Z79.899 - Other shelter (current) drug therapy Status: Chronic Plan Patient presents with sick sinus syndrome with symptomatic pauses. Frequency of pauses increased in the ER patient required initiation of rhythm agents with dopamine. Cardiology has been consulted. Will place pacer pads on the patient in case external pacing needed. Patient is not on any rhythm medications that would induce cardiac arrhythmia. Electrolytes are stable but magnesium is slightly low at 1.6. Will give 2 g magnesium sulfate rider. The patient does have mild transaminitis with elevated AST ALT and bilirubin likely due to relative hypoperfusion with episodes of sinus pause creating low-flow state. Will repeat CMP in a.m.. Toxicity from immunosuppressive therapy much less likely. Patient does have history of renal transplant in the but renal function is great. Will continue anti-rejection medications. Will monitor strict I&O's. Patient does have diastolic dysfunction and aortic stenosis as well as moderate tricuspid regurg but is not in overt heart failure. Patient appears euvolemic. Will continue home Lasix. As mentioned above the patient's condition changed at around 03:00 the. She began having multiple prolonged and/or symptomatic pauses. Her rhythm was flipping between sinus rhythm with frequent premature contractions to third- degree heart block and secondary use of block type 2. Just before initiation of external pacing the patient flipped into AFib but still was only having heart rates as between 30 and 50 with symptomatology. Patient was requiring appy age of 71 maintain capture. The patient was given fentanyl and Versed as needed for pain/sedation. Medication adjustments were made as discussed above. Due to persistence of symptoms visitor services specialist is coming in to place a temporary pacemaker. Patient reiterates that she is okay with medications to keep her heart rate going. She otherwise wants to be a DNR/DNI. But she understands that she would have to rescind her DNR/DNI for placement of a cardiac pacemaker. She understands that she would need to do this in order to have a chance to return home with a functional status.. She is still active and independent activities of daily living despite her age. She states that if she were to have a stroke or being able to feed herself she would not want feeding tube and if she was unable to otherwise communicate her wants her desires she would want to be made comfort measures. She states that she is alone in the world she is has no children and has no remaining family. 81 y/o female presented to ER with syncopal episodes and was found to having long asystolic pauses with complete heart block occurring intermittently. patient was seen by the basket bottom machine operator and had temporary pacemaker placed and later permanent pace maker placed, patient stats feels better has no complaints of dizziness or palpitation, patient will be seen by her basket bottom machine operator and further recommendation to follow. today repeat chest x-ray did not show in pneumothorax, seen by basket bottom machine operator and pacemaker is functioning fine, however patient felt dizzy and her lisinopril was reduce 5mg and monitor, patient has c/o pain in her right foot and ankle to further evaluate patient had x-ray of the foot and ankle it did not show any acute bony injury most likely patient may have sprain her ankle, will have PT/OT the patient will benefit going to acute rehab, will monitor, Subjective Date/time seen: 09/15/25 15:18 Interval history: Lightheaded, history of to recent episodes of passing this week H&P-Narrative: 80-year-old female with a past medical history of kidney transplant over 20 years ago with good preserved renal function, GERD, mild to moderate aortic valve stenosis, moderate tricuspid regurgitation and diastolic heart failure on low-dose Lasix who presented to the ER via EMS from home due syncopal episodes. The patient reported that about 10 days ago she had 2 syncopal episodes. She was standing and making dinner when she lost consciousness and woke up on the floor with a small lack to the back of her head. She did not come in for evaluation. Later that same day she was sitting at the kitchen table and had another syncopal episode and found herself on the floor. Before each episode she felt of rushing sensation and ?Saw the light?. She thought that these symptoms were due to receiving her COVID and flu shot that same day. Then on Friday (7 days later) she had similar episode of syncope at which time she fell to the floor and twisted her ankle resulting in a large bruise to her ankle. T he patient reports having episodes of feeling ?waves? and a ?rushing sensation? with fullness in her head. She has been lightheaded and then see slight prior to having her syncopal episodes. She had 2 such episodes today which resulted in her calling EMS. She denies any chest pain or shortness breath. EMS noted that the patient had a sinus pause on their monitor. When the patient arrived to the ER her blood pressures were stable and her heart rate was normal but she proceeded to have multiple episodes of the non conduction of ventricular beats with pauses lasting up to 4 seconds that were symptomatic. Her blood pressures did stay stable despite these pauses. The patient was admitted to the ICU on a dopamine drip at 5. Initially the patient's heart rate for was controlled for the most part. But then around 02:50 the patient had a episode of 12-16 second pause in ventricular conducted beats. She reported that she was straining to urinate with the pure wick catheter at the time. The patient still had atrial beats at about the 12nd mac she had a PVC and at the 12nd mac she went back into a bradycardic rhythm. At that time her rhythm appeared to be third-degree heart block. She then flipped between third-degree heart block and second- degree are block type 2. Patient's dopamine was increased up to 7.5 mg. Patient continued to have variable heart rate with drop in her heart rate down into in the 40s and 50s. She was not symptomatic initially for the 1st 15 or 20 minutes of this and we are hopeful that the increased dopamine would help. But unfortunately the patient began having recurrent episodes that were symptomatic. Subsequently we had to start externally pacing the patient. We had to titrate her amp edge up to 70 in order to achieve capture. Dr. Rosen was contacted and recommended increasing the patient's dopamine up to 10 and when that did not work the patient received 1 amp of atropine with no improvement. She was still having episodes of external pacing up to 3-4 times a minute. Her rhythm at that time was AFib. 81 y/o female presented to ER with syncopal episodes and was found to having long asystolic pauses with complete heart block occurring intermittently. patient was seen by the basket bottom machine operator and had temporary pacemaker placed and later permanent pace maker placed, patient stats feels better has no complaints of dizziness or palpitation, patient will be seen by her basket bottom machine operator and further recommendation to follow. today repeat chest x-ray did not show in pneumothorax, seen by basket bottom machine operator and pacemaker is functioning fine, however patient felt dizzy and her lisinopril was reduce 5mg and monitor, patient has c/o pain in her right foot and ankle to further evaluate patient had x-ray of the foot and ankle it did not show any acute bony injury most likely patient may have sprain her ankle, will have PT/OT the patient will benefit going to acute rehab, will monitor, Review of Systems Review of Systems: 12 systems were reviewed with pertinent positives and negatives per HPI. Except as documented in the HPI, all other systems were reviewed and are negative. All systems reviewed & are unremarkable except as noted in HPI and below (HPI) Exam Narrative: Patient is comfortable, NAD HEENT: eyes are clear and none icteric LUNGS:CTA HEART: RR S1S2 ABD: BS+, Soft and nontender Lower extremities: no edema SKIN: nonjaundiced Neuro: grossly intact. Objective Data Vital Signs Vital Signs: Vital Signs - 24 hr 09/14/25 16:00 09/14/25 16:00 09/14/25 16:00 Temperature 36.9 C Pulse Rate 92 87 Respiratory Rate 18 Blood Pressure 130/66 Pulse Oximetry 97 Oxygen Delivery Room Air 09/14/25 18:00 09/14/25 19:42 09/14/25 20:00 Temperature Pulse Rate 99 83 Respiratory Rate Blood Pressure Pulse Oximetry Oxygen Delivery Room Air 09/14/25 20:17 09/14/25 22:04 09/14/25 23:55 Temperature 36.9 C 37.0 C Pulse Rate 86 76 73 Respiratory Rate 14 16 Blood Pressure 109/45 L 106/47 L Pulse Oximetry 95 95 Oxygen Delivery 09/15/25 00:00 09/15/25 00:00 09/15/25 02:00 Temperature Pulse Rate 72 74 Respiratory Rate Blood Pressure Pulse Oximetry Oxygen Delivery Room Air 09/15/25 04:00 09/15/25 04:00 09/15/25 04:21 Temperature 37.1 C Pulse Rate 69 76 Respiratory Rate 16 Blood Pressure 120/49 L Pulse Oximetry 95 Oxygen Delivery Room Air 09/15/25 05:46 09/15/25 07:52 09/15/25 10:00 Temperature 36.7 C Pulse Rate 68 87 85 Respiratory Rate 16 Blood Pressure 105/57 L Pulse Oximetry 98 Oxygen Delivery 09/15/25 10:31 09/15/25 10:31 09/15/25 10:31 Temperature Pulse Rate Respiratory Rate Blood Pressure 119/64 126/64 114/73 Pulse Oximetry Oxygen Delivery 09/15/25 11:41 09/15/25 12:44 Temperature 36.8 C Pulse Rate 87 Respiratory Rate 20 Blood Pressure 131/63 Pulse Oximetry 97 Oxygen Delivery Room Air Intake/Output Intake/Output: Intake & Output 09/12/25 09/13/25 09/14/25 09/15/25 23:59 23:59 23:59 23:59 Intake Total 22.6 1040.1 810 Output Total 1175 1900 Balance 22.6 -134.9 -1090 Meds/Results Medications: Active Medications Generic Name Dose Route Start Last Admin Trade Name Freq PRN Reason Stop Dose Admin Acetaminophen 650 mg 09/14/25 00:40 09/14/25 16:32 Acetaminophen 325 Mg Tablet PO 650 mg Q4H PRN Administration Mild Pain (1-3) or Fever Calcium Carbonate 200 mg 09/14/25 13:34 09/14/25 13:46 Calcium Carbonate (Tums) 500 Mg (200 Mg Elemental) PO 200 mg Q6H PRN Administration Indigestion Cyanocobalamin 500 mcg 09/16/25 09:00 Cyanocobalamin 500 Mcg Tablet PO TuFr@0900 [facility] Cyanocobalamin 2,000 mcg 09/16/25 09:00 Cyanocobalamin 1,000 Mcg Tablet PO TuFr@0900 [facility] Cyclosporine 75 mg 09/14/25 09:00 09/15/25 08:45 Cyclosporine (Neoral) 25 Mg Capsule PO 75 mg DAILY [facility] Administration Enoxaparin Sodium 40 mg 09/14/25 09:00 09/15/25 11:38 Enoxaparin 40 Mg/0.4 Ml Syringe SUB-Q Not Given DAILY [facility] Ergocalciferol 1,250 mcg 09/17/25 09:00 Ergocalciferol (Vitamin D2) 1,250 Mcg (50,000 Units) Capsule PO MONTHLY [facility] Fish Oil 1 gm 09/14/25 09:00 09/15/25 11:[address] 3 Polyunsat Fatty Acids 1 Gm Cap PO Not Given DAILY [facility] Fluticasone Propionate 1 spray 09/13/25 22:39 Fluticasone Propionate 0.05% Na Spr 16 Gm Btl (*Bkc) NASAL DAILY PRN Congestion Folic Acid 1 mg 09/14/25 09:00 09/15/25 08:47 Folic Acid 1 Mg Tablet PO 1 mg DAILY [facility] Administration Furosemide 20 mg 09/14/25 09:00 09/15/25 11:38 Furosemide 20 Mg Tablet PO Not Given QAM [facility] Lisinopril 5 mg 09/16/25 09:00 Lisinopril 5 Mg Tablet PO DAILY [facility] Mycophenolate Mofetil 500 mg 09/13/25 22:55 09/15/25 08:45 Mycophenolate Mofetil 250 Mg Capsule PO 500 mg Q12HR [facility] Administration Pantoprazole Sodium 40 mg 09/14/25 09:00 09/15/25 08:50 Pantoprazole 40 Mg Tablet PO 40 mg QAM [facility] Administration Potassium Chloride 20 meq 09/14/25 08:00 09/15/25 08:48 Potassium Chloride 20 Meq Er Tablet PO 20 meq DAILY@0800 [facility] Administration Prednisone 5 mg 09/14/25 08:00 09/15/25 08:46 Prednisone 5 Mg Tablet PO 5 mg DAILY@0800 [facility] Administration Valacyclovir HCl 500 mg 09/14/25 09:00 09/15/25 08:46 Valacyclovir Hcl 500 Mg Tablet PO 500 mg DAILY [facility] Administration Radiology Results: ITS Impressions Ankle X-Ray 09/14/25 08:15 Impression: 1: No acute bone or joint abnormality. Chest X-Ray 09/15/25 10:47 IMPRESSION: No acute findings. Foot X-Ray 09/15/25 13:41 IMPRESSION: No acute abnormalities are seen. Labs Labs: Laboratory Results - last 24 hr 09/15/25 03:35 WBC 7.6 RBC 3.54 L Hgb 12.1 Hct 35.8 L MCV 101.1 H MCH 34.2 H MCHC 33.8 RDW 13.2 Plt Count 179 MPV 9.6 Sodium 134 L Potassium 4.4 Chloride 105 Carbon Dioxide 21 L Anion Gap 8 BUN 19 H Creatinine 0.71 Estim Creat Clear Calc Not Reportable Estimated GFR > 60 Glucose 105 Calcium 8.5 Magnesium 2.0 Total Bilirubin 1.3 AST 41 H ALT 52 H Alkaline Phosphatase 73 Total Protein 6.4 Albumin 3.5 Quality VTE Prophylaxis VTE prophylaxis: pharmacologic ordered (Lovenox 40 mg)
[2025-09-16] VITALS (17 sets, daily range): BP systolic 96–147; BP diastolic 53–62; PULSE 74–87; RESP 16–20; TEMP 36.5–36.9; O2SAT 95–99
[2025-09-16 04:18] LABS: Hematocrit 33.4 % (37.0-47.0); Hemoglobin 11.3 g/dL (12.0-15.0); Mean Corpuscular HGB Conc 33.8 g/dl (32-36); Mean Corpuscular Hemoglobin 34.5 pg (26-34); Mean Corpuscular Volume 101.8 fl (80-100); Platelet Count Result 186 k/mm3 (150-375); Red Blood Count 3.28 M/mm3 (4.2-5.4); White Blood Count 6.9 K/mm3 (4.5-10.0)
[2025-09-16 04:47] LABS: Alanine Aminotransferase 35 U/L (6-35); Albumin Level 3.5 g/dL (3.5-5.1); Alkaline Phosphatase 79 U/L (38-126); Anion Gap 7 mmol/L (4-12); Aspartate Amino Transferase 31 U/L (14-36); Bilirubin,Total 0.8 mg/dL (0.2-1.3); Blood Urea Nitrogen 25 mg/dL (7-17); Calcium 8.2 mg/dL (8.4-10.2); Carbon Dioxide 22 mmol/L (22-30); Chloride 106 mmol/L (98-107); Estimated Glomerular Filt Rate > 60; Glucose 103 mg/dL (65-110); Magnesium 1.8 mg/dL (1.6-2.3); Potassium 4.1 mmol/L (3.4-5.0); Sodium 135 mmol/L (137-145); Total Protein 6.2 g/dL (6.3-8.2)
[2025-09-16] MEDS: cycloSPORINE (NEORAL) 25 MG CAPSULE 75 MG PO (08:49)
[2025-09-16] MEDS: PANTOPRAZOLE 40 MG TABLET PO (08:54)
[2025-09-16] MEDS: POTASSIUM CHLORIDE 20 MEQ ER TABLET PO (08:57)
[2025-09-16] MEDS: FOLIC ACID 1 MG TABLET PO (08:57)
[2025-09-16] MEDS: CYANOCOBALAMIN 1,000 MCG TABLET 2000 MCG PO (09:05)
[2025-09-16] MEDS: CYANOCOBALAMIN 500 MCG TABLET PO (09:05)
--- NOTE | 2025-09-16 09:46 | P.PNCA_ITS ---
Progress Note: A&P Assessment and Plan (1) Sinus arrest: Code(s): I45.5 - Other specified heart block Status: Acute Assessment and Plan: * she is s/p PPM * device with normal function * CXR without pneumothorax and leads in place * one week follow up in office. (2) Hypertension: Qualifiers: Hypertension type: essential hypertension Qualified Code(s): I10 - Essential (primary) hypertension Code(s): I10 - Essential (primary) hypertension Status: Chronic Assessment and Plan: * she reports feeling light headed better this am * mild drop in BP on orthostatic VS check * would continue to use lasix on prn basis * continue lisinopril at decreased dose of 5 mg daily Plan stable for dc from CV standpoint will see as needed. Subjective Date/time seen: 09/16/25 09:46 Interval history: Date of Service 09/15/25: Patient is sitting up in bed. States feels a little light headed today. No chest pain or shortness of breath. Date of Service 09/16/25: Patient sitting up in bed, feeling better this am. She denies any chest pain or shortness of breath. She reports feeling less light headed. Review of Systems Review of Systems: All systems reviewed & are unremarkable except as noted in HPI and below Exam Const: General: comfortable and no acute distress Neck: Neck: supple and No no JVD Resp: Effort & Inspection: normal respiratory effort Auscultation: clear to auscultation bilaterally Cardio: Rate: regular rate Rhythm: regular rhythm Heart sounds: no gallops, no murmurs and no rubs Other: Lt chest wall pacer site dressing intact Skin: General skin exam: normal color Neuro: Speech: normal speech Extrem: General: normal to inspection Psych: Mental Status: mental status grossly normal Objective Data Vital Signs Vital Signs: Vital Signs - 24 hr 09/15/25 10:00 09/15/25 10:31 09/15/25 10:31 Temperature Pulse Rate 85 Respiratory Rate Blood Pressure 119/64 126/64 Pulse Oximetry Oxygen Delivery 09/15/25 10:09/15/25 11:41 09/15/25 12:00 Temperature 36.8 C Pulse Rate 87 84 Respiratory Rate 20 Blood Pressure 114/73 131/63 Pulse Oximetry 97 Oxygen Delivery 09/15/25 12:44 09/15/25 13:00 09/15/25 14:00 Temperature Pulse Rate 80 Respiratory Rate Blood Pressure Pulse Oximetry Oxygen Delivery Room Air Room Air 09/15/25 16:00 09/15/25 16:30 09/15/25 18:00 Temperature 36.8 C Pulse Rate 84 84 78 Respiratory Rate 18 Blood Pressure 121/59 L Pulse Oximetry 99 Oxygen Delivery 09/15/25 19:53 09/15/25 20:00 09/15/25 20:00 Temperature 36.4 C Pulse Rate 81 80 Respiratory Rate 18 Blood Pressure 135/60 Pulse Oximetry 99 Oxygen Delivery Room Air 09/15/25 22:00 09/15/25 23:44 09/16/25 00:00 Temperature 36.4 C Pulse Rate 79 90 Respiratory Rate 17 Blood Pressure 117/50 L Pulse Oximetry 95 Oxygen Delivery Room Air 09/16/25 00:00 09/16/25 04:00 09/16/25 04:00 Temperature Pulse Rate 79 76 Respiratory Rate Blood Pressure Pulse Oximetry Oxygen Delivery Room Air 09/16/25 04:49 09/16/25 07:37 Temperature 36.5 C 36.6 C Pulse Rate 74 79 Respiratory Rate 16 18 Blood Pressure 147/57 H 114/62 Pulse Oximetry 98 98 Oxygen Delivery Intake/Output Intake/Output: Intake & Output 09/13/25 09/14/25 09/15/25 09/16/25 23:59 23:59 23:59 23:59 Intake Total 22.6 1040.1 1550 540 Output Total 1175 2200 700 Balance 22.6 -134.9 -650 -160 Meds/Results Medications: Active Medications Generic Name Dose Route Start Last Admin Trade Name Jasonq PRN Reason Stop Dose Admin Acetaminophen 650 mg 09/14/25 00:40 09/14/25 16:32 Acetaminophen 325 Mg Tablet PO 650 mg Q4H PRN Administration Mild Pain (1-3) or Fever Calcium Carbonate 200 mg 09/14/25 13:34 09/14/25 13:46 Calcium Carbonate (Tums) 500 Mg (200 Mg Elemental) PO 200 mg Q6H PRN Administration Indigestion Cyanocobalamin 500 mcg 09/16/25 09:00 09/16/25 09:05 Cyanocobalamin 500 Mcg Tablet PO 500 mcg TuFr@0900 [facility] Administration Cyanocobalamin 2,000 mcg 09/16/25 09:00 09/16/25 09:05 Cyanocobalamin 1,000 Mcg Tablet PO 2,000 mcg TuFr@0900 [facility] Administration Cyclosporine 75 mg 09/14/25 09:00 09/16/25 08:49 Cyclosporine (Neoral) 25 Mg Capsule PO 75 mg DAILY [facility] Administration Enoxaparin Sodium 40 mg 09/14/25 09:00 09/16/25 08:58 Enoxaparin 40 Mg/0.4 Ml Syringe SUB-Q Not Given DAILY [facility] Ergocalciferol 1,250 mcg 09/17/25 09:00 Ergocalciferol (Vitamin D2) 1,250 Mcg (50,000 Units) Capsule PO MONTHLY [facility] Fish Oil 1 gm 09/14/25 09:00 09/16/25 08:56 [place] 3 Polyunsat Fatty Acids 1 Gm Cap PO Not Given DAILY [facility] Fluticasone Propionate 1 spray 09/13/25 22:39 Fluticasone Propionate 0.05% Na Spr 16 Gm Btl (*Bkc) NASAL DAILY PRN Congestion Folic Acid 1 mg 09/14/25 09:00 09/16/25 08:57 Folic Acid 1 Mg Tablet PO 1 mg DAILY [facility] Administration Furosemide 20 mg 09/14/25 09:00 09/16/25 08:55 Furosemide 20 Mg [facility] Lisinopril 5 mg 09/16/25 09:00 09/16/25 08:50 Lisinopril 5 Mg Tablet PO 5 mg DAILY [facility] Administration Mycophenolate Mofetil 500 mg 09/13/25 22:55 09/16/25 08:56 Mycophenolate Mofetil 250 Mg Capsule PO 500 mg Q12HR [facility] Administration Pantoprazole Sodium 40 mg 09/14/25 09:00 09/16/25 08:54 Pantoprazole 40 Mg Tablet PO 40 mg QAM [facility] Administration Potassium Chloride 20 meq 09/14/25 08:00 09/16/25 08:57 Potassium Chloride 20 Meq Er Tablet PO 20 meq DAILY@0800 [facility] Administration Prednisone 5 mg 09/14/25 08:00 09/16/25 08:55 Prednisone 5 Mg Tablet PO 5 mg DAILY@0800 [facility] Administration Valacyclovir HCl 500 mg 09/14/25 09:00 09/16/25 08:55 Valacyclovir Hcl 500 Mg Tablet PO 500 mg DAILY [facility] Administration Radiology Results: ITS Impressions Ankle X-Ray 09/14/25 08:15 Impression: 1: No acute bone or joint abnormality. Chest X-Ray 09/15/25 10:47 IMPRESSION: No acute findings. Foot X-Ray 09/15/25 13:41 IMPRESSION: No acute abnormalities are seen. Labs Labs: Laboratory Results - last 24 hr 09/16/25 03:52 WBC 6.9 RBC 3.28 L Hgb 11.3 L Hct 33.4 L MCV 101.8 H MCH 34.5 H MCHC 33.8 RDW 13.5 Plt Count 186 MPV 9.9 Sodium 135 L Potassium 4.1 Chloride 106 Carbon Dioxide 22 Anion Gap 7 BUN 25 H Creatinine 0.81 Estim Creat Clear Calc Not Reportable Estimated GFR > 60 Glucose 103 Calcium 8.2 L Magnesium 1.8 Total Bilirubin 0.8 AST 31 ALT 35 Alkaline Phosphatase 79 Total Protein 6.2 L Albumin 3.5
--- NOTE | 2025-09-16 14:28 | P.PNIM_ITS ---
Progress Note: A&P Assessment and Plan (1) Sick sinus syndrome: Code(s): I49.5 - Sick sinus syndrome Status: Acute (2) Aortic stenosis: Qualifiers: Cardiac valve disease etiology: nonrheumatic Qualified Code(s): I35.0 - Nonrheumatic aortic (valve) stenosis Code(s): I35.0 - Nonrheumatic aortic (valve) stenosis Status: Acute (3) Diastolic dysfunction: Code(s): I51.89 - Other ill-defined heart diseases Status: Acute (4) Hypomagnesemia: Code(s): E83.42 - Hypomagnesemia Status: Acute (5) Transaminitis: Code(s): R74.01 - Elevation of levels of liver transaminase levels Status: Acute (6) History of renal transplant: Onset Date: 1995 Code(s): Z94.0 - Kidney transplant status Status: Chronic (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 Frequency of pauses increased in the ER patient required initiation of rhythm agents with dopamine. Cardiology has been consulted. Will place pacer pads on the patient in case external pacing needed. Patient is not on any rhythm medications that would induce cardiac arrhythmia. Electrolytes are stable but magnesium is slightly low at 1.6. Will give 2 g magnesium sulfate rider. The patient does have mild transaminitis with elevated AST ALT and bilirubin likely due to relative hypoperfusion with episodes of sinus pause creating low-flow state. Will repeat CMP in a.m.. Toxicity from immunosuppressive therapy much less likely. Patient does have history of renal transplant in the but renal function is great. Will continue anti-rejection medications. Will monitor strict I&O's. Patient does have diastolic dysfunction and aortic stenosis as well as moderate tricuspid regurg but is not in overt heart failure. Patient appears euvolemic. Will continue home Lasix. As mentioned above the patient's condition changed at around 03:00 the. She began having multiple prolonged and/or symptomatic pauses. Her rhythm was flipping between sinus rhythm with frequent premature contractions to third- degree heart block and secondary use of block type 2. Just before initiation of external pacing the patient flipped into AFib but still was only having heart rates as between 30 and 50 with symptomatology. Patient was requiring appy age of 71 maintain capture. The patient was given fentanyl and Versed as needed for pain/sedation. Medication adjustments were made as discussed above. Due to persistence of symptoms global marketing operations manager is coming in to place a temporary pacemaker. Patient reiterates that she is okay with medications to keep her heart rate going. She otherwise wants to be a DNR/DNI. But she understands that she would have to rescind her DNR/DNI for placement of a cardiac pacemaker. She understands that she would need to do this in order to have a chance to return home with a functional status.. She is still active and independent activities of daily living despite her age. She states that if she were to have a stroke or being able to feed herself she would not want feeding tube and if she was unable to otherwise communicate her wants her desires she would want to be made comfort measures. She states that she is alone in the world she is has no children and has no remaining family. 81 y/o female presented to ER with syncopal episodes and was found to having long asystolic pauses with complete heart block occurring intermittently. patient was seen by the inside tester and had temporary pacemaker placed and later permanent pace maker placed, patient stats feels better has no complaints of dizziness or palpitation, patient will be seen by her inside tester and further recommendation to follow. today repeat chest x-ray did not show in pneumothorax, seen by inside tester and pacemaker is functioning fine, however patient felt dizzy and her lisinopril was reduce 5mg and monitor, patient has c/o pain in her right foot and ankle to further evaluate patient had x-ray of the foot and ankle it did not show any acute bony injury most likely patient may have sprain her ankle, will have PT/OT the patient will benefit going to acute rehab, will monitor, 09/16/2025 Cardio consult noted, no new episode today, will continue to monitor. Subjective Date/time seen: 09/16/25 14:28 Interval history: Patient was seen during the morning rounds today. Feeling ok, no sob or chest pain. Review of Systems Review of Systems: 12 systems were reviewed with pertinent positives and negatives per HPI. Except as documented in the HPI, all other systems were reviewed and are negative. All systems reviewed & are unremarkable except as noted in HPI and below (HPI) Exam Narrative: Patient is comfortable, NAD HEENT: eyes are clear and none icteric LUNGS:CTA HEART: RR S1S2 ABD: BS+, Soft and nontender Lower extremities: no edema SKIN: nonjaundiced Neuro: grossly intact. Objective Data Vital Signs Vital Signs: Vital Signs - 24 hr 09/15/25 16:00 09/15/25 16:30 09/15/25 18:00 Temperature 36.8 C Pulse Rate 84 84 78 Respiratory Rate 18 Blood Pressure 121/59 L Pulse Oximetry 99 Oxygen Delivery 09/15/25 19:53 09/15/25 20:00 09/15/25 20:00 Temperature 36.4 C Pulse Rate 81 80 Respiratory Rate 18 Blood Pressure 135/60 Pulse Oximetry 99 Oxygen Delivery Room Air 09/15/25 22:00 09/15/25 23:44 09/16/25 00:00 Temperature 36.4 C Pulse Rate 79 90 Respiratory Rate 17 Blood Pressure 117/50 L Pulse Oximetry 95 Oxygen Delivery Room Air 09/16/25 00:00 09/16/25 04:00 09/16/25 04:00 Temperature Pulse Rate 79 76 Respiratory Rate Blood Pressure Pulse Oximetry Oxygen Delivery Room Air 09/16/25 04:49 09/16/25 07:37 09/16/25 08:00 Temperature 36.5 C 36.6 C Pulse Rate 74 79 Respiratory Rate 16 18 Blood Pressure 147/57 H 114/62 Pulse Oximetry 98 98 Oxygen Delivery Room Air 09/16/25 08:00 09/16/25 09:00 09/16/25 10:00 Temperature Pulse Rate 81 81 82 Respiratory Rate Blood Pressure 117/53 L Pulse Oximetry Oxygen Delivery 09/16/25 11:53 09/16/25 12:30 Temperature 36.8 C Pulse Rate 75 Respiratory Rate 20 Blood Pressure 96/56 L Pulse Oximetry 99 Oxygen Delivery Room Air Intake/Output Intake/Output: Intake & Output 09/13/25 09/14/25 09/15/25 09/16/25 23:59 23:59 23:59 23:59 Intake Total 22.6 1040.1 1550 1030 Output Total 1175 2200 700 Balance 22.6 -134.9 -650 330 Meds/Results Medications: Active Medications Generic Name Dose Route Start Last Admin Trade Name Freq PRN Reason Stop Dose Admin Acetaminophen 650 mg 09/14/25 00:40 09/14/25 16:32 Acetaminophen 325 Mg Tablet PO 650 mg Q4H PRN Administration Mild Pain (1-3) or Fever Calcium Carbonate 200 mg 09/14/25 13:34 09/14/25 13:46 Calcium Carbonate (Tums) 500 Mg (200 Mg Elemental) PO 200 mg Q6H PRN Administration Indigestion Cyanocobalamin 500 mcg 09/16/25 09:00 09/16/25 09:05 Cyanocobalamin 500 Mcg Tablet PO 500 mcg TuFr@0900 ALISON Administration Cyanocobalamin 2,000 mcg 09/16/25 09:00 09/16/25 09:05 Cyanocobalamin 1,000 Mcg Tablet PO 2,000 mcg TuFr@0900 ALISON Administration Cyclosporine 75 mg 09/14/25 09:00 09/16/25 08:49 Cyclosporine (Neoral) 25 Mg Capsule PO 75 mg DAILY ALISON Administration Enoxaparin Sodium 40 mg 09/14/25 09:00 09/16/25 08:58 Enoxaparin 40 Mg/0.4 Ml Syringe SUB-Q Not Given DAILY [facility] Ergocalciferol 1,250 mcg 09/17/25 09:00 Ergocalciferol (Vitamin D2) 1,250 Mcg (50,000 Units) Capsule PO MONTHLY [facility] Fish Oil 1 gm 09/14/25 09:00 09/16/25 08:56 [place] 3 Polyunsat Fatty Acids 1 Gm Cap PO Not Given DAILY [facility] Fluticasone Propionate 1 spray 09/13/25 22:39 Fluticasone Propionate 0.05% Na Spr 16 Gm Btl (*Bkc) NASAL DAILY PRN Congestion Folic Acid 1 mg 09/14/25 09:00 09/16/25 08:57 Folic Acid 1 Mg Tablet PO 1 mg DAILY [facility] Administration Furosemide 20 mg 09/14/25 09:00 09/16/25 08:55 Furosemide 20 Mg Tablet PO Not Given QAM ALISON Mycophenolate Mofetil 500 mg 09/13/25 22:55 09/16/25 08:56 Mycophenolate Mofetil 250 Mg Capsule PO 500 mg Q12HR ALISON Administration Pantoprazole Sodium 40 mg 09/14/25 09:00 09/16/25 08:54 Pantoprazole 40 Mg Tablet PO 40 mg QAM ALISON Administration Potassium Chloride 20 meq 09/14/25 08:00 09/16/25 08:57 Potassium Chloride 20 Meq Er Tablet PO 20 meq DAILY@0800 ALISON Administration Prednisone 5 mg 09/14/25 08:00 09/16/25 08:55 Prednisone 5 Mg Tablet PO 5 mg DAILY@0800 ALISON Administration Valacyclovir HCl 500 mg 09/14/25 09:00 09/16/25 08:55 Valacyclovir Hcl 500 Mg Tablet PO 500 mg DAILY ALISON Administration Radiology Results: ITS Impressions Ankle X-Ray 09/14/25 08:15 Impression: 1: No acute bone or joint abnormality. Chest X-Ray 09/15/25 10:47 IMPRESSION: No acute findings. Foot X-Ray 09/15/25 13:41 IMPRESSION: No acute abnormalities are seen. Labs Labs: Laboratory Results - last 24 hr 09/16/25 03:52 WBC 6.9 RBC 3.28 L Hgb 11.3 L Hct 33.4 L MCV 101.8 H MCH 34.5 H MCHC 33.8 RDW 13.5 Plt Count 186 MPV 9.9 Sodium 135 L Potassium 4.1 Chloride 106 Carbon Dioxide 22 Anion Gap 7 BUN 25 H Creatinine 0.81 Estim Creat Clear Calc Not Reportable Estimated GFR > 60 Glucose 103 Calcium 8.2 L Magnesium 1.8 Total Bilirubin 0.8 AST 31 ALT 35 Alkaline Phosphatase 79 Total Protein 6.2 L Albumin 3.5 Quality VTE Prophylaxis VTE prophylaxis: pharmacologic ordered (Lovenox 40 mg)
[2025-09-17] VITALS (17 sets, daily range): BP systolic 112–157; BP diastolic 50–73; PULSE 72–94; RESP 16–20; TEMP 36.7–37; O2SAT 96–98
[2025-09-17 05:03] LABS: Hematocrit 33.3 % (37.0-47.0); Hemoglobin 11.1 g/dL (12.0-15.0); Mean Corpuscular HGB Conc 33.3 g/dl (32-36); Mean Corpuscular Hemoglobin 34.0 pg (26-34); Mean Corpuscular Volume 102.1 fl (80-100); Platelet Count Result 197 k/mm3 (150-375); Red Blood Count 3.26 M/mm3 (4.2-5.4); White Blood Count 6.4 K/mm3 (4.5-10.0)
[2025-09-17 05:36] LABS: Alanine Aminotransferase 29 U/L (6-35); Albumin Level 3.6 g/dL (3.5-5.1); Alkaline Phosphatase 77 U/L (38-126); Anion Gap 6 mmol/L (4-12); Aspartate Amino Transferase 31 U/L (14-36); Bilirubin,Total 1.0 mg/dL (0.2-1.3); Blood Urea Nitrogen 22 mg/dL (7-17); Calcium 8.2 mg/dL (8.4-10.2); Carbon Dioxide 23 mmol/L (22-30); Chloride 108 mmol/L (98-107); Estimated Glomerular Filt Rate > 60; Glucose 105 mg/dL (65-110); Magnesium 1.8 mg/dL (1.6-2.3); Potassium 3.8 mmol/L (3.4-5.0); Sodium 137 mmol/L (137-145); Total Protein 6.2 g/dL (6.3-8.2)
[2025-09-17] MEDS: PANTOPRAZOLE 40 MG TABLET PO (09:06)
[2025-09-17] MEDS: FOLIC ACID 1 MG TABLET PO (09:06)
[2025-09-17] MEDS: ERGOCALCIFEROL (VITAMIN D2) 1,250 MCG (50,000 UNITS) CAPSULE 1250 MCG PO (09:07)
[2025-09-17] MEDS: cycloSPORINE (NEORAL) 25 MG CAPSULE 75 MG PO (09:07)
[2025-09-17] MEDS: POTASSIUM CHLORIDE 20 MEQ ER TABLET PO (09:07)
--- NOTE | 2025-09-17 10:20 | PM.IMPN ---
Progress Note: A&P Assessment and Plan (1) Sick sinus syndrome: Code(s): I49.5 - Sick sinus syndrome Status: Acute (2) Aortic stenosis: Qualifiers: Cardiac valve disease etiology: nonrheumatic Qualified Code(s): I35.0 - Nonrheumatic aortic (valve) stenosis Code(s): I35.0 - Nonrheumatic aortic (valve) stenosis Status: Acute (3) Diastolic dysfunction: Code(s): I51.89 - Other ill-defined heart diseases Status: Acute (4) Hypomagnesemia: Code(s): E83.42 - Hypomagnesemia Status: Acute (5) Transaminitis: Code(s): R74.01 - Elevation of levels of liver transaminase levels Status: Acute (6) History of renal transplant: Onset Date: 1995 Code(s): Z94.0 - Kidney transplant status Status: Chronic (7) Immunosuppression due to drug therapy: Code(s): D84.821 - Immunodeficiency due to drugs; Z79.899 - Other jail (current) drug therapy Status: Chronic Plan Patient presents with sick sinus syndrome with symptomatic pauses. Frequency of pauses increased in the ER patient required initiation of rhythm agents with dopamine. Cardiology has been consulted. Will place pacer pads on the patient in case external pacing needed. Patient is not on any rhythm medications that would induce cardiac arrhythmia. Electrolytes are stable but magnesium is slightly low at 1.6. Will give 2 g magnesium sulfate rider. The patient does have mild transaminitis with elevated AST ALT and bilirubin likely due to relative hypoperfusion with episodes of sinus pause creating low-flow state. Will repeat CMP in a.m.. Toxicity from immunosuppressive therapy much less likely. Patient does have history of renal transplant in the but renal function is great. Will continue anti-rejection medications. Will monitor strict I&O's. Patient does have diastolic dysfunction and aortic stenosis as well as moderate tricuspid regurg but is not in overt heart failure. Patient appears euvolemic. Will continue home Lasix. As mentioned above the patient's condition changed at around 03:00 the. She began having multiple prolonged and/or symptomatic pauses. Her rhythm was flipping between sinus rhythm with frequent premature contractions to third-degree heart block and secondary use of block type 2. Just before initiation of external pacing the patient flipped into AFib but still was only having heart rates as between 30 and 50 with symptomatology. Patient was requiring appy age of 71 maintain capture. The patient was given fentanyl and Versed as needed for pain/sedation. Medication adjustments were made as discussed above. Due to persistence of symptoms paper tube cutter is coming in to place a temporary pacemaker. Patient reiterates that she is okay with medications to keep her heart rate going. She otherwise wants to be a DNR/DNI. But she understands that she would have to rescind her DNR/DNI for placement of a cardiac pacemaker. She understands that she would need to do this in order to have a chance to return home with a functional status.. She is still active and independent activities of daily living despite her age. She states that if she were to have a stroke or being able to feed herself she would not want feeding tube and if she was unable to otherwise communicate her wants her desires she would want to be made comfort measures. She states that she is alone in the world she is has no children and has no remaining family. 81 y/o female presented to ER with syncopal episodes and was found to having long asystolic pauses with complete heart block occurring intermittently. patient was seen by the biological photographer and had temporary pacemaker placed and later permanent pace maker placed, patient stats feels better has no complaints of dizziness or palpitation, patient will be seen by her biological photographer and further recommendation to follow. today repeat chest x-ray did not show in pneumothorax, seen by biological photographer and pacemaker is functioning fine, however patient felt dizzy and her lisinopril was reduce 5mg and monitor, patient has c/o pain in her right foot and ankle to further evaluate patient had x-ray of the foot and ankle it did not show any acute bony injury most likely patient may have sprain her ankle, will have PT/OT the patient will benefit going to acute rehab, will monitor, 09/16/2025 Cardio consult noted, no new episode today, will continue to monitor. 09/17/2025 Cardiology consult noted. Plan is to continue current treatment and monitor closely. Subjective Date/time seen: 09/17/25 10:20 Interval history: Patient was seen during the morning rounds today. No new overnight complaints Feeling ok, no sob or chest pain. Review of Systems Review of Systems: 12 systems were reviewed with pertinent positives and negatives per HPI. Except as documented in the HPI, all other systems were reviewed and are negative. All systems reviewed & are unremarkable except as noted in HPI and below (HPI) Objective Data Vital Signs Vital Signs: Vital Signs - 24 hr 09/16/25 11:53 09/16/25 12:30 09/16/25 16:00 Temperature 36.8 C 36.9 C Pulse Rate 75 79 Respiratory Rate 20 18 Blood Pressure 96/56 L 122/58 L Pulse Oximetry 99 97 Oxygen Delivery Room Air 09/16/25 16:00 09/16/25 16:00 09/16/25 18:00 Temperature Pulse Rate 86 87 Respiratory Rate Blood Pressure Pulse Oximetry Oxygen Delivery Room Air 09/16/25 19:45 09/16/25 20:00 09/16/25 20:10 Temperature 36.7 C Pulse Rate 76 83 76 Respiratory Rate 18 18 Blood Pressure 143/59 H Pulse Oximetry 95 95 Oxygen Delivery Room Air 09/16/25 21:36 09/16/25 22:00 09/16/25 23:33 Temperature 36.8 C Pulse Rate 80 83 Respiratory Rate 18 Blood Pressure 117/57 L Pulse Oximetry 97 97 Oxygen Delivery Room Air 09/16/25 23:42 09/17/25 00:00 09/17/25 02:00 Temperature Pulse Rate 83 80 72 Respiratory Rate 18 Blood Pressure Pulse Oximetry 97 Oxygen Delivery Room Air 09/17/25 04:00 09/17/25 04:34 09/17/25 05:07 Temperature 36.7 C Pulse Rate 83 85 85 Respiratory Rate 18 18 Blood Pressure 112/56 L Pulse Oximetry 97 97 Oxygen Delivery Room Air 09/17/25 06:00 09/17/25 08:00 Temperature 36.9 C Pulse Rate 72 76 Respiratory Rate 18 Blood Pressure 127/57 L Pulse Oximetry 97 Oxygen Delivery Intake/Output Intake/Output: Intake & Output 09/14/25 09/15/25 09/16/25 09/17/25 23:59 23:59 23:59 23:59 Intake Total 1040.1 1550 1210 1000 Output Total 1175 2200 700 Balance -134.9 -395 069 4019 Meds/Results Medications: Active Medications Generic Name Dose Route Start Last Admin Trade Name Freq PRN Reason Stop Dose Admin Acetaminophen 650 mg 09/14/25 00:40 09/14/25 16:32 Acetaminophen 325 Mg Tablet PO 650 mg Q4H PRN Administration Mild Pain (1-3) or Fever Calcium Carbonate 200 mg 09/14/25 13:34 09/14/25 13:46 Calcium Carbonate (Tums) 500 Mg (200 Mg Elemental) PO 200 mg Q6H PRN Administration Indigestion Cyanocobalamin 500 mcg 09/16/25 09:00 09/16/25 09:05 Cyanocobalamin 500 Mcg Tablet PO 500 mcg TuFr@0900 ALISON Administration Cyanocobalamin 2,000 mcg 09/16/25 09:00 09/16/25 09:05 Cyanocobalamin 1,000 Mcg Tablet PO 2,000 mcg TuFr@0900 ALISON Administration Cyclosporine 75 mg 09/14/25 09:00 09/17/25 09:07 Cyclosporine (Neoral) 25 Mg Capsule PO 75 mg DAILY ALISON Administration Enoxaparin Sodium 40 mg 09/14/25 09:00 09/17/25 09:05 Enoxaparin 40 Mg/0.4 Ml Syringe SUB-Q Not Given DAILY [facility]ISON Ergocalciferol 1,250 mcg 09/17/25 09:00 09/17/25 09:07 Ergocalciferol (Vitamin D2) 1,250 Mcg (50,000 Units) Capsule PO 1,250 mcg MONTHLY ALISON Administration Fish Oil 1 gm 09/14/25 09:00 09/17/25 09:06 [place] 3 Polyunsat Fatty Acids 1 Gm Cap PO Not Given DAILY ALISON Fluticasone Propionate 1 spray 09/13/25 22:39 Fluticasone Propionate 0.05% Na Spr 16 Gm Btl (*Bkc) NASAL DAILY PRN Congestion Folic Acid 1 mg 09/14/25 09:00 09/17/25 09:06 Folic Acid 1 Mg Tablet PO 1 mg DAILY ALISON Administration Furosemide 20 mg 09/14/25 09:00 09/17/25 09:05 Furosemide 20 Mg Tablet PO Not Given QAM ALISON Mycophenolate Mofetil 500 mg 09/13/25 22:55 09/17/25 09:06 Mycophenolate Mofetil 250 Mg Capsule PO 500 mg Q12HR ALISON Administration Pantoprazole Sodium 40 mg 09/14/25 09:00 09/17/25 09:06 Pantoprazole 40 Mg Tablet PO 40 mg QAM ALISON Administration Potassium Chloride 20 meq 09/14/25 08:00 09/17/25 09:07 Potassium Chloride 20 Meq Er Tablet PO 20 meq DAILY@0800 ALISON Administration Prednisone 5 mg 09/14/25 08:00 09/17/25 09:07 Prednisone 5 Mg Tablet PO 5 mg DAILY@0800 ALISON Administration Valacyclovir HCl 500 mg 09/14/25 09:00 09/17/25 09:06 Valacyclovir Hcl 500 Mg Tablet PO 500 mg DAILY ALISON Administration Radiology Results: ITS Impressions Ankle X-Ray 09/14/25 08:15 Impression: 1: No acute bone or joint abnormality. Chest X-Ray 09/15/25 10:47 IMPRESSION: No acute findings. Foot X-Ray 09/15/25 13:41 IMPRESSION: No acute abnormalities are seen. Labs Labs: Laboratory Results - last 24 hr 09/17/25 04:18 WBC 6.4 RBC 3.26 L Hgb 11.1 L Hct 33.3 L MCV 102.1 H MCH 34.0 MCHC 33.3 RDW 13.4 Plt Count 197 MPV 9.9 Sodium 137 Potassium 3.8 Chloride 108 H Carbon Dioxide 23 Anion Gap 6 BUN 22 H Creatinine 0.68 L Estim Creat Clear Calc Not Reportable Estimated GFR > 60 Glucose 105 Calcium 8.2 L Magnesium 1.8 Total Bilirubin 1.0 AST 31 ALT 29 Alkaline Phosphatase 77 Total Protein 6.2 L Albumin 3.6 Quality VTE Prophylaxis VTE prophylaxis: pharmacologic ordered (Lovenox 40 mg)
[2025-09-18] VITALS (8 sets, daily range): BP systolic 123–142; BP diastolic 59–75; PULSE 72–86; RESP 16–20; TEMP 36.7–36.8; O2SAT 96–99
--- NOTE | 2025-09-18 01:36 | PC.NURSE ---
Daylight Savings Time For Daylight Savings Time Ending in the Fall - Clocks are moved back. For Daylight Savings Time Beginning in the Spring - Clocks are moved ahead. For [facility], the time of change occurs at 0200 hrs. Time is taken from the senior sql server dba. This entry on the patient's chart recognizes the change in time reflected during documentation. Example: 2 entries for vital signs may be charted for 0200 hrs.
[2025-09-18 04:27] LABS: Hematocrit 33.7 % (37.0-47.0); Hemoglobin 11.1 g/dL (12.0-15.0); Mean Corpuscular HGB Conc 32.9 g/dl (32-36); Mean Corpuscular Hemoglobin 33.6 pg (26-34); Mean Corpuscular Volume 102.1 fl (80-100); Platelet Count Result 198 k/mm3 (150-375); Red Blood Count 3.30 M/mm3 (4.2-5.4); White Blood Count 5.5 K/mm3 (4.5-10.0)
[2025-09-18 04:46] LABS: Alanine Aminotransferase 30 U/L (6-35); Albumin Level 3.5 g/dL (3.5-5.1); Alkaline Phosphatase 76 U/L (38-126); Anion Gap 7 mmol/L (4-12); Aspartate Amino Transferase 32 U/L (14-36); Bilirubin,Total 1.0 mg/dL (0.2-1.3); Blood Urea Nitrogen 24 mg/dL (7-17); Calcium 8.5 mg/dL (8.4-10.2); Carbon Dioxide 23 mmol/L (22-30); Chloride 107 mmol/L (98-107); Estimated Glomerular Filt Rate > 60; Glucose 101 mg/dL (65-110); Magnesium 1.7 mg/dL (1.6-2.3); Potassium 4.0 mmol/L (3.4-5.0); Sodium 137 mmol/L (137-145); Total Protein 6.4 g/dL (6.3-8.2)
[2025-09-18] MEDS: CALCIUM CARBONATE (TUMS) 500 MG (200 MG ELEMENTAL) PO (08:49)
[2025-09-18] MEDS: cycloSPORINE (NEORAL) 25 MG CAPSULE 75 MG PO (08:51)
[2025-09-18] MEDS: POTASSIUM CHLORIDE 20 MEQ ER TABLET PO (08:51)
[2025-09-18] MEDS: PANTOPRAZOLE 40 MG TABLET PO (08:52)
[2025-09-18] MEDS: FOLIC ACID 1 MG TABLET PO (08:52)
--- NOTE | 2025-09-18 10:55 | PM.IMPN ---
Progress Note: A&P Assessment and Plan (1) Sick sinus syndrome: Code(s): I49.5 - Sick sinus syndrome Status: Acute (2) Aortic stenosis: Qualifiers: Cardiac valve disease etiology: nonrheumatic Qualified Code(s): I35.0 - Nonrheumatic aortic (valve) stenosis Code(s): I35.0 - Nonrheumatic aortic (valve) stenosis Status: Acute (3) Diastolic dysfunction: Code(s): I51.89 - Other ill-defined heart diseases Status: Acute (4) Hypomagnesemia: Code(s): E83.42 - Hypomagnesemia Status: Acute (5) Transaminitis: Code(s): R74.01 - Elevation of levels of liver transaminase levels Status: Acute (6) History of renal transplant: Onset Date: 1995 Code(s): Z94.0 - Kidney transplant status Status: Chronic (7) Immunosuppression due to drug therapy: Code(s): D84.821 - Immunodeficiency due to drugs; Z79.899 - Other halfway (current) drug therapy Status: Chronic Plan Patient presents with sick sinus syndrome with symptomatic pauses. Frequency of pauses increased in the ER patient required initiation of rhythm agents with dopamine. Cardiology has been consulted. Will place pacer pads on the patient in case external pacing needed. Patient is not on any rhythm medications that would induce cardiac arrhythmia. Electrolytes are stable but magnesium is slightly low at 1.6. Will give 2 g magnesium sulfate rider. The patient does have mild transaminitis with elevated AST ALT and bilirubin likely due to relative hypoperfusion with episodes of sinus pause creating low-flow state. Will repeat CMP in a.m.. Toxicity from immunosuppressive therapy much less likely. Patient does have history of renal transplant in the but renal function is great. Will continue anti-rejection medications. Will monitor strict I&O's. Patient does have diastolic dysfunction and aortic stenosis as well as moderate tricuspid regurg but is not in overt heart failure. Patient appears euvolemic. Will continue home Lasix. As mentioned above the patient's condition changed at around 03:00 the. She began having multiple prolonged and/or symptomatic pauses. Her rhythm was flipping between sinus rhythm with frequent premature contractions to third-degree heart block and secondary use of block type 2. Just before initiation of external pacing the patient flipped into AFib but still was only having heart rates as between 30 and 50 with symptomatology. Patient was requiring appy age of 71 maintain capture. The patient was given fentanyl and Versed as needed for pain/sedation. Medication adjustments were made as discussed above. Due to persistence of symptoms criminology professor is coming in to place a temporary pacemaker. Patient reiterates that she is okay with medications to keep her heart rate going. She otherwise wants to be a DNR/DNI. But she understands that she would have to rescind her DNR/DNI for placement of a cardiac pacemaker. She understands that she would need to do this in order to have a chance to return home with a functional status.. She is still active and independent activities of daily living despite her age. She states that if she were to have a stroke or being able to feed herself she would not want feeding tube and if she was unable to otherwise communicate her wants her desires she would want to be made comfort measures. She states that she is alone in the world she is has no children and has no remaining family. 81 y/o female presented to ER with syncopal episodes and was found to having long asystolic pauses with complete heart block occurring intermittently. patient was seen by the horticultural services supervisor and had temporary pacemaker placed and later permanent pace maker placed, patient stats feels better has no complaints of dizziness or palpitation, patient will be seen by her horticultural services supervisor and further recommendation to follow. today repeat chest x-ray did not show in pneumothorax, seen by horticultural services supervisor and pacemaker is functioning fine, however patient felt dizzy and her lisinopril was reduce 5mg and monitor, patient has c/o pain in her right foot and ankle to further evaluate patient had x-ray of the foot and ankle it did not show any acute bony injury most likely patient may have sprain her ankle, will have PT/OT the patient will benefit going to acute rehab, will monitor, 09/16/2025 Cardio consult noted, no new episode today, will continue to monitor. 09/17/2025 Cardiology consult noted. Plan is to continue current treatment and monitor closely. 09/18/2025 Stable exam. Continue current treatment. Waiting for rehab placement. Subjective Date/time seen: 09/18/25 10:55 Interval history: Patient was seen during the morning rounds today. Feeling ok, no sob or chest pain. No nausea vomiting or diarrhea Review of Systems Review of Systems: 12 systems were reviewed with pertinent positives and negatives per HPI. Except as documented in the HPI, all other systems were reviewed and are negative. All systems reviewed & are unremarkable except as noted in HPI and below (HPI) Exam Narrative: Patient is comfortable, NAD HEENT: eyes are clear and none icteric LUNGS:CTA HEART: RR S1S2 ABD: BS+, Soft and nontender Lower extremities: no edema SKIN: nonjaundiced Neuro: grossly intact. Objective Data Vital Signs Vital Signs: Vital Signs - 24 hr 09/17/25 12:00 09/17/25 12:00 09/17/25 12:00 Temperature 36.9 C Pulse Rate 94 78 Respiratory Rate 18 Blood Pressure 148/50 H Pulse Oximetry 96 Oxygen Delivery Room Air 09/17/25 14:00 09/17/25 16:00 09/17/25 16:00 Temperature 37.0 C Pulse Rate 81 82 Respiratory Rate 20 Blood Pressure 151/55 H Pulse Oximetry 97 Oxygen Delivery Room Air 09/17/25 16:00 09/17/25 18:00 09/17/25 20:00 Temperature 36.8 C Pulse Rate 87 80 76 Respiratory Rate 16 Blood Pressure 130/65 Pulse Oximetry 98 Oxygen Delivery 09/17/25 20:00 09/17/25 20:31 09/17/25 22:00 Temperature Pulse Rate 79 76 73 Respiratory Rate 16 Blood Pressure Pulse Oximetry 98 Oxygen Delivery Room Air 09/17/25 23:18 09/17/25 23:39 09/18/25 00:00 Temperature 36.8 C Pulse Rate 81 81 72 Respiratory Rate 16 16 Blood Pressure 157/73 H Pulse Oximetry 98 98 Oxygen Delivery Room Air 09/18/25 01:35 CDT 09/18/25 04:00 09/18/25 04:00 Temperature Pulse Rate 73 81 73 Respiratory Rate 18 Blood Pressure Pulse Oximetry 96 Oxygen Delivery Room Air 09/18/25 04:19 09/18/25 05:21 09/18/25 07:56 Temperature 36.8 C 36.8 C Pulse Rate 81 73 82 Respiratory Rate 18 16 Blood Pressure 142/59 H 136/75 Pulse Oximetry 96 99 Oxygen Delivery 09/18/25 08:00 09/18/25 08:00 Temperature Pulse Rate 86 Respiratory Rate Blood Pressure Pulse Oximetry Oxygen Delivery Room Air Intake/Output Intake/Output: Intake & Output 09/15/25 09/16/25 09/17/25 09/18/25 23:59 23:59 23:59 22:59 Intake Total 1550 1210 2880 790 Output Total 2200 700 850 Balance -734 319 6858 -60 Meds/Results Medications: Active Medications Generic Name Dose Route Start Last Admin Trade Name Freq PRN Reason Stop Dose Admin Acetaminophen 650 mg 09/14/25 00:40 09/14/25 16:32 Acetaminophen 325 Mg Tablet PO 650 mg Q4H PRN Administration Mild Pain (1-3) or Fever Calcium Carbonate 200 mg 09/14/25 13:34 09/18/25 08:49 Calcium Carbonate (Tums) 500 Mg (200 Mg Elemental) PO 200 mg Q6H PRN Administration Indigestion Cyanocobalamin 500 mcg 09/16/25 09:00 09/16/25 09:05 Cyanocobalamin 500 Mcg Tablet PO 500 mcg TuFr@0900 ALISON Administration Cyanocobalamin 2,000 mcg 09/16/25 09:00 09/16/25 09:05 Cyanocobalamin 1,000 Mcg Tablet PO 2,000 mcg TuFr@0900 ALISON Administration Cyclosporine 75 mg 09/14/25 09:00 09/18/25 08:51 Cyclosporine (Neoral) 25 Mg Capsule PO 75 mg DAILY ALISON Administration Enoxaparin Sodium 40 mg 09/14/25 09:00 09/18/25 08:51 Enoxaparin 40 Mg/0.4 Ml Syringe SUB-Q Not Given DAILY [facility] Ergocalciferol 1,250 mcg 09/17/25 09:00 09/17/25 09:07 Ergocalciferol (Vitamin D2) 1,250 Mcg (50,000 Units) Capsule PO 1,250 mcg MONTHLY ALISON Administration Fish Oil 1 gm 09/14/25 09:00 09/18/25 08:50 [place] 3 Polyunsat Fatty Acids 1 Gm Cap PO Not Given DAILY ALISON Fluticasone Propionate 1 spray 09/13/25 22:39 Fluticasone Propionate 0.05% Na Spr 16 Gm Btl (*Bkc) NASAL DAILY PRN Congestion Folic Acid 1 mg 09/14/25 09:00 09/18/25 08:52 Folic Acid 1 Mg Tablet PO 1 mg DAILY ALISON Administration Furosemide 20 mg 09/14/25 09:00 09/18/25 08:52 Furosemide 20 Mg Tablet PO Not Given QAM ALISON Mycophenolate Mofetil 500 mg 09/13/25 22:55 09/18/25 08:52 Mycophenolate Mofetil 250 Mg Capsule PO 500 mg Q12HR ALISON Administration Pantoprazole Sodium 40 mg 09/14/25 09:00 09/18/25 08:52 Pantoprazole 40 Mg Tablet PO 40 mg QAM ALISON Administration Potassium Chloride 20 meq 09/14/25 08:00 09/18/25 08:51 Potassium Chloride 20 Meq Er Tablet PO 20 meq DAILY@0800 ALISON Administration Prednisone 5 mg 09/14/25 08:00 09/18/25 08:51 Prednisone 5 Mg Tablet PO 5 mg DAILY@0800 ALISON Administration Valacyclovir HCl 500 mg 09/14/25 09:00 09/18/25 08:52 Valacyclovir Hcl 500 Mg Tablet PO 500 mg DAILY ALISON Administration Radiology Results: ITS Impressions Ankle X-Ray 09/14/25 08:15 Impression: 1: No acute bone or joint abnormality. Chest X-Ray 09/15/25 10:47 IMPRESSION: No acute findings. Foot X-Ray 09/15/25 13:41 IMPRESSION: No acute abnormalities are seen. Labs Labs: Laboratory Results - last 24 hr 09/18/25 03:49 WBC 5.5 RBC 3.30 L Hgb 11.1 L Hct 33.7 L MCV 102.1 H MCH 33.6 MCHC 32.9 RDW 13.2 Plt Count 198 MPV 9.6 Sodium 137 Potassium 4.0 Chloride 107 Carbon Dioxide 23 Anion Gap 7 BUN 24 H Creatinine 0.66 L Estim Creat Clear Calc Not Reportable Estimated GFR > 60 Glucose 101 Calcium 8.5 Magnesium 1.7 Total Bilirubin 1.0 AST 32 ALT 30 Alkaline Phosphatase 76 Total Protein 6.4 Albumin 3.5 Quality VTE Prophylaxis VTE prophylaxis: pharmacologic ordered (Lovenox 40 mg)
--- NOTE | 2025-09-18 12:31 | PC.NURSE ---
This patient, Negrita Oconnell, was transferred to [facility] on 09/18/25 at 1230. Personal belongings sent with patient. Report given to Afsaneh ADKINS. Appropriate documentation sent with patient.
[2025-09-19] VITALS: BP 118/68; PULSE 85; RESP 18; TEMP 36.9; O2SAT 97
[2025-09-19 05:06] VITALS: BP 124/67; PULSE 70; RESP 18; TEMP 36.3; O2SAT 98
[2025-09-19 05:54] LABS: Hematocrit 33.6 % (37.0-47.0); Hemoglobin 11.4 g/dL (12.0-15.0); Mean Corpuscular HGB Conc 33.9 g/dl (32-36); Mean Corpuscular Hemoglobin 34.5 pg (26-34); Mean Corpuscular Volume 101.8 fl (80-100); Platelet Count Result 200 k/mm3 (150-375); Red Blood Count 3.30 M/mm3 (4.2-5.4); White Blood Count 5.6 K/mm3 (4.5-10.0)
[2025-09-19 06:26] LABS: Alanine Aminotransferase 28 U/L (6-35); Albumin Level 3.6 g/dL (3.5-5.1); Alkaline Phosphatase 77 U/L (38-126); Anion Gap 7 mmol/L (4-12); Aspartate Amino Transferase 31 U/L (14-36); Bilirubin,Total 1.0 mg/dL (0.2-1.3); Blood Urea Nitrogen 21 mg/dL (7-17); Calcium 8.7 mg/dL (8.4-10.2); Carbon Dioxide 23 mmol/L (22-30); Chloride 106 mmol/L (98-107); Estimated Glomerular Filt Rate > 60; Glucose 108 mg/dL (65-110); Magnesium 1.7 mg/dL (1.6-2.3); Potassium 3.9 mmol/L (3.4-5.0); Sodium 136 mmol/L (137-145); Total Protein 6.4 g/dL (6.3-8.2)
[2025-09-19] MEDS: MAGNESIUM SULF 1 GM/D5W 100 ML 1 GM/100 ML BAG IVPB (08:23)
[2025-09-19] MEDS: POTASSIUM CHLORIDE 20 MEQ ER TABLET PO (08:23)
[2025-09-19] MEDS: PANTOPRAZOLE 40 MG TABLET PO (08:23)
[2025-09-19] MEDS: FOLIC ACID 1 MG TABLET PO (08:24)
[2025-09-19] MEDS: cycloSPORINE (NEORAL) 25 MG CAPSULE 75 MG PO (08:24)
--- NOTE | 2025-09-19 13:07 | PM.DS ---
DS: Admitting Diagnosis Discharge Date 09/19/25 Admitting Diagnosis Sick sinus syndrome DS: Discharge Diagnosis Discharge Diagnosis (1) Hypertension: Qualifiers: Hypertension type: essential hypertension Qualified Code(s): I10 - Essential (primary) hypertension Code(s): I10 - Essential (primary) hypertension Status: Chronic (2) Diastolic dysfunction: Code(s): I51.89 - Other ill-defined heart diseases Status: Acute (3) Aortic stenosis: Qualifiers: Cardiac valve disease etiology: nonrheumatic Qualified Code(s): I35.0 - Nonrheumatic aortic (valve) stenosis Code(s): I35.0 - Nonrheumatic aortic (valve) stenosis Status: Acute (4) Sick sinus syndrome: Code(s): I49.5 - Sick sinus syndrome Status: Acute DS: Summary Hospital Course Reason for hospitalization: Symptomatic sick sinus syndrome Hospital Course: 80-year-old female with a past medical history of kidney transplant over 20 years ago with good preserved renal function, GERD, mild to moderate aortic valve stenosis, moderate tricuspid regurgitation and diastolic heart failure on low-dose Lasix who presented to the ER via EMS from home due syncopal episodes.When the patient arrived to the ER her blood pressures were stable and her heart rate was normal but she proceeded to have multiple episodes of the non conduction of ventricular beats with pauses lasting up to 4 seconds that were symptomatic. Patient was started on external pacing. Cardiology was consulted. Status post pacemaker placement by Cardiology. Postprocedure stay has been uneventful. Lisinopril was decreased to 5 mg daily. Patient is being discharged to SNF in stable condition. Status at Discharge Overall status at discharge: patient is back to baseline Time Spent with Patient Time attestation: Total time spent providing and/or coordinating discharge services: 32 minutes Exam Narrative: Patient is comfortable, NAD HEENT: eyes are clear and none icteric LUNGS:CTA HEART: RR S1S2 ABD: BS+, Soft and nontender Lower extremities: no edema SKIN: nonjaundiced Neuro: grossly intact. DS: Data Data Completed and Pending Labs on day of discharge: Labs from last 24 hours 09/19/25 05:42 WBC 5.6 RBC 3.30 L Hgb 11.4 L Hct 33.6 L MCV 101.8 H MCH 34.5 H MCHC 33.9 RDW 13.2 Plt Count 200 MPV 9.5 Sodium 136 L Potassium 3.9 Chloride 106 Carbon Dioxide 23 Anion Gap 7 BUN 21 H Creatinine 0.66 L Estim Creat Clear Calc Not Reportable Estimated GFR > 60 Glucose 108 Calcium 8.7 Magnesium 1.7 Total Bilirubin 1.0 AST 31 ALT 28 Alkaline Phosphatase 77 Total Protein 6.4 Albumin 3.6 Discharge Plan Discharge Attending physician on discharge: Alana Han Consulting providers: Iftikhar Ray; Ayan Rosen; Saji Mcfarland Discharging Clinician: Alana Han Anticipated Discharge Date/Time: 09/19/25 13:05 Patient Disposition: SNF Activity: as tolerated Diet: heart healthy Discharge Instructions: [facility] [address] [place], [place] [id number] DISCHARGE INSTRUCTIONS - POST PACEMAKER Activity 1. No driving until you are seen in the office for your incision check. 2. No lifting, pushing or pulling more than 5 pounds with affected arm for 1 MONTH 3. No lifting affected arm above shoulder height for 1 MONTH 4. Wear immobilizer/sling only if you are unable to remember the above activity restrictions. Recommend that it be worn at night. 5. You may shower AFTER you are seen for incision check but no tub baths, swimming pool or hot tub for 1MONTH Wound Care 1. Do not attempt to remove the Aquacel dressing. Leave dressing undisturbed until incision check at the office visit. Keep dressing dry. 2. When you are able to shower AFTER you are seen for your incision check in the office do not rub or scrub the incision. Pat dry after shower. NO lotions, powders, creams or ointments are to be applied to the incision 3. A small amount of tenderness, puffiness and bruising around the site is normal. Call if any significant pain, drainage, swelling, or redness around the site 4. Woman: Wear a bra to support the breast tissue and avoid pulling on the incision. Pad the bra strap if necessary with soft smooth cloth. *For any other questions please call the office at [phone]. Office hours are 8AM 4:30PM Friday through Friday. Patient Language: Albanian Stand Alone Forms: General Discharge Information Follow-up/Referrals: Saji Mcfarland MD [Physician, Cardiology] - 09/23/25 11:00 am Discharge Medications: Continued mycophenolate mofetil 500 mg tablet 500 mg PO Q12H prednisone 5 mg tablet 5 mg PO DAILY furosemide 20 mg tablet 20 mg PO QAM simvastatin 20 mg tablet 20 mg PO DAILY valacyclovir 500 mg tablet 500 mg PO DAILY ergocalciferol (vitamin D2) 1,250 mcg (50,000 unit) capsule 1,250 mcg PO MONTHLY Rx Instructions: Takes on the 1st of every month Centrum Silver 0.4-300-250 mg-mcg-mcg tablet 1 tablet PO DAILY omega-3 fatty acids-fish oil [Fish Oil] 360-1,200 mg capsule 1 cap PO DAILY mecobalamin (vitamin B12) 1,000 mcg tablet,chewable 2,500 mcg PO .COMPLEX Rx Instructions: 2,500 mcg orally twice per week; fluticasone propionate 50 mcg/actuation spray,suspension 1 spray intranasal DAILY PRN (Reason: Congestion) Rx Instructions: administer into each nostril esomeprazole magnesium [Nexium] 20 mg capsule,delayed release(DR/EC) 20 mg PO DAILY folic acid 1 mg tablet 1 mg PO DAILY loratadine [Alavert] 10 mg tablet,disintegrating 10 mg PO DAILY PRN (Reason: Allergy Symptoms) [facility] Promise Restore capsule 1 cap PO DAILY risedronate 150 mg tablet 150 mg PO MONTHLY Qty: 3 4RF Rx Instructions: administer at least 30 minutes before the first food or drink of the day other than water. Takes on the first of every month cyclosporine modified [Neoral] 25 mg capsule 75 mg PO DAILY potassium chloride 10 mEq tablet extended release 20 meq PO DAILY metronidazole 1 % cream 1 applic topical DAILY PRN (Reason: rash) Qty: 60 1RF nystatin [Nystop] 100,000 unit/gram powder 1 applic topical BID Qty: 60 1RF Changed lisinopril 5 mg tablet 5 mg PO DAILY Qty: 30 0RF Date of admission: 09/13/25 20:39 Primary Care Provider: Epi Crowley Admitting Provider: Erum Gimenez Attending physician on admission: Erum Gimenez Condition: Stable
[2025-09-19 14:00] VITALS: BP 123/64; PULSE 85; RESP 16; TEMP 36.7; O2SAT 97
== END 2025-09-19 14:55 | DRG 243 ==
LOC: ANHED 19:13 → ANHICU 21:19 → ANHIMU 09-14 11:45 → ANH3MEDSUR 09-18 12:30
PROVIDERS: Emergency Medicine; Internal Medicine; Internal Medicine Cardiovascular Disease; Specialist; Admitting Provider Internal Medicine; Emergency Provider Student in an Organized Health Care Education/Training Program; PCP Family Medicine; Visit Provider Internal Medicine
PROC: 5A1221Z Performance of Cardiac Output, Continuous (ICD-10-PCS; CPT 33210; principal; 2025-09-14 04:55)
PROC: 0JH606Z Insertion of Pacemaker, Dual Chamber into Chest Subcutaneous Tissue and Fascia, Open Approach (ICD-10-PCS; CPT 33208; principal; 2025-09-14 08:30)
DX: I49.5 Sick sinus syndrome (principal); D84.821 Immunodeficiency due to drugs; I44.2 Atrioventricular block, complete; Z94.0 Kidney transplant status; I35.0 Nonrheumatic aortic (valve) stenosis; I36.1 Nonrheumatic tricuspid (valve) insufficiency; I11.9 Hypertensive heart disease without heart failure; I51.89 Other ill-defined heart diseases; I48.91 Unspecified atrial fibrillation; I49.3 Ventricular premature depolarization; E78.5 Hyperlipidemia, unspecified; K21.9 Gastro-esophageal reflux disease without esophagitis; M81.0 Age-related osteoporosis without current pathological fracture; E53.8 Deficiency of other specified B group vitamins; G25.81 Restless legs syndrome; E83.42 Hypomagnesemia; E86.0 Dehydration; L71.9 Rosacea, unspecified; S93.401A Sprain of unspecified ligament of right ankle, initial encounter; W18.39XA Other fall on same level, initial encounter; R42 Dizziness and giddiness; T46.4X5A Adverse effect of angiotensin-converting-enzyme inhibitors, initial encounter; Z66 Do not resuscitate; Z79.51 Long term (current) use of inhaled steroids; Z79.621 Long term (current) use of calcineurin inhibitor
CPT/HCPCS: 33208; 33210; 36415; 71045; 71046; 73610; 73620; 80048; 80053; 83690; 83735; 84100; 84484; 85025; 85027; 85610; 85730; 87641; 93005; 97110; 97116; 97162; 97166; 97530; 97535; 99285; A9270; C1779; C1785; C1894; C8929; J0461; J0690; J1265; J1644; J1650; J2003; J2250; J3010; J3475; J7030; J7040; J7512; J7515; J7517; Q9957